=== PATIENT | female | born 1940 | race Caucasian/White ===

== ENCOUNTER 2018-08-12 16:41 | Observation (INO) ==
[2018-08-12 17:22] LABS: Basophils # (auto) 0.01 K/uL (0-0.2); Basophils % (auto) 0.1 %; Eosinophils # (auto) 0.14 K/uL (0-0.5); Eosinophils % (auto) 1.9 %; Hematocrit (blood only) 37.7 % (37-47); Hemoglobin 12.6 g/dL (12.0-16.0); Immature Granulocytes # (auto) 0.02 K/uL (0.00-0.02); Immature Granulocytes % (auto) 0.3 %; Lymphocytes # (auto) 1.74 K/uL (1.2-3.4); Lymphocytes % (auto) 23.5 %; Mean Corpuscular Hgb Conc 33.4 g/dL (32-36); Mean Corpuscular Volume 90.8 fL (80-100); Mean Platelet Volume 9.9 fL (7.4-10.4); Monocytes % (auto) 6.8 %; Neutrophils # (auto) 4.98 K/uL (1.4-6.5); Neutrophils % (auto) 67.4 %; Platelet Count 215 K/uL (130-400); RDW Coefficient of Variation 14.2 % (11.5-14.5); RDW Standard Deviation 46.8 fL (36.4-46.3); Red Blood Count 4.15 M/uL (4.2-5.4); White Blood Count 7.39 K/uL (4.8-10.8)
[2018-08-12 17:31] LABS: iSTAT Hemoglobin 12.6 g/dl (12.0-16.0); iSTAT Ionized Calcium 1.23 mmol/l (1.12-1.32)
[2018-08-12 17:38] LABS: Alanine Aminotransferase 24 U/L (12-78); Albumin Level 3.8 gm/dl (3.4-5.0); Aspartate Aminotransferase 24 U/L (15-37); BUN Creatinine Ratio 36.6 (10-20); Blood Urea Nitrogen 65 mg/dl (7-18); Calcium 9.2 mg/dl (8.5-10.1); Carbon Dioxide 23 mmol/L (21-32); Chloride 112 mmol/L (98-107); Creatinine Clr Calc Pharmacy 27.4 ml/min; Est GFR (African American) 31.6; Est GFR (Non-African American) 27.2; Glucose 149 mg/dl (70-99); Potassium 4.8 mmol/L (3.5-5.1); Sodium 143 mmol/L (136-145)
[2018-08-12] MEDS ORDERED: SODIUM CHLORIDE 0.9% 1000ML 500 ML IV ONE ×2 (17:38→18:36)
[2018-08-12 17:44] LABS: Alkaline Phosphatase 76 U/L (45-117); Bilirubin,Total 0.4 mg/dl (0.2-1); Creatine Kinase 192 U/L (26-192); Creatine Kinase MB 2.6 ng/ml (0.5-3.6); Globulin 3.9 gm/dl (2.5-4.0); Total Protein 7.7 gm/dl (6.4-8.2); Troponin I < 0.015 ng/ml (0-0.045)
[2018-08-12] MEDS ORDERED: OPTIRAY 320 125ml IV PRN (17:58)
--- NOTE | 2018-08-12 18:04 | CT Scan Report ---
CT ANGIOGRAM OF THE CHEST CLINICAL HISTORY: Atypical chest pain. Possible pulmonary embolism. COMPARISON STUDY: Noncontrast chest CT dated 05/03/2014 TECHNIQUE: Following the IV administration of 91 mL of Optiray-320, CT angiogram of the thorax was pe rformed from the thoracic inlet to the lung bases utilizing the pulmonary embolus protocol. Images ar e reviewed in the axial, sagittal, and coronal planes. IV contrast was administered without complicat ion. MIP imaging was performed. A dose lowering technique was utilized adhering to the principles of ALARA. CT DOSE: 555.41 mGy.cm FINDINGS: There is a partially calcified 9 mm right lobe thyroid nodule. No pathologically enlarged axillary mediastinal or hilar lymph nodes were visualized. There was no evidence of thoracic aortic dilatation. There were no pulmonary artery filling defects to indicate acute pulmonary embolism. No pleural effusions are visualized. There was no evidence of focal pulmonary consolidation. There is a stable 4 mm right lower lobe pulmo nary nodule. IMPRESSION: 1. No evidence of acute pulmonary embolism 2. No evidence of acute parenchymal consolidation 2. No evidence of pathologic adenopathy Electronically signed by: Ayan Iqbal M.D. 08/12/2018 6:03 PM
--- NOTE | 2018-08-12 18:58 | Ultrasound Report ---
US venous doppler LE LT CLINICAL HISTORY: 78 years-old Female presenting with Pt c/o Left leg pain, history of DVT. TECHNIQUE: Real-time grayscale and color and spectral Doppler ultrasound imaging of the veins of the left lower extremity was performed. Compression and augmentation were also utilized. COMPARISON: 05/01/2014. FINDINGS: LEFT: Common femoral vein: Patent. Greater saphenous vein (superficial): Patent. Deep femoral vein: Patent. Femoral vein: Patent. Popliteal vein: Patent. Calf veins: Patent. Previously noted thrombus in the posterior tibial and peroneal veins has resolved . Other: None. IMPRESSION: No evidence of deep venous thrombosis. Electronically signed by: Shantanu Navas M.D. 08/12/2018 6:56 PM
[2018-08-12] MEDS ORDERED: ACETAMINOPHEN 325 MG TAB PO PRN (22:40)
[2018-08-12] MEDS ORDERED: MAGNESIUM HYDROXIDE SUSP 30 ML UDC PO PRN (22:40)
[2018-08-12] MEDS ORDERED: NITROGLYCERIN SL 0.4 MG/TAB TAB SL PRN (22:40)
[2018-08-12] MEDS ORDERED: DEXTROSE 50% 50 ML SYRINGE IV PRN (22:40)
[2018-08-12] MEDS ORDERED: ONDANSETRON INJ 2 MG/ML 2 ML VIAL IV PRN (22:40)
[2018-08-12] MEDS ORDERED: ALUMINUM/MAGNESIUM SUSP 30 ML UDC PO PRN (22:40)
[2018-08-12] MEDS ORDERED: GLUCOSE 10 TABS/TUBE PO PRN (22:40)
[2018-08-12] MEDS ORDERED: GLUCOSE 40% GEL 15 GM TUBE PO PRN (22:40)
[2018-08-12] MEDS ORDERED: OXYBUTYNIN CHLORIDE XL 5 MG TABCR PO PRN (22:40)
[2018-08-12] MEDS ORDERED: ACETAMINOPHEN 1000 MG/100 ML IV IV PRN (22:40)
[2018-08-12] MEDS ORDERED: CARBOHYDRATES FOR HYPOGLYCEMIA PO PRN (22:40)
[2018-08-12] MEDS ORDERED: hydrOXYzine HCl 10 MG TAB PO PRN (22:40)
[2018-08-12] MEDS ORDERED: GLUCAGON FOR INJ 1 MG VIAL SQ PRN (22:40)
--- NOTE | 2018-08-12 23:48 | History & Physical Report ---
Date of Service August 12, 2018 Assessment & Plan (1) Chest pain: Chest pain / dyspnea on exertion- The patient will be admitted to telemetry for serial cardiac enzymes, serial EKG's, cardiac rhythm monitoring and a 2-D echocardiogram with Dopplers. The chest pain does not appear to be directly related to dyspnea on exertion, but appears to be more related to uncomfortable sensation she has associated with abdominal hernia. Multiple risk factors for heart disease including hyperlipidemia, diabetes mellitus, hypertension and obesity. She will need a stress test prior to discharge, if her work-up at baseline is normal. Present on Admission?: Yes (2) Dyspnea on exertion: As above. Present on Admission?: Yes (3) Pulmonary embolism: CTA chest was negative for PE Present on Admission?: Yes (4) Acute kidney injury (nontraumatic): Creatinine 1.77 upon admission, with range anywhere from 1.2-2.38. Hold lisinopril, furosemide and naproxen. We will hold off on any further IV fluids for now, she did receive a total of 1 L normal saline while in the ED. Repeat laboratories in a.m. Present on Admission?: Yes (5) Hypertension: As above. Present on Admission?: Yes (6) Hyperglycemia due to type 2 diabetes mellitus: Continue glimepiride 1 mg p.o. every morning. Check hemoglobin A1c. Placed on Accu-Cheks before meals and at bedtime with NovoLog coverage per scale. Present on Admission?: Yes (7) Depression: The patient did ask if her symptoms could be related to the recent of her son 5 months ago. I told her that issues with dyspnea on exertion were not likely related. We will continue her sertraline 25 mg p.o. every morning. It would likely be a benefit for her to be in counseling. Present on Admission?: Yes (8) GERD (gastroesophageal reflux disease): Continue ranitidine 150 mg p.o. every morning. Does not look to be related to her symptoms. Present on Admission?: Yes (9) Vitamin B12 deficiency: Continue supplement 1500 mcg p.o. every morning Present on Admission?: Yes (10) Hyperlipidemia LDL goal <70: Continue atorvastatin 20 mg p.o. every morning and Zetia 10 mg p.o. every morning. Check a fasting lipid panel Present on Admission?: Yes (11) Bladder spasms: Continue oxybutynin 50 mg p.o. daily as needed. Present on Admission?: Yes (12) Lower extremity edema: Lower extremity edema that she and her daughter reports as more pronounced by days and does improve by the morning. Holding furosemide for now due to acute kidney injury. Reassess in the morning. Present on Admission?: Yes History of Present Illness Chief Complaint: The patient presents to the emergency department with complaint of pain across her lower chest area and dyspnea on exertion. Primary Care Provider: AMBROCIO Fallon The patient is a 78-year-old female with a past medical history including hypertension,hyperlipidemia,venous insufficiency,diabetes mellitus who presents to the emergency department with complaint of pain across her lower chest and dyspnea on exertion walking even short distances, that relieves immediately with rest. The chest pain seems to occur independently of the dyspnea on exertion, and she relates it to a hernia. Her daughter does also report that the patient has had some increased lower extremity edema, and has been more fatigued. The patient asks if the of her son 5 months ago may be the cause of her symptoms, and she does become tearful when discussing his .. Allergies Allergy/AdvReac Type Severity Reaction Status Date / Time No Known Allergies Allergy Unknown Verified 08/12/18 17:55 Home Medications Home Medications Medication Instructions Recorded Confirmed Type ascorbic acid (vitamin C) [Vitamin 500 mg PO QAM 08/12/18 08/12/18 History C] aspirin [Aspir-81] 81 mg PO QAM 08/12/18 08/12/18 History atorvastatin 20 mg PO QAM 08/12/18 08/12/18 History cyanocobalamin (vitamin B-12) 1,500 mcg PO QAM 08/12/18 08/12/18 History [Vitamin B-12] ezetimibe [Zetia] 10 mg PO QAM 08/12/18 08/12/18 History furosemide [Lasix] 20 mg PO QAM 08/12/18 08/12/18 History glimepiride [Amaryl] 1 mg PO QAM 08/12/18 08/12/18 History hydroxyzine HCl 10 mg PO TID PRN 08/12/18 08/12/18 History lisinopril 40 mg PO QAM 08/12/18 08/12/18 History magnesium oxide 250 mg PO QAM 08/12/18 08/12/18 History metoprolol succinate [Toprol XL] 25 mg PO QAM 08/12/18 08/12/18 History multivitamin 1 tab PO QAM 08/12/18 08/12/18 History naproxen 500 mg PO BID PRN 08/12/18 08/12/18 History oxybutynin chloride 15 mg PO DAILY PRN 08/12/18 08/12/18 History ranitidine HCl [Zantac] 150 mg PO QAM 08/12/18 08/12/18 History sertraline 25 mg PO QAM 08/12/18 08/12/18 History Past Med/Surg History Medical History Hyperglycemia (Chronic) Pulmonary emboli (Chronic 05/01/14) Renal insufficiency (Chronic) Family History Other No significant family history Social History Preferred Language: Kiswahili Communication Ability: Effective Healthcare Recruiter Required: No Beliefs That Will Affect Care: None Current Living Situation: Family Other Information That Helps Us Care for You: No Feels Safe at Home: Yes Safety Concerns: Feels Safe At This Time Smoking Status: Never smoker Hx Alcohol Use: No Hx Substance Use: No Review of Systems Review of Systems: The patient denies palpitations, shortness of breath at rest, cough, sore throat, fevers, chills, sweats, nausea, vomiting, diarrhea , constipation, abdominal pain, pelvic pain, blood in urine or stool, dysuria, urinary frequency or urgency, lightheadedness, dizziness, headache, memory loss, loss of consciousness, rash, abnormal bruising or bleeding, imbalance, focal or generalized weakness, numbness or tingling in arms or legs, generalized arthralgias or myalgias, back or neck pain, or night sweats. The review of systems is otherwise negative other than for that already noted above, and at least 10 systems have been reviewed. Physical Exam Physical Exam: The patient is awake, alert and oriented 3, normocephalic and atraumatic, lying in bed and in no acute distress. HEENT--PERRL, EOMI, mucous membranes and oropharynx normal. Neck--supple. No JVD. No bruits. Thyroid normal, trachea midline, no adenopathy. Heart--normal S1 and S2. No murmurs, rubs or gallops. Lungs--clear bilaterally, no respiratory distress, no accessory muscle use. Abdomen--normal bowel sounds and soft. Nontender. Nondistended. Diastases recti. Obese Extremities--no cyanosis or clubbing. 1+ bilateral pretibial pitting edema. There are good distal pulses b/l. Dermatologic--normal skin turgor, normal color, no abnormal lymph nodes, no rash. Neurologic--cranial nerves II through XII grossly intact. Rheumatologic--normal range of motion. Psychiatric--normal affect. Depressed when talks about the recent of her son Results & Data Vital Signs (Past 12 Hours) Vital Signs Temp Pulse Pulse Resp BP BP Pulse Ox 08/12/18 22:30 97.9 F 74 18 161/77 H 96 08/12/18 22:25 71 18 148/88 H 97 08/12/18 21:00 78 18 157/54 H 97 08/12/18 19:20 64 16 120/60 97 08/12/18 18:39 78 19 142/67 H 95 08/12/18 17:06 96 08/12/18 16:44 97.7 F 99 H 20 161/90 H 98 Laboratory Results Laboratory Results WBC 7.39 K/uL (4.8-10.8) 08/12/18 17:04 RBC 4.15 M/uL (4.2-5.4) L 08/12/18 17:04 Hgb 12.6 g/dL (12.0-16.0) 08/12/18 17:04 POC Hgb 12.6 g/dl (12.0-16.0) 08/12/18 17:16 Hct 37.7 % (37-47) 08/12/18 17:04 POC Hct 37 % (37-47) 08/12/18 17:16 MCV 90.8 fL (80-100) 08/12/18 17:04 MCH 30.4 pg (25-34) 08/12/18 17:04 MCHC 33.4 g/dL (32-36) 08/12/18 17:04 RDW Std Deviation 46.8 fL (36.4-46.3) H 08/12/18 17:04 RDW Coeff of Heidi 14.2 % (11.5-14.5) 08/12/18 17:04 Plt Count 215 K/uL (130-400) 08/12/18 17:04 MPV 9.9 fL (7.4-10.4) 08/12/18 17:04 Immature Gran % (Auto) 0.3 % 08/12/18 17:04 Neut % (Auto) 67.4 % 08/12/18 17:04 Lymph % (Auto) 23.5 % 08/12/18 17:04 [place] % (Auto) 6.8 % 08/12/18 17:04 Eos % (Auto) 1.9 % 08/12/18 17:04 Baso % (Auto) 0.1 % 08/12/18 17:04 Immature Gran # (Auto) 0.02 K/uL (0.00-0.02) 08/12/18 17:04 Neut # (Auto) 4.98 K/uL (1.4-6.5) 08/12/18 17:04 Lymph # (Auto) 1.74 K/uL (1.2-3.4) 08/12/18 17:04 [place] # (Auto) 0.50 K/uL (0.11-0.59) 08/12/18 17:04 Eos # (Auto) 0.14 K/uL (0-0.5) 08/12/18 17:04 Baso # (Auto) 0.01 K/uL (0-0.2) 08/12/18 17:04 POC Sodium 145 mEq/L (135-144) H 08/12/18 17:16 Sodium 143 mmol/L (136-145) 08/12/18 17:04 POC Potassium 4.8 mEq/L (3.3-5.0) 08/12/18 17:16 Potassium 4.8 mmol/L (3.5-5.1) 08/12/18 17:04 POC Chloride 110 mEq/L (101-112) 08/12/18 17:16 Chloride 112 mmol/L (98-107) H 08/12/18 17:04 Carbon Dioxide 23 mmol/L (21-32) 08/12/18 17:04 POC Total CO2 22 mEq/l (24-31) L 08/12/18 17:16 Anion Gap 8.0 (3-11) 08/12/18 17:04 POC Anion Gap 19.0 mmol/L (16-25) 08/12/18 17:16 POC BUN 61 mg/dl (7-18) H 08/12/18 17:16 BUN 65 mg/dl (7-18) H 08/12/18 17:04 Creatinine 1.77 mg/dl (0.6-1.2) H 08/12/18 17:04 POC Creatinine 1.7 mg/dl (0.6-1.3) H 08/12/18 17:16 Est Cr Clr Drug Dosing 27.4 ml/min 08/12/18 17:04 Est GFR ( Amer) 31.6 08/12/18 17:04 Est GFR (Non-Af Amer) 27.2 08/12/18 17:04 BUN/Creatinine Ratio 36.6 (10-20) H 08/12/18 17:04 Glucose 149 mg/dl (70-99) H 08/12/18 17:04 POC Glucose (other) 155 mg/dl (70-99) H 08/12/18 17:16 Calcium 9.2 mg/dl (8.5-10.1) 08/12/18 17:04 POC Ioniz Calcium Moshe 1.23 mmol/l (1.12-1.32) 08/12/18 17:16 Total Bilirubin 0.4 mg/dl (0.2-1) 08/12/18 17:04 AST 24 U/L (15-37) 08/12/18 17:04 ALT 24 U/L (12-78) 08/12/18 17:04 Alkaline Phosphatase 76 U/L (45-117) 08/12/18 17:04 Total Creatine Kinase 192 U/L (26-192) 08/12/18 17:04 CK-MB (CK-2) 2.6 ng/ml (0.5-3.6) 08/12/18 17:04 CK/CKMB % Calc 1.4 (0-3.0) 08/12/18 17:04 Troponin I < 0.015 ng/ml (0-0.045) 08/12/18 22:49 NT-Pro-B Natriuret Pep 160 pg/ml (0-1800) 08/12/18 17:04 Total Protein 7.7 gm/dl (6.4-8.2) 08/12/18 17:04 Albumin 3.8 gm/dl (3.4-5.0) 08/12/18 17:04 Globulin 3.9 gm/dl (2.5-4.0) 08/12/18 17:04 Albumin/Globulin Ratio 1.0 (0.9-2) 08/12/18 17:04 Lipase 234 U/L (73-393) 08/12/18 17:04 Diagnostic Findings [facility], [place] [phone] Ultrasound Report Patient: SHAUNA VALDIVIA Date: 08/12/18 MR#: [id number]: [address] Acct ID:[id number]: Date: [address] Zip: [place] [address] Age: 78Location: ED Sex: F Room/Bed: Att Phy: Diagnosis: PCP SENT OVER, IMAGING NEEDS DONE, CHEST PAINS Korina Phy: Josephine Turner CRNPService Date: 08/12/18 Fam Phy: Josephine Turner CRNPInterpreting Phy: Shantanu Navas MD Admit Phy: Ordering Phy: Bob Richards MD cc: ~ US venous doppler LE CLINICAL HISTORY: 78 years-old Female presenting with Pt c/o Left leg pain, history of DVT. TECHNIQUE: Real-time grayscale and color and spectral Doppler ultrasound imaging of the veins of the left lower extremity was performed. Compression and augmentation were also utilized. COMPARISON: 05/01/2014. FINDINGS: LEFT: Common femoral vein: Patent. Greater saphenous vein (superficial): Patent. Deep femoral vein: Patent. Femoral vein: Patent. Popliteal vein: Patent. Calf veins: Patent. Previously noted thrombus in the posterior tibial and peroneal veins has resolved. Other: None. IMPRESSION: No evidence of deep venous thrombosis. Electronically signed by: Shantanu Navas M.D. 08/12/2018 6:56 PM Dictated: 08/12/181854 Transcribed: 08/12/181854 [facility], [place] [phone] CT Scan Report Patient: SHAUNA VALDIVIA Date: 08/12/18 MR#: [id number]: [address] Acct ID:[id number]: [facility] Zip: [place] [address] Age: 78Location: ED Sex: F Room/Bed: Att Phy: Diagnosis: PCP SENT OVER, IMAGING NEEDS DONE, CHEST PAINS Korina Phy: Josephine Turner CRNPService Date: 08/12/18 Fam Phy: Josephine Turner CRNPInterpreting Phy: Ayan Iqbal MD Admit Phy: Ordering Phy: Bob Richards MD cc: ~ CT ANGIOGRAM OF THE CHEST CLINICAL HISTORY: Atypical chest pain. Possible pulmonary embolism. COMPARISON STUDY: Noncontrast chest CT dated 05/03/2014 TECHNIQUE: Following the IV administration of 91 mL of Optiray-320, CT angiogram of the thorax was performed from the thoracic inlet to the lung bases utilizing the pulmonary embolus protocol. Images are reviewed in the axial, sagittal, and coronal planes. IV contrast was administered without complication. MIP imaging was performed. A dose lowering technique was utilized adhering to the principles of ALARA. CT DOSE: 555.41 mGy.cm FINDINGS: There is a partially calcified 9 mm right lobe thyroid nodule. No pathologically enlarged axillary mediastinal or hilar lymph nodes were visualized. There was no evidence of thoracic aortic dilatation. There were no pulmonary artery filling defects to indicate acute pulmonary embolism. No pleural effusions are visualized. There was no evidence of focal pulmonary consolidation. There is a stable 4 mm right lower lobe pulmonary nodule. IMPRESSION: 1. No evidence of acute pulmonary embolism 2. No evidence of acute parenchymal consolidation 2. No evidence of pathologic adenopathy Electronically signed by: Ayan Iqbal M.D. 08/12/2018 6:03 PM Dictated: 08/12/18 1758 Transcribed: 08/12/18 1802 Code Status & VTE Plan Code Status Full code VTE Prophylaxis Plan VTE Prophylaxis will be ordered: Yes (1) Chest pain Chest pain type: unspecified Qualified Code(s): R07.9 - Chest pain, unspecified
[2018-08-13 06:22] LABS: Basophils # (auto) 0.01 K/uL (0-0.2); Basophils % (auto) 0.1 %; Eosinophils # (auto) 0.15 K/uL (0-0.5); Eosinophils % (auto) 2.2 %; Hematocrit (blood only) 32.8 % (37-47); Hemoglobin 10.9 g/dL (12.0-16.0); Immature Granulocytes # (auto) 0.01 K/uL (0.00-0.02); Immature Granulocytes % (auto) 0.1 %; Lymphocytes # (auto) 2.09 K/uL (1.2-3.4); Lymphocytes % (auto) 30.8 %; Mean Corpuscular Hgb Conc 33.2 g/dL (32-36); Mean Corpuscular Volume 90.6 fL (80-100); Mean Platelet Volume 9.5 fL (7.4-10.4); Monocytes # (auto) 0.45 K/uL (0.11-0.59); Monocytes % (auto) 6.6 %; Neutrophils # (auto) 4.07 K/uL (1.4-6.5); Neutrophils % (auto) 60.2 %; Platelet Count 180 K/uL (130-400); RDW Standard Deviation 46.6 fL (36.4-46.3); Red Blood Count 3.62 M/uL (4.2-5.4); White Blood Count 6.78 K/uL (4.8-10.8)
[2018-08-13 06:31] LABS: Partial Thromboplastin Ratio 0.9; Partial Thromboplastin Time 23.4 Seconds (21.0-31.0); Prothrombin Time 10.4 Seconds (9.0-12.0)
[2018-08-13 07:03] LABS: BUN Creatinine Ratio 37.3 (10-20); Calcium 8.3 mg/dl (8.5-10.1); Creatinine Clr Calc Pharmacy 35.6 ml/min; Est GFR (African American) 43.8; Est GFR (Non-African American) 37.8; Potassium 4.2 mmol/L (3.5-5.1)
[2018-08-13 07:07] LABS: Albumin Globulin Ratio 0.9 (0.9-2); Bilirubin,Total 0.5 mg/dl (0.2-1); Globulin 3.4 gm/dl (2.5-4.0); Total Protein 6.4 gm/dl (6.4-8.2)
[2018-08-13 07:14] LABS: Estimated Average Glucose 126 mg/dl
[2018-08-13] MEDS: INSULIN ASPART 100 UNITS/ML 3 ML PEN SC SCH ×2 (08:00→12:15)
--- NOTE | 2018-08-13 08:35 | Hospitalist Progress Note ---
Date of Service August 13, 2018 Assessment & Plan (1) Chest pain: Chest pain / dyspnea on exertion- The patient will be admitted to telemetry for serial cardiac enzymes, serial EKG's, cardiac rhythm monitoring and a 2-D echocardiogram with Dopplers. The chest pain does not appear to be directly related to dyspnea on exertion, but appears to be more related to uncomfortable sensation she has associated with abdominal hernia. Multiple risk factors for heart disease including hyperlipidemia, diabetes mellitus, hypertension and obesity. She will need a stress test prior to discharge, if her work-up at baseline is normal. (2) Dyspnea on exertion: As above. (3) Pulmonary embolism: CTA chest was negative for PE (4) Acute kidney injury (nontraumatic): Creatinine 1.77 upon admission, with range anywhere from 1.2-2.38. Hold lisinopril, furosemide and naproxen. We will hold off on any further IV fluids for now, she did receive a total of 1 L normal saline while in the ED. Repeat laboratories in a.m. (5) Hypertension: As above. (6) Hyperglycemia due to type 2 diabetes mellitus: Continue glimepiride 1 mg p.o. every morning. Check hemoglobin A1c. Placed on Accu-Cheks before meals and at bedtime with NovoLog coverage per scale. (7) Depression: The patient did ask if her symptoms could be related to the recent of her son 5 months ago. I told her that issues with dyspnea on exertion were not likely related. We will continue her sertraline 25 mg p.o. every morning. It would likely be a benefit for her to be in counseling. (8) GERD (gastroesophageal reflux disease): Continue ranitidine 150 mg p.o. every morning. Does not look to be related to her symptoms. (9) Vitamin B12 deficiency: Continue supplement 1500 mcg p.o. every morning (10) Hyperlipidemia LDL goal <70: Continue atorvastatin 20 mg p.o. every morning and Zetia 10 mg p.o. every morning. Check a fasting lipid panel (11) Bladder spasms: Continue oxybutynin 50 mg p.o. daily as needed. (12) Lower extremity edema: Lower extremity edema that she and her daughter reports as more pronounced by days and does improve by the morning. Holding furosemide for now due to acute kidney injury. Reassess in the morning. Subjective patient without chest pain since admission does give a plausible story for CAD with exertional angina and dyspnea associated with some nausea, no diaphoresis has been occurring for two weeks, consistent with exertion reviewed labs, troponin negative, EKG with RBBB, RSR pattern discussed stress test, she feels she could not walk on treadmill due to knee pain will order dobutamine stress echo reviewed labs, troponin negative, Cr improved to 1.3 Review of Systems Review of Systems: All systems reviewed & are unremarkable except as noted in HPI & below Respiratory: no cough and no dyspnea Cardiovascular: no chest pain and no dyspnea Gastrointestinal: no abdominal pain, no nausea, no vomiting, no constipation and no diarrhea/loose stools Physical Exam Constitutional: WD/WN, vitals as above + obese Eyes: PERRL, conjunctivae normal, anicteric sclerae ENMT: external ear and nose normal, oropharynx normal Neck: trachea midline, no thyromegaly Respiratory: normal respiratory effort, lungs clear to auscultation Cardiovascular: RRR, no murmur, no edema Gastrointestinal (Abdomen): normal bowel sounds, soft, nontender, no hepa tosplenomegaly Musculoskeletal: no cyanosis or clubbing, extremities motor strength 5/5 Skin: no rashes, warm and dry Neurologic: patellar DTR's 2+ bilat, sensation intact and PERRL, EOMI, accommodation nl, no face palsy, no dysarthria Psychiatric: A+Ox3, euthymic affect Lymphatic: no cervical or axillary lymphadenopathy Results & Data Vital Signs (Past 12 Hours) Vital Signs Temp Pulse Pulse Resp BP BP BP 08/13/18 07:09 36.4 C L 71 18 109/69 08/13/18 03:29 36.7 C 68 16 96/58 L 08/12/18 22:37 81 08/12/18 22:30 36.6 C 74 18 161/77 H 08/12/18 22:25 71 18 148/88 H 08/12/18 21:00 78 18 157/54 H Pulse Ox 08/13/18 07:09 94 08/13/18 03:29 97 08/12/18 22:37 08/12/18 22:30 96 08/12/18 22:25 97 08/12/18 21:00 97 (1) Chest pain Chest pain type: unspecified Qualified Code(s): R07.9 - Chest pain, unspecified
[2018-08-13] MEDS ORDERED: DOBUTamine HCL 12.5 MG/ML 20 ML VIAL IV ONE (08:51)
[2018-08-13] MEDS ORDERED: METOPROLOL TARTRATE 1 MG/ML VIAL IV ONE (08:51)
[2018-08-13] MEDS ORDERED: ATROPINE SULFATE 0.1 MG/ML 10ML SYR IV ONE (08:51)
[2018-08-13] MEDS ORDERED: CYANOCOBALAMIN 500 MCG TABLET (VITAMIN B-12) PO SCH (09:00)
[2018-08-13] MEDS ORDERED: LISINOPRIL 40 MG TAB PO SCH (09:00)
[2018-08-13] MEDS ORDERED: SERTRALINE HCL 50 MG TABLET PO SCH (09:00)
[2018-08-13] MEDS ORDERED: ASCORBIC ACID 500 MG TAB PO SCH (09:00)
[2018-08-13] MEDS ORDERED: METOPROLOL SUCC 25MG EXT REL TAB PO SCH (09:00)
[2018-08-13] MEDS ORDERED: ASPIRIN 81 MG ECTAB PO SCH (09:00)
[2018-08-13] MEDS ORDERED: EZETIMIBE 10 MG TABLET PO SCH (09:00)
[2018-08-13] MEDS ORDERED: ATORVASTATIN 20 MG TAB PO SCH (09:00)
[2018-08-13] MEDS ORDERED: MAGNESIUM OXIDE 400 MG TAB PO SCH (09:00)
[2018-08-13] MEDS ORDERED: MULTIVITAMIN TAB PO SCH (09:00)
[2018-08-13] MEDS ORDERED: PERFLUTREN LIPID MICROSPHERE (DEFINITY) IV ONE (10:02)
--- NOTE | 2018-08-14 09:00 | Discharge Summary ---
Date of Service August 13, 2018 Admission HPI Per Admitting Provider The patient is a 78-year-old female with a past medical history including hypertension,hyperlipidemia,venous insufficiency,diabetes mellitus who presents to the emergency department with complaint of pain across her lower chest and dyspnea on exertion walking even short distances, that relieves immediately with rest. The chest pain seems to occur independently of the dyspnea on exertion, and she relates it to a hernia. Her daughter does also report that the patient has had some increased lower extremity edema, and has been more fatigued. The patient asks if the of her son 5 months ago may be the cause of her symptoms, and she does become tearful when discussing his .. Admission Exam Per Admitting Provider Physical Exam Physical Exam: The patient is awake, alert and oriented 3, normocephalic and atraumatic, lying in bed and in no acute distress. HEENT--PERRL, EOMI, mucous membranes and oropharynx normal. Neck--supple. No JVD. No bruits. Thyroid normal, trachea midline, no adenopathy. Heart--normal S1 and S2. No murmurs, rubs or gallops. Lungs--clear bilaterally, no respiratory distress, no accessory muscle use. Abdomen--normal bowel sounds and soft. Nontender. Nondistended. Diastases recti. Obese Extremities--no cyanosis or clubbing. 1+ bilateral pretibial pitting edema. There are good distal pulses b/l. Dermatologic--normal skin turgor, normal color, no abnormal lymph nodes, no rash. Neurologic--cranial nerves II through XII grossly intact. Rheumatologic--normal range of motion. Psychiatric--normal affect. Depressed when talks about the recent of her son Principal Diagnosis Chest pain Discharge Exam Constitutional WD/WN, vitals as above + obese Eyes PERRL, conjunctivae normal, anicteric sclerae ENMT external ear and nose normal, oropharynx normal Neck trachea midline, no thyromegaly Respiratory normal respiratory effort, lungs clear to auscultation Cardiovascular RRR, no murmur, no edema Gastrointestinal (Abdomen) normal bowel sounds, soft, nontender, no hepatosplenomegaly Musculoskeletal no cyanosis or clubbing, extremities motor strength 5/5 Skin no rashes, warm and dry Neurologic patellar DTR's 2+ bilat, sensation intact and PERRL, EOMI, accommodation nl, no face palsy, no dysarthria Psychiatric A+Ox3, euthymic affect Lymphatic no cervical or axillary lymphadenopathy Discharge Data Allergies Allergy/AdvReac Type Severity Reaction Status Date / Time No Known Allergies Allergy Unknown Verified 08/12/18 17:55 Consultations 08/12/18 21:23 ED Decision to Admit Stat 08/12/18 22:40 Consult Case Management - Discharge Planning Routine Ordered Studies 08/12/18 16:58 US venous doppler LE LT Stat 08/12/18 16:59 CT angio chest PE protocol Stat Hospital Course (1) Chest pain: Chest pain / dyspnea on exertion- troponin negative x 3 sets, no ischemic changes on two separate EKG CTA negative for PE or other pulmonary pathology dobutamine stress echo performed on 08/13/18 no evidence of ischemia at 97% of max HR patient had no chest pain during the test discussed that there was no evidence of cardiac etiology for pain follow up with PCP (2) Dyspnea on exertion: would consider getting PFT as outpatient no evidence of heart failure, no pneumonia, no PE on CTA chest (3) Acute kidney injury (nontraumatic): Creatinine 1.77 upon admission, with range anywhere from 1.2-2.38. Hold lisinopril, furosemide and naproxen. repeat Cr down to normal patient admits that she does not drink enough, mostly coffee in the morning, very little water (4) Hypertension: BP stable on discharge (5) Hyperglycemia due to type 2 diabetes mellitus: Continue glimepiride 1 mg p.o. every morning. (6) Depression: The patient did ask if her symptoms could be related to the recent of her son 5 months ago. I told her that issues with dyspnea on exertion were not likely related. We will continue her sertraline 25 mg p.o. every morning. It would likely be a benefit for her to be in counseling. (7) GERD (gastroesophageal reflux disease): Continue ranitidine 150 mg p.o. every morning. Does not look to be related to her symptoms. (8) Vitamin B12 deficiency: Continue supplement 1500 mcg p.o. every morning (9) Hyperlipidemia LDL goal <70: Continue atorvastatin 20 mg p.o. every morning and Zetia 10 mg p.o. every morning. Check a fasting lipid panel (10) Bladder spasms: Continue oxybutynin 50 mg p.o. daily as needed. (11) Lower extremity edema: Lower extremity edema that she and her daughter reports as more pronounced by days and does improve by the morning. no evidence of heart failure on echo Total Time Total Time Spent Total Time Spent (In Minutes): 31 minutes Total Time Includes: Examination of the Patient, Discharge Planning and Medicat ion Reconciliation Discharge Plan Discharge Items Patient Disposition: Home - Self-Care Reason For Visit: GANDHI Discharge Diagnosis: Chest pain, dyspnea on exertion Condition: Good Discharge Goals: Diagnostic testing and Improve function Activity: Resume your previous activity Non-emergency contact: Primary Care Provider Call non-emergency contact if: you have any medication questions, your symptoms worsen and your pain is not controlled Follow-up/Referrals: Josephine Turner CRNP [Primary Care Provider] - 08/16/18 11:10 am (Please, follow up with Josephine ALBRECHT on SundayAugust 16 at 11:10 am. *If you need to change this appointment, call the office at [phone].) Diet: Carb Consistent or DM2 Addtl Provider Instructions: Medications: no changes Chest pain, dyspnea on exertion, concerns for underlying coronary disease EKG was normal, no signs of ischemia troponin negative x 3 sets normal dobutamine stress echocardiogram, no evidence of ischemia at 97% max HR, sufficient test CTA chest was normal, no blood clots, no pneumonia or other changes recommend follow up with PCP, could consider pulmonary function testing as outpatient if continue to have shortness of breath Prescriptions: Continued multivitamin Tablet 1 tab PO QAM RF: 0 oxybutynin chloride 15 mg Tablet Extended Release 24hr 15 mg PO DAILY PRN (Reason: URINARY DISCOMFORT) RF: 0 atorvastatin 20 mg Tablet 20 mg PO QAM RF: 0 cyanocobalamin (vitamin B-12) [Vitamin B-12] 1,000 mcg Tablet 1,500 mcg PO QAM RF: 0 aspirin [Aspir-81] 81 mg Tablet,Delayed Release (Dr/Ec) 81 mg PO QAM RF: 0 glimepiride [Amaryl] 1 mg Tablet 1 mg PO QAM RF: 0 ascorbic acid (vitamin C) [Vitamin C] 500 mg Tablet 500 mg PO QAM RF: 0 ranitidine HCl [Zantac] 150 mg Tablet 150 mg PO QAM RF: 0 sertraline 25 mg Tablet 25 mg PO QAM RF: 0 furosemide [Lasix] 20 mg Tablet 20 mg PO QAM RF: 0 metoprolol succinate [Toprol XL] 25 mg Tablet Extended Release 24 Hr 25 mg PO QAM RF: 0 hydroxyzine HCl 10 mg Tablet 10 mg PO TID PRN (Reason: ANXIETY/INSOMNIA) RF: 0 lisinopril 40 mg Tablet 40 mg PO QAM RF: 0 naproxen 500 mg Tablet 500 mg PO BID PRN (Reason: ARTHRITIS PAIN) RF: 0 magnesium oxide 250 mg magnesium Tablet 250 mg PO QAM RF: 0 ezetimibe [Zetia] 10 mg Tablet 10 mg PO QAM RF: 0 Stand-Alone Forms: Call Back Authorization, [facility] Discharge Orders: Discharge Order (Routine); Ordered 08/13/18 Ordered By: Mir Ching Admission Data Admit Date/Time: 08/12/18 22:11 Attending Provider: Mir Ching Admit Provider: Jasper Du Primary Care Provider: Josephine Turner Other Providers: Jasper Du Service: Telemetry Other Interventions: Discharge Summary Assessment (RN) Last Done: 08/13/18 13:12 DC Date/Time DO NOT enter until pt leaves facility: 08/13/18 13:38
--- NOTE | 2018-08-14 19:25 | Emergency Department Note ---
Entered by Melissa Mistry acting as a scribe for Bob Richards MD History of Present Illness General Chief complaint: Chest Pain Stated complaint: PCP SENT OVER, IMAGING NEEDS DONE, CHEST PAINS Time Seen by Provider: 08/12/18 16:52 Source: patient History of Present Illness Onset (ago): hour(s) (prior to arrival) Location: chest Pain Consistency: + intermittent Maximum Pain Intensity: 5 Exacerbated By: + other (exertion) Associated symptoms: + shortness of breath and + other (left leg pain, back pain) The patient is a 78 year old F who presents to the Emergency Room with complaints of an intermittent chest pain that started prior to arrival. She notes that her chest pain is worsened with exertion. She notes that she is cu rrently on the medications Lisinopril and Coumadin. She states that she is also experiencing left leg pain, back pain, and shortness of breath. She adds that her left leg pain started when her son recently. Home Medications Home Medications Medication Instructions Recorded Confirmed Type ascorbic acid (vitamin C) [Vitamin 500 mg PO QAM 08/12/18 08/12/18 History C] aspirin [Aspir-81] 81 mg PO QAM 08/12/18 08/12/18 History atorvastatin 20 mg PO QAM 08/12/18 08/12/18 History cyanocobalamin (vitamin B-12) 1,500 mcg PO QAM 08/12/18 08/12/18 History [Vitamin B-12] ezetimibe [Zetia] 10 mg PO QAM 08/12/18 08/12/18 History furosemide [Lasix] 20 mg PO QAM 08/12/18 08/12/18 History glimepiride [Amaryl] 1 mg PO QAM 08/12/18 08/12/18 History hydroxyzine HCl 10 mg PO TID PRN 08/12/18 08/12/18 History lisinopril 40 mg PO QAM 08/12/18 08/12/18 History magnesium oxide 250 mg PO QAM 08/12/18 08/12/18 History metoprolol succinate [Toprol XL] 25 mg PO QAM 08/12/18 08/12/18 History multivitamin 1 tab PO QAM 08/12/18 08/12/18 History naproxen 500 mg PO BID PRN 08/12/18 08/12/18 History oxybutynin chloride 15 mg PO DAILY PRN 08/12/18 08/12/18 History ranitidine HCl [Zantac] 150 mg PO QAM 08/12/18 08/12/18 History sertraline 25 mg PO QAM 08/12/18 08/12/18 History Allergies Allergy/AdvReac Type Severity Reaction Status Date / Time No Known Allergies Allergy Unknown Verified 08/12/18 17:55 Past Med/Surg History Medical History Hyperglycemia (Chronic) Pulmonary emboli (Chronic 05/01/14) Renal insufficiency (Chronic) Family History Other No significant family history Social History Preferred Language: Azeri Communication Ability: Effective Marketing Program Coordinator Required: No Beliefs That Will Affect Care: None Current Living Situation: Family Other Information That Helps Us Care for You: No Feels Safe at Home: Yes Safety Concerns: Feels Safe At This Time Smoking Status: Never smoker Hx Alcohol Use: No Hx Substance Use: No Review of Systems See HPI for pertinent positives & negatives. and A total of 10 systems reviewed and were otherwise negative Physical Exam Vital Signs Vital Signs - 24 hr 08/12/18 16:44 08/12/18 17:06 08/12/18 18:39 Temperature 97.7 F Temperature Source Oral Sepsis Recent Fever Within 48 Hours No Sepsis New/Unexplained Change in Mental Status No Sepsis Action Taken by Nursing No Action Required Pulse Rate 99 H Pulse Rate [Apical] 78 Pulse Rhythm [Apical] Pulse Strength [Apical] Respiratory Rate 20 19 Respiratory Effort / Characteristics Spontaneous Respiratory Depth Normal Respiratory Pattern Blood Pressure 161/90 H Blood Pressure [Right Arm] 142/67 H Blood Pressure Mean 113 Blood Pressure Mean [Right Arm] 92 Blood Pressure Position Sitting Blood Pressure Position [Right Arm] Pulse Oximetry 98 96 95 Oxygen Delivery Method Room Air Room Air Room Air 08/12/18 19:20 Temperature Temperature Source Sepsis Recent Fever Within 48 Hours Sepsis New/Unexplained Change in Mental Status Sepsis Action Taken by Nursing Pulse Rate Pulse Rate [Apical] 64 Pulse Rhythm [Apical] Regular Pulse Strength [Apical] Normal Respiratory Rate 16 Respiratory Effort / Characteristics Non-Labored Respiratory Depth Normal Respiratory Pattern Regular Blood Pressure Blood Pressure [Right Arm] 120/60 Blood Pressure Mean Blood Pressure Mean [Right Arm] 80 Blood Pressure Position Blood Pressure Position [Right Arm] Lying Pulse Oximetry 97 Oxygen Delivery Method Room Air GENERAL: Awake, alert, well-appearing, in no acute distress HENT: Normocephalic, atraumatic. Oropharynx unremarkable. EYES: Normal conjunctiva. Sclera non-icteric. NECK: Supple. No nuchal rigidity. FROM. No JVD. RESPIRATORY: Clear to auscultation. CARDIAC: Regular rate, normal rhythm. Extremities warm and well perfused. Pulses equal. ABDOMEN: Soft, non-distended. No tenderness to palpation. No rebound or guarding. No masses. RECTAL: Deferred. MUSCULOSKELETAL: Chest examination reveals no tenderness. The back is symm etrical on inspection without obvious abnormality. There is no CVA tenderness to palpation. No joint edema. LOWER EXTREMITIES: Calves are equal size bilaterally and non-tender. No edema. No discoloration. NEURO: Normal sensorium. No sensory or motor deficits noted. SKIN: No rash or jaundice noted. Course 1652: The patient was evaluated in room B8. A complete history and physical exam was performed. 1753: I re-checked the patient. She states that she is doing well right now. 1937: I reviewed the patient's case with Dr. Jasper Du, [facility] Hospitalist. He will evaluate the patient for further management. Consultations Consultation #1: I reviewed the patient's case with Dr. Jasper Du [facility] Hospitalist. He will evaluate the patient for further management. Time: 19:38 Administered Medications Discontinued Medications Acetaminophen (Tylenol) 650 mg PO Q4H PRN PRN Reason: Pain or Fever Stop: 09/11/18 22:39 Last Admin: 08/13/18 08:12 Dose: 650 mg Documented by: [id number] Ascorbic Acid (Vitamin C) 500 mg PO [facility] Stop: 09/12/18 08:59 Last Admin: 08/13/18 08:02 Dose: 500 mg Documented by: [id number] Aspirin (Ecotrin Ectab) 81 mg PO [facility] Stop: 09/12/18 08:59 Last Admin: 08/13/18 08:02 Dose: 81 mg Documented by: [id number] Atorvastatin Calcium (Lipitor) 20 mg PO [facility] Stop: 09/12/18 08:59 Last Admin: 08/13/18 08:02 Dose: 20 mg Documented by: [id number] Atropine Sulfate (Atropine Sulfate) Confirm Administered Dose 2 mg IV .dBMEDx-MED [facility] Stop: 08/13/18 08:52 Last Admin: 08/13/18 09:59 Dose: Not Given Documented by: [id number] Cyanocobalamin (Vitamin B-12) 1,500 mcg PO QAM [facility] Stop: 09/12/18 08:59 Last Admin: 08/13/18 08:01 Dose: 1,500 mcg Documented by: [id number] Dobutamine HCl (Dobutrex) Confirm Administered Dose 250 mg IV .STK-MED ONE Stop: 08/13/18 08:52 Last Admin: 08/13/18 10:00 Dose: 1 dose Documented by: [id number] Ezetimibe (Zetia) 10 mg PO QAM [facility] Stop: 09/12/18 08:59 Last Admin: 08/13/18 08:02 Dose: 10 mg Documented by: [id number] Hydroxyzine HCl (Vistaril) 10 mg PO TID PRN PRN Reason: ANXIETY/INSOMNIA Stop: 09/11/18 22:39 Last Admin: 08/13/18 08:01 Dose: 10 mg Documented by: [id number] Sodium Chloride (Nss 1000ml) 500 mls @ 999 mls/hr IV .Q31M ONE Stop: 08/12/18 18:08 Last Infusion: 08/12/18 19:15 Dose: 0 mls/hr Documented by: [id number] Admin: 08/12/18 18:06 Dose: 999 mls/hr Documented by: [id number] Sodium Chloride (Nss 1000ml) 500 mls @ 999 mls/hr IV .Q31M ONE Stop: 08/12/18 19:06 Last Infusion: 08/12/18 20:19 Dose: 0 mls/hr Documented by: [id number] Admin: 08/12/18 19:19 Dose: 999 mls/hr Documented by: [id number] Insulin Aspart (Novolog Flexpen) 0 units SC ACHS [facility] Stop: 09/12/18 07:29 Last Admin: 08/13/18 12:15 Dose: 3 units Documented by: [id number] Cosigned by: [id number] Admin: 08/13/18 08:00 Dose: 3 units Documented by: [id number] Cosigned by: [id number] Ioversol (Optiray 320 125ml) 91 ml IV ONCE PRN PRN Reason: Interaction Checking Stop: 08/16/18 17:57 Last Admin: 08/12/18 17:58 Dose: 91 ml Documented by: [id number] Metoprolol Succinate (Toprol Xl) 25 mg PO [facility] Stop: 09/12/18 08:59 Last Admin: 08/13/18 08:01 Dose: 25 mg Documented by: [id number] Metoprolol Tartrate (Lopressor) Confirm Administered Dose 10 mg IV .STK-MED ONE Stop: 08/13/18 08:52 Last Admin: 08/13/18 10:01 Dose: 5 mg Documented by: [id number] Multivitamins (Multivitamin Tab) [facility] Stop: 09/12/18 08:59 Last Admin: 08/13/18 08:02 Dose: 1 tab Documented by: [id number] Perflutren Lipid Microsphere (Definity) 1.5 ml IV ONCE ONE Stop: 08/13/18 10:03 Last Admin: 08/13/18 10:03 Dose: 2 ml Documented by: [id number] Ranitidine HCl (Zantac) 150 mg PO [facility] Stop: 09/12/18 08:59 Last Admin: 08/13/18 08:02 Dose: 150 mg Documented by: [id number] Sertraline HCl (Zoloft) 25 mg PO [facility] Stop: 09/12/18 08:59 Last Admin: 08/13/18 08:02 Dose: 25 mg Documented by: [id number] Medical Decision Making Differential Diagnosis Differential diagnosis includes: cardiac ischemia, aortic dissection, pulmonary embolism, pneumonia, pneumothorax, musculoskeletal, infections, pericarditis, myocarditis, esophageal rupture, gastrointestinal, as well as others were entertained. Medical Records Attestation: I reviewed the patient's medical records. Home Medications Current Medication List: was personally reviewed by me Laboratory Data Attestation: I reviewed the patient's lab results. Result diagrams: 08/13/18 05:55 08/13/18 05:55 Lab Results 08/12/18 08/12/18 08/12/18 Range/Units 17:04 17:04 17:04 WBC 7.39 (4.8-10.8) K/uL RBC 4.15 L (4.2-5.4) M/uL Hgb 12.6 (12.0-16.0) g/dL POC Hgb (12.0-16.0) g/dl Hct 37.7 (37-47) % POC Hct (37-47) % MCV 90.8 (80-100) fL MCH 30.4 (25-34) pg MCHC 33.4 (32-36) g/dL RDW Std Deviation 46.8 H (36.4-46.3) fL RDW Coeff of Heidi 14.2 (11.5-14.5) % Plt Count 215 (130-400) K/uL MPV 9.9 (7.4-10.4) fL Immature Gran % (Auto) 0.3 % Neut % (Auto) 67.4 % Lymph % (Auto) 23.5 % Camas % (Auto) 6.8 % Eos % (Auto) 1.9 % Baso % (Auto) 0.1 % Immature Gran # (Auto) 0.02 (0.00-0.02) K/uL Neut # (Auto) 4.98 (1.4-6.5) K/uL Lymph # (Auto) 1.74 (1.2-3.4) K/uL Camas # (Auto) 0.50 (0.11-0.59) K/uL Eos # (Auto) 0.14 (0-0.5) K/uL Baso # (Auto) 0.01 (0-0.2) K/uL POC Sodium (135-144) mEq/L Sodium 143 (136-145) mmol/L POC Potassium (3.3-5.0) mEq/L Potassium 4.8 (3.5-5.1) mmol/L POC Chloride (101-112) mEq/L Chloride 112 H (98-107) mmol/L Carbon Dioxide 23 (21-32) mmol/L POC Total CO2 (24-31) mEq/l Anion Gap 8.0 (3-11) POC Anion Gap (16-25) mmol/L POC BUN (7-18) mg/dl BUN 65 H (7-18) mg/dl Creatinine 1.77 H (0.6-1.2) mg/dl POC Creatinine (0.6-1.3) mg/dl Est Cr Clr Drug Dosing 27.4 ml/min Est GFR ( Amer) 31.6 Est GFR (Non-Af Amer) 27.2 BUN/Creatinine Ratio 36.6 H (10-20) Glucose 149 H (70-99) mg/dl POC Glucose (other) (70-99) mg/dl Calcium 9.2 (8.5-10.1) mg/dl POC Ioniz Calcium Moshe (1.12-1.32) mmol/l Total Bilirubin 0.4 (0.2-1) mg/dl AST 24 (15-37) U/L ALT 24 (12-78) U/L Alkaline Phosphatase 76 (45-117) U/L Total Creatine Kinase 192 (26-192) U/L CK-MB (CK-2) 2.6 (0.5-3.6) ng/ml CK/CKMB % Calc 1.4 (0-3.0) Troponin I < 0.015 (0-0.045) ng/ml NT-Pro-B Natriuret Pep 160 (0-1800) pg/ml Total Protein 7.7 (6.4-8.2) gm/dl Albumin 3.8 (3.4-5.0) gm/dl Globulin 3.9 (2.5-4.0) gm/dl Albumin/Globulin Ratio 1.0 (0.9-2) Lipase 234 (73-393) U/L 08/12/18 Range/Units 17:16 WBC (4.8-10.8) K/uL RBC (4.2-5.4) M/uL Hgb (12.0-16.0) g/dL POC Hgb 12.6 (12.0-16.0) g/dl Hct (37-47) % POC Hct 37 (37-47) % MCV (80-100) fL MCH (25-34) pg MCHC (32-36) g/dL RDW Std Deviation (36.4-46.3) fL RDW Coeff of Heidi (11.5-14.5) % Plt Count (130-400) K/uL MPV (7.4-10.4) fL Immature Gran % (Auto) % Neut % (Auto) % Lymph % (Auto) % Cam[place] % (Auto) % Eos % (Auto) % Baso % (Auto) % Immature Gran # (Auto) (0.00-0.02) K/uL Neut # (Auto) (1.4-6.5) K/uL Lymph # (Auto) (1.2-3.4) K/uL Cam[place] # (Auto) (0.11-0.59) K/uL Eos # (Auto) (0-0.5) K/uL Baso # (Auto) (0-0.2) K/uL POC Sodium 145 H (135-144) mEq/L Sodium (136-145) mmol/L POC Potassium 4.8 (3.3-5.0) mEq/L Potassium (3.5-5.1) mmol/L POC Chloride 110 (101-112) mEq/L Chloride (98-107) mmol/L Carbon Dioxide (21-32) mmol/L POC Total CO2 22 L (24-31) mEq/l Anion Gap (3-11) POC Anion Gap 19.0 (16-25) mmol/L POC BUN 61 H (7-18) mg/dl BUN (7-18) mg/dl Creatinine (0.6-1.2) mg/dl POC Creatinine 1.7 H (0.6-1.3) mg/dl Est Cr Clr Drug Dosing ml/min Est GFR ( Amer) Est GFR (Non-Af Amer) BUN/Creatinine Ratio (10-20) Glucose (70-99) mg/dl POC Glucose (other) 155 H (70-99) mg/dl Calcium (8.5-10.1) mg/dl POC Ioniz Calcium Moshe 1.23 (1.12-1.32) mmol/l Total Bilirubin (0.2-1) mg/dl AST (15-37) U/L ALT (12-78) U/L Alkaline Phosphatase (45-117) U/L Total Creatine Kinase (26-192) U/L CK-MB (CK-2) (0.5-3.6) ng/ml CK/CKMB % Calc (0-3.0) Troponin I (0-0.045) ng/ml NT-Pro-B Natriuret Pep (0-1800) pg/ml Total Protein (6.4-8.2) gm/dl Albumin (3.4-5.0) gm/dl Globulin (2.5-4.0) gm/dl Albumin/Globulin Ratio (0.9-2) Lipase (73-393) U/L Imaging Data Radiologist's Impression: Radiology results as stated below per my review and the radiologist's interpretation: CT ANGIOGRAM OF THE CHEST CLINICAL HISTORY: Atypical chest pain. Possible pulmonary embolism. COMPARISON STUDY: Noncontrast chest CT dated 05/03/2014 TECHNIQUE: Following the IV administration of 91 mL of Optiray-320, CT angiogram of the thorax was performed from the thoracic inlet to the lung bases utilizing the pulmonary embolus protocol. Images are reviewed in the axial, sagittal, and coronal planes. IV contrast was administered without complication. MIP imaging was performed. A dose lowering technique was utilized adhering to the principles of ALARA. CT DOSE: 555.41 mGy.cm FINDINGS: There is a partially calcified 9 mm right lobe thyroid nodule. No pathologically enlarged axillary mediastinal or hilar lymph nodes were visualized. There was no evidence of thoracic aortic dilatation. There were no pulmonary artery filling defects to indicate acute pulmonary embolism. No pleural effusions are visualized. There was no evidence of focal pulmonary consolidation. There is a stable 4 mm right lower lobe pulmonary nodule. IMPRESSION: 1. No evidence of acute pulmonary embolism 2. No evidence of acute parenchymal consolidation 2. No evidence of pathologic adenopathy Electronically signed by: Ayan Iqbal M.D. 08/12/2018 6:03 PM US venous doppler LE LT CLINICAL HISTORY: 78 years-old Female presenting with Pt c/o Left leg pain, history of DVT. TECHNIQUE: Real-time grayscale and color and spectral Doppler ultrasound imaging of the veins of the left lower extremity was performed. Compression and augmentation were also utilized. COMPARISON: 05/01/2014. FINDINGS: LEFT: Common femoral vein: Patent. Greater saphenous vein (superficial): Patent. Deep femoral vein: Patent. Femoral vein: Patent. Popliteal vein: Patent. Calf veins: Patent. Previously noted thrombus in the posterior tibial and peroneal veins has resolved. Other: None. IMPRESSION: No evidence of deep venous thrombosis. Electronically signed by: Shantanu Navas M.D. 08/12/2018 6:56 PM ECG Data Attestation: I personally reviewed and interpreted this ECG as follows: Indication: chest pain Rate (beats per minute): 103 Rhythm: sinus tachycardia Findings: + RBBB; no ST depression and no ST elevation Comparison ECG Date: from (05/01/14) Change: no significant change Blood Pressure Blood Pressure Findings: Normal blood pressure Blood Pressure Disposition: did not require urgent referral MDM Narrative This is a 78-year-old female who presents emergency department complaining of chest pain. The patient was sent in by her primary care physician over concerns that the patient is having exertional chest pain. Serial EKGs as well as serial troponins were obtained here in the emergency department and the patient does not show any evidence of acute ischemia. I offered the patient to go home with close follow-up with her primary care physician however the patient would like to be admitted. For this reason I did discuss the case with the hospitalist rell israel who agreed to see the patient. Patient was in agreement with the treatment plan. Impression & Plan Chest pain Discharge Plan Visit Data *Final* Discharge Date/Time: 08/12/18 22:25 Chief Complaint: Chest Pain Stated Complaint: PCP SENT OVER, IMAGING NEEDS DONE, CHEST PAINS ED Provider: Bob Richards Discharge Problem: Chest pain Patient Disposition: Admitted As Inpatient Condition: Good Discharge Instructions Interventions: ED Discharge Assessment Last Done: 08/12/18 22:25 Discharge Problem: Chest pain Qualifiers: Chest pain type: unspecified Qualified Code(s): R07.9 - Chest pain, unspecified The scribe's documentation has been prepared under my direction and personally reviewed by me in its entirety. I confirm that the note above accurately reflects all work, treatment, procedures, and medical decision making performed by me.
== END 2018-08-13 13:38 | disposition home or self-care (01) ==
LOC: 2S 16:41 → ED 16:41 → SUATTDRO 22:11 → 2S 22:25

== ENCOUNTER 2018-11-12 18:29 | Inpatient (IN) ==
[2018-11-12] MEDS ORDERED: ALBUT/IPRATROP 3MG/0.5MG NEB 3 ML VIAL NEB STA ×2 (18:55→21:18)
--- NOTE | 2018-11-12 19:26 | XRay Report ---
SINGLE VIEW CHEST CLINICAL HISTORY: Generalized weakness. FINDINGS: An AP, portable, upright chest radiograph is compared to study dated 03/18/2018 and correla mike with chest CT dated 08/12/2018. The examination is degraded by portable technique and apical lordo tic positioning. The heart is top normal for projection. The mediastinal contour is within normal l imits. There are low lung volumes with bibasilar atelectasis. No airspace consolidation or large pleu ral effusion is identified. No pneumothorax is seen. The bony thorax is grossly intact. IMPRESSION: Low lung volumes with no active disease in the chest. Electronically signed by: Huey Fournier M.D. 11/12/2018 7:25 PM
[2018-11-12 19:28] LABS: Basophils # (auto) 0.02 K/uL (0-0.2); Basophils % (auto) 0.2 %; Eosinophils # (auto) 0.01 K/uL (0-0.5); Eosinophils % (auto) 0.1 %; Hematocrit (blood only) 32.3 % (37-47); Hemoglobin 11.1 g/dL (12.0-16.0); Immature Granulocytes # (auto) 0.02 K/uL (0.00-0.02); Immature Granulocytes % (auto) 0.2 %; Lymphocytes # (auto) 0.93 K/uL (1.2-3.4); Lymphocytes % (auto) 9.4 %; Mean Corpuscular Hgb Conc 34.4 g/dL (32-36); Mean Corpuscular Volume 86.6 fL (80-100); Mean Platelet Volume 9.4 fL (7.4-10.4); Monocytes # (auto) 1.31 K/uL (0.11-0.59); Monocytes % (auto) 13.2 %; Neutrophils # (auto) 7.64 K/uL (1.4-6.5); Neutrophils % (auto) 76.9 %; Platelet Count 228 K/uL (130-400); RDW Coefficient of Variation 13.1 % (11.5-14.5); Red Blood Count 3.73 M/uL (4.2-5.4); White Blood Count 9.93 K/uL (4.8-10.8)
[2018-11-12 19:50] LABS: Alanine Aminotransferase 24 U/L (12-78); Aspartate Aminotransferase 20 U/L (15-37); BUN Creatinine Ratio 15.6 (10-20); Blood Urea Nitrogen 22 mg/dl (7-18); Calcium 9.1 mg/dl (8.5-10.1); Carbon Dioxide 25 mmol/L (21-32); Chloride 108 mmol/L (98-107); Est GFR (African American) 41.2; Est GFR (Non-African American) 35.5; Glucose 88 mg/dl (70-99); Magnesium 1.6 mg/dl (1.8-2.4); Potassium 3.3 mmol/L (3.5-5.1); Sodium 142 mmol/L (136-145); Uric Acid 8.2 mg/dl (2.6-7.2)
[2018-11-12 20:00] LABS: Albumin Globulin Ratio 0.6 (0.9-2); Alkaline Phosphatase 66 U/L (45-117); Bilirubin,Total 0.5 mg/dl (0.2-1); Globulin 4.7 gm/dl (2.5-4.0); Total Protein 7.7 gm/dl (6.4-8.2)
--- NOTE | 2018-11-12 20:21 | Ultrasound Report ---
ULTRASOUND RIGHT LOWER EXTREMITY VENOUS CLINICAL HISTORY: Right foot swelling. COMPARISON STUDY: Bilateral lower extremity venous ultrasound dated 05/01/2014. TECHNIQUE: Real-time, grayscale, and color Doppler sonography of the deep veins of the right lower ex tremity was performed from the inguinal crease to the calf. Compression and augmentation were utilize d. FINDINGS: There is no sonographic evidence of deep venous thrombosis identified in the right lower ex tremity. The common femoral, superficial femoral, and popliteal veins are patent and normally serene sible. The greater saphenous vein and the profunda femoris vein at the junction with the common femor al vein are clear. The visualized calf veins are patent. IMPRESSION: There is no sonographic evidence of deep venous thrombosis identified in the right lower extremity. Electronically signed by: Huey Fournier M.D. 11/12/2018 8:19 PM
[2018-11-12] MEDS ORDERED: ASPIRIN CHEW 324 MG PO STA (21:18)
[2018-11-12] MEDS ORDERED: methylPREDNISolone 125 MG/2 ML VIAL IV STA (21:18)
[2018-11-12] MEDS ORDERED: MAGNESIUM OXIDE 400 MG TAB PO STA (21:31)
[2018-11-12] MEDS ORDERED: POTASSIUM CHLORIDE 20 MEQ TABCR PO STA (21:31)
--- NOTE | 2018-11-12 23:25 | History & Physical Report ---
Date of Service November 12, 2018 Assessment & Plan (1) Generalized weakness: 78-year-old female was admitted on 12 November 2018 for generalized weakness, fluid overload, and right ankle/foot swelling. Weakness, cough, BLE edema: Started with "cold symptoms" five days prior to admit. Subjective fevers. Mostly a lingering cough. Says bilateral lower extremity edema is also new. Denies known underlying cardiopulmonary disease. Denies present CP or SOB. Some concern for fluid overload. - Echocardiogram in July 2018 noted EF 60-65%, normal LV size and function, mild aortic stenosis with trace regurg. Was recommended to have PFTs around that time for dyspnea on exertion. - In ED, afebrile, borderline tachycardic, mildly hypertensive, with SpO2 in low 90s on room air. WBC 9. TSH normal. pCXR without acute findings. Blood cultures sent. EKG was NSR 86, right BBB, with T wave inversions inferior- laterally. - In ED, treated with DuoNeb's, aspirin, and Solu-Medrol. - Will give Lasix 40 mg IV x1. Order BNP, UA (to look for proteinuria), and troponin. 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 Echocardiogram in the morning. Duonebs q4h prn SOB. Right foot pain and swelling: Pain and swelling for five days prior to admit. History of left second toe similar swelling. Questionable formal diagnosis of gout. Has a couple of blisters on shins that do not appear infected. - In ED, no evidence of DVT in the right lower extremity. - Will check an ESR and CRP. X-ray of ankle to look for bony abnormalities. Local pain control with ice, diclofenac, and Tylenol as needed. Hypokalemia, hypomagnesemia: Admit K 3.3 and Mg 1.6. At home is on magnesium supplement daily. - In ED, treated with potassium and magnesium. - Will recheck in a.m. Elevated creatinine: Admit Cr 1.42, BUN 22. Recent comparisons between 1.3 and 1.7. May be multifactorial with decreased fluid intake recently as well as being on lisinopril and naproxen. - Hold meds temporarily as noted below. Avoided IVF given some level of fluid overload. Will recheck in a.m. Ongoing medical issues: - Hypertension, hyperlipidemia: Continue home aspirin, atorvastatin, Zetia, Lasix 20 mg daily, metoprolol. --- Held home lisinopril while evaluating elevated creatinine. - GERD: Continue home Zantac - Type 2 diabetes: HbA1c in July 2018 was 6.0. At home is on glimepiride. Placed on insulin sliding scale here. - Depression: Continue home sertraline. - History of DVT and PE: Reportedly many years ago with completed 6-month course of anticoagulation. - Overactive bladder: Continue home Ditropan. - Thyroid nodule: Seen on prior imaging in July. Admit TSH normal. - Question of history of gout: At home is on naproxen twice daily. Elevated uric acid level on admit is inconclusive. --- Will hold temporarily while evaluating elevated creatinine. - Anemia: Admit Hb 11.1, MCV 86. - Vitamin B12 deficiency: Continue home B12 supplementation. Code status: Full code. Diet: Heart healthy. DVT prophy: Heparin. PT/OT: Ordered. Disbo: Admit to [facility] [place] telemetry. (2) Cough: (3) Bilateral lower extremity edema: (4) Right foot pain: (5) Hypokalemia: (6) Hypomagnesemia: (7) Elevated serum creatinine: (8) Hypertension: (9) Hyperlipidemia: (10) GERD (gastroesophageal reflux disease): (11) Diabetes: (12) Depression: (13) History of DVT (deep vein thrombosis): (14) History of pulmonary embolus (PE): (15) Bladder spasms: (16) Thyroid nodule: (17) Anemia: (18) Vitamin B12 deficiency: History of Present Illness Primary Care Provider: AMBROCIO Fallon 78-year-old female is accompanied by her daughter. The patient herself is quite pleasant but does not necessarily volunteer any information on why she is here. She says she is primarily here because her son and family insisted that she get evaluated for multiple recent issues. Subjectively, we discussed the following: - Patient says that she has had a "cold" for the past 5 days (since Sunday, November 08). Describes subjective fever, positive sweats, mostly dry cough, right earache, and a mild generalized headache. She attributes this all to two of her grandchildren being sick recently. - When on exam it was noted she has bilateral lower extremity edema, she says this also developed about 5 days ago as well. She denies previous history of the same. Her daughter mentions that she has 2 blisters on her castillo. The left castillo blister appeared about 2 months ago and seems to have healed mostly. This is the first blister they have seen. The second blister on her right castillo that is currently present has been draining some clear fluid over the past week, is nontender, and does not really seem to bother her. - When on exam it was noted that she has a diffusely swollen right foot and ankle, she says this also developed in the past 5 days. She says she is never had swelling in these areas before but she has had swelling in her left second toe in the past. It is unclear if she is ever been formally diagnosed with gout. Regarding her foot and ankle, she says it is quite painful to bear any weight on it or to move it. She denies any trauma, falls, other joint pains, or known suspected source. Because of this difficulty with ambulation she has not had much to eat or drink over the past couple of days. - On review of her medical history, seems she is on track to be seen by nephrology for the first time in a couple of weeks. It is unclear exactly why. She also was previously evaluated by cardiology back in July for dyspnea on exertion. She denies any chest pains or dyspnea at present. She also notes that she has a history of a DVT and PE many years ago, completed a 6-month course of anticoagulation, and has not had any further known clots. - Past medical history includes hypertension, hyperlipidemia, GERD, type 2 diabetes, depression, DVT and PE, kidney stones, JUAN A, thyroid nodule, anemia, vitamin B12 deficiency, overactive bladder, breast cancer. - Past surgical history includes mastectomy, cholecystectomy. - Social history includes denying tobacco or alcohol use. Lives at home with her son. Allergies Allergy/AdvReac Type Severity Reaction Status Date / Time No Known Allergies Allergy Unknown Verified 11/12/18 19:49 Home Medications Home Medications Medication Instructions Recorded Confirmed Type ascorbic acid (vitamin C) [Vitamin 500 mg PO QAM 08/12/18 11/12/18 History C] aspirin [Aspir-81] 81 mg PO QAM 08/12/18 11/12/18 History atorvastatin 20 mg PO QAM 08/12/18 11/12/18 History cyanocobalamin (vitamin B-12) 1,500 mcg PO QAM 08/12/18 11/12/18 History [Vitamin B-12] ezetimibe [Zetia] 10 mg PO QAM 08/12/18 11/12/18 History furosemide [Lasix] 20 mg PO QAM 08/12/18 11/12/18 History glimepiride [Amaryl] 1 mg PO QAM 08/12/18 11/12/18 History hydroxyzine HCl 10 mg PO TID PRN 08/12/18 11/12/18 History lisinopril 40 mg PO QAM 08/12/18 11/12/18 History magnesium oxide 250 mg PO QAM 08/12/18 11/12/18 History metoprolol succinate [Toprol XL] 25 mg PO QAM 08/12/18 11/12/18 History multivitamin 1 tab PO QAM 08/12/18 11/12/18 History naproxen 500 mg PO BID PRN 08/12/18 11/12/18 History oxybutynin chloride 15 mg PO DAILY PRN 08/12/18 11/12/18 History ranitidine HCl [Zantac] 150 mg PO QAM 08/12/18 11/12/18 History sertraline 25 mg PO QAM 08/12/18 11/12/18 History acetaminophen [Tylenol Extra 1,000 mg PO TID PRN 11/12/18 11/12/18 History Strength] diclofenac sodium [Voltaren] 0 g TOPICAL UD PRN 11/12/18 11/12/18 History Past Med/Surg History Medical History Hyperglycemia (Chronic) Pulmonary emboli (Chronic 05/01/14) Renal insufficiency (Chronic) Family History Other No significant family history Social History Preferred Language: Norwegian Communication Ability: Effective [place] Alarm Installer Required: No Beliefs That Will Affect Care: None Current Living Situation: Family Current Living Situation Comment: lives with son cecil Other Information That Helps Us Care for You: No Feels Safe at Home: Yes Safety Concerns: Feels Safe At This Time Smoking Status: Never smoker Hx Alcohol Use: No Hx Substance Use: No Review of Systems Review of Systems: Constitutional: Positive subjective fevers and sweats. Denies focal weakness. Eyes: Denies any visual loss or diplopia ENT: Positive right earache. Denies any nose/throat pain or difficulty speaking or swallowing Respiratory: Positive dry cough. Denies dyspnea or hemoptysis. Cardiovascular: Positive bilateral lower extremity edema. Denies any chest pain. Gastrointestinal: Denies any abdominal pain, nausea/vomiting/diarrhea Musculoskeletal: Positive for right foot and ankle pain. Skin: Positive blistering to bilateral shins. Neuro: Positive mild headache. Denies acute focal weakness or numbness, or difficulties with speech or swallow. Physical Exam Physical Exam: GENERAL: Awake, alert, well-appearing, in no acute distress HENT: Normocephalic, atraumatic. Oropharynx unremarkable. EYES: Normal conjunctiva. Sclera non-icteric. NECK: Inspection normal. Supple and full ROM. No nuchal rigidity. CARDIAC: +S1S2 RRR, no murmurs. Bilateral lower extremity 2+ edema. RESPIRATORY: Diffuse rales throughout all lung garcia. Normal respiratory effort. Ongoing very congested but nonproductive cough. GI: +BS, soft, non-distended. No tenderness to palpation. No rebound or guarding. EXTREMITIES: The right foot and ankle are diffusely swollen, tender, and warm to touch. They do not appear overtly cellulitic. There is no obvious break in the skin in this area. There is near full range of motion but very slowly of the right toes and ankle. The right castillo has an approximately 2 cm blister with some crusting overlying it. There is no surrounding erythema, present drainage, or tenderness. The left castillo has an approximately 3 cm nearly completely healed skin lesion that appears like a previously broken blister. This area also has no surrounding erythema or tenderness. General bilateral leg strength is 5/5. Distal sensation intact. NEURO: No gross neuro deficits. Results & Data Vital Signs (Past 12 Hours) Vital Signs Temp Pulse Pulse Pulse Resp BP BP 11/12/18 22:51 91 H 22 151/78 H 11/12/18 21:32 93 H 18 11/12/18 21:19 89 20 151/93 H 11/12/18 20:23 87 92 H 22 124/66 11/12/18 19:14 90 18 11/12/18 19:13 11/12/18 19:11 87 22 110/87 11/12/18 18:35 37.5 C 102 H 20 141/67 H Pulse Ox 11/12/18 22:51 93 11/12/18 21:32 92 11/12/18 21:19 94 11/12/18 20:23 96 11/12/18 19:14 96 11/12/18 19:13 95 11/12/18 19:11 95 11/12/18 18:35 97 Laboratory Results 11/12/18 11/12/18 Range/Units 19:15 19:15 WBC 9.93 (4.8-10.8) K/uL RBC 3.73 L (4.2-5.4) M/uL Hgb 11.1 L (12.0-16.0) g/dL Hct 32.3 L (37-47) % MCV 86.6 (80-100) fL MCH 29.8 (25-34) pg MCHC 34.4 (32-36) g/dL RDW Std Deviation 42.0 (36.4-46.3) fL RDW Coeff of Heidi 13.1 (11.5-14.5) % Plt Count 228 (130-400) K/uL MPV 9.4 (7.4-10.4) fL Immature Gran % (Auto) 0.2 % Neut % (Auto) 76.9 % Lymph % (Auto) 9.4 % [place] % (Auto) 13.2 % Eos % (Auto) 0.1 % Baso % (Auto) 0.2 % Immature Gran # (Auto) 0.02 (0.00-0.02) K/uL Neut # (Auto) 7.64 H (1.4-6.5) K/uL Lymph # (Auto) 0.93 L (1.2-3.4) K/uL [place] # (Auto) 1.31 H (0.11-0.59) K/uL Eos # (Auto) 0.01 (0-0.5) K/uL Baso # (Auto) 0.02 (0-0.2) K/uL Sodium 142 (136-145) mmol/L Potassium 3.3 L (3.5-5.1) mmol/L Chloride 108 H (98-107) mmol/L Carbon Dioxide 25 (21-32) mmol/L Anion Gap 9.0 (3-11) BUN 22 H (7-18) mg/dl Creatinine 1.42 H (0.6-1.2) mg/dl Est Cr Clr Drug Dosing Not Reportable Est GFR ( Amer) 41.2 Est GFR (Non-Af Amer) 35.5 BUN/Creatinine Ratio 15.6 (10-20) Glucose 88 (70-99) mg/dl Uric Acid 8.2 H (2.6-7.2) mg/dl Calcium 9.1 (8.5-10.1) mg/dl Magnesium 1.6 L (1.8-2.4) mg/dl Total Bilirubin 0.5 (0.2-1) mg/dl AST 20 (15-37) U/L ALT 24 (12-78) U/L Alkaline Phosphatase 66 (45-117) U/L Total Protein 7.7 (6.4-8.2) gm/dl Albumin 3.0 L (3.4-5.0) gm/dl Globulin 4.7 H (2.5-4.0) gm/dl Albumin/Globulin Ratio 0.6 L (0.9-2) TSH 1.020 (0.300-4.500) uIu/ml Medications Administered Discontinued Medications Albuterol (Duoneb) 3 ml NEB NOW STA Stop: 11/12/18 18:56 Last Admin: 11/12/18 19:12 Dose: 3 ml Documented by: [id number] Albuterol (Duoneb) 3 ml NEB NOW STA Stop: 11/12/18 21:19 Last Admin: 11/12/18 21:31 Dose: 3 ml Documented by: [id number] Aspirin (Aspirin) 324 mg PO NOW STA Stop: 11/12/18 21:19 Last Admin: 11/12/18 21:24 Dose: 324 mg Documented by: [id number] Magnesium Oxide (Mag-Ox) 400 mg PO NOW STA Stop: 11/12/18 21:32 Last Admin: 11/12/18 21:39 Dose: 400 mg Documented by: [id number] Methylprednisolone (Solumedrol) 125 mg IV NOW STA Stop: 11/12/18 21:19 Last Admin: 11/12/18 21:24 Dose: 125 mg Documented by: [id number] Potassium Chloride (Klor-Con M20) 20 meq PO NOW STA Stop: 11/12/18 21:32 Last Admin: 11/12/18 21:39 Dose: 20 meq Documented by: [id number] Code Status & VTE Plan Code Status Full code VTE Prophylaxis Plan VTE Prophylaxis will be ordered: Yes Supervising Physician Co-Signing Physician Notes Patient seen and examined, chart reviewed, case discussed with Dr. Tierney and I agree with his assessment and plan as documented above. Briefly, patient is a 78yo C female with multiple medical problems to include HTN/HLP/DM/GERD presenting with cough/congestion, bilateral LE edema, left ankle pain. Also with complaint of subjective fevers/chills/diffuse weakness On exam she is afebrile, HD stable, 94% on RA, no evidence of respiratory distress Gen: nontoxic in appearance Skin: warmth and redness of left foot and ankle HEENT: NC/AT, PERRL, MMM, neck supple, no JVD appreciated Heart: +S1/S2, regular, no m/r/g Lungs: coarse breath sounds bilaterally with +rales Abd: +BS, soft, NT/ND Ext: 2+ pitting edema to knees, left ankle swelling, warmth and tenderness Labs and images reviewed. EKG with preexisting RBBB, now with TWI present in anterior leads, V1-V6. Patient had a cardiac stress test performed in July which was negative Assessment/Plan: 78yo C female with multiple medical problems presenting with cough/congestion and BL LE edema. Most concerning would be new onset CHF. Possibly with undiagnosed COPD as well. -Check echo, BNP -Lasix 40mg iV x 1 dose, monitor I/O, UOP and electroltyes -X-ray right foot -Pain control -Remainder of plan as above PG Care Time/CCT Total # of Minutes Spent Total Time Spent with Patient: Total time spent is greater than 50% in coordination of care (as documented) at patient's floor/unit and/or counseling patient: Resident Activity Tracking Resident Involvement: Resident Care Provided Care Provided: Adult Hospital Medicine (1) Anemia Anemia type: unspecified type Qualified Code(s): D64.9 - Anemia, unspecified
[2018-11-12] MEDS ORDERED: FUROSEMIDE 40 MG/4 ML VIAL IV ONE (23:33)
--- NOTE | 2018-11-12 23:51 | Emergency Department Note ---
Entered by Arthur Jay acting as a scribe for ED Provider Note CHIEF COMPLAINT: Swelling HISTORY OF PRESENT ILLNESS: The patient is a 78 year old female who presents to the Emergency Room with complaints of constant cold like symptoms that started about 5 days ago. The patient states that she has a headache and ear pain as well as a productive cough where she is producing phlegm. The patient notes she has been taking over the counter cold medication but her symptoms are not improving. She notes that two of her grandchildren have been sick recently. The patient reports that she also has had bilateral foot pain that is worse with putting weight on them and walking. Per the patient's daughter in law, she has not been eating or drinking much as of late because she is unable to walk to the bathroom. The patient notes that she also has noticed swelling in her bilateral lower extremities and jarod ecially in her right foot. Also on this right lower extremity is a sore on her calf that is similar to a sore she had on her left leg that took 2 months to heal. The patient states she has a history of PE and DVT but is not currently on any blood thinners. She also noted that she has not seen her PCP for her symptoms. Pt denies LOC, fevers, chills, diaphoresis, visual changes, neck pain, chest pain, breathing difficulties, nausea, vomiting, abdominal pain, back pain, melena, hematochezia, urinary symptoms, numbness, weakness, lymphadenopathy, or other complaints. REVIEW OF SYSTEMS: See HPI for pertinent positives and negatives. A total of ten systems were rev iewed and were otherwise negative. PMHx/PSHx: HLD, HTN, GERD, Type 2 DM, JUAN A, PE, Kidney stone, Depression SOCIAL HISTORY: Patient lives at home. PHYSICAL EXAM: GENERAL: Awake, alert, well-appearing, in no distress HENT: Normocephalic, atraumatic. Oropharynx unremarkable. EYES: Normal conjunctiva. Sclera non-icteric. NECK: Inspection normal. Non-tender. Supple. No nuchal rigidity. FROM. No masses. RESPIRATORY: Clear to auscultation. No wheezes. No rales. Normal respiratory effort. CARDIAC: Normal rate. Normal rhythm. No murmurs. No rubs. Extremities warm and well perfused. Pulses equal. No JVD. GI: Soft, non-distended. No tenderness to palpation. No rebound or guarding. No masses. RECTAL: Deferred. MUSCULOSKELETAL: Atraumatic. Chest examination reveals no tenderness. The back is symmetrical on inspection without obvious abnormality. There is no CVA tenderness to palpation. No joint edema. LOWER EXTREMITIES: 1+ bilateral edema, 2+ pedal edema on the right side with some erythema on the dorsal and lateral aspect. Moderate swelling and tenderness over the right lateral malleolus. No discoloration. NEURO: Normal sensorium. No sensory or motor deficits noted. SKIN: No rash or jaundice noted. EMERGENCY DEPARTMENT COURSE: 1851: Past medical records reviewed. The patient was evaluated in room A02, and a complete history and physical examination were performed. 2103: I reevaluated the patient and she is resting in bed. I updated her on results as well. We discussed the treatment plan and the patient fully understands and is agreeable with the plan. 2135: I spoke to Dr. Sánchez - [facility] Hospitalist about the patient's case. She will be accepting the patient for further evaluation. MEDICAL DECISION MAKING: A2 Nursing notes reviewed and agree them. Additional history obtained from the patient's daughter in-law. The patient's history was concerning for weakness and flulike symptoms. Differential diagnosis: Etiologies such as bronchitis, pneumonia, metabolic, infection, hypo/hyperglycemia, electrolyte abnormalities, cardiac sources, intracerebral event, toxicologic, neurologic, as well as others were entertained. Physical examination: As above. Patient was wheezing. She did have some swelling in the right ankle. ER treatment provided: IV Lock DuoNeb x2 IV Solu-Medrol Oral aspirin On reassessment the patient felt better. Oral magnesium Oral potassium Diagnostics interpretation by me: ECG: Inferolateral T wave inversions are new compared to prior. The labs revealed an unremarkable CBC and chemistry panel. The patient's uric acid value is elevated. She had subtle hypomagnesemia and hypokalemia. This was treated. The patient had wheezing and heavy cough. Imaging studies: Chest imaging was performed and was negative for acute disease. Ultrasound imaging of the right leg was negative for DVT. The patient has acute ECG changes. She has wheezing and a nonproductive cough. She appears to have a gout flare in the right ankle. There is no clear signs of cellulitis. Ultrasound imaging did not reveal any DVT. Consultation: A consultation was placed with the hospitalist. The case was discussed and diagnostics were reviewed. The patient was evaluated in the ER for further treatment. IMPRESSION: Generalized weakness Acute ECG changes Hypokalemia Hypomagnesemia Gout Anemia PLAN: Being evaluated by hospitalist The tereibe's documentation has been prepared under my direction and personally reviewed by me in its entirety. I confirm that the note above accurately reflects all work, treatment, procedures, and medical decision making performed by me. 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 Required: No Beliefs That Will Affect Care: None Current Living Situation: Family Feels Safe at Home: Yes Smoking Status: Never smoker Hx Alcohol Use: No Hx Substance Use: No Results & Data Vital Signs Vital Signs - 24 hr 11/12/18 18:35 11/12/18 19:11 11/12/18 19:13 Temperature 37.5 C Temperature Source Oral Sepsis Recent Fever Within 48 Hours No Sepsis New/Unexplained Change in Mental Status No Sepsis Action Taken by Nursing No Action Required Pulse Rate 102 H Pulse Rate [Bilateral Apical] 87 Pulse Rate [Right Finger] Pulse Rhythm Regular Pulse Strength Normal Respiratory Rate 20 22 Respiratory Effort / Characteristics Non-Labored Spontaneous Respiratory Depth Normal Respiratory Pattern Regular Blood Pressure 141/67 H Blood Pressure [Left Arm] 110/87 Blood Pressure Mean 91 Blood Pressure Mean [Left Arm] 94 Blood Pressure Position Sitting Pulse Oximetry 97 95 95 Oxygen Delivery Method Room Air Room Air Room Air 11/12/18 19:14 11/12/18 20:23 11/12/18 21:19 Temperature Temperature Source Sepsis Recent Fever Within 48 Hours Sepsis New/Unexplained Change in Mental Status Sepsis Action Taken by Nursing Pulse Rate Pulse Rate [Bilateral Apical] 87 89 Pulse Rate [Right Finger] 90 92 H Pulse Rhythm Pulse Strength Respiratory Rate 18 22 20 Respiratory Effort / Characteristics Non-Labored Spontaneous Respiratory Depth Respiratory Pattern Blood Pressure Blood Pressure [Left Arm] 124/66 151/93 H Blood Pressure Mean Blood Pressure Mean [Left Arm] 85 112 Blood Pressure Position Pulse Oximetry 96 96 94 Oxygen Delivery Method Room Air Room Air Room Air 11/12/18 21:32 11/12/18 22:51 11/12/18 23:35 Temperature Temperature Source Sepsis Recent Fever Within 48 Hours Sepsis New/Unexplained Change in Mental Status Sepsis Action Taken by Nursing Pulse Rate Pulse Rate [Bilateral Apical] 91 H 87 Pulse Rate [Right Finger] 93 H Pulse Rhythm Pulse Strength Respiratory Rate 18 22 22 Respiratory Effort / Characteristics Non-Labored Spontaneous Respiratory Depth Respiratory Pattern Blood Pressure Blood Pressure [Left Arm] 151/78 H 152/79 H Blood Pressure Mean Blood Pressure Mean [Left Arm] 102 103 Blood Pressure Position Pulse Oximetry 92 93 94 Oxygen Delivery Method Room Air Room Air Home Medications Current Medication List: was personally reviewed by me Laboratory Data Attestation: I reviewed the patient's lab results. Result diagrams: 11/12/18 19:15 11/12/18 19:15 Lab Results 11/12/18 11/12/18 Range/Units 19:15 19:15 WBC 9.93 (4.8-10.8) K/uL RBC 3.73 L (4.2-5.4) M/uL Hgb 11.1 L (12.0-16.0) g/dL Hct 32.3 L (37-47) % MCV 86.6 (80-100) fL MCH 29.8 (25-34) pg MCHC 34.4 (32-36) g/dL RDW Std Deviation 42.0 (36.4-46.3) fL RDW Coeff of Heidi 13.1 (11.5-14.5) % Plt Count 228 (130-400) K/uL MPV 9.4 (7.4-10.4) fL Immature Gran % (Auto) 0.2 % Neut % (Auto) 76.9 % Lymph % (Auto) 9.4 % [place] % (Auto) 13.2 % Eos % (Auto) 0.1 % Baso % (Auto) 0.2 % Immature Gran # (Auto) 0.02 (0.00-0.02) K/uL Neut # (Auto) 7.64 H (1.4-6.5) K/uL Lymph # (Auto) 0.93 L (1.2-3.4) K/uL [place] # (Auto) 1.31 H (0.11-0.59) K/uL Eos # (Auto) 0.01 (0-0.5) K/uL Baso # (Auto) 0.02 (0-0.2) K/uL Sodium 142 (136-145) mmol/L Potassium 3.3 L (3.5-5.1) mmol/L Chloride 108 H (98-107) mmol/L Carbon Dioxide 25 (21-32) mmol/L Anion Gap 9.0 (3-11) BUN 22 H (7-18) mg/dl Creatinine 1.42 H (0.6-1.2) mg/dl Est Cr Clr Drug Dosing Not Reportable Est GFR ( Amer) 41.2 Est GFR (Non-Af Amer) 35.5 BUN/Creatinine Ratio 15.6 (10-20) Glucose 88 (70-99) mg/dl Uric Acid 8.2 H (2.6-7.2) mg/dl Calcium 9.1 (8.5-10.1) mg/dl Magnesium 1.6 L (1.8-2.4) mg/dl Total Bilirubin 0.5 (0.2-1) mg/dl AST 20 (15-37) U/L ALT 24 (12-78) U/L Alkaline Phosphatase 66 (45-117) U/L Total Protein 7.7 (6.4-8.2) gm/dl Albumin 3.0 L (3.4-5.0) gm/dl Globulin 4.7 H (2.5-4.0) gm/dl Albumin/Globulin Ratio 0.6 L (0.9-2) TSH 1.020 (0.300-4.500) uIu/ml Administered Medications Discontinued Medications Albuterol (Duoneb) 3 ml NEB NOW STA Stop: 11/12/18 18:56 Last Admin: 11/12/18 19:12 Dose: 3 ml Documented by: [id number] Albuterol (Duoneb) 3 ml NEB NOW STA Stop: 11/12/18 21:19 Last Admin: 11/12/18 21:31 Dose: 3 ml Documented by: [id number] Aspirin (Aspirin) 324 mg PO NOW STA Stop: 11/12/18 21:19 Last Admin: 11/12/18 21:24 Dose: 324 mg Documented by: [id number] Magnesium Oxide (Mag-Ox) 400 mg PO NOW STA Stop: 11/12/18 21:32 Last Admin: 11/12/18 21:39 Dose: 400 mg Documented by: [id number] Methylprednisolone (Solumedrol) 125 mg IV NOW STA Stop: 11/12/18 21:19 Last Admin: 11/12/18 21:24 Dose: 125 mg Documented by: [id number] Potassium Chloride (Klor-Con M20) 20 meq PO NOW STA Stop: 11/12/18 21:32 Last Admin: 11/12/18 21:39 Dose: 20 meq Documented by: [id number] Imaging Data Radiologist's Impression: Radiology results as stated below per my review and the radiologist's interpretation: SINGLE VIEW CHEST CLINICAL HISTORY: Generalized weakness. FINDINGS: An AP, portable, upright chest radiograph is compared to study dated 03/18/2018 and correlated with chest CT dated 08/12/2018. The examination is degraded by portable technique and apical lordotic positioning. The heart is top normal for projection. The mediastinal contour is within normal limits. Th ere are low lung volumes with bibasilar atelectasis. No airspace consolidation or large pleural effusion is identified. No pneumothorax is seen. The bony thorax is grossly intact. IMPRESSION: Low lung volumes with no active disease in the chest. Electronically signed by: Huey Fournier M.D. 11/12/2018 7:25 PM ULTRASOUND RIGHT LOWER EXTREMITY VENOUS CLINICAL HISTORY: Right foot swelling. COMPARISON STUDY: Bilateral lower extremity venous ultrasound dated 05/01/2014. TECHNIQUE: Real-time, grayscale, and color Doppler sonography of the deep veins of the right lower extremity was performed from the inguinal crease to the calf. Compression and augmentation were utilized. FINDINGS: There is no sonographic evidence of deep venous thrombosis identified in the right lower extremity. The common femoral, superficial femoral, and popliteal veins are patent and normally compressible. The greater saphenous vein and the profunda femoris vein at the junction with the common femoral vein are clear. The visualized calf veins are patent. IMPRESSION: There is no sonographic evidence of deep venous thrombosis identified in the right lower extremity. Electronically signed by: Huey Fournier M.D. 11/12/2018 8:19 PM ECG Data Attestation: I personally reviewed and interpreted this ECG as follows: Indication: other (Lower extremity swelling) Rate (beats per minute): 86 Rhythm: normal sinus Findings: + other (LVH), + RBBB, + T-wave inversion (Anterolateral) and + left axis deviation Comparison ECG Date: from (August 13, 2018) Change: the following changes noted (T wave inversion is new) Blood Pressure Blood Pressure Findings: Normal blood pressure Discharge Plan Visit Data Chief Complaint: Swelling/Edema to Extremity Stated Complaint: B/L FOOT SWELLING, CAN'T WALK, DEHYDRATED ED Provider: Gonzalez Bender Discharge Problem: Generalized weakness, Acute electrocardiogram changes, Acute hypokalemia, Hypomagnesemia, Gout, Anemia Patient Disposition: Being Evaluated by Hospitalist Discharge Instructions Interventions: ED Discharge Assessment Last Done: 11/12/18 23:42 Forms Stand Alone Forms: [facility] [place] Prescriptions Prescriptions: No Action multivitamin Tablet 1 tab PO QAM RF: 0 oxybutynin chloride 15 mg Tablet Extended Release 24hr 15 mg PO DAILY PRN (Reason: URINARY DISCOMFORT) RF: 0 atorvastatin 20 mg Tablet 20 mg PO QAM RF: 0 cyanocobalamin (vitamin B-12) [Vitamin B-12] 1,000 mcg Tablet 1,500 mcg PO QAM RF: 0 aspirin [Aspir-81] 81 mg Tablet,Delayed Release (Dr/Ec) 81 mg PO QAM RF: 0 glimepiride [Amaryl] 1 mg Tablet 1 mg PO QAM RF: 0 ascorbic acid (vitamin C) [Vitamin C] 500 mg Tablet 500 mg PO QAM RF: 0 ranitidine HCl [Zantac] 150 mg Tablet 150 mg PO QAM RF: 0 sertraline 25 mg Tablet 25 mg PO QAM RF: 0 furosemide [Lasix] 20 mg Tablet 20 mg PO QAM RF: 0 metoprolol succinate [Toprol XL] 25 mg Tablet Extended Release 24 Hr 25 mg PO QAM RF: 0 hydroxyzine HCl 10 mg Tablet 10 mg PO TID PRN (Reason: ANXIETY/INSOMNIA) RF: 0 lisinopril 40 mg Tablet 40 mg PO QAM RF: 0 naproxen 500 mg Tablet 500 mg PO BID PRN (Reason: ARTHRITIS PAIN) RF: 0 magnesium oxide 250 mg magnesium Tablet 250 mg PO QAM RF: 0 ezetimibe [Zetia] 10 mg Tablet 10 mg PO QAM RF: 0 acetaminophen [Tylenol Extra Strength] 500 mg Tablet 1,000 mg PO TID PRN (Reason: Pain) RF: 0 diclofenac sodium [Voltaren] 1 % gel topical UD PRN (Reason: Pain) RF: 0 Referrals Referrals: Josephine Turner CRNP [Primary Care Provider] - Discharge Problem: Gout Qualifiers: Gout site: ankle Gout etiology: unspecified cause Chronicity: unspecified Laterality: right Qualified Code(s): M10.9 - Gout, unspecified Anemia Qualifiers: Anemia type: unspecified type Qualified Code(s): D64.9 - Anemia, unspecified The scribe's documentation has been prepared under my direction and personally r eviewed by me in its entirety. I confirm that the note above accurately reflects all work, treatment, procedures, and medical decision making performed by me.
[2018-11-13] MEDS ORDERED: CARBOHYDRATES FOR HYPOGLYCEMIA PO PRN (00:35)
[2018-11-13] MEDS ORDERED: FUROSEMIDE 40 MG/4 ML VIAL IV ONE (00:35)
[2018-11-13] MEDS ORDERED: GLUCOSE 40% GEL 15 GM TUBE PO PRN (00:35)
[2018-11-13] MEDS ORDERED: DICLOFENAC SOD 1% GEL 100 GM TUBE EXT PRN (00:35)
[2018-11-13] MEDS ORDERED: GLUCAGON FOR INJ 1 MG VIAL SQ PRN (00:35)
[2018-11-13] MEDS ORDERED: DEXTROSE 50% 50 ML SYRINGE IV PRN (00:35)
[2018-11-13] MEDS ORDERED: GLUCOSE 10 TABS/TUBE PO PRN (00:35)
[2018-11-13] MEDS ORDERED: ONDANSETRON INJ 2 MG/ML 2 ML VIAL IV PRN (00:35)
[2018-11-13] MEDS ORDERED: ALBUT/IPRATROP 3MG/0.5MG NEB 3 ML VIAL NEB PRN (00:35)
[2018-11-13] MEDS ORDERED: OXYBUTYNIN CHLORIDE XL 5 MG TABCR PO PRN (00:35)
[2018-11-13] MEDS ORDERED: ACETAMINOPHEN 500 MG TAB PO PRN (00:35)
[2018-11-13 01:02] LABS: NT Pro B Type Natriuretic Pept 479 pg/ml (0-1800); Troponin I < 0.015 ng/ml (0-0.045)
[2018-11-13] MEDS ORDERED: PNEUMOCOCCAL ADMINISTRATION CHARGE ONE (02:30)
[2018-11-13] MEDS ORDERED: PNEUMOCOCCAL POLYSACCHARIDES 25 MCG/0.5 ML VIAL/SYR IM ONE (02:30)
--- NOTE | 2018-11-13 07:16 | XRay Report ---
XR foot RT min 3V routine, XR ankle RT min 3V routine CLINICAL HISTORY: Right ankle and right foot pain/edema. COMPARISON STUDY: None. FINDINGS: Large plantar heel spur. Calcification within the plantar fascia. Soft tissue swelling with in the ankle as well as the dorsum of the foot. No acute fracture or dislocation. Moderate degenerati ve changes at the tarsometatarsal joint with associated subchondral cystic change and joint space ken rowing. Irregularity at the second metatarsal head may be due to an old injury. Small subchondral nathanael ency within the medial talar dome. This favors an osteochondral defect. IMPRESSION: 1. No fracture or dislocation within the right ankle or right foot. 2. Diffuse soft tissue swelling. 3. Moderate degenerative changes at the tarsometatarsal joint. 4. Small subchondral lucency within the medial talar dome. This favors an osteochondral defect. Electronically signed by: Manav Milan M.D. 11/13/2018 7:15 AM
[2018-11-13 07:49] LABS: INR 1.1 (0.9-1.1); Prothrombin Time 10.9 Seconds (9.0-12.0)
[2018-11-13 08:17] LABS: BUN Creatinine Ratio 22.9 (10-20); Calcium 9.5 mg/dl (8.5-10.1); Creatinine Clr Calc Pharmacy 34.4 ml/min; Est GFR (African American) 42.3; Est GFR (Non-African American) 36.5; Magnesium 1.8 mg/dl (1.8-2.4); Potassium 3.8 mmol/L (3.5-5.1)
[2018-11-13] MEDS: ASCORBIC ACID 500 MG TAB PO SCH (08:25)
[2018-11-13] MEDS: ASPIRIN 81 MG ECTAB PO SCH (08:25)
[2018-11-13] MEDS: METOPROLOL SUCC 25MG EXT REL TAB PO SCH (08:25)
[2018-11-13] MEDS: EZETIMIBE 10 MG TABLET PO SCH (08:25)
[2018-11-13] MEDS: FUROSEMIDE 20 MG TAB PO SCH (08:28)
[2018-11-13] MEDS: MAGNESIUM OXIDE 400 MG TAB PO SCH (08:28)
[2018-11-13] MEDS: CYANOCOBALAMIN 500 MCG TABLET (VITAMIN B-12) PO SCH (08:29)
[2018-11-13] MEDS: MULTIVITAMIN TAB PO SCH (08:29)
[2018-11-13] MEDS: INSULIN ASPART 100 UNITS/ML 3 ML PEN SC SCH ×4 (08:36→20:45)
[2018-11-13] MEDS: HEPARIN SOD 5,000 UNIT/0.5 ML VIAL SQ SCH ×2 (08:50→20:46)
[2018-11-13] MEDS: ATORVASTATIN 20 MG TAB PO SCH (08:50)
[2018-11-13] MEDS ORDERED: SERTRALINE HCL 50 MG TABLET PO SCH (09:00)
[2018-11-13] MEDS ORDERED: PERFLUTREN LIPID MICROSPHERE (DEFINITY) IV ONE (10:11)
[2018-11-13] MEDS ORDERED: INSULIN GLARGINE SOLOSTAR 100 UNITS/ML 3 ML PEN SC SCH (13:00)
[2018-11-13] MEDS: guaiFENesin 600 MG TABCR PO SCH ×2 (13:42→20:44)
[2018-11-13] MEDS: methylPREDNISolone 40 MG in SYRINGE 0 ML IV SCH (13:42)
[2018-11-13] MEDS: ALBUT/IPRATROP 3MG/0.5MG NEB 3 ML VIAL NEB SCH ×3 (13:56→19:48)
[2018-11-13] MEDS: ACETAMINOPHEN 325 MG TAB PO PRN ×2 (15:49→20:46)
--- NOTE | 2018-11-13 20:29 | Hospitalist Progress Note ---
Date of Service November 13, 2018 Assessment & Plan (1) Acute bronchitis: Had been sick with URI for 5+ days. Now with bronchial cough and extensive wheezing on exam. Likely viral in etiology. Cont steroids - plan solumedrol 40mg IV q12h. Defer on abx - no formal dx of COPD. Nebs q6h. Mucinex. Flutter valve and incentive spirometry. No complicating pneumonia on cxr. Present on Admission?: Yes (2) Acute gouty arthritis: right mid-foot, right ankle, left 2nd toe. IMPROVED w/ steroids. Steroids for bronchitis will suffice. Suspect CKD and concurrent illness were major instigators of gout flare. If another flare occurs in next 1-2 months consider allopurinol prophy. Present on Admission?: Yes (3) Depression: severe. increase zoloft to 100mg daily. desperately needs counseling - we discussed this thoroughly. (4) Hypertension: controlled cont home meds (5) 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: due to steroids. start lantus BID. adjust novolog correction and carb ratio. will likely require frequent adjustments. (6) Chronic kidney disease, stage 3a: CKD at baseline today. BMP am for stability. (7) History of pulmonary embolus (PE): noted no longer on systemic anticoagulation (8) DVT prophylaxis: heparin 5000 BID son updated at bedside home tomorrow? Subjective pt continues with cough but denies dyspnea or GANDHI. when she walked in hallway her breathing did not worsen. no h/o asthma or COPD but smoked heavily in their home for 50+ years. right ankle/foot pain and left 2nd toe pain ALL markedly improved today. she can weight-bear w/o difficulty. denies any recent consumption of shellfish, livers, beer, etc. since her son last year she has been severely depressed. her zoloft was increased to 75mg about 1 month ago. has been somewhat reclusive - not going out of the house much since depression worsened. has not pursued counseling. while talking about depression she started sobbing about her son - he from cancer. Review of Systems Constitutional: no fever and no chills Respiratory: + cough; no dyspnea, no dyspnea on exertion, no hemoptysis, no pain on inspiration and no sputum production Cardiovascular: no chest pain Gastrointestinal: no abdominal pain, no nausea and no vomiting Physical Exam Constitutional: + morbidly obese; no acute distress coughing ENMT: external ear and nose normal, oropharynx normal Respiratory: Auscultation: + diminished lung sounds (bases) and + wheezes (extensive b/l ) Cardiovascular: Rate/Rhythm: regular rate and regular rhythm Heart Sounds: normal S1 and normal S2; no murmur Vessels: posterior tibial pulses present and dorsalis pedis pulses present; no JVD Gastrointestinal (Abdomen): normal bowel sounds, soft, nontender, no hepatosplenomegaly Musculoskeletal: synovitis of mid-foot, right, and the ankle. mild tenderness to palpation of the right mid-foot region and ankle. mild swelling and warmth. left 2nd toe with synovitis and scant tenderness to palpation. Psychiatric: Orientation: alert and oriented x 3 Affect: + depressed affect and + tearful affect Results & Data Vital Signs (Past 12 Hours) Vital Signs Temp Pulse Pulse Resp BP Pulse Ox 11/13/18 19:50 36.8 C 73 23 122/75 95 11/13/18 17:17 100 H 11/13/18 15:24 92 H 18 92 11/13/18 15:06 36.2 C L 92 H 18 103/60 90 11/13/18 14:02 98 H 18 93 11/13/18 11:32 36.7 C 99 H 16 139/82 90 Laboratory Results Laboratory Results - last 24 hr 11/12/18 11/12/18 11/13/18 19:15 19:15 06:59 ESR > 90 H PT INR Sodium 142 Potassium 3.8 D Chloride 106 Carbon Dioxide 21 Anion Gap 15.0 H BUN 32 H Creatinine 1.39 H Est Cr Clr Drug Dosing 34.4 Est GFR ( Amer) 42.3 Est GFR (Non-Af Amer) 36.5 BUN/Creatinine Ratio 22.9 H Glucose 229 H POC Glucose Calcium 9.5 Magnesium 1.8 Troponin I < 0.015 C-Reactive Protein 29.50 H NT-Pro-B Natriuret Pep 479 11/13/18 11/13/18 11/13/18 06:59 07:34 11:39 ESR PT 10.9 INR 1.1 Sodium Potassium Chloride Carbon Dioxide Anion Gap BUN Creatinine Est Cr Clr Drug Dosing Est GFR ( Amer) Est GFR (Non-Af Amer) BUN/Creatinine Ratio Glucose POC Glucose 219 H 272 H Calcium Magnesium Troponin I C-Reactive Protein NT-Pro-B Natriuret Pep 11/13/18 11/13/18 16:30 20:21 ESR PT INR Sodium Potassium Chloride Carbon Dioxide Anion Gap BUN Creatinine Est Cr Clr Drug Dosing Est GFR ( Amer) Est GFR (Non-Af Amer) BUN/Creatinine Ratio Glucose POC Glucose 290 H 301 H* Calcium Magnesium Troponin I C-Reactive Protein NT-Pro-B Natriuret Pep PG Care Time/CCT Total # of Minutes Spent Total Time Spent with Patient: Total time spent is greater than 50% in coordination of care (as documented) at patient's floor/unit and/or counseling patient: (1) Acute bronchitis Bronchitis organism: other organism Qualified Code(s): J20.8 - Acute bronchitis due to other specified organisms (2) Depression Depression Type: major depressive disorder Major depression recurrence: single episode Active/Remission status: currently active Major depression episode severity: severe Psychotic features: without psychotic features Qualified Code(s): F32.2 - Major depressive disorder, single episode, severe without psychotic features (3) Hypertension Hypertension type: essential hypertension Qualified Code(s): I10 - Essential (primary) hypertension
[2018-11-13] MEDS: INSULIN GLARGINE SOLOSTAR 100 UNITS/ML 3 ML PEN SC SCH (21:02)
[2018-11-14] MEDS: methylPREDNISolone 40 MG in SYRINGE 0 ML IV SCH ×3 (01:48→23:30)
[2018-11-14] MEDS: ALBUT/IPRATROP 3MG/0.5MG NEB 3 ML VIAL NEB SCH ×4 (06:58→19:14)
[2018-11-14] MEDS: ATORVASTATIN 20 MG TAB PO SCH (08:03)
[2018-11-14] MEDS: CYANOCOBALAMIN 500 MCG TABLET (VITAMIN B-12) PO SCH (08:03)
[2018-11-14] MEDS: FUROSEMIDE 20 MG TAB PO SCH (08:04)
[2018-11-14] MEDS: MULTIVITAMIN TAB PO SCH (08:04)
[2018-11-14] MEDS: EZETIMIBE 10 MG TABLET PO SCH (08:04)
[2018-11-14] MEDS: ASPIRIN 81 MG ECTAB PO SCH (08:04)
[2018-11-14] MEDS: guaiFENesin 600 MG TABCR PO SCH ×2 (08:04→20:38)
[2018-11-14] MEDS: hydrOXYzine HCl 10 MG TAB PO PRN (08:05)
[2018-11-14] MEDS: HEPARIN SOD 5,000 UNIT/0.5 ML VIAL SQ SCH ×2 (08:05→20:38)
[2018-11-14] MEDS: MAGNESIUM OXIDE 400 MG TAB PO SCH (08:05)
[2018-11-14] MEDS: ASCORBIC ACID 500 MG TAB PO SCH (08:05)
[2018-11-14] MEDS: INSULIN ASPART 100 UNITS/ML 3 ML PEN SC SCH ×4 (08:09→20:37)
[2018-11-14] MEDS: INSULIN GLARGINE SOLOSTAR 100 UNITS/ML 3 ML PEN SC SCH ×2 (08:11→20:36)
[2018-11-14 08:22] LABS: BUN Creatinine Ratio 34.6 (10-20); Calcium 9.3 mg/dl (8.5-10.1); Est GFR (African American) 35.9; Potassium 3.7 mmol/L (3.5-5.1)
[2018-11-14] MEDS: METOPROLOL SUCC 25MG EXT REL TAB PO SCH (09:13)
[2018-11-14] MEDS: SERTRALINE HCL 100 MG TABLET PO SCH (09:14)
[2018-11-14] MEDS: ACETAMINOPHEN 325 MG TAB PO PRN (13:06)
--- NOTE | 2018-11-14 22:11 | Hospitalist Progress Note ---
Date of Service November 14, 2018 Assessment & Plan (1) Acute bronchitis: Ongoing but improving slowly. Would still continue with IV solumedrol - no wean today. Defer on abx - no formal dx of COPD. Nebs q6h. Mucinex. Flutter valve and incentive spirometry. No complicating pneumonia on cxr. Sputum was purulent today - still can get such with viral etiology - will send for bacterial culture. (2) Acute gouty arthritis: right mid-foot, right ankle, left 2nd toe. IMPROVED w/ steroids. Very nice decrease in inflammation again overnight. Steroids for bronchitis will suffice. Suspect CKD and concurrent illness were major instigators of gout flare. If another flare occurs in next 1-2 months consider allopurinol prophy. (3) Depression: severe. increased zoloft to 100mg daily. desperately needs counseling - we discussed this thoroughly again today. (4) Hypertension: controlled cont home meds (5) 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: due to steroids. adjust both lantus and novolog again today. (6) Chronic kidney disease, stage 3a: CKD at baseline once again today. BMP am for stability. (7) History of pulmonary embolus (PE): noted no longer on systemic anticoagulation (8) DVT prophylaxis: heparin 5000 BID daughter updated at bedside needs another day of IV steroids given severity of bronchitis change to admission status I certify that the inpatient services were ordered in accordance with Medicare regulations governing the order. This includes certification that hospital inpatient services are reasonable and necessary and in the case of services not specified as inpatient-only under 42 CFR 419.22(n), that they are appropriately provided as inpatient services in accordance to with the 2-midnight benchmark under 43 CFR 412.3(e) Subjective feet/toes/ankle improved minimal pain able to weight bear and ambulate still with cough/wheeze but no dyspnea Review of Systems Constitutional: no fever, no chills, no fatigue and no anorexia Respiratory: + chest congestion and + sputum production; no dyspnea and no dyspnea on exertion Cardiovascular: no chest pain Gastrointestinal: no abdominal pain, no nausea and no vomiting Physical Exam Constitutional: + morbidly obese; no acute distress ENMT: external ear and nose normal, oropharynx normal Respiratory: Auscultation: + diminished lung sounds (bases) and + wheezes (extensive b/l but improved from yesterday's exam) Cardiovascular: Rate/Rhythm: regular rate and regular rhythm Heart Sounds: normal S1 and normal S2; no murmur Vessels: posterior tibial pulses present and dorsalis pedis pulses present; no JVD Gastrointestinal (Abdomen): normal bowel sounds, soft, nontender, no hepatosplenomegaly Musculoskeletal: significant decrease in synovitis of right mid-foot and right ankle with no tenderness to palpation; left 2nd toe with less inflammation Psychiatric: Orientation: alert and oriented x 3 Affect: + depressed affect and + tearful affect Results & Data Vital Signs (Past 12 Hours) Vital Signs Temp Pulse Pulse Pulse Resp BP Pulse Ox 11/14/18 20:09 36.6 C 105 H 18 125/67 91 11/14/18 19:17 96 H 18 92 11/14/18 15:58 90 11/14/18 15:40 90 18 95 11/14/18 11:30 36.6 C 91 H 18 92 11/14/18 11:25 107 H 18 93 Laboratory Results Laboratory Results - last 24 hr 11/14/18 11/14/18 11/14/18 07:31 07:45 11:41 Sodium 141 Potassium 3.7 Chloride 107 Carbon Dioxide 21 Anion Gap 13.0 H BUN 55 H D Creatinine 1.59 H Est Cr Clr Drug Dosing 30.0 Est GFR ( Amer) 35.9 Est GFR (Non-Af Amer) 31.0 BUN/Creatinine Ratio 34.6 H Glucose 234 H POC Glucose 253 H 244 H Calcium 9.3 11/14/18 11/14/18 16:58 20:12 Sodium Potassium Chloride Carbon Dioxide Anion Gap BUN Creatinine Est Cr Clr Drug Dosing Est GFR ( Amer) Est GFR (Non-Af Amer) BUN/Creatinine Ratio Glucose POC Glucose 260 H 279 H Calcium PG Care Time/CCT Total # of Minutes Spent Total Time Spent with Patient: Total time spent is greater than 50% in coordination of care (as documented) at patient's floor/unit and/or counseling patient: (1) Depression Active/Remission status: currently active Depression Type: major depressive disorder Major depression episode severity: severe Major depression recurrence: single episode Psychotic features: without psychotic features Qualified Code(s): F32.2 - Major depressive disorder, single episode, severe without psychotic features (2) Acute bronchitis Bronchitis organism: other organism Qualified Code(s): J20.8 - Acute bronchitis due to other specified organisms (3) Hypertension Hypertension type: essential hypertension Qualified Code(s): I10 - Essential (primary) hypertension
[2018-11-15] MEDS: ALBUT/IPRATROP 3MG/0.5MG NEB 3 ML VIAL NEB SCH ×4 (06:53→19:09)
[2018-11-15 08:27] LABS: BUN Creatinine Ratio 41.8 (10-20); Calcium 9.3 mg/dl (8.5-10.1); Creatinine Clr Calc Pharmacy 32.6 ml/min; Est GFR (African American) 39.2; Est GFR (Non-African American) 33.8
[2018-11-15] MEDS: INSULIN ASPART 100 UNITS/ML 3 ML PEN SC SCH ×4 (08:58→20:30)
[2018-11-15] MEDS: INSULIN GLARGINE SOLOSTAR 100 UNITS/ML 3 ML PEN SC SCH ×2 (08:59→20:29)
[2018-11-15] MEDS: MULTIVITAMIN TAB PO SCH (09:00)
[2018-11-15] MEDS: guaiFENesin 600 MG TABCR PO SCH ×2 (09:00→20:28)
[2018-11-15] MEDS: ATORVASTATIN 20 MG TAB PO SCH (09:01)
[2018-11-15] MEDS: FUROSEMIDE 20 MG TAB PO SCH (09:01)
[2018-11-15] MEDS: CYANOCOBALAMIN 500 MCG TABLET (VITAMIN B-12) PO SCH (09:01)
[2018-11-15] MEDS: EZETIMIBE 10 MG TABLET PO SCH (09:01)
[2018-11-15] MEDS: SERTRALINE HCL 100 MG TABLET PO SCH (09:01)
[2018-11-15] MEDS: ASPIRIN 81 MG ECTAB PO SCH (09:02)
[2018-11-15] MEDS: HEPARIN SOD 5,000 UNIT/0.5 ML VIAL SQ SCH ×2 (09:02→20:30)
[2018-11-15] MEDS: MAGNESIUM OXIDE 400 MG TAB PO SCH (09:02)
[2018-11-15] MEDS: ASCORBIC ACID 500 MG TAB PO SCH (09:02)
[2018-11-15] MEDS: METOPROLOL SUCC 25MG EXT REL TAB PO SCH (09:20)
[2018-11-15 09:47] LABS: Estimated Average Glucose 148 mg/dl; Hemoglobin A1C 6.8 % (4.5-5.6)
[2018-11-15] MEDS: ACETAMINOPHEN 325 MG TAB PO PRN ×2 (10:27→20:28)
[2018-11-15] MEDS: methylPREDNISolone 40 MG in SYRINGE 0 ML IV SCH (12:40)
[2018-11-15] MEDS ORDERED: FUROSEMIDE 40 MG/4 ML VIAL IV STA (14:29)
--- NOTE | 2018-11-15 20:54 | Hospitalist Progress Note ---
Date of Service November 15, 2018 Assessment & Plan (1) Acute bronchitis: Slowly improving. Cont IV solumedrol - wean to 30mg IV q12h today. Hopefully can transition to PO prednisone tomorrow. Defer on abx - no formal dx of COPD. Nebs q6h. Mucinex. Flutter valve and incentive spirometry. Really encouraged her to perform these. She does not appear overtly volume overloaded but will give 1 additional dose of lasix today. No complicating pneumonia on cxr. Sputum culture negative to date. Thus, etiology likely viral. (2) Acute gouty arthritis: right mid-foot, right ankle, left 2nd toe. IMPROVED w/ steroids. Very nice decrease in inflammation again overnight. Steroids for bronchitis will suffice. Suspect CKD and concurrent illness were major instigators of gout flare. If another flare occurs in next 1-2 months consider allopurinol prophy. Recheck crp in am. (3) Depression: severe. increased zoloft to 100mg daily this admission. desperately needs counseling - we discussed this thoroughly multiple times during the admission. instigator of depression was the of her son sometime in 2018. (4) Hypertension: controlled cont home meds (5) 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: due to steroids. improved today. cont lantus/novolog. hopefully she will not need insulin at d/c. follow glucose levels. (6) Chronic kidney disease, stage 3a: Creatinine stable today. BMP in am. (7) History of pulmonary embolus (PE): noted no longer on systemic anticoagulation (8) Morbid obesity with BMI of 40.0-44.9, adult: BMI 40 (9) DVT prophylaxis: heparin 5000 BID son updated at bedside hopefully home on Sunday Subjective cough largely unchanged no dyspnea or GANDHI however still w/ wheeze above symptoms mildly improved nursing staff walked patient this am; o2 sats were 90% in room air during the walk right foot pain continue to improve edema of feet continue to improve tele stable overnight eating well no new complaints Review of Systems Constitutional: no fever and no chills Respiratory: + cough, + sputum production and + wheezing; no dyspnea, no dyspnea on exertion and no hemoptysis Cardiovascular: no chest pain Gastrointestinal: no abdominal pain, no bloating, no nausea and no vomiting Physical Exam Constitutional: + morbidly obese; no acute distress ENMT: external ear and nose normal, oropharynx normal Respiratory: no respiratory distress Auscultation: + diminished lung sounds (bases), + rhonchi and + wheezes (b/l -- again improved today); no crackles Cardiovascular: Rate/Rhythm: regular rate and regular rhythm Heart Sounds: normal S1 and normal S2; no murmur Vessels: posterior tibial pulses present and dorsalis pedis pulses present; no JVD Gastrointestinal (Abdomen): normal bowel sounds, soft, nontender, no hepatosplenomegaly Musculoskeletal: synovitis of right ankle and right mid-foot again improved; no tenderness to palpation. left 2nd toe w/ decreased synovitis. Psychiatric: Orientation: alert and oriented x 3 Affect: + blunted affect Results & Data Vital Signs (Past 12 Hours) Vital Signs Temp Pulse Pulse Pulse Resp BP Pulse Ox 11/15/18 19:09 80 18 91 11/15/18 18:44 36.7 C 88 20 108/66 93 11/15/18 16:00 95 H 11/15/18 15:39 58 L 16 92 11/15/18 15:28 36.8 C 88 20 119/74 92 11/15/18 14:07 98 11/15/18 12:26 36.8 C 92 H 20 150/89 H 93 11/15/18 11:28 58 L 16 93 Laboratory Results Laboratory Results - last 24 hr 11/15/18 11/15/18 11/15/18 07:37 07:41 07:41 Sodium 142 Potassium 4.0 Chloride 110 H Carbon Dioxide 23 Anion Gap 10.0 BUN 62 H Creatinine 1.48 H Est Cr Clr Drug Dosing 32.6 Est GFR ( Amer) 39.2 Est GFR (Non-Af Amer) 33.8 BUN/Creatinine Ratio 41.8 H Glucose 204 H POC Glucose 200 H Estimat Average Glucose 148 Hemoglobin A1c 6.8 H Calcium 9.3 11/15/18 11/15/18 11/15/18 11:43 16:35 20:08 Sodium Potassium Chloride Carbon Dioxide Anion Gap BUN Creatinine Est Cr Clr Drug Dosing Est GFR ( Amer) Est GFR (Non-Af Amer) BUN/Creatinine Ratio Glucose POC Glucose 194 H 135 H 139 H Estimat Average Glucose Hemoglobin A1c Calcium Diagnostic Findings sputum cx thus far negative PG Care Time/CCT Total # of Minutes Spent Total Time Spent with Patient: Total time spent is greater than 50% in coordination of care (as documented) at patient's floor/unit and/or counseling patient: (1) Depression Active/Remission status: currently active Depression Type: major depressive disorder Major depression episode severity: severe Major depression recurrence: single episode Psychotic features: without psychotic features Qualified Code(s): F32.2 - Major depressive disorder, single episode, severe without psychotic features (2) Acute bronchitis Bronchitis organism: other organism Qualified Code(s): J20.8 - Acute bronchitis due to other specified organisms (3) Hypertension Hypertension type: essential hypertension Qualified Code(s): I10 - Essential (primary) hypertension
[2018-11-15] MEDS: methylPREDNISolone 30 MG in SYRINGE 0 ML IV SCH (21:55)
[2018-11-16 06:00] LABS: Hematocrit (blood only) 33.9 % (37-47); Hemoglobin 11.4 g/dL (12.0-16.0); Mean Corpuscular Hgb Conc 33.6 g/dL (32-36); Mean Corpuscular Volume 87.6 fL (80-100); Mean Platelet Volume 9.5 fL (7.4-10.4); Platelet Count 334 K/uL (130-400); RDW Coefficient of Variation 13.2 % (11.5-14.5); RDW Standard Deviation 42.5 fL (36.4-46.3); Red Blood Count 3.87 M/uL (4.2-5.4)
[2018-11-16 06:32] LABS: BUN Creatinine Ratio 39.7 (10-20); Creatinine Clr Calc Pharmacy 28.5 ml/min; Est GFR (African American) 33.4; Est GFR (Non-African American) 28.8; Potassium 4.1 mmol/L (3.5-5.1)
[2018-11-16 06:35] LABS: C Reactive Protein 6.68 mg/dl (0-0.29)
[2018-11-16] MEDS: ALBUT/IPRATROP 3MG/0.5MG NEB 3 ML VIAL NEB SCH (07:16)
[2018-11-16] MEDS: CYANOCOBALAMIN 500 MCG TABLET (VITAMIN B-12) PO SCH (08:04)
[2018-11-16] MEDS: ATORVASTATIN 20 MG TAB PO SCH (08:04)
[2018-11-16] MEDS: MULTIVITAMIN TAB PO SCH (08:05)
[2018-11-16] MEDS: METOPROLOL SUCC 25MG EXT REL TAB PO SCH (08:05)
[2018-11-16] MEDS: EZETIMIBE 10 MG TABLET PO SCH (08:05)
[2018-11-16] MEDS: guaiFENesin 600 MG TABCR PO SCH (08:05)
[2018-11-16] MEDS: SERTRALINE HCL 100 MG TABLET PO SCH (08:05)
[2018-11-16] MEDS: FUROSEMIDE 20 MG TAB PO SCH (08:06)
[2018-11-16] MEDS: ASPIRIN 81 MG ECTAB PO SCH (08:07)
[2018-11-16] MEDS: ASCORBIC ACID 500 MG TAB PO SCH (08:07)
[2018-11-16] MEDS: MAGNESIUM OXIDE 400 MG TAB PO SCH (08:07)
[2018-11-16] MEDS: INSULIN GLARGINE SOLOSTAR 100 UNITS/ML 3 ML PEN SC SCH ×2 (08:08→20:42)
[2018-11-16] MEDS: HEPARIN SOD 5,000 UNIT/0.5 ML VIAL SQ SCH ×2 (08:10→20:42)
[2018-11-16] MEDS: INSULIN ASPART 100 UNITS/ML 3 ML PEN SC SCH ×4 (08:14→20:41)
[2018-11-16] MEDS: methylPREDNISolone 30 MG in SYRINGE 0 ML IV SCH ×2 (10:49→21:32)
[2018-11-16] MEDS: ACETAMINOPHEN 325 MG TAB PO PRN ×2 (10:51→21:40)
[2018-11-16] MEDS: BENZONATATE 100 MG CAPSULE PO SCH ×2 (12:59→20:41)
--- NOTE | 2018-11-16 13:37 | Hospitalist Progress Note ---
Date of Service November 16, 2018 Assessment & Plan (1) Acute bronchitis: Slowly improving. No complicating pneumonia on CXR. - Cont IV Solumedrol - Started Tessalon Perles and cough syrup today for continued coughing that she reports is minimally better today. - Flutter valve and incentive spirometry. - On 11/16, sputum cultured updated to show H. influenza with betalactamase. Still no vital sign changes or leukocytosis to indicate pneumonia. Will repeat CXR and get a procalcitonin. Still reluctant to start abx unless some other evidence of active infection vs. the culture just representing a colonization. (2) Acute gouty arthritis: Right mid-foot, right ankle, left 2nd toe. Likely due to CKD & illness. - IMPROVED w/ steroids. Very nice decrease in inflammation. - Steroids for bronchitis will suffice. - Uric acid on 11/12 was 8.2. Will need allopurinol if she has another flare in the next few months. (3) Depression: Severe. Instigator of depression was the of her son sometime in 2018 . - Increased zoloft to 100mg daily this admission. - Needs counseling - discussed this thoroughly multiple times during the admission. (4) Hypertension: BP acceptable while inpatient. - Cont home beta-del - Hold Lasix for 1 day due to increase in Cr (5) 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: A1c this admission was 6.8%. Now blood sugars higher due to steroids. - Cont lantus/novolog. - Hopefully she will not need insulin at d/c. (6) Chronic kidney disease, stage 3a: Baseline Cr is ~1.4 - 1.5. - Cr up to 1.7 on 11/15. Doesn't meet JUAN A criteria, but will need to watch closely. - Will give 500 cc bolus and hold Lasix for tomorrow. (7) History of pulmonary embolus (PE): No longer on systemic anticoagulation. - Monitor (8) Morbid obesity with BMI of 40.0-44.9, adult: BMI 40 (9) DVT prophylaxis: Heparin 5000 BID Subjective Still with a lot of coughing. No big change in her right leg pain. Review of Systems Review of Systems: All systems reviewed & are unremarkable except as noted in HPI & below Physical Exam Constitutional: WD/WN, vitals as above Eyes: EOM intact bilaterally; no conjunctival abnormality ENMT: external ear and nose normal, oropharynx normal Neck: trachea midline, no thyromegaly normal visual inspection Respiratory: normal respiratory effort, lungs clear to auscultation + cough; no respiratory distress Cardiovascular: RRR, no murmur, no edema Gastrointestinal (Abdomen): Inspection/Auscultation: abdomen normal to inspection; abdomen not distended Musculoskeletal: no cyanosis or clubbing, extremities motor strength 5/5 Skin: no rashes, warm and dry Neurologic: moves all extremities and awake Psychiatric: Orientation: alert, oriented to person and cooperative Results & Data Vital Signs (Past 12 Hours) Vital Signs Temp Pulse Pulse Pulse Resp BP Pulse Ox 11/16/18 11:37 36.6 C 83 20 153/81 H 93 11/16/18 07:38 36.3 C L 88 20 146/78 H 90 11/16/18 07:20 73 11/16/18 07:17 100 H 18 90 11/16/18 04:00 36.5 C 89 17 154/79 H 91 PG Care Time/CCT Total # of Minutes Spent Total Time Spent with Patient: Total time spent is greater than 50% in coordination of care (as documented) at patient's floor/unit and/or counseling patient: (1) Acute bronchitis Bronchitis organism: other organism Qualified Code(s): J20.8 - Acute bronchitis due to other specified organisms (2) Depression Depression Type: major depressive disorder Major depression recurrence: single episode Active/Remission status: currently active Major depression episode severity: severe Psychotic features: without psychotic features Qualified Code(s): F32.2 - Major depressive disorder, single episode, severe without psychotic features (3) Hypertension Hypertension type: essential hypertension Qualified Code(s): I10 - Essential (primary) hypertension
--- NOTE | 2018-11-16 14:18 | XRay Report ---
XR chest 2V routine CLINICAL HISTORY: Cough, sputum culture positive COMPARISON STUDY: 11/12/2018 FINDINGS: The heart is normal in size. There is stable mild elevation right hemidiaphragm. There is n o focal pulmonary consolidation. There are no pleural effusions. There is no failure.[ IMPRESSION: No active disease in the chest. Electronically signed by: Ayan Iqbal M.D. 11/16/2018 2:17 PM
[2018-11-16] MEDS: GUAIFENESIN/CODEINE 200MG/20MG 10ML UDC PO PRN ×2 (15:09→22:29)
[2018-11-16] MEDS ORDERED: Nursing to Pharmacy Communication ONE (17:17)
[2018-11-16] MEDS ORDERED: INSULIN ASPART 100 UNITS/ML 3 ML PEN SC ONE (17:30)
[2018-11-16] MEDS: hydrOXYzine HCl 10 MG TAB PO PRN (23:34)
[2018-11-17] MEDS: METOPROLOL SUCC 25MG EXT REL TAB PO SCH (08:40)
[2018-11-17] MEDS: CYANOCOBALAMIN 500 MCG TABLET (VITAMIN B-12) PO SCH (08:40)
[2018-11-17] MEDS: SERTRALINE HCL 100 MG TABLET PO SCH (08:40)
[2018-11-17] MEDS: ASPIRIN 81 MG ECTAB PO SCH (08:40)
[2018-11-17] MEDS: ASCORBIC ACID 500 MG TAB PO SCH (08:40)
[2018-11-17] MEDS: ATORVASTATIN 20 MG TAB PO SCH (08:40)
[2018-11-17] MEDS: BENZONATATE 100 MG CAPSULE PO SCH ×3 (08:40→20:43)
[2018-11-17] MEDS: FUROSEMIDE 20 MG TAB PO SCH (08:40)
[2018-11-17] MEDS: MULTIVITAMIN TAB PO SCH (08:40)
[2018-11-17] MEDS: MAGNESIUM OXIDE 400 MG TAB PO SCH (08:40)
[2018-11-17] MEDS: EZETIMIBE 10 MG TABLET PO SCH (08:40)
[2018-11-17] MEDS: HEPARIN SOD 5,000 UNIT/0.5 ML VIAL SQ SCH ×2 (08:41→20:42)
[2018-11-17] MEDS: INSULIN GLARGINE SOLOSTAR 100 UNITS/ML 3 ML PEN SC SCH ×2 (08:41→20:41)
[2018-11-17] MEDS: INSULIN ASPART 100 UNITS/ML 3 ML PEN SC SCH ×4 (08:43→20:42)
[2018-11-17] MEDS: GUAIFENESIN/CODEINE 200MG/20MG 10ML UDC PO PRN ×2 (08:47→23:40)
[2018-11-17] MEDS: methylPREDNISolone 30 MG in SYRINGE 0 ML IV SCH (10:05)
[2018-11-17] MEDS ORDERED: COLCHICINE 0.6 MG TAB PO ONE (10:09)
--- NOTE | 2018-11-17 10:19 | Hospitalist Progress Note ---
Date of Service November 17, 2018 Assessment & Plan (1) Acute bronchitis: very slow to improve despite a few days of Solu Medrol and nebulizers change to Prednisone 40mg daily today add Azithromycin 500mg daily x 5 days to treat H flu despite no infiltrate on CXR continue cough suppressants and flutter valve and nebulizers continue to ambulate, no oxygen requirements on exam lungs are very coarse bilaterally, too soon for discharge, patient agrees (2) Acute gouty arthritis: Right mid-foot, right ankle, left 2nd toe. Likely due to CKD & illness. - IMPROVED w/ steroids but now with more pain continue on Prednisone will give a single dose of Colchicine, cannot give BID due to renal function - Uric acid on 11/12 was 8.2. Will need allopurinol if she has another flare in the next few months. (3) Depression: Severe. Instigator of depression was the of her son sometime in 2018. - Increased zoloft to 100mg daily this admission. - Needs counseling - discussed this thoroughly multiple times during the admission. (4) Hypertension: BP acceptable while inpatient. - Cont home beta-del - resume Lasix tomorrow (5) 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: A1c this admission was 6.8%. Now blood sugars higher due to steroids. - Cont lantus/novolog. - may need Lantus while on Prednisone, will prepare patient for this (6) Chronic kidney disease, stage 3a: Baseline Cr is ~1.4 - 1.5. - Cr is 1.69 yesterday, repeat tomorrow, making adequate urine (7) History of pulmonary embolus (PE): No longer on systemic anticoagulation. - Monitor (8) Morbid obesity with BMI of 40.0-44.9, adult: BMI 40 (9) DVT prophylaxis: Heparin 5000 BID Subjective patient feels her breathing is a little better today, coughing a little less no sputum production, no fever or chills she was walking in the halls and breathing okay, minimal dyspnea on exertion right foot hurts more today compared to yesterday, left second toe hurts reviewed chart since admission, reviewed labs, sugars better Cr was 1.6 yesterday, clearance < 30 updated family at the bedside discussed that today is too soon for discharge, needs Prednisone Review of Systems Review of Systems: All systems reviewed & are unremarkable except as noted in HPI & below Constitutional: + fatigue and + weakness; no fever, no chills and no sweats Respiratory: + cough, + dyspnea, + dyspnea on exertion and + wheezing; no pain with cough and no sputum production Cardiovascular: no chest pain Gastrointestinal: no abdominal pain, no nausea, no vomiting, no constipation and no diarrhea/loose stools Musculoskeletal: + joint pain (right foot and ankle, left second toe) Physical Exam Constitutional: WD/WN, vitals as above + obese Eyes: PERRL, conjunctivae normal, anicteric sclerae ENMT: external ear and nose normal, oropharynx normal Neck: trachea midline, no thyromegaly Respiratory: normal respiratory effort; no respiratory distress Auscultation: + diminished lung sounds, + rhonchi (bilaterally) and + wheezes (bilaterally); no crackles and no rales Cardiovascular: RRR, no murmur, no edema Gastrointestinal (Abdomen): normal bowel sounds, soft, nontender, no hepatosplenomegaly Musculoskeletal: no cyanosis or clubbing, extremities motor strength 5/5 Ankle: + ankle abnormal to inspection (right ankle swollen, tender) Skin: no rashes, warm and dry Neurologic: patellar DTR's 2+ bilat, sensation intact and PERRL, EOMI, accommodation nl, no face palsy, no dysarthria Psychiatric: A+Ox3, euthymic affect Lymphatic: no cervical or axillary lymphadenopathy Results & Data Vital Signs (Past 12 Hours) Vital Signs Temp Pulse Pulse Resp BP Pulse Ox 11/17/18 07:24 71 11/17/18 07:01 36.6 C 78 20 126/68 97 11/17/18 03:00 36.6 C 71 18 119/71 90 11/17/18 00:00 81 11/16/18 23:00 37.1 C 82 20 144/73 H 91 Laboratory Results Laboratory Results - last 24 hr 11/16/18 11/16/18 11/16/18 11:44 13:50 16:35 POC Glucose 160 H 79 Procalcitonin 0.08 11/16/18 11/17/18 20:13 07:34 POC Glucose 122 H 133 H Procalcitonin Medications Administered Current Inpatient Medications Acetaminophen (Tylenol) 650 mg PO Q4H PRN PRN Reason: Pain or Fever Stop: 12/13/18 00:34 Last Admin: 11/16/18 21:40 Dose: 650 mg Documented by: Albuterol (Duoneb) 3 ml NEB Q4R PRN PRN Reason: Shortness Of Breath Or Wheezing Stop: 12/13/18 00:34 Ascorbic Acid (Vitamin C) [facility] Stop: 12/13/18 08:59 Last Admin: 11/17/18 08:40 Dose: 500 mg Documented by: Aspirin (Ecotrin Ectab) 81 mg PO [facility] Stop: 12/13/18 08:59 Last Admin: 11/17/18 08:40 Dose: 81 mg Documented by: Atorvastatin Calcium (Lipitor) 20 mg PO [facility] Stop: 12/13/18 08:59 Last Admin: 11/17/18 08:40 Dose: 20 mg Documented by: Azithromycin (Zithromax) 500 mg PO [facility] Stop: 11/24/18 10:14 Benzonatate (Tessalon Perle) 100 mg PO TID [facility] Stop: 12/16/18 13:59 Last Admin: 11/17/18 08:40 Dose: 100 mg Documented by: Colchicine (Colcrys) 0.6 mg PO NOW ONE Stop: 11/17/18 10:10 Cyanocobalamin (Vitamin B-12) 1,500 mcg PO [facility] Stop: 12/13/18 08:59 Last Admin: 11/17/18 08:40 Dose: 1,500 mcg Documented by: Dextrose (Dextrose 50%) 25 - 50 ml IV UD PRN; Protocol PRN Reason: Hypoglycemia Protocol Stop: 12/13/18 00:34 Diclofenac Sodium (Voltaren 1% Top) 1 appln EXT Q8H PRN PRN Reason: Pain Stop: 12/13/18 00:34 Ezetimibe (Zetia) 10 mg PO [facility] Stop: 12/13/18 08:59 Last Admin: 11/17/18 08:40 Dose: 10 mg Documented by: Furosemide (Lasix) 20 mg PO [facility] Stop: 12/13/18 08:59 Last Admin: 11/17/18 08:40 Dose: 20 mg Documented by: Glucagon (Glucagen) 1 mg SQ UD PRN; Protocol PRN Reason: Hypoglycemia Protocol Stop: 12/13/18 00:34 Glucose (Dex4 Glucose) 4 - 8 tabs PO UD PRN; Protocol PRN Reason: Hypoglycemia Protocol Stop: 12/13/18 00:34 Glucose (Glucose 40%) 15 - 30 gm PO UD PRN; Protocol PRN Reason: Hypoglycemia Protocol Stop: 12/13/18 00:34 Guaifenesin/Codeine Phosphate (Robitussin-Ac Sugar Free) 10 ml PO Q6H PRN PRN Reason: Cough Stop: 12/16/18 10:54 Last Admin: 11/17/18 08:47 Dose: 10 ml Documented by: Heparin Sodium (Porcine) (Heparin Sodium (Porcine)) 5,000 units SQ Q12 [facility] Stop: 12/13/18 08:59 Last Admin: 11/17/18 08:41 Dose: 5,000 units Documented by: Hydroxyzine HCl (Vistaril) 10 mg PO TID PRN PRN Reason: ANXIETY/INSOMNIA Stop: 12/13/18 00:34 Last Admin: 11/16/18 23:34 Dose: 10 mg Documented by: Insulin Aspart (Novolog Flexpen) 0 units SC ACHS [facility] Stop: 12/13/18 07:29 Last Admin: 11/17/18 08:43 Dose: 8 units Documented by: Insulin Glargine (Lantus Solostar Pen) 20 units SC BID [facility] Stop: 12/16/18 08:59 Last Admin: 11/17/18 08:41 Dose: 20 units Documented by: Magnesium Oxide (Mag-Ox) 400 mg [facility] Stop: 12/13/18 08:59 Last Admin: 11/17/18 08:40 Dose: 400 mg Documented by: Metoprolol Succinate (Toprol Xl) 25 mg PO [facility] [place] Stop: 12/13/18 08:59 Last Admin: 11/17/18 08:40 Dose: 25 mg Documented by: Miscellaneous (Carbohydrates For Hypoglycemia) 15 - 30 gm PO UD PRN PRN Reason: Hypoglycemia Treatment Stop: 12/13/18 00:34 Multivitamins (Multivitamin Tab) 1 tab PO [facility] Stop: 12/13/18 08:59 Last Admin: 11/17/18 08:40 Dose: 1 tab Documented by: Ondansetron HCl (Zofran) 4 mg IV Q6H PRN PRN Reason: Nausea Stop: 12/13/18 00:34 Oxybutynin Chloride (Ditropan Xl) 15 mg PO DAILY PRN PRN Reason: URINARY DISCOMFORT Stop: 12/13/18 00:34 Last Admin: 11/13/18 08:26 Dose: 15 mg Documented by: Prednisone (Prednisone) 40 mg PO DAILY [facility] Stop: 12/17/18 10:14 Ranitidine HCl (Zantac) 150 mg PO QAM [facility] Stop: 12/13/18 08:59 Last Admin: 11/17/18 08:40 Dose: 150 mg Documented by: Sertraline HCl (Zoloft) 100 [facility] Stop: 12/14/18 08:59 Last Admin: 11/17/18 08:40 Dose: 100 mg Documented by: PG Care Time/CCT Total # of Minutes Spent Total Time Spent with Patient: Total time spent is greater than 50% in coordination of care (as documented) at patient's floor/unit and/or counseling patient: (1) Acute bronchitis Bronchitis organism: other organism Qualified Code(s): J20.8 - Acute bronchitis due to other specified organisms (2) Depression Depression Type: major depressive disorder Major depression recurrence: single episode Active/Remission status: currently active Major depression episode severity: severe Psychotic features: without psychotic features Qualified Code(s): F32.2 - Major depressive disorder, single episode, severe wit hout psychotic features (3) Hypertension Hypertension type: essential hypertension Qualified Code(s): I10 - Essential (primary) hypertension
[2018-11-17] MEDS: predniSONE 20 MG TAB PO SCH (11:38)
[2018-11-17] MEDS: AZITHROMYCIN 250 MG TAB PO SCH (11:38)
[2018-11-17] MEDS: ACETAMINOPHEN 325 MG TAB PO PRN (15:41)
[2018-11-18] MEDS: CYANOCOBALAMIN 500 MCG TABLET (VITAMIN B-12) PO SCH (08:19)
[2018-11-18] MEDS: BENZONATATE 100 MG CAPSULE PO SCH ×2 (08:20→13:45)
[2018-11-18] MEDS: ASPIRIN 81 MG ECTAB PO SCH (08:20)
[2018-11-18] MEDS: AZITHROMYCIN 250 MG TAB PO SCH (08:21)
[2018-11-18] MEDS: predniSONE 20 MG TAB PO SCH (08:21)
[2018-11-18] MEDS: FUROSEMIDE 20 MG TAB PO SCH (08:21)
[2018-11-18] MEDS: MAGNESIUM OXIDE 400 MG TAB PO SCH (08:21)
[2018-11-18] MEDS: ASCORBIC ACID 500 MG TAB PO SCH (08:21)
[2018-11-18] MEDS: ATORVASTATIN 20 MG TAB PO SCH (08:22)
[2018-11-18] MEDS: METOPROLOL SUCC 25MG EXT REL TAB PO SCH (08:22)
[2018-11-18] MEDS: EZETIMIBE 10 MG TABLET PO SCH (08:22)
[2018-11-18] MEDS: SERTRALINE HCL 100 MG TABLET PO SCH (08:22)
[2018-11-18] MEDS: MULTIVITAMIN TAB PO SCH (08:22)
[2018-11-18] MEDS: INSULIN GLARGINE SOLOSTAR 100 UNITS/ML 3 ML PEN SC SCH (08:24)
[2018-11-18] MEDS: INSULIN ASPART 100 UNITS/ML 3 ML PEN SC SCH ×2 (08:25→12:48)
[2018-11-18] MEDS: ACETAMINOPHEN 325 MG TAB PO PRN (08:31)
[2018-11-18] MEDS: HEPARIN SOD 5,000 UNIT/0.5 ML VIAL SQ SCH (08:36)
[2018-11-18] MEDS ORDERED: TRAMADOL HCL 50 MG TABLET PO PRN (09:38)
[2018-11-18] MEDS ORDERED: predniSONE 20 MG TAB PO ONE (10:00)
[2018-11-18] MEDS ORDERED: COLCHICINE 0.6 MG TAB PO SCH (10:00)
--- NOTE | 2018-11-18 14:47 | Discharge Summary ---
Date of Service November 18, 2018 Admission HPI Per Admitting Provider 78-year-old female is accompanied by her daughter. The patient herself is quite pleasant but does not necessarily volunteer any information on why she is here. She says she is primarily here because her son and family insisted that she get evaluated for multiple recent issues. Subjectively, we discussed the following: - Patient says that she has had a "cold" for the past 5 days (since November 08). Describes subjective fever, positive sweats, mostly dry cough, right earache, and a mild generalized headache. She attributes this all to two of her grandchildren being sick recently. - When on exam it was noted she has bilateral lower extremity edema, she says this also developed about 5 days ago as well. She denies previous history of the same. Her daughter mentions that she has 2 blisters on her castillo. The left castillo blister appeared about 2 months ago and seems to have healed mostly. This is the first blister they have seen. The second blister on her right castillo that is currently present has been draining some clear fluid over the past week, is nontender, and does not really seem to bother her. - When on exam it was noted that she has a diffusely swollen right foot and ankle, she says this also developed in the past 5 days. She says she is never had swelling in these areas before but she has had swelling in her left second toe in the past. It is unclear if she is ever been formally diagnosed with gout. Regarding her foot and ankle, she says it is quite painful to bear any weight on it or to move it. She denies any trauma, falls, other joint pains, or known suspected source. Because of this difficulty with ambulation she has not had much to eat or drink over the past couple of days. - On review of her medical history, seems she is on track to be seen by nephrology for the first time in a couple of weeks. It is unclear exactly why. She also was previously evaluated by cardiology back in July for dyspnea on exertion. She denies any chest pains or dyspnea at present. She also notes that she has a history of a DVT and PE many years ago, completed a 6-month course of anticoagulation, and has not had any further known clots. - Past medical history includes hypertension, hyperlipidemia, GERD, type 2 diabetes, depression, DVT and PE, kidney stones, JUAN A, thyroid nodule, anemia, vitamin B12 deficiency, overactive bladder, breast cancer. - Past surgical history includes mastectomy, cholecystectomy. - Social history includes denying tobacco or alcohol use. Lives at home with her son. Principal Diagnosis Acute bronchitis Discharge Exam Constitutional WD/WN, vitals as above + obese Eyes PERRL, conjunctivae normal, anicteric sclerae ENMT external ear and nose normal, oropharynx normal Neck trachea midline, no thyromegaly Respiratory normal respiratory effort; no respiratory distress Auscultation: + diminished lung sounds, + rhonchi (bilaterally) and + wheezes (bilaterally); no crackles and no rales Cardiovascular RRR, no murmur, no edema Gastrointestinal (Abdomen) normal bowel sounds, soft, nontender, no hepatosplenomegaly Musculoskeletal no cyanosis or clubbing, extremities motor strength 5/5 Ankle: + ankle abnormal to inspection (right ankle swollen, tender) Skin no rashes, warm and dry Neurologic patellar DTR's 2+ bilat, sensation intact and PERRL, EOMI, accommodation nl, no face palsy, no dysarthria Psychiatric A+Ox3, euthymic affect Lymphatic no cervical or axillary lymphadenopathy Discharge Data Allergies Allergy/AdvReac Type Severity Reaction Status Date / Time No Known Allergies Allergy Unknown Verified 11/12/18 19:49 Consultations 11/12/18 21:19 ED Decision to Admit Stat Ordered Studies 11/12/18 18:55 US venous doppler LE RT Stat Hospital Course (1) Acute bronchitis: very slow to improve despite a few days of Solu Medrol and nebulizers change to Prednisone 40mg daily today add Azithromycin 500mg daily x 5 days to treat H flu despite no infiltrate on CXR continue cough suppressants and flutter valve and nebulizers continue to ambulate, no oxygen requirements on exam lungs are clearing up, some scattered rhonchi but no wheezing d/c home on Prednisone, complete the short course of Azithromycin, Albuterol PRN (2) Acute gouty arthritis: Right mid-foot, right ankle, left 2nd toe. Likely due to CKD & illness. - IMPROVED w/ steroids but now with more pain continue on Prednisone but at higher dose of 60mg daily slow taper use Colchicine daily (cannot use BID due to CKD) cannot use high dose NSAIDs due to CKD - Uric acid on 11/12 was 8.2. Will need allopurinol if she has another flare in the next few months. follow up with PCP in one week (3) Depression: Severe. Instigator of depression was the of her son sometime in 2018. - Increased zoloft to 100mg daily this admission. - Needs counseling - discussed this thoroughly multiple times during the admission. (4) Hypertension: BP acceptable while inpatient. - Cont home beta-del - resume Lasix tomorrow (5) 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: A1c this admission was 6.8%. Now blood sugars higher due to steroids. - treated with Lantus and Novolog while inpatient had some occasional low sugars in the morning do NOT recommend using Lantus on discharge due to some low sugars recommend increasing Amaryl to 2 tablets for the next 10 days while on high dose Prednisone follow low carb diet (6) Chronic kidney disease, stage 3a: Baseline Cr is ~1.4 - 1.5. - Cr has been stable (7) History of pulmonary embolus (PE): No longer on systemic anticoagulation. - Monitor (8) Morbid obesity with BMI of 40.0-44.9, adult: BMI 40 (9) DVT prophylaxis: Heparin 5000 BID Total Time Total Time Spent Total Time Spent (In Minutes): 35 minutes Total Time Includes: Examination of the Patient, Discharge Planning, Medication Reconciliation and Other (discussion with patient's family at the bedside) Discharge Plan Discharge Items Patient Disposition: Home - Home Health Services Reason For Visit: B/L FOOT SWELLING, CAN'T WALK, DEHYDRATED Discharge Diagnosis: Acute gouty arthritis Acute bronchitis Condition: Good Discharge Goals: Decrease discomfort and Improve disease control Activity: Resume your previous activity Non-emergency contact: Primary Care Provider Call non-emergency contact if: you have any medication questions, your symptoms worsen, your pain is not controlled and you have a fever Follow-up/Referrals: Josephine Turner CRNP [Primary Care Provider] - 11/22/18 3:50 pm (Please, follow up at [facility]BR[facility] Turner's office with her associate, Janay ALBRECHT, on SundayNovember 22 at 3:50 pm. *If you need to change this appointment, call the office at [phone].) Diet: Carb Consistent or DM2 and Heart Healthy Addtl Provider Instructions: Medications: please review list closely as there are some new medications and some that have been stopped, details below - AZITHROMYCIN: 500mg daily for 3 more days, the next dose is due tomorrow morning - PREDNISONE: will taper slowly over next three weeks for gout, see below, next dose is due tomorrow morning, 60mg - COLCHICINE: 0.6mg daily for 7 more days for gout - AMARYL: need to increase to 2mg daily for the next 10 days while on high dose Prednisone, see below - SERTRALINE: dose increased to 100mg while here, continue this dose - ULTRAM: use as needed for pain in ankle - CODEINE: use as needed for cough, especially at night - ALBUTEROL: use as needed for shortness of breath, cough, wheezing, can use every 6 hours - LISINOPRIL: this was stopped during admission, blood pressure has been stable off of it will continue to hold, recommend getting blood pressure check with PCP on 11/22 may need to resume this medication in the future Acute bronchitis: chest x-ray without any infiltrate, this was repeated twice, no evidence of pneumonia however, sputum culture grew out H flu will continue treatment with Prednisone taper, complete Azithromycin and use Albuterol as needed follow up with PCP on 11/22 Acute gouty arthritis x-ray of the foot and ankle show no evidence of fractures, on exam you are very tender and joint is swollen, very tender on palpation some improvement with Prednisone and Colchicine, uric acid level was elevated plan is to use high dose Prednisone (since you cannot use NSAIDs due to renal function) and Colchicine and Ultram for pain follow up with PCP on 11/22 DM type II while here we were using Lantus and Novolog, a long acting and short acting insulin sugars were low this morning despite the steroids would not recommend using insulin at home recommend that you continue Amaryl but increase to 2mg (2 tablets) for the next 10 days follow a low carbohydrate diet (avoid sweets, eat small portions of complex carbs like pasta, rice, breads) I provided a script for the increased dose of Amaryl Prescriptions: New sertraline 100 mg Tablet 100 mg PO QAM 30 Days Qty: 30 RF: 0 tramadol 50 mg Tablet 50 mg PO Q4H PRN (Reason: pain) 10 Days Qty: 40 RF: 0 codeine-guaifenesin 10-100 mg/5 mL liquid 5 ml PO Q6H PRN (Reason: cough) Qty: 120 RF: 0 prednisone 10 mg tablet 60 mg PO UD 19 Days Qty: 69 RF: 0 glimepiride [Amaryl] 1 mg Tablet 1 mg PO QAM 30 Days Qty: 30 RF: 0 albuterol sulfate 90 mcg/actuation HFA aerosol inhaler 2 puffs INH Q6H PRN (Reason: shortness of breath or wheezing) Qty: 18 RF: 0 Continued multivitamin Tablet 1 tab PO QAM RF: 0 oxybutynin chloride 15 mg Tablet Extended Release 24hr 15 mg PO DAILY PRN (Reason: URINARY DISCOMFORT) RF: 0 atorvastatin 20 mg Tablet 20 mg PO QAM RF: 0 cyanocobalamin (vitamin B-12) [Vitamin B-12] 1,000 mcg Tablet 1,500 mcg PO QAM RF: 0 aspirin [Aspir-81] 81 mg Tablet,Delayed Release (Dr/Ec) 81 mg PO QAM RF: 0 ascorbic acid (vitamin C) [Vitamin C] 500 mg Tablet 500 mg PO QAM RF: 0 ranitidine HCl [Zantac] 150 mg Tablet 150 mg PO QAM RF: 0 furosemide [Lasix] 20 mg Tablet 20 mg PO QAM RF: 0 metoprolol succinate [Toprol XL] 25 mg Tablet Extended Release 24 Hr 25 mg PO QAM RF: 0 hydroxyzine HCl 10 mg Tablet 10 mg PO TID PRN (Reason: ANXIETY/INSOMNIA) RF: 0 magnesium oxide 250 mg magnesium Tablet 250 mg PO QAM RF: 0 ezetimibe [Zetia] 10 mg Tablet 10 mg PO QAM RF: 0 acetaminophen [Tylenol Extra Strength] 500 mg Tablet 1,000 mg PO TID PRN (Reason: Pain) RF: 0 diclofenac sodium [Voltaren] 1 % gel topical UD PRN (Reason: Pain) RF: 0 Discontinued sertraline 25 mg Tablet 25 mg PO QAM RF: 0 lisinopril 40 mg Tablet 40 mg PO QAM RF: 0 naproxen 500 mg Tablet 500 mg PO BID PRN (Reason: ARTHRITIS PAIN) RF: 0 Stand-Alone Forms: [facility] Discharge Orders: Discharge Order (Routine); Ordered 11/18/18 Ordered By: Mir Ching Admission Data Admit Date/Time: 11/14/18 11:29 Attending Provider: Mir Ching Admit Provider: Jeremi Tierney Primary Care Provider: Josephine Turner Other Providers: Jacob Craig Service: Telemetry Medical Other Interventions: Discharge Summary Assessment (RN) Last Done: 11/18/18 14:48 DC Date/Time DO NOT enter until pt leaves facility: 11/18/18 15:17
[2018-11-19] MEDS ORDERED: predniSONE 20 MG TAB PO SCH (09:00)
== END 2018-11-18 15:17 | disposition home health service (06) | DRG 202 ==
LOC: ED 18:29 → 2N 18:29 → SUATTDRO 23:12 → 2N 23:54 → SUATTDRO 11-14 11:29
DX: N18.3 Chronic kidney disease, stage 3 (moderate); E83.42 Hypomagnesemia; Z86.711 Personal history of pulmonary embolism; E66.01 Morbid (severe) obesity due to excess calories; Z85.3 Personal history of malignant neoplasm of breast; E87.6 Hypokalemia; M1A.0710 Idiopathic chronic gout, right ankle and foot, without tophus (tophi); N32.81 Overactive bladder; F32.2 Major depressive disorder, single episode, severe without psychotic features; K21.9 Gastro-esophageal reflux disease without esophagitis; I12.9 Hypertensive chronic kidney disease with stage 1 through stage 4 chronic kidney disease, or unspecified chronic kidney disease; E53.8 Deficiency of other specified B group vitamins; J20.9 Acute bronchitis, unspecified; F32.9 Major depressive disorder, single episode, unspecified; E11.9 Type 2 diabetes mellitus without complications; E78.5 Hyperlipidemia, unspecified

== ENCOUNTER 2022-09-29 13:49 | Inpatient (IN) ==
[2022-09-29] MEDS ORDERED: SODIUM CHLORIDE 0.9% 1000ML 1,000 ML IV ONE ×3 (14:37→17:33)
[2022-09-29 14:44] LABS: Hematocrit (blood only) 32.1 % (37.0-47.0); Hemoglobin 10.8 g/dl (12.0-16.0); Mean Corpuscular Hemoglobin 30.9 pg (25.0-34.0); Mean Corpuscular Hgb Conc 33.6 g/dL (32.0-36.0); Mean Corpuscular Volume 91.7 fL (80.0-100.0); Mean Platelet Volume 10.8 fL (9.4-12.4); Platelet Count 138 K/uL (130-400); RDW Coefficient of Variation 14.4 % (11.5-14.5); RDW Standard Deviation 47.9 fL (36.4-46.3); White Blood Count 17.56 K/ul (4.8-10.8)
[2022-09-29 14:48] LABS: Albumin Globulin Ratio 1.2 (0.9-2); BUN Creatinine Ratio 17.5 (10-20); Bilirubin,Total 0.7 mg/dl (0.2-1.0); Calcium 7.9 mg/dl (8.6-10.3); Creatinine Clr Calc Pharmacy 11.7 ml/min; Est GFR (African American) 13.8 ml/min; Est GFR (Non-African American) 11.9 ml/min; Globulin 2.5 gm/dl (2.5-4.0); Magnesium 1.2 mg/dl (1.7-2.4); Potassium 4.1 mmol/L (3.5-5.1); Total Protein 5.5 gm/dl (6.0-8.3)
[2022-09-29] MEDS ORDERED: PIPERACILLIN/TAZOBACTAM 4.5 GM/120 ML BAG IV ONE (14:48)
--- NOTE | 2022-09-29 14:52 | Emergency Department Note ---
Impression & Plan Acute pyelonephritis, Sepsis, Acute hypotension, Non-ST elevation CO (NSTEMI), JUAN A (acute kidney injury) ED Provider Note NAME: SHAUNA VALDIVIA AGE: 82 SEX: F : 1940 ARRIVES VIA: Ambulance INFORMANT: Patient, EMS ED PROVIDER(S): River Bach DO CHIEF COMPLAINT: Generalized weakness HPI: The patient is an 82-year-old female who presented to the emergency department for an evaluation of generalized weakness. The patient was having weakness as well as confusion at home. She was noted to have hypoglycemia prior to arrival. She was given oral glucose with some improvement of her mental status. She has had dizziness upon standing. She also notices some cloudy urine. The patient denies having any vomiting. She does complain of some shortness of breath prior to coming to the hospital but at this time she states she has no shortness of breath or chest pain. She is noticed no black or tarry stools. She states her symptoms are moderate. There is no history of trauma and the patient denies having a headache. ROS: See above HPI for pertinent positives & negatives. A total of 10 systems reviewed and were otherwise negative. PAST MEDICAL HISTORY: See Below PAST SURGICAL HISTORY: See Below FAMILY HISTORY: See Below SOCIAL HISTORY: See Below HOME MEDICATIONS: See Below ALLERGIES: See Below VITALS: See Below PHYSICAL EXAMINATION: GENERAL: The patient is listless and slow to answer questions. She does follow commands normally. EYES: The conjunctivae are clear. The pupils are round and reactive. EARS, NOSE, MOUTH AND THROAT: The nose is without any evidence of any deformity. NECK: The neck is nontender and supple. RESPIRATORY: Normal respiratory effort is noted there is no evidence of wheezing rhonchi or rales CARDIOVASCULAR: Regular rate and rhythm noted there no murmurs rubs or gallops normal S1 normal S2. GASTROINTESTINAL: The abdomen was distended. There is right-sided tenderness to palpation but no guarding or rigidity. SKIN: Skin is warm and dry. Pedal edema is noted bilaterally. NEUROLOGIC: Patient is awake and oriented to person place and situation. Strength is symmetric but diminished. MEDICAL DECISION MAKING: The patient is a an 82-year-old female who presented to the emergency department for altered mental status. The patient was found to be hypoglycemic. She was treated for the hypoglycemia prior to arrival but also was found to be hypotensive. The patient was thought to be septic on arrival. She was treated with IV fluids and empiric antibiotics. I discussed the patient's laboratory and radiographic studies with her. She was reevaluated multiple times. The patient's blood pressure did slowly improve however she required IV pressures. She was felt to be in need of a central line. Initial attempts were made to place a central line in the right femoral vein but the vein appeared to be very deep and after multiple attempts it was placed in what I think is probably a peripheral branch of the femoral vein. There is no good blood return and I do not feel this would be adequate for the patient's needs. For this reason the line was removed by nursing. I then placed a central line in the left internal jugular. This went much better. There is good blood return. The patient tolerated procedure well. I [facility] the [facility] have agreed to evaluate the patient in the emergency department for further management and disposition. Triage Nursing notes reviewed. Prior medical records reviewed Vital Signs: reviewed and remarkable for tachycardia and hypotension. Differential diagnosis: Infection, dehydration, metabolic abnormality, hypo/hyperglycemia, electrolyte disturbance, anemia, hypoxia, cardiac sources, intracerebral event, toxicologic, neurologic, as well as other pathologies. ER treatment provided: See below Diagnostics interpreted by me: ECG: EKG was obtained in the emergency department. My interpretation is sinus tachycardia at 106 bpm. Right bundle-branch block pattern was noted. PACs were noted. This was compared to a tracing from June 29, 2022. No changes were noted Cardiac Monitoring: An order was placed for continuous cardiac monitoring. The monitor shows a rate of 119 bpm with sinus tachycardia. Laboratory studies: As stated above and show below. Imaging studies: See below. Radiographic imaging was reviewed by myself Consultation(s): I discussed this case with Dr. Hilario who is [facility] ED COURSE: Procedures: Femoral Central Venous Catheter Indication: Sepsis Catheter Type: Triple-lumen Location: Right femoral vein Verbal consent was obtained after the risks and benefits were explained, including but not limited to intra-abdominal injury, vessel injury, bleeding, scarring, infection, pain, and bone/joint/nerve damage. At this time, the risks of the procedure are less than the risks of NOT performing the procedure. A time out was taken and the correct patient and site identified. The patient was placed in the supine position and the skin was prepped in the standard fashion with chlorhexidine and full sterile drapes applied. The proper landmarks were identified with ultrasound, anesthetized with 1% lidocaine without epinephrine, and the needle was inserted through the skin in the standard fashion. The needle was carefully advanced into blood vessel lumen with ultrasound guidance. The guidewire was placed uneventfully. The vessel is dilated and the catheter was placed. It was sutured into position. The patient's body habitus was such that a branch vein was cannulated. After multiple attempts to try to cannulate the femoral vein. The femoral vein was very deep. The patient tolerated the procedure well. Appropriate blood return from any of the ports. This is not feel this central catheter would not be appropriate and it will be DC'd at this time and a different central line site will be sought. Central Venous Catheter Indication: Sepsis Catheter type: Triple-lumen Location: Left internal jugular Verbal consent was obtained after the risks and benefits were explained, including but not limited to pneumothorax, hemothorax, vessel injury, bleeding, scarring, infection, pain, and bone/joint/nerve damage. At this time, the risks of the procedure are less than the risks of NOT performing the procedure. A time out was taken and the correct patient and site identified. The patient was placed in the supine position and the skin was prepped in the standard fashion with chlorhexidine and full sterile drapes applied. The proper landmarks were identified with ultrasound, anesthetized with 1% lidocaine without epinephrine, and the needle was inserted through the skin in the standard fashion. The needle was carefully advanced into blood vessel lumen under ultrasound guidance. The guidewire was placed uneventfully. The vessel is dilated and the catheter was placed. It was sutured into position. There was good blood return from all ports. The patient tolerated the procedure well and there were no complications. Post procedure x-ray was normal. PDMP:reviewed and no issues Critical Care: I have personally spent greater than 65 minutes of critical care time in the direct management of this patient. This includes bedside care, interpretation of diagnostic studies, and testing, discussion with consultants, patient, and family members, and other required patient management activities. This 65 minutes is in excess of all separately billable procedures. Past Med/Surg History Medical History Chronic kidney disease, stage 3a Depression Diabetes mellitus type II, controlled Fatty liver GERD (gastroesophageal reflux disease) Gout History of DVT (deep vein thrombosis) 2014 unknown cause--per pt currently no blood thinners History of right breast cancer sx/radiation Hyperglycemia Hyperlipidemia Hypertension OAB (overactive bladder) Osteoarthritis Pulmonary emboli (05/01/14) had dvt in 2015 unknown cause--per pt no blood thinners currently Renal insufficiency Thyroid nodule Surgical History H/O total mastectomy of right breast History of appendectomy History of bilateral cataract extraction History of bilateral tubal ligation History of cholecystectomy History of colonoscopy History of dilatation and curettage History of lithotripsy using laser History of lumpectomy of right breast History of right breast biopsy malignant History of tooth extraction partial lower S/P IVC filter later removed 05/2014 S/P thyroid biopsy benign Family History Other No family history of adverse response to anesthesia No significant family history Social History Smoking Status: Never smoker Second Hand Exposure: No; Do You Dip or Chew Tobacco: No; Hx Alcohol Use: No Hx Substance Use: No Preferred Language: [place] Islander Communication Ability: Effective Neurocritical Care Physician Required: No Beliefs That Will Affect Care: None Current Living Situation: Family Current Living Situation Comment: lives with son cecil Feels Safe at Home: Yes Assistive Devices: Denture - Lower and Glasses Allergies Allergies Allergy/AdvReac Type Severity Reaction Status Date / Time No Known Allergies Allergy Unknown Verified 09/29/22 17:50 Home Meds Home Medications Medication Instructions Recorded Confirmed ascorbic acid (vitamin C) 500 mg 500 mg PO QAM 08/12/18 09/29/22 tablet (Vitamin C) atorvastatin 20 mg tablet 20 mg PO QAM 08/12/18 09/29/22 hydroxyzine HCl 10 mg tablet 10 mg PO TID PRN ANXIETY/INSOMNIA 08/12/18 09/29/22 metoprolol succinate 25 mg 25 mg PO QAM 08/12/18 09/29/22 tablet,extended release 24 hr (Toprol XL) multivitamin 1 tab PO QAM 08/12/18 09/29/22 oxybutynin chloride 15 mg 15 mg PO DAILY PRN URINARY 08/12/18 09/29/22 tablet,extended release 24 hr DISCOMFORT acetaminophen 500 mg tablet 1,000 mg PO TID PRN Pain 11/12/18 09/29/22 (Tylenol Extra Strength) colchicine 0.6 mg tablet 0.6 mg PO BID 11/15/20 09/29/22 cyanocobalamin (vitamin B-12) 1,000 mcg PO QAM 11/15/20 09/29/22 1,000 mcg tablet (Vitamin B-12) duloxetine 30 mg capsule,delayed 30 mg PO QAM 11/15/20 09/29/22 release (Cymbalta) duloxetine 60 mg capsule,delayed 60 mg PO QAM 11/15/20 09/29/22 release (Cymbalta) gabapentin 300 mg capsule 300 mg PO BID 11/15/20 09/29/22 glimepiride 1 mg tablet (Amaryl) 2 mg PO QAM 11/15/20 09/29/22 omeprazole 40 mg capsule,delayed 40 mg PO QAM 11/15/20 09/29/22 release sodium hyaluronate (viscosup) 10 20 mg intra-articular DIRECTED 11/15/20 09/29/22 mg/mL(mw 2.4-3.6 million)intra-articular syringe (Euflexxa) allopurinol 100 mg tablet 100 mg PO BID 05/06/21 09/29/22 trospium 60 mg capsule,extended 60 mg PO QAM 05/06/21 09/29/22 release 24 hr aspirin 81 mg tablet,delayed 81 mg PO QAM 06/29/22 09/29/22 release sacubitril 97 mg-valsartan 103 mg 1 tab PO BID 06/29/22 09/29/22 tablet (Entresto) Previous Rx's Medication Instructions Recorded albuterol sulfate 90 mcg/actuation 2 puffs inhalation Q6H PRN 11/18/18 aerosol inhaler shortness of breath or wheezing #18 grams furosemide 20 mg tablet (Lasix) 20 mg PO DAILY #14 tabs 06/29/22 magnesium oxide 400 mg PO BID #14 caps 06/29/22 Results & Data (ED) Vital Signs Vital Signs - 24 hr 09/29/22 14:07 09/29/22 14:14 09/29/22 14:44 Temperature 36.7 C Temperature Source Oral Pulse Rate 101 H 101 H 105 H Pulse Rate from SpO2 Sensor Pulse Rhythm Regular Respiratory Rate 20 20 Respiratory Effort / Characteristics Non-Labored Spontaneous Respiratory Depth Normal Respiratory Pattern Regular Blood Pressure Blood Pressure Mean Blood Pressure Position Sitting Pulse Oximetry 94 92 Oxygen Delivery Method Room Air Nasal Cannula Sepsis Recent Fever Within 48 Hours No Sepsis New/Unexplained Change in Mental Status No Sepsis Action Taken by Nursing No Action Required 09/29/22 14:13 09/29/22 14:32 09/29/22 14:34 Temperature Temperature Source Pulse Rate 103 H 103 H 103 H Pulse Rate from SpO2 Sensor 93 H 106 H 115 H Pulse Rhythm Respiratory Rate 29 H 26 H 15 Respiratory Effort / Characteristics Respiratory Depth Respiratory Pattern Blood Pressure 193/155 H 67/45 L 63/36 L Blood Pressure Mean 167 52 45 Blood Pressure Position Pulse Oximetry 90 95 92 Oxygen Delivery Method Sepsis Recent Fever Within 48 Hours Sepsis New/Unexplained Change in Mental Status Sepsis Action Taken by Nursing 09/29/22 14:39 09/29/22 14:40 09/29/22 14:50 Temperature Temperature Source Pulse Rate 112 H 115 H Pulse Rate from SpO2 Sensor 102 H 93 H Pulse Rhythm Respiratory Rate 25 H 23 Respiratory Effort / Characteristics Respiratory Depth Respiratory Pattern Blood Pressure 68/34 L 74/40 L 68/39 L Blood Pressure Mean 45 51 49 Blood Pressure Position Pulse Oximetry 91 93 Oxygen Delivery Method Sepsis Recent Fever Within 48 Hours Sepsis New/Unexplained Change in Mental Status Sepsis Action Taken by Nursing 09/29/22 14:50 09/29/22 15:00 09/29/22 15:00 Temperature Temperature Source Pulse Rate 99 H 104 H Pulse Rate from SpO2 Sensor 88 95 H Pulse Rhythm Respiratory Rate 28 H 25 H Respiratory Effort / Characteristics Respiratory Depth Respiratory Pattern Blood Pressure 74/37 L Blood Pressure Mean 54 Blood Pressure Position Pulse Oximetry 92 94 Oxygen Delivery Method Sepsis Recent Fever Within 48 Hours Sepsis New/Unexplained Change in Mental Status Sepsis Action Taken by Nursing 09/29/22 15:10 09/29/22 15:19 09/29/22 15:19 Temperature Temperature Source Pulse Rate 102 H 96 H Pulse Rate from SpO2 Sensor 93 H 97 H Pulse Rhythm Respiratory Rate 25 H 26 H Respiratory Effort / Characteristics Respiratory Depth Respiratory Pattern Blood Pressure 67/33 L Blood Pressure Mean 48 Blood Pressure Position Pulse Oximetry 93 96 Oxygen Delivery Method Sepsis Recent Fever Within 48 Hours Sepsis New/Unexplained Change in Mental Status Sepsis Action Taken by Nursing 09/29/22 15:20 09/29/22 15:24 09/29/22 15:24 Temperature Temperature Source Pulse Rate 94 H 103 H Pulse Rate from SpO2 Sensor 93 H 113 H Pulse Rhythm Respiratory Rate 22 20 Respiratory Effort / Characteristics Respiratory Depth Respiratory Pattern Blood Pressure 69/39 L Blood Pressure Mean 56 Blood Pressure Position Pulse Oximetry 97 99 Oxygen Delivery Method Sepsis Recent Fever Within 48 Hours Sepsis New/Unexplained Change in Mental Status Sepsis Action Taken by Nursing 09/29/22 15:30 09/29/22 15:31 09/29/22 15:31 Temperature Temperature Source Pulse Rate 103 H 95 H Pulse Rate from SpO2 Sensor 124 H Pulse Rhythm Respiratory Rate 25 H 24 Respiratory Effort / Characteristics Respiratory Depth Respiratory Pattern Blood Pressure 79/35 L Blood Pressure Mean 50 Blood Pressure Position Pulse Oximetry 96 Oxygen Delivery Method Sepsis Recent Fever Within 48 Hours Sepsis New/Unexplained Change in Mental Status Sepsis Action Taken by Nursing 09/29/22 15:51 09/29/22 15:53 09/29/22 15:53 Temperature Temperature Source Pulse Rate 98 H 99 H Pulse Rate from SpO2 Sensor 81 99 H Pulse Rhythm Respiratory Rate 25 H 29 H Respiratory Effort / Characteristics Respiratory Depth Respiratory Pattern Blood Pressure 65/34 L Blood Pressure Mean 49 Blood Pressure Position Pulse Oximetry 96 97 Oxygen Delivery Method Sepsis Recent Fever Within 48 Hours Sepsis New/Unexplained Change in Mental Status Sepsis Action Taken by Nursing 09/29/22 16:00 09/29/22 16:10 09/29/22 16:13 Temperature Temperature Source Pulse Rate 103 H 105 H Pulse Rate from SpO2 Sensor 99 H 97 H Pulse Rhythm Respiratory Rate 27 H 23 Respiratory Effort / Characteristics Respiratory Depth Respiratory Pattern Blood Pressure Blood Pressure Mean 21 Blood Pressure Position Pulse Oximetry 95 97 Oxygen Delivery Method Sepsis Recent Fever Within 48 Hours Sepsis New/Unexplained Change in Mental Status Sepsis Action Taken by Nursing 09/29/22 16:13 09/29/22 16:18 09/29/22 16:18 Temperature Temperature Source Pulse Rate 104 H 105 H Pulse Rate from SpO2 Sensor 118 H 101 H Pulse Rhythm Respiratory Rate 23 26 H Respiratory Effort / Characteristics Respiratory Depth Respiratory Pattern Blood Pressure 43/22 L Blood Pressure Mean 26 Blood Pressure Position Pulse Oximetry 94 97 Oxygen Delivery Method Sepsis Recent Fever Within 48 Hours Sepsis New/Unexplained Change in Mental Status Sepsis Action Taken by Nursing 09/29/22 16:20 09/29/22 16:26 09/29/22 16:26 Temperature Temperature Source Pulse Rate 105 H 106 H Pulse Rate from SpO2 Sensor 104 H 97 H Pulse Rhythm Respiratory Rate 23 23 Respiratory Effort / Characteristics Respiratory Depth Respiratory Pattern Blood Pressure 52/33 L Blood Pressure Mean 37 Blood Pressure Position Pulse Oximetry 96 95 Oxygen Delivery Method Sepsis Recent Fever Within 48 Hours Sepsis New/Unexplained Change in Mental Status Sepsis Action Taken by Nursing 09/29/22 16:30 09/29/22 16:31 09/29/22 16:31 Temperature Temperature Source Pulse Rate 108 H 108 H Pulse Rate from SpO2 Sensor 111 H 116 H Pulse Rhythm Respiratory Rate 27 H 24 Respiratory Effort / Characteristics Respiratory Depth Respiratory Pattern Blood Pressure 71/48 L Blood Pressure Mean 65 Blood Pressure Position Pulse Oximetry 95 94 Oxygen Delivery Method Sepsis Recent Fever Within 48 Hours Sepsis New/Unexplained Change in Mental Status Sepsis Action Taken by Nursing 09/29/22 16:25 09/29/22 16:37 09/29/22 16:37 Temperature Temperature Source Pulse Rate 106 H 110 H Pulse Rate from SpO2 Sensor 99 H 107 H Pulse Rhythm Respiratory Rate 26 H 27 H Respiratory Effort / Characteristics Respiratory Depth Respiratory Pattern Blood Pressure 59/25 L Blood Pressure Mean 33 Blood Pressure Position Pulse Oximetry 95 93 Oxygen Delivery Method Sepsis Recent Fever Within 48 Hours Sepsis New/Unexplained Change in Mental Status Sepsis Action Taken by Nursing 09/29/22 16:40 09/29/22 16:41 09/29/22 16:41 Temperature Temperature Source Pulse Rate 115 H 114 H Pulse Rate from SpO2 Sensor 94 H 105 H Pulse Rhythm Respiratory Rate 26 H 26 H Respiratory Effort / Characteristics Respiratory Depth Respiratory Pattern Blood Pressure 71/27 L Blood Pressure Mean 48 Blood Pressure Position Pulse Oximetry 94 95 Oxygen Delivery Method Sepsis Recent Fever Within 48 Hours Sepsis New/Unexplained Change in Mental Status Sepsis Action Taken by Nursing 09/29/22 16:45 09/29/22 16:45 Temperature Temperature Source Pulse Rate 119 H Pulse Rate from SpO2 Sensor 123 H Pulse Rhythm Respiratory Rate 26 H Respiratory Effort / Characteristics Respiratory Depth Respiratory Pattern Blood Pressure 89/54 L Blood Pressure Mean 63 Blood Pressure Position Pulse Oximetry 96 Oxygen Delivery Method Sepsis Recent Fever Within 48 Hours Sepsis New/Unexplained Change in Mental Status Sepsis Action Taken by [facility] Medications Current Medication List: was personally reviewed by me Laboratory Data Attestation: I reviewed the patient's lab results. 09/29/22 14:00 09/29/22 14:00 Lab Results 09/29/22 09/29/22 09/29/22 Range/Units 13:57 14:00 14:00 WBC 17.56 H (4.8-10.8) K/ul RBC 3.50 L (4.20-5.40) M/uL Hgb 10.8 L (12.0-16.0) g/dl Hct 32.1 L (37.0-47.0) % MCV 91.7 (80.0-100.0) fL MCH 30.9 (25.0-34.0) pg MCHC 33.6 (32.0-36.0) g/dL RDW Std Deviation 47.9 H (36.4-46.3) fL RDW Coeff of Heidi 14.4 (11.5-14.5) % Plt Count 138 (130-400) K/uL MPV 10.8 (9.4-12.4) fL Immature Gran % (Auto) 4.4 % Neut % (Auto) 81.3 % Lymph % (Auto) 6.5 % [place] % (Auto) 5.8 % Eos % (Auto) 1.7 % Baso % (Auto) 0.3 % Neut # (Auto) 14.28 H (1.40-6.50) K/uL Lymph # (Auto) 1.14 L (1.2-3.4) K/uL [place] # (Auto) 1.01 H (0.11-0.59) K/uL Eos # (Auto) 0.30 (0-0.50) K/uL Baso # (Auto) 0.06 (0-0.2) K/uL Immature Gran # (Auto) 0.77 H (0.01-0.20) K/uL Dohle Bodies 1+ PT (9.0-12.0) Seconds INR (0.9-1.1) APTT (21.0-31.0) Seconds PTT Ratio VBG pH (7.36-7.41) VBG pCO2 (38-50) mmHg VBG pO2 mmHg VBG HCO3 mmol/L VBG O2 Saturation % VBG Base Excess mEq/L Sodium (136-145) mmol/L Potassium (3.5-5.1) mmol/L Chloride (98-107) mmol/L Carbon Dioxide (21-32) mmol/L Anion Gap (3-11) BUN (6-23) mg/dl Creatinine (0.6-1.2) mg/dl Est Cr Clr Drug Dosing ml/min Est GFR ( Amer) ml/min Est GFR (Non-Af Amer) ml/min BUN/Creatinine Ratio (10-20) Glucose (70-99(Fasting)) mg/dl POC Glucose 442 H* 132 H (70-99) mg/dl Lactate (0.4-2.0) mmol/L Calcium (8.6-10.3) mg/dl Magnesium (1.7-2.4) mg/dl Total Bilirubin (0.2-1.0) mg/dl Direct Bilirubin (0-0.2) mg/dl AST (13-39) U/L ALT (7-52) U/L Alkaline Phosphatase (34-104) U/L Troponin I High Sens (0-14) pg/ml Total Protein (6.0-8.3) gm/dl Albumin (3.4-5.0) gm/dl Globulin (2.5-4.0) gm/dl Albumin/Globulin Ratio (0.9-2) Procalcitonin (0-0.5) ng/ml TSH (0.300-4.500) uIu/ml Urine Color Urine Appearance (Clear) Urine pH (4.5-7.5) Ur Specific [place] (1.000-1.030) Urine Protein (Negative) Urine Glucose (UA) (Negative) Urine Ketones (Negative) Urine Blood (Negative) Urine Nitrite (Negative) Urine Bilirubin (Negative) Urine Urobilinogen (Negative) Ur Leukocyte Esterase (Negative) Urine WBC (Auto) (0-5) /hpf Urine RBC (Auto) (0-4) /hpf U Hyaline Cast (Auto) (0-5) /lpf U Epithel Cells (Auto) (0-5) /lpf Urine Bacteria (Auto) (Negative) Urine Yeast SARS-CoV-2 (PCR) (Negative) Influenza Type A (PCR) (Neg) Influenza Type B (PCR) (Neg) RSV (RT-PCR) (Neg) 09/29/22 09/29/22 09/29/22 Range/Units 14:00 14:00 14:00 WBC (4.8-10.8) K/ul RBC (4.20-5.40) M/uL Hgb (12.0-16.0) g/dl Hct (37.0-47.0) % MCV (80.0-100.0) fL MCH (25.0-34.0) pg MCHC (32.0-36.0) g/dL RDW Std Deviation (36.4-46.3) fL RDW Coeff of Heidi (11.5-14.5) % Plt Count (130-400) K/uL MPV (9.4-12.4) fL Immature Gran % (Auto) % Neut % (Auto) % Lymph % (Auto) % [place] % (Auto) % Eos % (Auto) % Baso % (Auto) % Neut # (Auto) (1.40-6.50) K/uL Lymph # (Auto) (1.2-3.4) K/uL [place] # (Auto) (0.11-0.59) K/uL Eos # (Auto) (0-0.50) K/uL Baso # (Auto) (0-0.2) K/uL Immature Gran # (Auto) (0.01-0.20) K/uL Dohle Bodies PT 12.8 H (9.0-12.0) Seconds INR 1.2 H (0.9-1.1) APTT 29.6 (21.0-31.0) Seconds PTT Ratio 1.0 VBG pH (7.36-7.41) VBG pCO2 (38-50) mmHg VBG pO2 mmHg VBG HCO3 mmol/L VBG O2 Saturation % VBG Base Excess mEq/L Sodium 131 L (136-145) mmol/L Potassium 4.1 (3.5-5.1) mmol/L Chloride 97 L (98-107) mmol/L Carbon Dioxide 23 (21-32) mmol/L Anion Gap 11 (3-11) BUN 60 H (6-23) mg/dl Creatinine 3.43 H (0.6-1.2) mg/dl Est Cr Clr Drug Dosing 11.7 ml/min Est GFR ( Amer) 13.8 ml/min Est GFR (Non-Af Amer) 11.9 ml/min BUN/Creatinine Ratio 17.5 (10-20) Glucose 153 H (70-99(Fasting)) mg/dl POC Glucose (70-99) mg/dl Lactate (0.4-2.0) mmol/L Calcium 7.9 L (8.6-10.3) mg/dl Magnesium 1.2 L (1.7-2.4) mg/dl Total Bilirubin 0.7 (0.2-1.0) mg/dl Direct Bilirubin 0.2 (0-0.2) mg/dl AST 37 (13-39) U/L ALT 21 (7-52) U/L Alkaline Phosphatase 109 H (34-104) U/L Troponin I High Sens 453.3 H* (0-14) pg/ml Total Protein 5.5 L (6.0-8.3) gm/dl Albumin 3.0 L (3.4-5.0) gm/dl Globulin 2.5 (2.5-4.0) gm/dl Albumin/Globulin Ratio 1.2 (0.9-2) Procalcitonin (0-0.5) ng/ml TSH 2.503 (0.300-4.500) uIu/ml Urine Color Urine Appearance (Clear) Urine pH (4.5-7.5) Ur Specific [place] (1.000-1.030) Urine Protein (Negative) Urine Glucose (UA) (Negative) Urine Ketones (Negative) Urine Blood (Negative) Urine Nitrite (Negative) Urine Bilirubin (Negative) Urine Urobilinogen (Negative) Ur Leukocyte Esterase (Negative) Urine WBC (Auto) (0-5) /hpf Urine RBC (Auto) (0-4) /hpf U Hyaline Cast (Auto) (0-5) /lpf U Epithel Cells (Auto) (0-5) /lpf Urine Bacteria (Auto) (Negative) Urine Yeast SARS-CoV-2 (PCR) (Negative) Influenza Type A (PCR) (Neg) Influenza Type B (PCR) (Neg) RSV (RT-PCR) (Neg) 09/29/22 09/29/22 09/29/22 Range/Units 14:00 14:35 14:41 WBC (4.8-10.8) K/ul RBC (4.20-5.40) M/uL Hgb (12.0-16.0) g/dl Hct (37.0-47.0) % MCV (80.0-100.0) fL MCH (25.0-34.0) pg MCHC (32.0-36.0) g/dL RDW Std Deviation (36.4-46.3) fL RDW Coeff of Ehidi (11.5-14.5) % Plt Count (130-400) K/uL MPV (9.4-12.4) fL Immature Gran % (Auto) % Neut % (Auto) % Lymph % (Auto) % [place] % (Auto) % Eos % (Auto) % Baso % (Auto) % Neut # (Auto) (1.40-6.50) K/uL Lymph # (Auto) (1.2-3.4) K/uL [place] # (Auto) (0.11-0.59) K/uL Eos # (Auto) (0-0.50) K/uL Baso # (Auto) (0-0.2) K/uL Immature Gran # (Auto) (0.01-0.20) K/uL Dohle Bodies PT (9.0-12.0) Seconds INR (0.9-1.1) APTT (21.0-31.0) Seconds PTT Ratio VBG pH (7.36-7.41) VBG pCO2 (38-50) mmHg VBG pO2 mmHg VBG HCO3 mmol/L VBG O2 Saturation % VBG Base Excess mEq/L Sodium (136-145) mmol/L Potassium (3.5-5.1) mmol/L Chloride (98-107) mmol/L Carbon Dioxide (21-32) mmol/L Anion Gap (3-11) BUN (6-23) mg/dl Creatinine (0.6-1.2) mg/dl Est Cr Clr Drug Dosing ml/min Est GFR ( Amer) ml/min Est GFR (Non-Af Amer) ml/min BUN/Creatinine Ratio (10-20) Glucose (70-99(Fasting)) mg/dl POC Glucose (70-99) mg/dl Lactate (0.4-2.0) mmol/L Calcium (8.6-10.3) mg/dl Magnesium (1.7-2.4) mg/dl Total Bilirubin (0.2-1.0) mg/dl Direct Bilirubin (0-0.2) mg/dl AST (13-39) U/L ALT (7-52) U/L Alkaline Phosphatase (34-104) U/L Troponin I High Sens (0-14) pg/ml Total Protein (6.0-8.3) gm/dl Albumin (3.4-5.0) gm/dl Globulin (2.5-4.0) gm/dl Albumin/Globulin Ratio (0.9-2) Procalcitonin 119.37 H (0-0.5) ng/ml TSH (0.300-4.500) uIu/ml Urine Color Dark Yellow Urine Appearance Turbid A (Clear) Urine pH 5.0 (4.5-7.5) Ur Specific [place] 1.014 (1.000-1.030) Urine Protein 2+ H (Negative) Urine Glucose (UA) Negative (Negative) Urine Ketones Trace H (Negative) Urine Blood 2+ H (Negative) Urine Nitrite Negative (Negative) Urine Bilirubin Negative (Negative) Urine Urobilinogen Negative (Negative) Ur Leukocyte Esterase 3+ H (Negative) Urine WBC (Auto) >30 H (0-5) /hpf Urine RBC (Auto) 5-10 H (0-4) /hpf U Hyaline Cast (Auto) 1-5 (0-5) /lpf U Epithel Cells (Auto) 10-20 H (0-5) /lpf Urine Bacteria (Auto) 4+ H (Negative) Urine Yeast Not Reportable SARS-CoV-2 (PCR) NEGATIVE (Negative) Influenza Type A (PCR) Negative (Neg) Influenza Type B (PCR) Negative (Neg) RSV (RT-PCR) Negative (Neg) 09/29/22 09/29/22 Range/Units 14:51 14:51 WBC (4.8-10.8) K/ul RBC (4.20-5.40) M/uL Hgb (12.0-16.0) g/dl Hct (37.0-47.0) % MCV (80.0-100.0) fL MCH (25.0-34.0) pg MCHC (32.0-36.0) g/dL RDW Std Deviation (36.4-46.3) fL RDW Coeff of Heidi (11.5-14.5) % Plt Count (130-400) K/uL MPV (9.4-12.4) fL Immature Gran % (Auto) % Neut % (Auto) % Lymph % (Auto) % [place] % (Auto) % Eos % (Auto) % Baso % (Auto) % Neut # (Auto) (1.40-6.50) K/uL Lymph # (Auto) (1.2-3.4) K/uL [place] # (Auto) (0.11-0.59) K/uL Eos # (Auto) (0-0.50) K/uL Baso # (Auto) (0-0.2) K/uL Immature Gran # (Auto) (0.01-0.20) K/uL Dohle Bodies PT (9.0-12.0) Seconds INR (0.9-1.1) APTT (21.0-31.0) Seconds PTT Ratio VBG pH 7.39 (7.36-7.41) VBG pCO2 39 (38-50) mmHg VBG pO2 40 mmHg VBG HCO3 24 mmol/L VBG O2 Saturation 68.0 % VBG Base Excess -1.2 mEq/L Sodium (136-145) mmol/L Potassium (3.5-5.1) mmol/L Chloride (98-107) mmol/L Carbon Dioxide (21-32) mmol/L Anion Gap (3-11) BUN (6-23) mg/dl Creatinine (0.6-1.2) mg/dl Est Cr Clr Drug Dosing ml/min Est GFR ( Amer) ml/min Est GFR (Non-Af Amer) ml/min BUN/Creatinine Ratio (10-20) Glucose (70-99(Fasting)) mg/dl POC Glucose (70-99) mg/dl Lactate 3.2 H* (0.4-2.0) mmol/L Calcium (8.6-10.3) mg/dl Magnesium (1.7-2.4) mg/dl Total Bilirubin (0.2-1.0) mg/dl Direct Bilirubin (0-0.2) mg/dl AST (13-39) U/L ALT (7-52) U/L Alkaline Phosphatase (34-104) U/L Troponin I High Sens (0-14) pg/ml Total Protein (6.0-8.3) gm/dl Albumin (3.4-5.0) gm/dl Globulin (2.5-4.0) gm/dl Albumin/Globulin Ratio (0.9-2) Procalcitonin (0-0.5) ng/ml TSH (0.300-4.500) uIu/ml Urine Color Urine Appearance (Clear) Urine pH (4.5-7.5) Ur Specific [place] (1.000-1.030) Urine Protein (Negative) Urine Glucose (UA) (Negative) Urine Ketones (Negative) Urine Blood (Negative) Urine Nitrite (Negative) Urine Bilirubin (Negative) Urine Urobilinogen (Negative) Ur Leukocyte Esterase (Negative) Urine WBC (Auto) (0-5) /hpf Urine RBC (Auto) (0-4) /hpf U Hyaline Cast (Auto) (0-5) /lpf U Epithel Cells (Auto) (0-5) /lpf Urine Bacteria (Auto) (Negative) Urine Yeast SARS-CoV-2 (PCR) (Negative) Influenza Type A (PCR) (Neg) Influenza Type B (PCR) (Neg) RSV (RT-PCR) (Neg) Administered Medications Norepinephrine Bitartrate (Levophed/D5w) 4 mg in 250 mls @ 29.16 mls/hr IV .Q8H35M [facility]; Protocol Stop: 10/29/22 16:29 Last Titration: 09/29/22 16:51 Dose: 0.09 mcg/kg/min, 29.2 mls/hr Documented By: Titration: 09/29/22 16:35 Dose: 0.07 mcg/kg/min, 22.7 mls/hr Documented By: Admin: 09/29/22 16:25 Dose: 0.05 mcg/kg/min, 16.2 mls/hr Documented By: MARLY Co-signed By: JUAN CARLOS Sodium Chloride (Nss 1000ml) 1,000 mls @ 999 mls/hr IV .Q1H1M ONE Stop: 09/29/22 18:33 Last Admin: 09/29/22 17:53 Dose: 999 mls/hr Documented By: TOE PUNCHER Discontinued Medications Sodium Chloride (Nss 1000ml) 1,000 mls @ 999 mls/hr IV .Q1H1M ONE Stop: 09/29/22 15:37 Last Infusion: 09/29/22 15:10 Dose: 999 mls/hr Documented By: TOE PUNCHER Admin: 09/29/22 14:50 Dose: 999 mls/hr Documented By: RENEA Piperacillin Sod/Tazobactam Sod (Zosyn) 4.5 gm in 120 mls @ 240 mls/hr IV NOW ONE Stop: 09/29/22 15:17 Last Infusion: 09/29/22 16:18 Dose: 0 mls/hr Documented By: TOE PUNCHER Admin: 09/29/22 15:21 Dose: 240 mls/hr Documented By: TOE PUNCHER Sodium Chloride (Nss 1000ml) 1,000 mls @ 999 mls/hr IV .Q1H1M ONE Stop: 09/29/22 15:50 Last Infusion: 09/29/22 16:18 Dose: 0 mls/hr Documented By: TOE PUNCHER Admin: 09/29/22 15:11 Dose: 999 mls/hr Documented By: TOE PUNCHER Norepinephrine Bitartrate (Norepinephrine/D5w 4 Mg/250 Ml) Confirm Administered Dose 4 mg IV .STK-MED ONE Stop: 09/29/22 16:22 Last Admin: 09/29/22 16:25 Dose: 4 mg Documented By: TOE PUNCHER Imaging Data Attestation: I personally reviewed and interpreted this imaging study as follows: My Impression: 1 view chest x-ray was obtained in the emergency department. My interpretation is no free air or definite infiltrate, final report below. CT of the abdomen and pelvis was obtained. My interpretation is no free air or signs of bowel obstruction, final report below. A second 1 view chest x-ray was obtained after placement of central line. My interpretation is no pneumothorax, final report pending. Radiologist's Impression: Chest X-Ray 09/29/22 14:37 XR chest 1V portable CLINICAL HISTORY: Sepsis TECHNIQUE: Single frontal radiograph of the chest was obtained. Comparison: Comparison is made to chest radiograph 06/19/2022 FINDINGS: No lines and tubes are seen. Cardiomegaly is noted. Prominence and cephalization of the vasculature is seen. No evidence of pleural effusion or pneumothorax. IMPRESSION: Mild pulmonary edema. No evidence of pneumonia. ACT 112: Negative or not required by law. Electronically signed by: Mir Wyatt M.D. 09/29/2022 4:17 PM Abdomen/Pelvis CT 09/29/22 14:50 CT SCAN OF THE ABDOMEN AND PELVIS WITHOUT IV CONTRAST CLINICAL HISTORY: Right flank pain. COMPARISON STUDY: Abdominal CT dated 05/01/2014. TECHNIQUE: CT scan of the abdomen and pelvis is performed from the lung bases to the proximal femora. Images are reviewed in the axial, sagittal, and coronal planes. IV contrast was not administered for this examination. A dose lowering technique was utilized adhering to the principles of ALARA. CT DOSE: 1349.99 mGy.cm FINDINGS: Lung bases: The heart is normal in size noting a small pericardial effusion. There is diminished attenuation of the cardiac blood pool as compared to the myocardium suggesting anemia. There is calcification of the aortic valve leaflets. There is bibasilar scarring/atelectasis. A fat-containing Bo[place] hernia is seen on the right. No airspace consolidation or pleural effusion is identified. Mild bronchiectasis is noted at the lung bases. A small hiatal hernia is noted. There is evidence of previous right mastectomy. Liver: The unenhanced liver is normal in size, contour, and attenuation. There is no intrahepatic biliary ductal dilatation. Gallbladder: Surgically absent noting clips in the gallbladder fossa. Spleen: Normal in size and attenuation. Pancreas: Unremarkable. Adrenal glands: Unremarkable. Kidneys: The unenhanced kidneys are normal in size and without hydronephrosis. There are renovascular calcifications. No renal calculi are clearly identified. There is no evidence of contour deforming renal mass lesion. There is mild bilateral perinephric and periureteric infiltration. Abdominal vasculature: The abdominal aorta is normal in course and caliber noting advanced atherosclerotic calcification. Bowel: There is mild to moderate colonic fecal retention. No bowel obstruction is seen. The appendix is not identified and reported surgically absent. Peritoneum: There is no intraperitoneal free air or abdominal ascites. There is a small fat-containing umbilical hernia. Lymphadenopathy: None. Pelvic viscera: The bladder is decompressed and appears thick-walled with surrounding inflammation. The uterus and adnexa are normal as visualized. Skeletal structures: The skeletal structures are osteopenic. There is moderate to advanced lumbosacral spondylosis and mild scoliosis. Degenerative change is seen in the sacroiliac joints. No lytic or blastic lesions are seen. IMPRESSION: 1. Findings suggest cystitis. Correlate with clinical findings and urinalysis. 2. There is mild bilateral perinephric and periureteric stranding. Ascending urinary tract infection is not excluded, and clinical/laboratory correlation will be required. 3. Additional findings as above. ACT 112: Negative or not required by law. Electronically signed by: Huey Fournier M.D. 09/29/2022 4:01 PM Discharge Plan Visit Data Chief Complaint: Illness ED Provider: River Bach Discharge Problem: Acute pyelonephritis, Sepsis, Acute hypotension, Non-ST elevation CO (NSTEMI), JUAN A (acute kidney injury) Patient Disposition: Being Evaluated by Hospitalist Forms Stand Alone Forms: [facility] Prescriptions Prescriptions: No Action omeprazole 40 mg capsule,delayed release(DR/EC) 40 mg PO QAM gabapentin 300 mg capsule 300 mg PO BID Euflexxa 10 mg/mL(mw 2.4 -3.6 million) syringe 20 mg intra-articular DIRECTED Rx Instructions: EVERY 3 MONTHS INJECTED INTO KNEE duloxetine [Cymbalta] 60 mg capsule,delayed release(DR/EC) 60 mg PO QAM Rx Instructions: TOTAL DOSE 90 MG--TAKES WITH 30 MG CAP. duloxetine [Cymbalta] 30 mg capsule,delayed release(DR/EC) 30 mg PO QAM Rx Instructions: TOTAL DOSE 90 MG--TAKES WITH 60 MG CAP. glimepiride [Amaryl] 1 mg tablet 2 mg PO QAM colchicine 0.6 mg tablet 0.6 mg PO BID multivitamin Tablet 1 tab PO QAM oxybutynin chloride 15 mg Tablet Extended Release 24hr 15 mg PO DAILY PRN (Reason: URINARY DISCOMFORT) Rx Instructions: MED NOT LISTED ON EXT MED HX. NOT SURE STILL TAKING. atorvastatin 20 mg Tablet 20 mg PO QAM ascorbic acid (vitamin C) [Vitamin C] 500 mg Tablet 500 mg PO QAM metoprolol succinate [Toprol XL] 25 mg Tablet Extended Release 24 Hr 25 mg PO QAM hydroxyzine HCl 10 mg Tablet 10 mg PO TID PRN (Reason: ANXIETY/INSOMNIA) cyanocobalamin (vitamin B-12) [Vitamin B-12] 1,000 mcg tablet 1,000 mcg PO QAM acetaminophen [Tylenol Extra Strength] 500 mg Tablet 1,000 mg PO TID PRN (Reason: Pain) albuterol sulfate 90 mcg/actuation HFA aerosol inhaler 2 puffs INH Q6H PRN (Reason: shortness of breath or wheezing) Qty: 18 0RF aspirin 81 mg Tablet,Delayed Release (Dr/Ec) 81 mg PO QAM Entresto 97-103 mg tablet 1 tab PO BID magnesium oxide 400 mg magnesium capsule 400 mg PO BID Qty: 14 0RF furosemide [Lasix] 20 mg tablet 20 mg PO DAILY Qty: 14 0RF allopurinol 100 mg Tablet 100 mg PO BID trospium 60 mg Capsule,Extended Release 24hr 60 mg PO QAM Referrals Referrals: Josephine Turner CRNP [Primary Care Provider] - Sepsis Qualifiers: Sepsis type: sepsis due to unspecified organism Sepsis acute organ dysfunction status: unspecified Qualified Code(s): A41.9 - Sepsis, unspecified organism
[2022-09-29 14:54] LABS: Bilirubin Direct 0.2 mg/dl (0-0.2)
[2022-09-29 14:59] LABS: Troponin I High Sensitivity 453.3 pg/ml (0-14)
[2022-09-29 15:06] LABS: Base Excess VBG -1.2 mEq/L; HCO3 VBG 24 mmol/L; PCO2 VBG 39 mmHg (38-50); PO2 VBG 40 mmHg; pH VBG 7.39 (7.36-7.41)
[2022-09-29 15:06] LABS: Basophils # (auto) 0.06 K/uL (0-0.2); Basophils % (auto) 0.3 %; Dohle Bodies 1+; Eosinophils % (auto) 1.7 %; Immature Granulocytes # (auto) 0.77 K/uL (0.01-0.20); Immature Granulocytes % (auto) 4.4 %; Lymphocytes # (auto) 1.14 K/uL (1.2-3.4); Lymphocytes % (auto) 6.5 %; Monocytes # (auto) 1.01 K/uL (0.11-0.59); Monocytes % (auto) 5.8 %; Neutrophils # (auto) 14.28 K/uL (1.40-6.50); Neutrophils % (auto) 81.3 %
[2022-09-29 15:10] LABS: INR 1.2 (0.9-1.1); Partial Thromboplastin Time 29.6 Seconds (21.0-31.0); Prothrombin Time 12.8 Seconds (9.0-12.0)
[2022-09-29 15:35] LABS: Appearance Urine Turbid (Clear); Bacteria Urine Automated 4+ (Negative); Bilirubin Urine Negative (Negative); Blood Urine 2+ (Negative); Color Urine Dark Yellow; Glucose Urine UA Negative (Negative); Ketones Urine Trace (Negative); Leukocyte Esterase Urine 3+ (Negative); Nitrite Urine Negative (Negative); Protein Urine 2+ (Negative); Specific Gravity Urine 1.014 (1.000-1.030); Urobilinogen Urine Negative (Negative); WBC Urine Automated >30 /hpf (0-5)
[2022-09-29 15:43] LABS: Influenza A virus by PCR Negative (Neg); Influenza B virus by PCR Negative (Neg); RSV by PCR Negative (Neg); SARS CoV2 RNA(COVID-19) Ceph NEGATIVE (Negative)
--- NOTE | 2022-09-29 16:04 | CT Scan Report ---
CT SCAN OF THE ABDOMEN AND PELVIS WITHOUT IV CONTRAST CLINICAL HISTORY: Right flank pain. COMPARISON STUDY: Abdominal CT dated 05/01/2014. TECHNIQUE: CT scan of the abdomen and pelvis is performed from the lung bases to the proximal femora. Images are reviewed in the axial, sagittal, and coronal planes. IV contrast was not administered for this examination. A dose lowering technique was utilized adhering to the principles of ALARA. CT DOSE: 1349.99 mGy.cm FINDINGS: Lung bases: The heart is normal in size noting a small pericardial effusion. There is diminished atte nuation of the cardiac blood pool as compared to the myocardium suggesting anemia. There is calcifica tion of the aortic valve leaflets. There is bibasilar scarring/atelectasis. A fat-containing [place] hernia is seen on the right. No airspace consolidation or pleural effusion is identified. Mild bron chiectasis is noted at the lung bases. A small hiatal hernia is noted. There is evidence of previous right mastectomy. Liver: The unenhanced liver is normal in size, contour, and attenuation. There is no intrahepatic jordan iary ductal dilatation. Gallbladder: Surgically absent noting clips in the gallbladder fossa. Spleen: Normal in size and attenuation. Pancreas: Unremarkable. Adrenal glands: Unremarkable. Kidneys: The unenhanced kidneys are normal in size and without hydronephrosis. There are renovascular calcifications. No renal calculi are clearly identified. There is no evidence of contour deforming r enal mass lesion. There is mild bilateral perinephric and periureteric infiltration. Abdominal vasculature: The abdominal aorta is normal in course and caliber noting advanced atheroscle rotic calcification. Bowel: There is mild to moderate colonic fecal retention. No bowel obstruction is seen. The appendix is not identified and reported surgically absent. Peritoneum: There is no intraperitoneal free air or abdominal ascites. There is a small fat-containin g umbilical hernia. Lymphadenopathy: None. Pelvic viscera: The bladder is decompressed and appears thick-walled with surrounding inflammation. T he uterus and adnexa are normal as visualized. Skeletal structures: The skeletal structures are osteopenic. There is moderate to advanced lumbosacra l spondylosis and mild scoliosis. Degenerative change is seen in the sacroiliac joints. No lytic or b lastic lesions are seen. IMPRESSION: 1. Findings suggest cystitis. Correlate with clinical findings and urinalysis. 2. There is mild bilateral perinephric and periureteric stranding. Ascending urinary tract infection is not excluded, and clinical/laboratory correlation will be required. 3. Additional findings as above. ACT 112: Negative or not required by law. Electronically signed by: Huey Fournier M.D. 09/29/2022 4:01 PM
--- NOTE | 2022-09-29 16:18 | XRay Report ---
XR chest 1V portable CLINICAL HISTORY: Sepsis TECHNIQUE: Single frontal radiograph of the chest was obtained. Comparison: Comparison is made to chest radiograph 06/19/2022 FINDINGS: No lines and tubes are seen. Cardiomegaly is noted. Prominence and cephalization of the vasculature i s seen. No evidence of pleural effusion or pneumothorax. IMPRESSION: Mild pulmonary edema. No evidence of pneumonia. ACT 112: Negative or not required by law. Electronically signed by: Mir Wyatt M.D. 09/29/2022 4:17 PM
[2022-09-29] MEDS ORDERED: NOREPINEPHRINE/D5W 4 MG/250 ML IV ONE (16:21)
[2022-09-29] MEDS: NOREPINEPHRINE/D5W 4 MG/250 ML PLCT IV SCH (16:25)
[2022-09-29] MEDS ORDERED: STAT IV Infusion **Titration per Protocol STA (16:29)
--- NOTE | 2022-09-29 17:48 | History & Physical Report ---
Date of Service September 29, 2022 Assessment & Plan (1) Septic shock: Plan: -Admit to the ICU -Currently stable on Norepi started in the ED -Was significantly hypotensive on arrival, still hypotensive after 2L bolus in the ED, norepi was started -Third liter of NSS is currently running, will start Normosol maintenance fluids when complete -Source appears to be Urosepsis as her urine appears significantly infected with procal of 119, no other source of infection noted on exam -hypotension likely exacerbated with poor oral intake and continue use of Entresto, lasix, and metoprolol -S/P a dose of zosyn in the ED, will continue with Zosyn and Dapto for now to avoid further renal damage -Will continue Norepi drip for now, can wean as able in the ICU -Keller cath to be placed by ED nurses shortly, monitor urine output closely moving forward -Will defer chemical DVT PPX to the ICU staff -NPO for now until she is in the ICU -AM CBC, CMP, Mag, PT/INR (2) UTI (urinary tract infection): Plan: -UA appears grossly infected with symptoms suggestive of acute UTI -Continue broad abx coverage for now with Zosyn and Dapto -Follow blood and urine cultures (3) Elevated troponin: Plan: -Initial high sen trop elevated at 453 -Patient is asymptomatic, no significant ST segment or T-wave changes on ECG -Likely due to demand from acute illness and significant hypotension + acute renal failure -Will repeat a 2 hour high sen trop STAT, continue to monitor on tele -q6h high sen trop ordered with next draw at midnight, continue to trend for now -TTE ordered for tomorrow (4) JUAN A (acute kidney injury): Plan: -Cr at 3.43, baseline appears near 1.1 -Likely due to septic shock and possible intrinsic etiology with current UTI, no signs of obstruction on CT of the abd/pelvis -Avoid nephrotoxic agents -Placing keller cath, monitor urine output q1h for now (5) Lactate blood increase: Plan: -Initial lactate elevated at 3.2 -monitor repeat lactate after fluid resuscitation and now on pressors (6) Hypomagnesemia: Plan: -intial mag at 1.2 -likely due to poor oral intake and continued lasix use -2 bags of IV mag ordered on admission -Continue to monitor daily mag level -Monitor on tele (7) Hyponatremia: Plan: -Initial sodium of 131 -Likely multifactorial including dehydration, JUAN A, and continued lasix use -Monitor am sodium with fluid resuscitation on admission (8) 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 Hilario at the time of the admission History of Present Illness Chief Complaint: Generalized weakness, cloudy urine, headache, blurred vision Primary Care Provider: AMBROCIO Fallon Mikaela is an 82 year old female with a PMH significant for DMII, stage 3 CKD, HTN, Gout, previous pulmonary emboli, GERD, and anxiety who presented to the [facility] ED on 09/29 via ALS for generalized weakness, cloudy urine, headache, and blurry vision. In the ED the patient was found to be hypotensive at 43/22, tachycardic with HR in the low 100's, tachypneic at 26, and afebrile. Labs were significant for a leukocytosis of 17 with left shift of 15, INR of 1.2, Cr of 3.43 (baseline appears near 1.1), BUN of 60, lactate of 3.2, mag of 1.2, procal of 119, initial high sen trop of 119, UA suggestive of acute UTI, and covid 19/RSV/Influenza negative. Chest xray was read as "Mild pulmonary edema. No evidence of pneumonia.". CT of the abd/pelvis wo con was read as "1. Findings suggest cystitis. Correlate with clinical findings and urinalysis. 2. There is mild bilateral perinephric and periureteric stranding. Ascending urinary tract infection is not excluded, and clinical/laboratory correlation will be required. 3. Additional findings as above". Prior to admission the patient was given 2L NSS, a dose of Zosyn, and was started on a Norepinephrine drip for ongoing hypotension. At the time of the exam the patient was lying in bed in no acute distress, currently mentating well. She states that she started to develop suprapubic pain, dysuria, increased urinary frequency, decreased appetite, and generalized weakness on Sunday. Her symptoms continued to progress over the past week, she was still taking all of her normal medications. She states that she woke this am with a headache and blurry vision. She did note multiple episodes of fever and chills but never took her actual temperature. She states that she is currently feeling improved compared to arrival. She denies current headache, blurry vision, chest pain, SOB, cough, abd pain, nausea, vomiting, diarrhea, LE swelling and recent trauma. She wishes to be pa full code and for her son and daughter in law to make medical decisions for her if she cannot make them herself. Please refer to Dr. Hilario's attestation for any changes to the treatment plan Allergies Allergy/AdvReac Type Severity Reaction Status Date / Time No Known Allergies Allergy Unknown Verified 09/29/22 17:50 Home Medications Medication Instructions Recorded Confirmed Type ascorbic acid (vitamin C) 500 mg 500 mg PO QAM 08/12/18 09/29/22 History tablet (Vitamin C) atorvastatin 20 mg tablet 20 mg PO QAM 08/12/18 09/29/22 History hydroxyzine HCl 10 mg tablet 10 mg PO TID PRN ANXIETY/INSOMNIA 08/12/18 09/29/22 History metoprolol succinate 25 mg 25 mg PO QAM 08/12/18 09/29/22 History tablet,extended release 24 hr (Toprol XL) multivitamin 1 tab PO QAM 08/12/18 09/29/22 History oxybutynin chloride 15 mg 15 mg PO DAILY PRN URINARY 08/12/18 09/29/22 History tablet,extended release 24 hr DISCOMFORT acetaminophen 500 mg tablet 1,000 mg PO TID PRN Pain 11/12/18 09/29/22 History (Tylenol Extra Strength) albuterol sulfate 90 mcg/actuation 2 puffs inhalation Q6H PRN 11/18/18 09/29/22 Rx aerosol inhaler shortness of breath or wheezing #18 grams colchicine 0.6 mg tablet 0.6 mg PO BID 11/15/20 09/29/22 History cyanocobalamin (vitamin B-12) 1,000 mcg PO QAM 11/15/20 09/29/22 History 1,000 mcg tablet (Vitamin B-12) duloxetine 30 mg capsule,delayed 30 mg PO QAM 11/15/20 09/29/22 History release (Cymbalta) duloxetine 60 mg capsule,delayed 60 mg PO QAM 11/15/20 09/29/22 History release (Cymbalta) gabapentin 300 mg capsule 300 mg PO BID 11/15/20 09/29/22 History glimepiride 1 mg tablet (Amaryl) 2 mg PO QAM 11/15/20 09/29/22 History omeprazole 40 mg capsule,delayed 40 mg PO QAM 11/15/20 09/29/22 History release sodium hyaluronate (viscosup) 10 20 mg intra-articular DIRECTED 11/15/20 09/29/22 History mg/mL(mw 2.4-3.6 million)intra-articular syringe (Euflexxa) allopurinol 100 mg tablet 100 mg PO BID 05/06/21 09/29/22 History trospium 60 mg capsule,extended 60 mg PO QAM 05/06/21 09/29/22 History release 24 hr aspirin 81 mg tablet,delayed 81 mg PO QAM 06/29/22 09/29/22 History release furosemide 20 mg tablet (Lasix) 20 mg PO DAILY #14 tabs 06/29/22 09/29/22 Rx magnesium oxide 400 mg PO BID #14 caps 06/29/22 09/29/22 Rx sacubitril 97 mg-valsartan 103 mg 1 tab PO BID 06/29/22 09/29/22 History tablet (Entresto) Past Med/Surg History Medical History Chronic kidney disease, stage 3a Depression Diabetes mellitus type II, controlled Fatty liver GERD (gastroesophageal reflux disease) Gout History of DVT (deep vein thrombosis) 2014 unknown cause--per pt currently no blood thinners History of right breast cancer sx/radiation Hyperglycemia Hyperlipidemia Hypertension OAB (overactive bladder) Osteoarthritis Pulmonary emboli (05/01/14) had dvt in 2014 unknown cause--per pt no blood thinners currently Renal insufficiency Thyroid nodule Surgical History H/O total mastectomy of right breast History of appendectomy History of bilateral cataract extraction History of bilateral tubal ligation History of cholecystectomy History of colonoscopy History of dilatation and curettage History of lithotripsy using laser History of lumpectomy of right breast History of right breast biopsy malignant History of tooth extraction partial lower S/P IVC filter later removed 05/2014 S/P thyroid biopsy benign Family History Other No family history of adverse response to anesthesia No significant family history Social History Smoking Status: Never smoker Second Hand Exposure: No; Do You Dip or Chew Tobacco: No; Hx Alcohol Use: No Hx Substance Use: No Preferred Language: Portuguese Communication Ability: Effective Lifestyle Director Required: No Beliefs That Will Affect Care: None Current Living Situation: Family Current Living Situation Comment: Patient lives with son and daughter in law. Other Information That Helps Us Care for You: No Feels Safe at Home: Yes Safety Concerns: Feels Safe At This Time Assistive Devices: Contacts and Glasses Assistive Devices Comment: Patient stated that she uses her cane when she goes to the grocery store Physical Exam Physical Exam: Physical Exam: General: In no acute distress, stated age, ill appearing but non-toxic HEENT: Normocephalic, atraumatic, no scleral icterus, pupils around round, symmetrical, and reactive to light, Dry mucus membranes, trachea midline, no thyromegaly, left IJ central line is in place and without signs of bleeding or drainage Chest/Pulm: No respiratory distress, symmetrical chest expansion, clear breath sounds throughout Cardiac: tachycardic rate, regular rhythm, 4/6 systolic murmur noted Abdomen: Negative for ascites and bruising, normoactive bowel sounds, soft, non-tender to palpation throughout : Tenderness to palpation over the suprapubic region Musculoskeletal: Symmetrical and without signs of acute trauma, upper and lower extremities with full ROM, no atrophy, spasticity, or flaccidity Extremities: Radial, dorsalis pedis, and posterior tibial pulses are intact and symmetrical, no edema noted in the BL LE's Skin: Warm, dry, no rashes , lesions, or scars noted Neuro: Alert and oriented to person, place, month, year, and president, no focal defects, CN II-XII tested and intact, no tremors noted Psych: No acute distress, calm and cooperative during the exam Results & Data Results & Data Vital Signs (Past 12 Hours) Vital Signs Temp Pulse Resp BP Pulse Ox O2 Del Method 09/29/22 16:45 119 H 26 H 96 09/29/22 16:45 89/54 L 09/29/22 16:41 71/27 L 09/29/22 16:41 114 H 26 H 95 09/29/22 16:40 115 H 26 H 94 09/29/22 16:37 59/25 L 09/29/22 16:37 110 H 27 H 93 09/29/22 16:25 106 H 26 H 95 09/29/22 16:31 71/48 L 09/29/22 16:31 108 H 24 94 09/29/22 16:30 108 H 27 H 95 09/29/22 16:26 52/33 L 09/29/22 16:26 106 H 23 95 09/29/22 16:20 105 H 23 96 09/29/22 16:18 105 H 26 H 97 09/29/22 16:18 43/22 L 09/29/22 16:13 104 H 23 94 09/29/22 16:10 105 H 23 97 09/29/22 16:00 103 H 27 H 95 09/29/22 15:53 99 H 29 H 97 09/29/22 15:53 65/34 L 09/29/22 15:51 98 H 25 H 96 09/29/22 15:31 95 H 24 09/29/22 15:31 79/35 L 09/29/22 15:30 103 H 25 H 96 09/29/22 15:24 69/39 L 09/29/22 15:24 103 H 20 99 09/29/22 15:20 94 H 22 97 09/29/22 15:19 96 H 26 H 96 09/29/22 15:19 67/33 L 09/29/22 15:10 102 H 25 H 93 09/29/22 15:00 104 H 25 H 94 09/29/22 15:00 74/37 L 09/29/22 14:50 99 H 28 H 92 09/29/22 14:50 68/39 L 09/29/22 14:40 115 H 23 74/40 L 93 09/29/22 14:39 112 H 25 H 68/34 L 91 09/29/22 14:34 103 H 15 63/36 L 92 09/29/22 14:32 103 H 26 H 67/45 L 95 09/29/22 14:13 103 H 29 H 193/155 H 90 09/29/22 14:44 105 H 20 92 Nasal Cannula 09/29/22 14:14 101 H 09/29/22 14:07 36.7 C 101 H 20 94 Room Air Laboratory Results Abnormal lab results 09/29/22 09/29/22 09/29/22 Range/Units 13:57 14:00 14:00 WBC 17.56 H (4.8-10.8) K/ul RBC 3.50 L (4.20-5.40) M/uL Hgb 10.8 L (12.0-16.0) g/dl Hct 32.1 L (37.0-47.0) % RDW Std Deviation 47.9 H (36.4-46.3) fL Neut # (Auto) 14.28 H (1.40-6.50) K/uL Lymph # (Auto) 1.14 L (1.2-3.4) K/uL [place] # (Auto) 1.01 H (0.11-0.59) K/uL Immature Gran # (Auto) 0.77 H (0.01-0.20) K/uL PT (9.0-12.0) Seconds INR (0.9-1.1) Sodium (136-145) mmol/L Chloride (98-107) mmol/L BUN (6-23) mg/dl Creatinine (0.6-1.2) mg/dl Glucose (70-99(Fasting)) mg/dl POC Glucose 442 H* 132 H (70-99) mg/dl Lactate (0.4-2.0) mmol/L Calcium (8.6-10.3) mg/dl Magnesium (1.7-2.4) mg/dl Alkaline Phosphatase (34-104) U/L Troponin I High Sens (0-14) pg/ml Total Protein (6.0-8.3) gm/dl Albumin (3.4-5.0) gm/dl Procalcitonin (0-0.5) ng/ml Urine Appearance (Clear) Urine Protein (Negative) Urine Ketones (Negative) Urine Blood (Negative) Ur Leukocyte Esterase (Negative) Urine WBC (Auto) (0-5) /hpf Urine RBC (Auto) (0-4) /hpf U Epithel Cells (Auto) (0-5) /lpf Urine Bacteria (Auto) (Negative) 09/29/22 09/29/22 09/29/22 Range/Units 14:00 14:00 14:00 WBC (4.8-10.8) K/ul RBC (4.20-5.40) M/uL Hgb (12.0-16.0) g/dl Hct (37.0-47.0) % RDW Std Deviation (36.4-46.3) fL Neut # (Auto) (1.40-6.50) K/uL Lymph # (Auto) (1.2-3.4) K/uL [place] # (Auto) (0.11-0.59) K/uL Immature Gran # (Auto) (0.01-0.20) K/uL PT 12.8 H (9.0-12.0) Seconds INR 1.2 H (0.9-1.1) Sodium 131 L (136-145) mmol/L Chloride 97 L (98-107) mmol/L BUN 60 H (6-23) mg/dl Creatinine 3.43 H (0.6-1.2) mg/dl Glucose 153 H (70-99(Fasting)) mg/dl POC Glucose (70-99) mg/dl Lactate (0.4-2.0) mmol/L Calcium 7.9 L (8.6-10.3) mg/dl Magnesium 1.2 L (1.7-2.4) mg/dl Alkaline Phosphatase 109 H (34-104) U/L Troponin I High Sens 453.3 H* (0-14) pg/ml Total Protein 5.5 L (6.0-8.3) gm/dl Albumin 3.0 L (3.4-5.0) gm/dl Procalcitonin 119.37 H (0-0.5) ng/ml Urine Appearance (Clear) Urine Protein (Negative) Urine Ketones (Negative) Urine Blood (Negative) Ur Leukocyte Esterase (Negative) Urine WBC (Auto) (0-5) /hpf Urine RBC (Auto) (0-4) /hpf U Epithel Cells (Auto) (0-5) /lpf Urine Bacteria (Auto) (Negative) 09/29/22 09/29/22 Range/Units 14:35 14:51 WBC (4.8-10.8) K/ul RBC (4.20-5.40) M/uL Hgb (12.0-16.0) g/dl Hct (37.0-47.0) % RDW Std Deviation (36.4-46.3) fL Neut # (Auto) (1.40-6.50) K/uL Lymph # (Auto) (1.2-3.4) K/uL [place] # (Auto) (0.11-0.59) K/uL Immature Gran # (Auto) (0.01-0.20) K/uL PT (9.0-12.0) Seconds INR (0.9-1.1) Sodium (136-145) mmol/L Chloride (98-107) mmol/L BUN (6-23) mg/dl Creatinine (0.6-1.2) mg/dl Glucose (70-99(Fasting)) mg/dl POC Glucose (70-99) mg/dl Lactate 3.2 H* (0.4-2.0) mmol/L Calcium (8.6-10.3) mg/dl Magnesium (1.7-2.4) mg/dl Alkaline Phosphatase (34-104) U/L Troponin I High Sens (0-14) pg/ml Total Protein (6.0-8.3) gm/dl Albumin (3.4-5.0) gm/dl Procalcitonin (0-0.5) ng/ml Urine Appearance Turbid A (Clear) Urine Protein 2+ H (Negative) Urine Ketones Trace H (Negative) Urine Blood 2+ H (Negative) Ur Leukocyte Esterase 3+ H (Negative) Urine WBC (Auto) >30 H (0-5) /hpf Urine RBC (Auto) 5-10 H (0-4) /hpf U Epithel Cells (Auto) 10-20 H (0-5) /lpf Urine Bacteria (Auto) 4+ H (Negative) Diagnostic Findings Chest X-Ray 09/29/22 14:37 XR chest 1V portable CLINICAL HISTORY: Sepsis TECHNIQUE: Single frontal radiograph of the chest was obtained. Comparison: Comparison is made to chest radiograph 06/19/2022 FINDINGS: No lines and tubes are seen. Cardiomegaly is noted. Prominence and cephalization of the vasculature is seen. No evidence of pleural effusion or pneumothorax. IMPRESSION: Mild pulmonary edema. No evidence of pneumonia. ACT 112: Negative or not required by law. Electronically signed by: Mir Wyatt M.D. 09/29/2022 4:17 PM Abdomen/Pelvis CT 09/29/22 14:50 CT SCAN OF THE ABDOMEN AND PELVIS WITHOUT IV CONTRAST CLINICAL HISTORY: Right flank pain. COMPARISON STUDY: Abdominal CT dated 05/01/2014. TECHNIQUE: CT scan of the abdomen and pelvis is performed from the lung bases to the proximal femora. Images are reviewed in the axial, sagittal, and coronal planes. IV contrast was not administered for this examination. A dose lowering technique was utilized adhering to the principles of ALARA. CT DOSE: 1349.99 mGy.cm FINDINGS: Lung bases: The heart is normal in size noting a small pericardial effusion. There is diminished attenuation of the cardiac blood pool as compared to the myocardium suggesting anemia. There is calcification of the aortic valve leaflets. There is bibasilar scarring/atelectasis. A fat-containing Bochdalek hernia is seen on the right. No airspace consolidation or pleural effusion is identified. Mild bronchiectasis is noted at the lung bases. A small hiatal hernia is noted. There is evidence of previous right mastectomy. Liver: The unenhanced liver is normal in size, contour, and attenuation. There is no intrahepatic biliary ductal dilatation. Gallbladder: Surgically absent noting clips in the gallbladder fossa. Spleen: Normal in size and attenuation. Pancreas: Unremarkable. Adrenal glands: Unremarkable. Kidneys: The unenhanced kidneys are normal in size and without hydronephrosis. There are renovascular calcifications. No renal calculi are clearly identified. There is no evidence of contour deforming renal mass lesion. There is mild bilateral perinephric and periureteric infiltration. Abdominal vasculature: The abdominal aorta is normal in course and caliber noting advanced atherosclerotic calcification. Bowel: There is mild to moderate colonic fecal retention. No bowel obstruction is seen. The appendix is not identified and reported surgically absent. Peritoneum: There is no intraperitoneal free air or abdominal ascites. There is a small fat-containing umbilical hernia. Lymphadenopathy: None. Pelvic viscera: The bladder is decompressed and appears thick-walled with surrounding inflammation. The uterus and adnexa are normal as visualized. Skeletal structures: The skeletal structures are osteopenic. There is moderate to advanced lumbosacral spondylosis and mild scoliosis. Degenerative change is seen in the sacroiliac joints. No lytic or blastic lesions are seen. IMPRESSION: 1. Findings suggest cystitis. Correlate with clinical findings and urinalysis. 2. There is mild bilateral perinephric and periureteric stranding. Ascending urinary tract infection is not excluded, and clinical/laboratory correlation will be required. 3. Additional findings as above. ACT 112: Negative or not required by law. Electronically signed by: Huey Fournier M.D. 09/29/2022 4:01 PM Chest X-Ray 09/29/22 17:20 SINGLE VIEW CHEST CLINICAL HISTORY: Central venous catheter placement. FINDINGS: An AP, portable, upright semierect radiograph is compared to study dated 09/29/2022. Correlation is made with chest CT dated 06/29/2022. The examination is degraded by portable technique and apical lordotic positioning. A left internal jugular central venous catheter has been placed. The tip of the catheter projects over the SVC. The heart is enlarged. The pulmonary vasculature is noncongested. There are low lung volumes with elevation of the right hemidiaphragm and bibasilar atelectasis. Chronic interstitial thickening is similar to previous. No airspace consolidation or pleural effusion is identified. No pneumothorax is seen. The skeletal structures are osteopenic. The bony thorax is grossly intact. Cholecystectomy clips are seen in the right upper quadrant. IMPRESSION: 1. A left internal jugular central venous catheter has been placed as above. No pneumothorax is seen post procedure. 2. Low lung volumes with no acute cardiopulmonary abnormality identified. ACT 112: Negative or not required by law. Electronically signed by: Huey Fournier M.D. 09/29/2022 6:24 PM ECG Additional Comments: Sinus tachycardia with Premature atrial complexes Left axis deviation Left ventricular hypertrophy with QRS widening ( R in aVL , Steve product ) Nonspecific T wave abnormality Abnormal ECG When compared with ECG of 29-JUN-2022 10:26, Nonspecific T wave abnormality has replaced inverted T waves in Anterior leads Nonspecific T wave abnormality now evident in Lateral leads Code Status & VTE Plan Code Status Full code Critical Care Time Critical Care Time: Yes Total Critical Care Time: 35 Supervising Physician Co-Signing Physician Notes I personally saw and examined the patient. I verified all keys points and agree with Bob Martinez PA-C with the following exceptions and/or additions: 82 year old female present to the ER with suprapubic pain, dysuria, urinary frequency, cloudy urine, decreased appetite, fever, chills, confusion and generalized weakness. She took her Entresto this morning. O/E A&Ox3, dry mucus membranes, HS tachycardic, regular rhythm, no murmurs, Chest CTAB, Abdo suprapubic pain, soft, BS normal, no CVA tenderness A/P Septic shock - source suspect urine, requiring Levophed to maintain MAP > 65, admit to ICU (handed over to Marcelo ALBRECHT). Hopefully BP will improve as Entresto is metabolized and excreted. Lactate 3.2 -> 1.4. UTI sepsis - broad spectrum antibiotics with daptomycin and cefepime given septic shock. Follow up urine and blood cultures. PG Care Time/CCT Total # of Minutes Spent Total Time Spent with Patient: Total time spent is greater than 50% in coordination of care (as documented) at patient's floor/unit and/or counseling patient: Critical Care Time: Yes Total Critical Care Time: 35 C[place] [address] INT INP/OBS CARE 3/75MIN Patient Type Established Medical Decision Making High Complexity Diagnoses Septic shock A41.9; R65.21 UTI (urinary tract infection) N39.0 Elevated troponin R77.8 JUAN A (acute kidney injury) N17.9 Lactate blood increase R79.89 Hypomagnesemia E83.42 Hyponatremia E87.1 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 E11.29; E11.65 Hypertension I10 Hypertension type: essential hypertension GERD (gastroesophageal reflux disease) K21.9 Hyperlipidemia E78.5 Additional Codes Critical Care Time - Critical Care Time: Yes ([id number]) (9) Hypertension Hypertension type: essential hypertension Qualified Code(s): I10 - Essential (primary) hypertension
[2022-09-29] MEDS ORDERED: DAPTOmycin 500 MG in SYRINGE 0 ML IV SCH (18:00)
[2022-09-29] MEDS ORDERED: ACETAMINOPHEN 1,000 MG/100 ML VIAL IV PRN (18:14)
[2022-09-29] MEDS ORDERED: CARBOHYDRATES FOR HYPOGLYCEMIA PO PRN ×2 (18:15→21:18)
[2022-09-29] MEDS ORDERED: DEXTROSE 50% 50 ML SYRINGE IV PRN (18:15)
[2022-09-29] MEDS ORDERED: GLUCAGON FOR INJ 1 MG VIAL SQ PRN (18:15)
[2022-09-29] MEDS ORDERED: GLUCOSE 10 TAB/TUBE PO PRN (18:15)
[2022-09-29] MEDS ORDERED: GLUCOSE 40% GEL 15 GM TUBE PO PRN (18:15)
[2022-09-29] MEDS ORDERED: PHARMACY GLYCEMIC MGMT CONSULT PRN (18:22)
--- NOTE | 2022-09-29 18:26 | XRay Report ---
SINGLE VIEW CHEST CLINICAL HISTORY: Central venous catheter placement. FINDINGS: An AP, portable, upright semierect radiograph is compared to study dated 09/29/2022. Correla tion is made with chest CT dated 06/29/2022. The examination is degraded by portable technique and api nasim lordotic positioning. A left internal jugular central venous catheter has been placed. The tip of the catheter projects over the SVC. The heart is enlarged. The pulmonary vasculature is noncongested . There are low lung volumes with elevation of the right hemidiaphragm and bibasilar atelectasis. Chr onic interstitial thickening is similar to previous. No airspace consolidation or pleural effusion is identified. No pneumothorax is seen. The skeletal structures are osteopenic. The bony thorax is marissa sly intact. Cholecystectomy clips are seen in the right upper quadrant. IMPRESSION: 1. A left internal jugular central venous catheter has been placed as above. No pneumothorax is seen post procedure. 2. Low lung volumes with no acute cardiopulmonary abnormality identified. ACT 112: Negative or not required by law. Electronically signed by: Huey Fournier M.D. 09/29/2022 6:24 PM
[2022-09-29] MEDS: MAGNESIUM SULFATE / D5W 1 GM/100 ML BAG IV SCH ×2 (18:37→21:26)
[2022-09-29] MEDS ORDERED: ALBUTEROL HFA 8 GM INHALER INH PRN (20:05)
[2022-09-29] MEDS ORDERED: ICU Protocol for HYPERglycemia SCH (21:00)
--- NOTE | 2022-09-29 21:16 | Critical Care Consultation ---
Date of Consultation September 29, 2022 Assessment & Plan (1) Septic shock: Reason Critically Ill: 82-year-old female presents to the ICU with septic shock secondary to complicated UTI and CT evidence of pyelonephritis, now requiring vasopressor support with Levophed drip. Neuro - [facility] ICU: Negative Depressioncontinue Cymbalta Cardiac - Shocklikely septic, as patient presents with complicated urinary tract infection -History of diastolic heart failure. We will repeat TTE -Elevated troponin of 458, now downtrending. No ST elevation on EKG. Likely demand ischemia in the setting of shock. Monitor -Random cortisol pending -See ID treatment for sepsis below -Titrate Levophed drip to maintain MAP greater than 65. Wean as tolerated -Admitted to ICU Diastolic heart failureappears euglycemic on exam. Hold Lasix in the setting of hypotension HLDcontinue statin HTNhold antihypertensives in the setting of hypotension/shock Respiratory - No history of pulmonary disease. Currently maintaining oxygen saturations on 2 L nasal cannula. We will wean oxygen as tolerated. Continuous monitoring on pulse ox GI - N.p.o. for now GERDPPI RENAL/LYTES - JUAN A on CKDcreatinine 3.43 on arrival to the ED with previous baseline 1.15. Likely ATN in the setting of hypotension -Continue with IV fluid resuscitation. Maintain maps greater than 65 -Avoid nephrotoxins and renally adjust medication -No severe electrolyte abnormalities or significant acidosis -Monitor routine BMPs Hypomagnesemiamagnesium 1.2 in ED. Repeat and monitor with routine BMP. Restarting mag oxide twice daily Gouthold allopurinol for now - Foleystrict I's and O's ENDO - DM type IIcurrently euglycemic. Hold glimepiride in favor of sliding scale. ICU hyperglycemic protocol HEME - H&H stable, monitor routine CBC ID - Sepsiselevated WBC, Pro-Jsesee, and lactate. Likely urinary source considering urinalysis was +[address] evidence of a sending cystitis -Urine culture and blood cultures pending -Continue with daptomycin, Zosyn LINES/IV ACCESS - Left IJ CVC DVT PROPHYLAXIS - SCDs, subcu heparin I have personally spent 50 minutes of critical care time in the direct management of this patient. This is a life/limb threatening event. This includes time spent evaluating patient, direct bedside care, chart review, placing orders, interpretation of diagnostic studies, discussion with consultants, patient, and family members, as well as other required patient management activities. This time is exclusive of all separately billable procedures, and teaching time and separate from and in addition to any other critical care service time. Thank you for allowing us to participate in the care of this patient. Please refer to my attending physician's documentation for any further recommendations. (2) Acute pyelonephritis: (3) Elevated troponin: (4) JUAN A (acute kidney injury): (5) Hypomagnesemia: (6) Diabetes: (7) Hyperlipidemia: (8) Gout: (9) Hypertension: (10) GERD (gastroesophageal reflux disease): (11) Depression: History of Present Illness Attending Physician: Maged Hilario MD History of Present Illness Patient is a 82-year-old female the past medical history of DM type II, CKD stage III, HTN, history of PE, anxiety disorder GERD, gout who presented to the emergency department earlier today with complaints of weakness, dizziness, and burning and cloudy urine. On arrival to the emergency department the patient was found to be hypotensive. Urinalysis was concerning for UTI, elevated Pro- Jessee of 119, and lactic acid elevated at 3.2. She underwent CT abdomen and pelvis which revealed cystitis with possible a sending urinary tract infection with mild bilateral perinephric and periureteral stranding. Patient's blood pre ssure initially improved with fluid resuscitation but she again became hypotensive and central line was inserted in the ED, and she was started on Levophed drip. Patient is now being transferred to ICU for further management at this time. On arrival to the ICU the patient is alert and oriented without acute distress. She reports some mild lower quadrant abdominal pain, dizziness at home for the past 2 days, burning with urination and cloudy urine for 2 days as well, and generalized weakness. She denies headache, changes in vision, fevers, syncopal episodes or loss of consciousness, falls, congestion or sore throat, cough, shortness of breath, chest pain or palpitations, nausea vomiting or diarrhea, swelling in hands or feet, changes in gait. Allergies Allergy/AdvReac Type Severity Reaction Status Date / Time No Known Allergies Allergy Unknown Verified 09/29/22 17:50 Home Medications Medication Instructions Recorded Confirmed Type ascorbic acid (vitamin C) 500 mg 500 mg PO QAM 08/12/18 09/29/22 History tablet (Vitamin C) atorvastatin 20 mg tablet 20 mg PO QAM 08/12/18 09/29/22 History hydroxyzine HCl 10 mg tablet 10 mg PO TID PRN ANXIETY/INSOMNIA 08/12/18 09/29/22 History metoprolol succinate 25 mg 25 mg PO QAM 08/12/18 09/29/22 History tablet,extended release 24 hr (Toprol XL) multivitamin 1 tab PO QAM 08/12/18 09/29/22 History oxybutynin chloride 15 mg 15 mg PO DAILY PRN URINARY 08/12/18 09/29/22 History tablet,extended release 24 hr DISCOMFORT acetaminophen 500 mg tablet 1,000 mg PO TID PRN Pain 11/12/18 09/29/22 History (Tylenol Extra Strength) albuterol sulfate 90 mcg/actuation 2 puffs inhalation Q6H PRN 11/18/18 09/29/22 Rx aerosol inhaler shortness of breath or wheezing #18 grams colchicine 0.6 mg tablet 0.6 mg PO BID 11/15/20 09/29/22 History cyanocobalamin (vitamin B-12) 1,000 mcg PO QAM 11/15/20 09/29/22 History 1,000 mcg tablet (Vitamin B-12) duloxetine 30 mg capsule,delayed 30 mg PO QAM 11/15/20 09/29/22 History release (Cymbalta) duloxetine 60 mg capsule,delayed 60 mg PO QAM 11/15/20 09/29/22 History release (Cymbalta) gabapentin 300 mg capsule 300 mg PO BID 11/15/20 09/29/22 History glimepiride 1 mg tablet (Amaryl) 2 mg PO QAM 11/15/20 09/29/22 History omeprazole 40 mg capsule,delayed 40 mg PO QAM 11/15/20 09/29/22 History release sodium hyaluronate (viscosup) 10 20 mg intra-articular DIRECTED 11/15/20 09/29/22 History mg/mL(mw 2.4-3.6 million)intra-articular syringe (Euflexxa) allopurinol 100 mg tablet 100 mg PO BID 05/06/21 09/29/22 History trospium 60 mg capsule,extended 60 mg PO QAM 05/06/21 09/29/22 History release 24 hr aspirin 81 mg tablet,delayed 81 mg PO QAM 06/29/22 09/29/22 History release furosemide 20 mg tablet (Lasix) 20 mg PO DAILY #14 tabs 06/29/22 09/29/22 Rx magnesium oxide 400 mg PO BID #14 caps 06/29/22 09/29/22 Rx sacubitril 97 mg-valsartan 103 mg 1 tab PO BID 06/29/22 09/29/22 History tablet (Entresto) Patient History Medical History Chronic kidney disease, stage 3a Depression Diabetes mellitus type II, controlled Fatty liver GERD (gastroesophageal reflux disease) Gout History of DVT (deep vein thrombosis) 2014 unknown cause--per pt currently no blood thinners History of right breast cancer sx/radiation Hyperglycemia Hyperlipidemia Hypertension OAB (overactive bladder) Osteoarthritis Pulmonary emboli (05/01/14) had dvt in 2014 unknown cause--per pt no blood thinners currently Renal insufficiency Thyroid nodule Surgical History H/O total mastectomy of right breast History of appendectomy History of bilateral cataract extraction History of bilateral tubal ligation History of cholecystectomy History of colonoscopy History of dilatation and curettage History of lithotripsy using laser History of lumpectomy of right breast History of right breast biopsy malignant History of tooth extraction partial lower S/P IVC filter later removed 05/2014 S/P thyroid biopsy benign Family History Other No family history of adverse response to anesthesia No significant family history Social History Smoking Status: Never smoker Second Hand Exposure: No; Do You Dip or Chew Tobacco: No; Hx Alcohol Use: No Hx Substance Use: No Preferred Language: Kyrgyz Communication Ability: Effective Sole Skiver Required: No Beliefs That Will Affect Care: None Current Living Situation: Family Current Living Situation Comment: Patient lives with son and daughter in law. Other Information That Helps Us Care for You: No Feels Safe at Home: Yes Safety Concerns: Feels Safe At This Time Assistive Devices: Contacts and Glasses Assistive Devices Comment: Patient stated that she uses her cane when she goes to the grocery store Review of Systems Review of Systems: All systems reviewed & are unremarkable except as noted in HPI & below Physical Exam Constitutional: cooperative and comfortable Eyes: PERRL, conjunctivae normal, anicteric sclerae ENMT: external ear and nose normal, oropharynx normal Neck: trachea midline, no thyromegaly Respiratory: normal respiratory effort, lungs clear to auscultation Cardiovascular: RRR, no murmur, no edema Rate/Rhythm: + tachycardic Heart Sounds: normal S1 and normal S2; no murmur Vessels: no JVD Gastrointestinal (Abdomen): normal bowel sounds, soft, nontender, no hepatosplenomegaly Musculoskeletal: no cyanosis or clubbing, extremities motor strength 5/5 Skin: no rashes, warm and dry Neurologic: PERRL, EOMI, accommodation nl, no face palsy, no dysarthria Psychiatric: A+Ox3, euthymic affect Genitourinary: Indwelling Chou catheter present. Urine yellow, concentrated and cloudy Results & Data Results & Data Vital Signs (Past 12 Hours) Vital Signs Temp Pulse Pulse Resp BP BP Pulse Ox 09/29/22 20:06 37.4 C 117 H 20 90/57 L 99 09/29/22 19:13 37.0 C 115 H 27 H 100/57 L 96 09/29/22 19:11 100/57 L 09/29/22 19:11 116 H 31 H 96 09/29/22 19:10 116 H 29 H 99 09/29/22 19:07 117 H 26 H 100 09/29/22 19:07 93/72 L 09/29/22 19:00 116 H 28 H 97 09/29/22 19:00 100/62 09/29/22 18:57 111 H 29 H 85 L 09/29/22 18:57 81/51 L 09/29/22 18:51 117 H 29 H 95 09/29/22 18:51 122/87 09/29/22 18:50 120 H 24 94 09/29/22 18:45 118 H 30 H 97 09/29/22 18:45 116/94 09/29/22 18:40 118 H 24 95 09/29/22 18:40 114/50 L 09/29/22 18:35 119 H 26 H 95 09/29/22 18:35 96/41 L 09/29/22 18:31 101/60 09/29/22 18:31 120 H 23 100 09/29/22 18:30 120 H 17 97 09/29/22 18:30 69/53 L 09/29/22 18:26 107/33 L 09/29/22 18:26 120 H 25 H 95 09/29/22 18:20 120 H 32 H 95 09/29/22 18:20 86/64 L 09/29/22 18:15 121 H 30 H 97 09/29/22 18:15 111/69 09/29/22 18:10 124 H 31 H 96 09/29/22 18:10 103/53 L 09/29/22 18:05 124 H 20 95 09/29/22 18:05 107/62 09/29/22 18:05 107/62 09/29/22 18:00 127 H 22 96 09/29/22 18:00 94/58 L 09/29/22 18:00 94/58 L 09/29/22 17:57 101/63 09/29/22 17:57 127 H 24 83 L 09/29/22 17:51 125 H 24 93 09/29/22 17:51 105/83 09/29/22 17:50 123 H 33 H 93 09/29/22 17:46 102/49 L 09/29/22 17:46 122 H 27 H 98 09/29/22 17:41 89/58 L 09/29/22 17:41 121 H 21 93 09/29/22 17:40 124 H 29 H 93 09/29/22 17:35 123 H 25 H 95 09/29/22 17:35 116/78 09/29/22 17:30 125 H 29 H 99 09/29/22 17:30 96/77 L 09/29/22 17:26 124 H 30 H 98 09/29/22 17:26 102/53 L 09/29/22 17:21 118 H 28 H 98 09/29/22 17:21 79/34 L 09/29/22 17:20 121 H 25 H 98 09/29/22 17:15 121 H 30 H 98 09/29/22 17:15 95/68 L 09/29/22 17:10 123 H 31 H 98 09/29/22 17:10 97/64 L 09/29/22 17:05 104/63 09/29/22 17:05 120 H 31 H 97 09/29/22 17:00 119 H 28 H 97 09/29/22 17:00 104/73 09/29/22 16:55 120 H 30 H 97 09/29/22 16:55 103/63 09/29/22 16:51 74/52 L 09/29/22 16:51 119 H 28 H 95 09/29/22 16:50 120 H 22 96 09/29/22 16:45 119 H 26 H 96 09/29/22 16:45 89/54 L 09/29/22 16:41 71/27 L 09/29/22 16:41 114 H 26 H 95 09/29/22 16:40 115 H 26 H 94 09/29/22 16:37 59/25 L 09/29/22 16:37 110 H 27 H 93 09/29/22 16:25 106 H 26 H 95 09/29/22 16:31 71/48 L 09/29/22 16:31 108 H 24 94 09/29/22 16:30 108 H 27 H 95 09/29/22 16:26 52/33 L 09/29/22 16:26 106 H 23 95 09/29/22 16:20 105 H 23 96 09/29/22 16:18 105 H 26 H 97 09/29/22 16:18 43/22 L 09/29/22 16:13 104 H 23 94 09/29/22 16:10 105 H 23 97 09/29/22 16:00 103 H 27 H 95 09/29/22 15:53 99 H 29 H 97 09/29/22 15:53 65/34 L 09/29/22 15:51 98 H 25 H 96 09/29/22 15:31 95 H 24 09/29/22 15:31 79/35 L 09/29/22 15:30 103 H 25 H 96 09/29/22 15:24 69/39 L 09/29/22 15:24 103 H 20 99 09/29/22 15:20 94 H 22 97 09/29/22 15:19 96 H 26 H 96 09/29/22 15:19 67/33 L 09/29/22 15:10 102 H 25 H 93 09/29/22 15:00 104 H 25 H 94 09/29/22 15:00 74/37 L 09/29/22 14:50 99 H 28 H 92 09/29/22 14:50 68/39 L 09/29/22 14:40 115 H 23 74/40 L 93 09/29/22 14:39 112 H 25 H 68/34 L 91 09/29/22 14:34 103 H 15 63/36 L 92 09/29/22 14:32 103 H 26 H 67/45 L 95 09/29/22 14:13 103 H 29 H 193/155 H 90 09/29/22 14:44 105 H 20 92 09/29/22 14:14 101 H 09/29/22 14:07 36.7 C 101 H 20 94 O2 Del Method O2 Flow Rate 09/29/22 20:06 Nasal Cannula 2 09/29/22 19:13 Nasal Cannula 2 09/29/22 19:11 09/29/22 19:11 09/29/22 19:10 09/29/22 19:07 09/29/22 19:07 09/29/22 19:00 09/29/22 19:00 09/29/22 18:57 09/29/22 18:57 09/29/22 18:51 09/29/22 18:51 09/29/22 18:50 09/29/22 18:45 09/29/22 18:45 09/29/22 18:40 09/29/22 18:40 09/29/22 18:35 09/29/22 18:35 09/29/22 18:31 09/29/22 18:31 09/29/22 18:30 09/29/22 18:30 09/29/22 18:26 09/29/22 18:26 09/29/22 18:20 09/29/22 18:20 09/29/22 18:15 09/29/22 18:15 09/29/22 18:10 09/29/22 18:10 09/29/22 18:05 09/29/22 18:05 09/29/22 18:05 09/29/22 18:00 09/29/22 18:00 09/29/22 18:00 09/29/22 17:57 09/29/22 17:57 09/29/22 17:51 09/29/22 17:51 09/29/22 17:50 09/29/22 17:46 09/29/22 17:46 09/29/22 17:41 09/29/22 17:41 09/29/22 17:40 09/29/22 17:35 09/29/22 17:35 09/29/22 17:30 09/29/22 17:30 09/29/22 17:26 09/29/22 17:26 09/29/22 17:21 09/29/22 17:21 09/29/22 17:20 09/29/22 17:15 09/29/22 17:15 09/29/22 17:10 09/29/22 17:10 09/29/22 17:05 09/29/22 17:05 09/29/22 17:00 09/29/22 17:00 09/29/22 16:55 09/29/22 16:55 09/29/22 16:51 09/29/22 16:51 09/29/22 16:50 09/29/22 16:45 09/29/22 16:45 09/29/22 16:41 09/29/22 16:41 09/29/22 16:40 09/29/22 16:37 09/29/22 16:37 09/29/22 16:25 09/29/22 16:31 09/29/22 16:31 09/29/22 16:30 09/29/22 16:26 09/29/22 16:26 09/29/22 16:20 09/29/22 16:18 09/29/22 16:18 09/29/22 16:13 09/29/22 16:10 09/29/22 16:00 09/29/22 15:53 09/29/22 15:53 09/29/22 15:51 09/29/22 15:31 09/29/22 15:31 09/29/22 15:30 09/29/22 15:24 09/29/22 15:24 09/29/22 15:20 09/29/22 15:19 09/29/22 15:19 09/29/22 15:10 09/29/22 15:00 09/29/22 15:00 09/29/22 14:50 09/29/22 14:50 09/29/22 14:40 09/29/22 14:39 09/29/22 14:34 09/29/22 14:32 09/29/22 14:13 09/29/22 14:44 Nasal Cannula 09/29/22 14:14 09/29/22 14:07 Room Air Diagnostic Findings CT SCAN OF THE ABDOMEN AND PELVIS WITHOUT IV CONTRAST CLINICAL HISTORY: Right flank pain. COMPARISON STUDY: Abdominal CT dated 05/01/2014. TECHNIQUE: CT scan of the abdomen and pelvis is performed from the lung bases to the proximal femora. Images are reviewed in the axial, sagittal, and coronal planes. IV contrast was not administered for this examination. A dose lowering technique was utilized adhering to the principles of ALARA. CT DOSE: 1349.99 mGy.cm FINDINGS: Lung bases: The heart is normal in size noting a small pericardial effusion. There is diminished attenuation of the cardiac blood pool as compared to the myocardium suggesting anemia. There is calcification of the aortic valve leaflets. There is bibasilar scarring/atelectasis. A fat-containing Bochdalek hernia is seen on the right. No airspace consolidation or pleural effusion is id entified. Mild bronchiectasis is noted at the lung bases. A small hiatal hernia is noted. There is evidence of previous right mastectomy. Liver: The unenhanced liver is normal in size, contour, and attenuation. There is no intrahepatic biliary ductal dilatation. Gallbladder: Surgically absent noting clips in the gallbladder fossa. Spleen: Normal in size and attenuation. Pancreas: Unremarkable. Adrenal glands: Unremarkable. Kidneys: The unenhanced kidneys are normal in size and without hydronephrosis. There are renovascular calcifications. No renal calculi are clearly identified. There is no evidence of contour deforming renal mass lesion. There is mild bilateral perinephric and periureteric infiltration. Abdominal vasculature: The abdominal aorta is normal in course and caliber noti ng advanced atherosclerotic calcification. Bowel: There is mild to moderate colonic fecal retention. No bowel obstruction is seen. The appendix is not identified and reported surgically absent. Peritoneum: There is no intraperitoneal free air or abdominal ascites. There is a small fat-containing umbilical hernia. Lymphadenopathy: None. Pelvic viscera: The bladder is decompressed and appears thick-walled with surrounding inflammation. The uterus and adnexa are normal as visualized. Skeletal structures: The skeletal structures are osteopenic. There is moderate to advanced lumbosacral spondylosis and mild scoliosis. Degenerative change is seen in the sacroiliac joints. No lytic or blastic lesions are seen. IMPRESSION: 1. Findings suggest cystitis. Correlate with clinical findings and urinalysis. 2. There is mild bilateral perinephric and periureteric stranding. Ascending urinary tract infection is not excluded, and clinical/laboratory correlation will be required. 3. Additional findings as above. ACT 112: Negative or not required by law. Electronically signed by: Huey Fournier M.D. 09/29/2022 4:01 PM Coding Level of Care Code 29750 CRITICAL CARE 1ST 30-74M Diagnoses Septic shock A41.9; R65.21 Acute pyelonephritis N10 Elevated troponin R77.8 JUAN A (acute kidney injury) N17.9 Hypomagnesemia E83.42 Diabetes E11.9 Hyperlipidemia E78.5 Gout M10.9 Chronicity: unspecified Gout etiology: unspecified cause Gout site: ankle Laterality: right Hypertension I10 Hypertension type: essential hypertension GERD (gastroesophageal reflux disease) K21.9 Depression F32.2 Active/Remission status: currently active Depression Type: major depressive disorder Major depression episode severity: severe Major depression recurrence: single episode Psychotic features: without psychotic features (8) Gout Chronicity: unspecified Gout etiology: unspecified cause Gout site: ankle Laterality: right Qualified Code(s): M10.9 - Gout, unspecified (9) Hypertension Hypertension type: essential hypertension Qualified Code(s): I10 - Essential (primary) hypertension (11) Depression Active/Remission status: currently active Depression Type: major depressive disorder Major depression episode severity: severe Major depression recurrence: single episode Psychotic features: without psychotic features Qualified Code(s): F32.2 - Major depressive disorder, single episode, severe without psychotic features
[2022-09-29] MEDS: PLASMA-LYTE A 1,000 ML IV SCH (21:26)
[2022-09-29 22:07] LABS: BUN Creatinine Ratio 20.1 (10-20); Calcium 7.9 mg/dl (8.6-10.3); Creatinine Clr Calc Pharmacy 14.2 ml/min; Est GFR (Non-African American) 14.6 ml/min; Magnesium 1.5 mg/dl (1.7-2.4); Phosphorus 2.3 mg/dl (2.5-4.9); Potassium 3.8 mmol/L (3.5-5.1)
[2022-09-29] MEDS: INSULIN ASPART PER UNIT CHARGE SC SCH (22:28)
[2022-09-30] MEDS ORDERED: PIPERACILLIN/TAZOBACTAM 4.5 GM in DEXTROSE 5% 100 ML IV SCH
[2022-09-30] MEDS ORDERED: POTASSIUM CHLORIDE / WTR 20 MEQ/100 ML PLCT IV ONE (01:50)
[2022-09-30] MEDS: MAGNESIUM SULFATE / D5W 1 GM/100 ML BAG IV SCH ×3 (02:01→06:05)
[2022-09-30] MEDS: NOREPINEPHRINE/D5W 4 MG/250 ML PLCT IV SCH ×2 (03:00→20:37)
[2022-09-30 03:56] LABS: A calco-baum cmplx NotReported Not Detected (NotDetected); Bact fragilis Not Reported Not Detected (NotDetected); C auris Not Reported Not Detected (NotDetected); CTX-M Resistant Gene Not Detected (NotDetected); Calbicans Not Reported Not Detected (NotDetected); Candida glabrata Not Reported Not Detected (NotDetected); Candida krusei Not Reported Not Detected (NotDetected); Cneoformans/gatti Not Reported Not Detected (NotDetected); Cparapsilosis Not Reported Not Detected (NotDetected); Ctropicalis Not Reported Not Detected (NotDetected); E cloacae compx Not Reported Not Detected (NotDetected); Efaecalis Not Reported Not Detected (NotDetected); Efaecium Not Reported Not Detected (NotDetected); Enterobacterales Not Reported DETECTED (NotDetected); Escherichia coli Not Reported DETECTED (NotDetected); H influenzae Not Reported Not Detected (NotDetected); IMP Resistant Gene Not Detected (NotDetected); K aerogenes Not Reported Not Detected (NotDetected); KPC Resistant Gene Not Detected (NotDetected); Koxytoca Not Reported Not Detected (NotDetected); Kpneumoniae grp Not Reported Not Detected (NotDetected); Lmonocyt Not Reported Not Detected (NotDetected); N meningitidis Not Reported Not Detected (NotDetected); NDM Resistant Gene Not Detected (NotDetected); OXA 48 Like Resistant Gene Not Detected (NotDetected); P aeruginosa Not Reported Not Detected (NotDetected); Proteus spp Not Reported Not Detected (NotDetected); Salmonella spp Not Reported Not Detected (NotDetected); Smarcescens Not Reported Not Detected (NotDetected); Staph lugdunensis Not Reported Not Detected (NotDetected); Staph spp. Not Reported Not Detected (NotDetected); Staphaureus Not Reported Not Detected (NotDetected); Staphepi Not Reported Not Detected (NotDetected); Stenmaltophilia Not Reported Not Detected (NotDetected); Strep agal(GrpB) Not Reported Not Detected (NotDetected); Strep pneum Not Reported Not Detected (NotDetected); Strep pyog (GrpA) Not Reported Not Detected (NotDetected); Strep spp Not Reported Not Detected (NotDetected); VIM Resistant Gene Not Detected (NotDetected); mcr-1 Colistin Resistant Gene Not Detected (NotDetected)
[2022-09-30 04:19] LABS: Enterobacterales DETECTED (NotDetected)
[2022-09-30 05:59] LABS: Hematocrit (blood only) 34.3 % (37.0-47.0); Hemoglobin 11.9 g/dl (12.0-16.0); Mean Corpuscular Hemoglobin 31.2 pg (25.0-34.0); Mean Corpuscular Hgb Conc 34.7 g/dL (32.0-36.0); Mean Corpuscular Volume 89.8 fL (80.0-100.0); Mean Platelet Volume 10.9 fL (9.4-12.4); Platelet Count 134 K/uL (130-400); RDW Coefficient of Variation 14.1 % (11.5-14.5); Red Blood Count 3.82 M/uL (4.20-5.40); White Blood Count 16.17 K/ul (4.8-10.8)
[2022-09-30 06:22] LABS: Albumin Level 2.8 gm/dl (3.4-5.0); BUN Creatinine Ratio 19.3 (10-20); Bilirubin,Total 1.1 mg/dl (0.2-1.0); Calcium 7.9 mg/dl (8.6-10.3); Creatinine Clr Calc Pharmacy 16.2 ml/min; Est GFR (African American) 19.8 ml/min; Est GFR (Non-African American) 17.1 ml/min; Globulin 2.8 gm/dl (2.5-4.0); Magnesium 2.3 mg/dl (1.7-2.4); Phosphorus 3.4 mg/dl (2.5-4.9); Potassium 4.5 mmol/L (3.5-5.1); Total Protein 5.6 gm/dl (6.0-8.3)
[2022-09-30 06:23] LABS: INR 1.1 (0.9-1.1); Prothrombin Time 12.4 Seconds (9.0-12.0)
[2022-09-30 06:35] LABS: ALC (manual) 0.49 K/uL (1.2-3.4); ANC (manual) 14.88 K/uL (1.4-6.5); Echinocytes 1+; Lymphocytes # (manual) 0.49 K/uL (1.2-3.4); Lymphocytes % (manual) 3 %; Metamyelocytes # (manual) 0.32 K/uL (0-0); Metamyelocytes % (manual) 2 %; Monocytes # (manual) 0.65 K/uL (0.11-0.59); Monocytes % (manual) 4 %; Neutrophils # (manual) 14.88 K/uL (1.40-6.50); Neutrophils % (manual) 92 %; Polychromasia 1+
[2022-09-30] MEDS: INSULIN ASPART PER UNIT CHARGE SC SCH ×4 (06:47→20:39)
[2022-09-30] MEDS: PLASMA-LYTE A 1,000 ML IV SCH (07:31)
[2022-09-30] MEDS: ASPIRIN 81 MG ECTAB PO SCH (07:42)
[2022-09-30] MEDS: DULoxetine HCL 60 MG CAP PO SCH (07:43)
[2022-09-30] MEDS: HEPARIN SOD 5,000 UNIT/0.5 ML VIAL SQ SCH ×2 (07:43→20:39)
[2022-09-30] MEDS: DULoxetine HCL 30 MG CAP PO SCH (07:43)
[2022-09-30] MEDS: MAGNESIUM OXIDE 400 MG TAB PO SCH ×2 (07:44→20:40)
--- NOTE | 2022-09-30 07:46 | Critical Care Progress Note ---
Date of Service September 30, 2022 Assessment & Plan (1) Septic shock: Plan: Reason Critically Ill: 82-year-old female presents to the ICU with septic shock secondary to complicated UTI and CT evidence of pyelonephritis, now requiring vasopressor support with Levophed drip. 24-hour events: Patient presented to the emergency room. Central line was attempted in the groin and eventually successfully placed in the IJ position. Vasopressors were initiated. She has received antibiotics. She is feeling better this morning. Her pressors are being weaned. Recommendations Neuro -no current issues. Continue outpatient medication Cardiac -septic shock due to pyelonephritis and gram-negative bacteremia. Random cortisol acceptable. She received about 4 L of crystalloid in the emergency room and with her initial resuscitation. She remains tachycardic with an elevated troponin which I suspect is supply/demand mismatch. Troponin is peaked and is downtrending. No indication for additional enzymes. Echocardiogram is pending. If wall motion abnormalities are identified, cardiac consultation will be obtained. Continue to wean Levophed as tolerated. Holding all other antihypertensives. Continue her lipid-lowering agent. Initial lactate was elevated but now down to 1.4. She is on a low-dose of beta-del as an outpatient and her tachycardia may be benefited by addition of beta- del once her hemodynamics have improved. Respiratory -no current issues. Incentive spirometry. Lung volumes were quite low and the patient would benefit from being upright in bed or up to a chair if possible. GI -initiate diet and advance as tolerated. Continue her outpatient PPI RENAL/LYTES -acute kidney injury. Likely ATN due to hypoperfusion and septic shock. Improving this morning. Continue to follow urine output closely. Mild hyponatremia will continue to be trended as well. Acid-base status is acceptable. We will replace calcium. - Foleystrict I's and O's. Given the frequency of UTIs, outpatient urology evaluation may be appropriate ENDO - DM type IIcurrently euglycemic. Hold glimepiride in favor of sliding scale. ICU hyperglycemic protocol HEME -mild anemia. No indication for transfusion currently. No sign of bleeding. Continue to follow clinically. ID -gram-negative bacteremia with severe sepsis and septic shock. E. coli identified from blood cultures. No resistance genes identified. We will de- escalate antibiotics to Rocephin. Recheck blood cultures in a.m. LINES/IV ACCESS - Left IJ CVC DVT PROPHYLAXIS - SCDs, subcu heparin Patient is critically ill with acute renal failure and severe sepsis with septic shock. She has possibility of clinical deterioration and . She was discussed on multidisciplinary rounds and with the bedside critical care nurse. A total of 42 minutes in critical care time was spent in evaluation management and stabilization of this patient. (2) Acute pyelonephritis: (3) Elevated troponin: (4) JUAN A (acute kidney injury): (5) Hypomagnesemia: (6) Diabetes: (7) Hyperlipidemia: (8) Gout: (9) Hypertension: (10) GERD (gastroesophageal reflux disease): (11) Depression: Admission and Anticipated Discharge Date Admission Date: September 29, 2022 Subjective Patient seen and examined. EMR reviewed. Discussed with patient at bedside and on multidisciplinary rounds. Patient states she is feeling better this morning. She denies any chest pain palpitations or shortness of breath. No nausea or vomiting. No abdominal pain. Patient does relate that she gets frequent urinary tract infections. She states she gets 1 about every 3 to 4 months. She is never seen a urologist in the past. Review of Systems Review of Systems: All systems reviewed & are unremarkable except as noted in Subjective Physical Exam Constitutional: WD/WN, vitals as above Neck: trachea midline, no thyromegaly Respiratory: normal respiratory effort, lungs clear to auscultation Cardiovascular: RRR, no murmur, no edema Gastrointestinal (Abdomen): normal bowel sounds, soft, nontender, no hepatosplenomegaly Musculoskeletal: Extremities: extremities normal to inspection Skin: no rashes, warm and dry Neurologic: Nonfocal exam Lymphatic: no cervical lymphadenopathy Results & Data Results & Data Vital Signs (Past 12 Hours) Vital Signs Temp Pulse Pulse Resp BP BP Pulse Ox 09/30/22 07:18 121 H 09/30/22 06:45 97/50 L 09/30/22 06:45 120 H 21 96 09/30/22 06:40 122 H 19 97 09/30/22 06:30 122 H 29 H 96 09/30/22 06:30 107/83 09/30/22 06:20 121 H 28 H 95 09/30/22 06:15 108/54 L 09/30/22 06:15 122 H 23 96 09/30/22 06:10 122 H 27 H 95 09/30/22 06:01 109/54 L 09/30/22 06:01 90 19 89 L 09/30/22 06:00 90 24 79 L 09/30/22 05:50 73 28 H 94 09/30/22 05:45 119 H 29 H 97 09/30/22 05:45 89/65 L 09/30/22 05:40 121 H 20 96 09/30/22 05:30 121 H 31 H 99 09/30/22 05:30 115/56 L 09/30/22 05:20 121 H 23 97 09/30/22 05:15 95/77 L 09/30/22 05:15 121 H 37 H 93 09/30/22 05:10 122 H 20 95 09/30/22 00:00 122 H 09/30/22 05:00 122 H 27 H 97 09/30/22 05:00 116/72 09/30/22 04:50 124 H 30 H 96 09/30/22 04:45 108/61 09/30/22 04:45 123 H 25 H 99 09/30/22 04:40 123 H 30 H 95 09/30/22 04:30 123 H 30 H 97 09/30/22 04:20 123 H 23 97 09/30/22 04:15 123 H 17 98 09/30/22 04:15 101/67 09/30/22 04:10 123 H 28 H 96 09/30/22 04:00 124 H 33 H 96 09/30/22 04:00 37.2 C 100/54 L 09/30/22 03:50 124 H 27 H 96 09/30/22 03:45 116/51 L 09/30/22 03:45 124 H 21 98 09/30/22 03:40 125 H 27 H 96 09/30/22 03:30 125 H 30 H 94 09/30/22 03:30 121/52 L 09/30/22 03:20 124 H 30 H 95 09/30/22 03:10 125 H 27 H 95 09/30/22 03:00 126 H 28 H 96 09/30/22 03:00 105/53 L 09/30/22 02:50 130 H 33 H 97 09/30/22 02:45 117/50 L 09/30/22 02:45 128 H 29 H 93 09/30/22 02:40 127 H 28 H 95 09/30/22 02:30 126 H 29 H 94 09/30/22 02:30 119/49 L 09/30/22 02:20 126 H 23 95 09/30/22 02:15 127 H 34 H 93 09/30/22 02:15 124/60 09/30/22 02:10 126 H 25 H 96 09/30/22 02:00 126 H 26 H 94 09/30/22 02:00 123/51 L 09/30/22 01:50 127 H 24 94 09/30/22 01:45 126 H 23 95 09/30/22 01:45 113/46 L 09/30/22 01:40 127 H 30 H 93 09/30/22 01:30 127 H 18 95 09/30/22 01:30 84/51 L 09/30/22 01:20 126 H 29 H 94 09/30/22 01:10 127 H 24 94 09/30/22 01:00 127 H 32 H 94 09/30/22 01:00 109/55 L 09/30/22 00:50 125 H 32 H 95 09/30/22 00:45 105/51 L 09/30/22 00:45 125 H 31 H 95 09/30/22 00:40 125 H 31 H 95 09/30/22 00:30 125 H 29 H 95 09/30/22 00:00 37.9 C H 123 H 28 H 94 09/30/22 00:00 92/66 L 09/29/22 23:45 122 H 14 95 09/29/22 23:45 86/54 L 09/29/22 23:30 126 H 30 H 93 09/29/22 23:30 112/84 09/29/22 23:16 102/70 09/29/22 23:16 124 H 35 H 95 09/29/22 23:15 124 H 38 H 95 09/29/22 23:04 100/57 L 09/29/22 23:04 119 H 33 H 96 09/29/22 23:01 116 H 33 H 96 09/29/22 23:01 79/38 L 09/29/22 23:00 115 H 35 H 96 09/29/22 23:00 89/33 L 09/29/22 22:45 117 H 34 H 97 09/29/22 22:30 115 H 33 H 100 09/29/22 22:15 118 H 27 H 97 09/29/22 22:01 117 H 30 H 99 09/29/22 22:01 83/68 L 09/29/22 22:00 125 H 32 H 96 09/29/22 21:45 122 H 22 88 L 09/29/22 21:30 120 H 27 H 88 L 09/29/22 21:15 117 H 17 84 L 09/29/22 21:01 139/61 09/29/22 21:01 117 H 26 H 98 09/29/22 21:00 119 H 19 95 09/29/22 22:24 09/29/22 20:06 37.4 C 117 H 20 90/57 L 99 O2 Del Method O2 Flow Rate 09/30/22 07:18 09/30/22 06:45 09/30/22 06:45 09/30/22 06:40 09/30/22 06:30 09/30/22 06:30 09/30/22 06:20 09/30/22 06:15 09/30/22 06:15 09/30/22 06:10 09/30/22 06:01 09/30/22 06:01 09/30/22 06:00 09/30/22 05:50 09/30/22 05:45 09/30/22 05:45 09/30/22 05:40 09/30/22 05:30 09/30/22 05:30 09/30/22 05:20 09/30/22 05:15 09/30/22 05:09/30/22 05:10 09/30/22 00:00 09/30/22 05:00 09/30/22 05:00 09/30/22 04:50 09/30/22 04:45 09/30/22 04:45 09/30/22 04:40 09/30/22 04:30 09/30/22 04:20 09/30/22 04:15 09/30/22 04:15 09/30/22 04:10 09/30/22 04:00 09/30/22 04:00 09/30/22 03:50 09/30/22 03:45 09/30/22 03:45 09/30/22 03:40 09/30/22 03:30 09/30/22 03:30 09/30/22 03:20 09/30/22 03:10 09/30/22 03:00 09/30/22 03:00 09/30/22 02:50 09/30/22 02:45 09/30/22 02:45 09/30/22 02:40 09/30/22 02:30 09/30/22 02:30 09/30/22 02:20 09/30/22 02:15 09/30/22 02:15 09/30/22 02:10 09/30/22 02:00 09/30/22 02:00 09/30/22 01:50 09/30/22 01:45 09/30/22 01:45 09/30/22 01:40 09/30/22 01:30 09/30/22 01:30 09/30/22 01:20 09/30/22 01:10 09/30/22 01:00 09/30/22 01:00 09/30/22 00:50 09/30/22 00:45 09/30/22 00:45 09/30/22 00:40 09/30/22 00:30 09/30/22 00:00 09/30/22 00:00 09/29/22 23:45 09/29/22 23:45 09/29/22 23:30 09/29/22 23:30 09/29/22 23:16 09/29/22 23:16 09/29/22 23:15 09/29/22 23:04 09/29/22 23:04 09/29/22 23:01 09/29/22 23:01 09/29/22 23:00 09/29/22 23:00 09/29/22 22:45 09/29/22 22:30 09/29/22 22:15 09/29/22 22:01 09/29/22 22:01 09/29/22 22:00 09/29/22 21:45 09/29/22 21:30 09/29/22 21:15 09/29/22 21:01 09/29/22 21:01 09/29/22 21:00 09/29/22 22:24 Nasal Cannula 2 09/29/22 20:06 Nasal Cannula 2 Critical Care Results & Data Vital Signs (Past 12 Hours) Vital Signs Temp Pulse Pulse Resp BP BP Pulse Ox 09/30/22 07:18 121 H 09/30/22 06:45 97/50 L 09/30/22 06:45 120 H 21 96 09/30/22 06:40 122 H 19 97 09/30/22 06:30 122 H 29 H 96 09/30/22 06:30 107/83 09/30/22 06:20 121 H 28 H 95 09/30/22 06:15 108/54 L 09/30/22 06:15 122 H 23 96 09/30/22 06:10 122 H 27 H 95 09/30/22 06:01 109/54 L 09/30/22 06:01 90 19 89 L 09/30/22 06:00 90 24 79 L 09/30/22 05:50 73 28 H 94 09/30/22 05:45 119 H 29 H 97 09/30/22 05:45 89/65 L 09/30/22 05:40 121 H 20 96 09/30/22 05:30 121 H 31 H 99 09/30/22 05:30 115/56 L 09/30/22 05:20 121 H 23 97 09/30/22 05:15 95/77 L 09/30/22 05:15 121 H 37 H 93 09/30/22 05:10 122 H 20 95 09/30/22 00:00 122 H 09/30/22 05:00 122 H 27 H 97 09/30/22 05:00 116/72 09/30/22 04:50 124 H 30 H 96 09/30/22 04:45 108/61 09/30/22 04:45 123 H 25 H 99 09/30/22 04:40 123 H 30 H 95 09/30/22 04:30 123 H 30 H 97 09/30/22 04:20 123 H 23 97 09/30/22 04:15 123 H 17 98 09/30/22 04:15 101/67 09/30/22 04:10 123 H 28 H 96 09/30/22 04:00 124 H 33 H 96 09/30/22 04:00 37.2 C 100/54 L 09/30/22 03:50 124 H 27 H 96 09/30/22 03:45 116/51 L 09/30/22 03:45 124 H 21 98 09/30/22 03:40 125 H 27 H 96 09/30/22 03:30 125 H 30 H 94 09/30/22 03:30 121/52 L 09/30/22 03:20 124 H 30 H 95 09/30/22 03:10 125 H 27 H 95 09/30/22 03:00 126 H 28 H 96 09/30/22 03:00 105/53 L 09/30/22 02:50 130 H 33 H 97 09/30/22 02:45 117/50 L 09/30/22 02:45 128 H 29 H 93 09/30/22 02:40 127 H 28 H 95 09/30/22 02:30 126 H 29 H 94 09/30/22 02:30 119/49 L 09/30/22 02:20 126 H 23 95 09/30/22 02:15 127 H 34 H 93 09/30/22 02:15 124/60 09/30/22 02:10 126 H 25 H 96 09/30/22 02:00 126 H 26 H 94 09/30/22 02:00 123/51 L 09/30/22 01:50 127 H 24 94 09/30/22 01:45 126 H 23 95 09/30/22 01:45 113/46 L 09/30/22 01:40 127 H 30 H 93 09/30/22 01:30 127 H 18 95 09/30/22 01:30 84/51 L 09/30/22 01:20 126 H 29 H 94 09/30/22 01:10 127 H 24 94 09/30/22 01:00 127 H 32 H 94 09/30/22 01:00 109/55 L 09/30/22 00:50 125 H 32 H 95 09/30/22 00:45 105/51 L 09/30/22 00:45 125 H 31 H 95 09/30/22 00:40 125 H 31 H 95 09/30/22 00:30 125 H 29 H 95 09/30/22 00:00 37.9 C H 123 H 28 H 94 09/30/22 00:00 92/66 L 09/29/22 23:45 122 H 14 95 09/29/22 23:45 86/54 L 09/29/22 23:30 126 H 30 H 93 09/29/22 23:30 112/84 09/29/22 23:16 102/70 09/29/22 23:16 124 H 35 H 95 09/29/22 23:15 124 H 38 H 95 09/29/22 23:04 100/57 L 09/29/22 23:04 119 H 33 H 96 09/29/22 23:01 116 H 33 H 96 09/29/22 23:01 79/38 L 09/29/22 23:00 115 H 35 H 96 09/29/22 23:00 89/33 L 09/29/22 22:45 117 H 34 H 97 09/29/22 22:30 115 H 33 H 100 09/29/22 22:15 118 H 27 H 97 09/29/22 22:01 117 H 30 H 99 09/29/22 22:01 83/68 L 09/29/22 22:00 125 H 32 H 96 09/29/22 21:45 122 H 22 88 L 09/29/22 21:30 120 H 27 H 88 L 09/29/22 21:15 117 H 17 84 L 09/29/22 21:01 139/61 09/29/22 21:01 117 H 26 H 98 09/29/22 21:00 119 H 19 95 09/29/22 22:24 09/29/22 20:06 37.4 C 117 H 20 90/57 L 99 O2 Del Method O2 Flow Rate 09/30/22 07:18 09/30/22 06:45 09/30/22 06:45 09/30/22 06:40 09/30/22 06:30 09/30/22 06:30 09/30/22 06:20 09/30/22 06:15 09/30/22 06:15 09/30/22 06:10 09/30/22 06:01 09/30/22 06:01 09/30/22 06:00 09/30/22 05:50 09/30/22 05:45 09/30/22 05:45 09/30/22 05:40 09/30/22 05:30 09/30/22 05:30 09/30/22 05:20 09/30/22 05:15 09/30/22 05:15 09/30/22 05:10 09/30/22 00:00 09/30/22 05:00 09/30/22 05:00 09/30/22 04:50 09/30/22 04:09/30/22 04:09/30/22 04:40 09/30/22 04:30 09/30/22 04:20 09/30/22 04:15 09/30/22 04:15 09/30/22 04:10 09/30/22 04:00 09/30/22 04:00 09/30/22 03:50 09/30/22 03:45 09/30/22 03:45 09/30/22 03:40 09/30/22 03:30 09/30/22 03:30 09/30/22 03:20 09/30/22 03:10 09/30/22 03:00 09/30/22 03:00 09/30/22 02:50 09/30/22 02:45 09/30/22 02:45 09/30/22 02:40 09/30/22 02:30 09/30/22 02:30 09/30/22 02:20 09/30/22 02:15 09/30/22 02:15 09/30/22 02:10 09/30/22 02:00 09/30/22 02:00 09/30/22 01:50 09/30/22 01:09/30/22 01:45 09/30/22 01:40 09/30/22 01:30 09/30/22 01:30 09/30/22 01:20 09/30/22 01:09/30/22 01:00 09/30/22 01:00 09/30/22 00:50 09/30/22 00:45 09/30/22 00:45 09/30/22 00:40 09/30/22 00:30 09/30/22 00:00 09/30/22 00:00 09/29/22 23:45 09/29/22 23:45 09/29/22 23:30 09/29/22 23:30 09/29/22 23:16 09/29/22 23:16 09/29/22 23:15 09/29/22 23:04 09/29/22 23:04 09/29/22 23:01 09/29/22 23:01 09/29/22 23:00 09/29/22 23:00 09/29/22 22:45 09/29/22 22:30 09/29/22 22:15 09/29/22 22:01 09/29/22 22:01 09/29/22 22:00 09/29/22 21:45 09/29/22 21:30 09/29/22 21:15 09/29/22 21:01 09/29/22 21:01 09/29/22 21:00 09/29/22 22:24 Nasal Cannula 2 09/29/22 20:06 Nasal Cannula 2 Lab & Micro Results (Past 24 Hours) RBC 3.82 M/uL (4.20-5.40) L 09/30/22 WBC 16.17 K/ul (4.8-10.8) H 09/30/22 Hgb 11.9 g/dl (12.0-16.0) L 09/30/22 Hct 34.3 % (37.0-47.0) L 09/30/22 MCV 89.8 fL (80.0-100.0) 09/30/22 MCH 31.2 pg (25.0-34.0) 09/30/22 MCHC 34.7 g/dL (32.0-36.0) 09/30/22 RDW Standard Deviation 46.0 fL (36.4-46.3) 09/30/22 RDW Coefficient of Variation 14.1 % (11.5-14.5) 09/30/22 Plt Count 134 K/uL (130-400) 09/30/22 MPV 10.9 fL (9.4-12.4) 09/30/22 Neutrophils (%) (Auto) 81.3 % 09/29/22 Lymphocytes (%) (Auto) 6.5 % 09/29/22 Monocytes # (Auto) 1.01 K/uL (0.11-0.59) H 09/29/22 Eosinophils # (Auto) 0.30 K/uL (0-0.50) 09/29/22 Immature Granulocyte % (Auto) 4.4 % 09/29/22 Neutrophils # (Auto) 14.28 K/uL (1.40-6.50) H 09/29/22 Lymphocytes # (Auto) 1.14 K/uL (1.2-3.4) L 09/29/22 Monocytes # (Auto) 1.01 K/uL (0.11-0.59) H 09/29/22 Eosinophils # (Auto) 0.30 K/uL (0-0.50) 09/29/22 Basophils # (Auto) 0.06 K/uL (0-0.2) 09/29/22 Immature Granulocyte # (Auto) 0.77 K/uL (0.01-0.20) H 09/29 ANC 14.88 K/uL (1.4-6.5) H 09/30/22 ALC 0.49 K/uL (1.2-3.4) L 09/30/22 Neutrophils % (Manual) 92 % 09/30/22 Lymphocytes % (Manual) 3 % 09/30/22 Monocytes % (Manual) 4 % 09/30/22 Metamyelocytes % (manual) 2 % 09/30/22 Neutrophils # (Manual) 14.88 K/uL (1.40-6.50) H 09/30/22 Lymphocytes # (Manual) 0.49 K/uL (1.2-3.4) L 09/30/22 Monocytes # (Manual) 0.65 K/uL (0.11-0.59) H 09/30/22 Metamyelocytes # (Manual) 0.32 K/uL (0-0) H 09/30/22 Polychromasia 1+ 09/30/22 Echinocytes 1+ 09/30/22 Dohle Bodies 1+ 09/29/22 Na 133 mmol/L (136-145) L 09/30/22 K 4.5 mmol/L (3.5-5.1) 09/30/22 Cl 101 mmol/L (98-107) 09/30/22 CO2 22 mmol/L (21-32) 09/30/22 Anion Gap 10 (3-11) 09/30/22 BUN 49 mg/dl (6-23) H 09/30/22 Creatinine 2.54 mg/dl (0.6-1.2) H 09/30/22 Estimated GFR ( Amer) 19.8 ml/min 09/30/22 Estimated GFR (Non-Af Amer) 17.1 ml/min 09/30/22 BUN/Creatinine Ratio 19.3 (10-20) 09/30/22 Glu 184 mg/dl (70-99(Fasting)) H 09/30/22 Ca 7.9 mg/dl (8.6-10.3) L 09/30/22 Phosphorus Level 3.4 mg/dl (2.5-4.9) 09/30/22 Total Bilirubin 1.1 mg/dl (0.2-1.0) H 09/30/22 Direct Bilirubin 0.2 mg/dl (0-0.2) 09/29/22 AST 38 U/L (13-39) 09/30/22 ALT 22 U/L (7-52) 09/30/22 Alkaline Phosphatase 130 U/L (34-104) H 09/30/22 TP 5.6 gm/dl (6.0-8.3) L 09/30/22 Albumin 2.8 gm/dl (3.4-5.0) L 09/30/22 Globulin 2.8 gm/dl (2.5-4.0) 09/30/22 Albumin/Globulin Ratio 1.0 (0.9-2) 09/30/22 Mg 2.3 mg/dl (1.7-2.4) 09/30/22 05:36 Calcium Level 7.9 mg/dl (8.6-10.3) L 09/30/22 05:36 Prothromb Time International Ratio 1.1 (0.9-1.1) 09/30/22 05:3 6 Venous Blood pH 7.39 (7.36-7.41) 09/29/22 14:51 Venous Blood Partial Pressure CO2 39 mmHg (38-50) 09/29/22 14:5 1 Venous Blood Partial Pressure O2 40 mmHg 09/29/22 14:51 Venous Blood HCO3 24 mmol/L 09/29/22 14:51 Venous Blood Base Excess -1.2 mEq/L 09/29/22 14:51 Venous Blood Oxygen Saturation 68.0 % 09/29/22 14:51 Microbiology 09/29/22 14:51 Aerobic Blood Culture - Preliminary Blood Gram negative bacilli Anaerobic Blood Culture - Preliminary Gram negative bacilli 09/29/22 15:18 Aerobic Blood Culture - Preliminary Blood Gram negative bacilli Anaerobic Blood Culture - Preliminary Gram negative bacilli Diagnostic Findings (Past 24 Hours) Chest X-Ray 09/29/22 14:37 XR chest 1V portable CLINICAL HISTORY: Sepsis TECHNIQUE: Single frontal radiograph of the chest was obtained. Comparison: Comparison is made to chest radiograph 06/19/2022 FINDINGS: No lines and tubes are seen. Cardiomegaly is noted. Prominence and cephalization of the vasculature is seen. No evidence of pleural effusion or pneumothorax. IMPRESSION: Mild pulmonary edema. No evidence of pneumonia. ACT 112: Negative or not required by law. Electronically signed by: Mir Wyatt M.D. 09/29/2022 4:17 PM Abdomen/Pelvis CT 09/29/22 14:50 CT SCAN OF THE ABDOMEN AND PELVIS WITHOUT IV CONTRAST CLINICAL HISTORY: Right flank pain. COMPARISON STUDY: Abdominal CT dated 05/01/2014. TECHNIQUE: CT scan of the abdomen and pelvis is performed from the lung bases to the proximal femora. Images are reviewed in the axial, sagittal, and coronal planes. IV contrast was not administered for this examination. A dose lowering technique was utilized adhering to the principles of ALARA. CT DOSE: 1349.99 mGy.cm FINDINGS: Lung bases: The heart is normal in size noting a small pericardial effusion. There is diminished attenuation of the cardiac blood pool as compared to the myocardium suggesting anemia. There is calcification of the aortic valve leaflets. There is bibasilar scarring/atelectasis. A fat-containing Bochdalek hernia is seen on the right. No airspace consolidation or pleural effusion is identified. Mild bronchiectasis is noted at the lung bases. A small hiatal hernia is noted. There is evidence of previous right mastectomy. Liver: The unenhanced liver is normal in size, contour, and attenuation. There is no intrahepatic biliary ductal dilatation. Gallbladder: Surgically absent noting clips in the gallbladder fossa. Spleen: Normal in size and attenuation. Pancreas: Unremarkable. Adrenal glands: Unremarkable. Kidneys: The unenhanced kidneys are normal in size and without hydronephrosis. There are renovascular calcifications. No renal calculi are clearly identified. There is no evidence of contour deforming renal mass lesion. There is mild bilateral perinephric and periureteric infiltration. Abdominal vasculature: The abdominal aorta is normal in course and caliber noting advanced atherosclerotic calcification. Bowel: There is mild to moderate colonic fecal retention. No bowel obstruction is seen. The appendix is not identified and reported surgically absent. Peritoneum: There is no intraperitoneal free air or abdominal ascites. There is a small fat-containing umbilical hernia. Lymphadenopathy: None. Pelvic viscera: The bladder is decompressed and appears thick-walled with surrounding inflammation. The uterus and adnexa are normal as visualized. Skeletal structures: The skeletal structures are osteopenic. There is moderate to advanced lumbosacral spondylosis and mild scoliosis. Degenerative change is seen in the sacroiliac joints. No lytic or blastic lesions are seen. IMPRESSION: 1. Findings suggest cystitis. Correlate with clinical findings and urinalysis. 2. There is mild bilateral perinephric and periureteric stranding. Ascending urinary tract infection is not excluded, and clinical/laboratory correlation will be required. 3. Additional findings as above. ACT 112: Negative or not required by law. Electronically signed by: Huey Fournier M.D. 09/29/2022 4:01 PM Chest X-Ray 09/29/22 17:20 SINGLE VIEW CHEST CLINICAL HISTORY: Central venous catheter placement. FINDINGS: An AP, portable, upright semierect radiograph is compared to study dated 09/29/2022. Correlation is made with chest CT dated 06/29/2022. The examination is degraded by portable technique and apical lordotic positioning. A left internal jugular central venous catheter has been placed. The tip of the catheter projects over the SVC. The heart is enlarged. The pulmonary vasculature is noncongested. There are low lung volumes with elevation of the right hemidiaphragm and bibasilar atelectasis. Chronic interstitial thickening is similar to previous. No airspace consolidation or pleural effusion is identified. No pneumothorax is seen. The skeletal structures are osteopenic. The bony thorax is grossly intact. Cholecystectomy clips are seen in the right upper quadrant. IMPRESSION: 1. A left internal jugular central venous catheter has been placed as above. No pneumothorax is seen post procedure. 2. Low lung volumes with no acute cardiopulmonary abnormality identified. ACT 112: Negative or not required by law. Electronically signed by: Huey Fournier M.D. 09/29/2022 6:24 PM I & O Totals 24 Hours 09/29/22 09/30/22 10/01/22 06:59 06:59 06:59 Intake Total 3371.567 / 3371.567 806.667 / 806.667 Output Total 2395 / 2395 Balance 976.567 / 976.567 806.667 / 806.667 Cumulative 09/29/22 13:37 thru 09/30/22 07:31 Intake Total 4178.234 Output Total 2395 Balance 1783.234 RT Ventilator Mngmt (Last Documented) Ventilator Ordered Settings Respiratory Rate 21 09/30/22 06:45 Ventilator - PT Measurements Respiratory Rate 21 Coding Level of Care Code 31303 CRITICAL CARE 1ST 30-74M Diagnoses Septic shock A41.9; R65.21 Acute pyelonephritis N10 Elevated troponin R77.8 JUAN A (acute kidney injury) N17.9 Hypomagnesemia E83.42 Diabetes E11.9 Hyperlipidemia E78.5 Gout M10.9 Chronicity: unspecified Gout etiology: unspecified cause Gout site: ankle Laterality: right Hypertension I10 Hypertension type: essential hypertension GERD (gastroesophageal reflux disease) K21.9 Depression F32.2 Depression Type: major depressive disorder Major depression recurrence: single episode Active/Remission status: currently active Major depression episode severity: severe Psychotic features: without psychotic features (8) Gout Chronicity: unspecified Gout etiology: unspecified cause Gout site: ankle Laterality: right Qualified Code(s): M10.9 - Gout, unspecified (9) Hypertension Hypertension type: essential hypertension Qualified Code(s): I10 - Essential (primary) hypertension (11) Depression Depression Type: major depressive disorder Major depression recurrence: single episode Active/Remission status: currently active Major depression episode severity: severe Psychotic features: without psychotic features Qualified Code(s): F32.2 - Major depressive disorder, single episode, severe without psychotic features
[2022-09-30] MEDS: PANTOprazole 40 MG TAB PO SCH (09:59)
[2022-09-30] MEDS: cefTRIAXone SODIUM 2,000 MG in DEXTROSE 5% 50 ML IV SCH (09:59)
--- NOTE | 2022-09-30 10:56 | Hospitalist Progress Note ---
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 (2) UTI (urinary tract infection): Plan: Urine cultures growing gram negative baccili, full characterization pending Continue IV Ceftriaxone (3) Elevated troponin: Plan: -Initial high sen trop elevated at 453, secondary to sepsis -Patient is asymptomatic, no significant ST segment or T-wave changes on ECG -Trend trops (4) JUAN A (acute kidney injury): Plan: -JUAN A on CKD 3 -Secondary to septic shock -Avoid nephrotoxic agents -Placing keller cath, monitor urine output q1h for now -Monitor BMP (5) Lactate blood increase: Plan: -Initial lactate elevated at 3.2, improving followin fluids -monitor repeat lactate (6) Hypomagnesemia: Plan: Replace (7) Hyponatremia: Plan: -Initial sodium of 131, some improvement to 133 -Likely multifactorial including dehydration, JUAN A, and continued lasix use -Monitor am sodium with fluid resuscitation on admission (8) 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: Plan: -Hold glimepiride -ICU hypoglycemia protocol -Pharmacy glycemic consult placed (9) Hypertension: Plan: -Hold antihypertensives for now with septic shock (10) GERD (gastroesophageal reflux disease): Plan: -Daily IV pantoprazole ordered to being tomorrow for stress ulcer ppx (11) Hyperlipidemia: Plan: -Hold statin while acutely ill Plan continue hospitalization Admission and Anticipated Discharge Date Admission Date: September 29, 2022 Subjective patient seen and examined, says she feels overall better Review of Systems Review of Systems: All systems reviewed are negative, apart from the ones contained in the history. Physical Exam Physical Exam: The patient is awake, alert and oriented 3, well developed and well nourished, normocephalic and atraumatic, lying in bed and in no acute distress. HEENT--PERRL, EOMI, mucous membranes and oropharynx mildly dry Neck--supple. No JVD. No bruits. Thyroid normal, trachea midline, no adenopathy. Heart--normal S1 and S2. No murmurs, rubs or gallops. Lungs--clear bilaterally, no respiratory distress, no accessory muscle use. Abdomen--normal bowel sounds and soft. Mild epigastric and left sided abdominal pain Extremities--no cyanosis or clubbing. No edema. Dermatologic--normal skin turgor, normal color, no abnormal lymph nodes, no rash. Neurologic--cranial nerves II through XII grossly intact. Rheumatologic--normal range of motion. Psychiatric--normal affect. Results & Data Results & Data Vital Signs (Past 12 Hours) Vital Signs Temp Pulse Resp BP Pulse Ox 09/30/22 07:18 121 H 09/30/22 06:45 97/50 L 09/30/22 06:45 120 H 21 96 09/30/22 06:40 122 H 19 97 09/30/22 06:30 122 H 29 H 96 09/30/22 06:30 107/83 09/30/22 06:20 121 H 28 H 95 09/30/22 06:15 108/54 L 09/30/22 06:15 122 H 23 96 09/30/22 06:10 122 H 27 H 95 09/30/22 06:01 109/54 L 09/30/22 06:01 90 19 89 L 09/30/22 06:00 90 24 79 L 09/30/22 05:50 73 28 H 94 09/30/22 05:45 119 H 29 H 97 09/30/22 05:45 89/65 L 09/30/22 05:40 121 H 20 96 09/30/22 05:30 121 H 31 H 99 09/30/22 05:30 115/56 L 09/30/22 05:20 121 H 23 97 09/30/22 05:15 95/77 L 09/30/22 05:15 121 H 37 H 93 09/30/22 05:10 122 H 20 95 09/30/22 00:00 122 H 09/30/22 05:00 122 H 27 H 97 09/30/22 05:00 116/72 09/30/22 04:50 124 H 30 H 96 09/30/22 04:45 108/61 09/30/22 04:45 123 H 25 H 99 09/30/22 04:40 123 H 30 H 95 09/30/22 04:30 123 H 30 H 97 09/30/22 04:20 123 H 23 97 09/30/22 04:15 123 H 17 98 09/30/22 04:15 101/67 07/01/23 04:10 123 H 28 H 96 09/30/22 04:00 124 H 33 H 96 09/30/22 04:00 99.0 F 100/54 L 09/30/22 03:50 124 H 27 H 96 09/30/22 03:45 116/51 L 09/30/22 03:45 124 H 21 98 09/30/22 03:40 125 H 27 H 96 09/30/22 03:30 125 H 30 H 94 09/30/22 03:30 121/52 L 09/30/22 03:20 124 H 30 H 95 09/30/22 03:10 125 H 27 H 95 09/30/22 03:00 126 H 28 H 96 09/30/22 03:00 105/53 L 09/30/22 02:50 130 H 33 H 97 09/30/22 02:45 117/50 L 09/30/22 02:45 128 H 29 H 93 09/30/22 02:40 127 H 28 H 95 09/30/22 02:30 126 H 29 H 94 09/30/22 02:30 119/49 L 09/30/22 02:20 126 H 23 95 09/30/22 02:15 127 H 34 H 93 09/30/22 02:15 124/60 09/30/22 02:10 126 H 25 H 96 09/30/22 02:00 126 H 26 H 94 09/30/22 02:00 123/51 L 09/30/22 01:50 127 H 24 94 09/30/22 01:45 126 H 23 95 09/30/22 01:45 113/46 L 09/30/22 01:40 127 H 30 H 93 09/30/22 01:30 127 H 18 95 09/30/22 01:30 84/51 L 09/30/22 01:20 126 H 29 H 94 09/30/22 01:10 127 H 24 94 09/30/22 01:00 127 H 32 H 94 09/30/22 01:00 109/55 L 09/30/22 00:50 125 H 32 H 95 09/30/22 00:45 105/51 L 09/30/22 00:45 125 H 31 H 95 09/30/22 00:40 125 H 31 H 95 09/30/22 00:30 125 H 29 H 95 09/30/22 00:00 100.2 F H 123 H 28 H 94 09/30/22 00:00 92/66 L 09/29/22 23:45 122 H 14 95 09/29/22 23:45 86/54 L 09/29/22 23:30 126 H 30 H 93 09/29/22 23:30 112/84 09/29/22 23:16 102/70 09/29/22 23:16 124 H 35 H 95 09/29/22 23:15 124 H 38 H 95 09/29/22 23:04 100/57 L 09/29/22 23:04 119 H 33 H 96 09/29/22 23:01 116 H 33 H 96 09/29/22 23:01 79/38 L 09/29/22 23:00 115 H 35 H 96 09/29/22 23:00 89/33 L PG Care Time/CCT Total # of Minutes Spent Total Time Spent with Patient: Total time spent is greater than 50% in coordination of care (as documented) at patient's floor/unit and/or counseling patient: Coding Level of Care Code 39879 SUB INP/OBS CARE 2/35MIN Diagnoses Septic shock A41.9; R65.21 UTI (urinary tract infection) N39.0 Elevated troponin R77.8 JUAN A (acute kidney injury) N17.9 Lactate blood increase R79.89 Hypomagnesemia E83.42 Hyponatremia E87.1 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 E11.29; E11.65 Hypertension I10 Hypertension type: essential hypertension GERD (gastroesophageal reflux disease) K21.9 Hyperlipidemia E78.5 Time Spent (min) 35 (9) Hypertension Hypertension type: essential hypertension Qualified Code(s): I10 - Essential (primary) hypertension
[2022-09-30] MEDS ORDERED: PANTOprazole 40 MG in SYRINGE 0 ML IV SCH (11:00)
--- NOTE | 2022-09-30 13:24 | Pharmacy Report ---
Pharmacy Glycemic Short Note 2 - Date of Service September 30, 2022 - Glycemic Short BSG Results (Last 24 hours): 09/29/22 09/29/22 09/29/22 13:57 14:00 14:00 Glucose 153 H POC Glucose 442 H* 132 H 09/29/22 09/29/22 09/30/22 21:36 21:36 05:36 Glucose 73 184 H POC Glucose 74 09/30/22 09/30/22 09/30/22 06:41 12:33 12:34 Glucose POC Glucose 155 H 307 H* 310 H* OUTPATIENT ANTIDIABETIC REGIMEN: * Amaryl 2 mg PO daily * HbA1C ordered ASSESSMENT: * Ms Campuzano is an 82 y/o F with a PMH of T2DM on one oral medication who presents with E coli bacteremia, currently on Rocephin. * In the emergency room, the patient's blood sugar was extremely elevated at 442 but this decreased to 74 mg/dL by HS without insulin. Patient received several liters of fluid. * Fasting this AM was 155 mg/dL. Patient initially NPO but given diet later in the morning. Lunch BSG was 307/310 which was most likely due to uncovered breakfast. * Will give Lantus 15 units with lunch ([id number] stress of 2). Continue Novolog weight-based stress of 2 for now. PLAN FOR INPATIENT GLYCEMIC CONTROL: * Hold outpatient oral diabetes medications * Basal insulin * Lantus 15 units SQ x 1 then re-evaluate 10/01/22 * Bolus insulin * NovoLog per scale ACHS or Q6hrs while NPO * Goal Range: Low 110 mg/dL - High 140 mg/dL * Correction Factor: 25 mg/dL/unit * Nutritional / Prandial insulin per carb ratio of 1 unit per 9 grams CHO consumed
[2022-09-30] MEDS ORDERED: LANTUS PER UNIT CHARGE SC ONE (13:30)
--- NOTE | 2022-09-30 21:12 | Electrocardiogram Report ---
Test Reason : Blood Pressure : / mmHG Vent. Rate : 106 BPM Atrial Rate : 107 BPM P-R Int : 160 ms QRS Dur : 126 ms QT Int : 388 ms P-R-T Axes : 030 -48 -36 degrees QTc Int : 515 ms Sinus tachycardia with Premature atrial complexes Left axis deviation Left ventricular hypertrophy Nonspecific T wave abnormality Right bundle branch block Abnormal ECG When compared with ECG of 29-JUN-2022 10:26, Nonspecific T wave abnormality has replaced inverted T waves in Anterior leads Nonspecific T wave abnormality now evident in Lateral leads Confirmed by Chris Ennis ([id number]) on 09/30/2022 9:12:21 PM Referred By: Confirmed By:Chris Ennis
--- NOTE | 2022-09-30 23:12 | XCELERA ---
[id number] [id number]
[2022-10-01 05:11] LABS: Hematocrit (blood only) 31.1 % (37.0-47.0); Hemoglobin 10.8 g/dl (12.0-16.0); Mean Corpuscular Hemoglobin 30.9 pg (25.0-34.0); Mean Corpuscular Hgb Conc 34.7 g/dL (32.0-36.0); Mean Corpuscular Volume 88.9 fL (80.0-100.0); Mean Platelet Volume 10.4 fL (9.4-12.4); Platelet Count 114 K/uL (130-400); RDW Coefficient of Variation 13.9 % (11.5-14.5); RDW Standard Deviation 45.1 fL (36.4-46.3)
[2022-10-01 05:27] LABS: Basophils # (auto) 0.09 K/uL (0-0.2); Dohle Bodies 1+; Echinocytes 1+; Eosinophils # (auto) 0.03 K/uL (0-0.50); Eosinophils % (auto) 0.3 %; Immature Granulocytes # (auto) 0.13 K/uL (0.01-0.20); Immature Granulocytes % (auto) 1.5 %; Lymphocytes # (auto) 0.57 K/uL (1.2-3.4); Lymphocytes % (auto) 6.4 %; Monocytes # (auto) 0.82 K/uL (0.11-0.59); Monocytes % (auto) 9.2 %; Neutrophils # (auto) 7.26 K/uL (1.40-6.50); Neutrophils % (auto) 81.6 %
[2022-10-01 05:37] LABS: Prothrombin Time 11.4 Seconds (9.0-12.0)
[2022-10-01 05:40] LABS: Albumin Level 2.6 gm/dl (3.4-5.0); BUN Creatinine Ratio 22.4 (10-20); Bilirubin,Total 0.5 mg/dl (0.2-1.0); Calcium 8.1 mg/dl (8.6-10.3); Creatinine Clr Calc Pharmacy 19.9 ml/min; Est GFR (Non-African American) 21.5 ml/min; Globulin 2.6 gm/dl (2.5-4.0); Magnesium 2.2 mg/dl (1.7-2.4); Phosphorus 2.7 mg/dl (2.5-4.9); Potassium 3.7 mmol/L (3.5-5.1); Total Protein 5.2 gm/dl (6.0-8.3)
[2022-10-01] MEDS ORDERED: POTASSIUM CHLORIDE / WTR 20 MEQ/100 ML PLCT IV ONE (05:44)
[2022-10-01 07:16] LABS: Estimated Average Glucose 157 mg/dl; Hemoglobin A1C 7.1 % (4.5-5.6)
--- NOTE | 2022-10-01 07:31 | Critical Care Progress Note ---
Date of Service October 01, 2022 Assessment & Plan (1) Septic shock: Plan: Reason Critically Ill: 82-year-old female presents to the ICU with septic shock secondary to complicated UTI and CT evidence of pyelonephritis, now requiring vasopressor support with Levophed drip. 24-hour events: Patient dorian dependent on norepinephrine. He is being weaned down. She has been persistently tachycardic. EKG yesterday showed sinus with PAC. Recommendations Neuro -no current issues. Continue outpatient medication. Will likely need PT OT evaluations once hemodynamically stable enough to get out of bed Cardiac -septic shock due to pyelonephritis and gram-negative bacteremia. Random cortisol acceptable. She received about 4 L of crystalloid in the emergency room and with her initial resuscitation. Lactate is cleared. Echocardiogram showed no regional wall motion abnormalities and I suspect her troponin elevation was supply/demand mismatch. She remains chest pain-free. We will recheck EKG this morning and administer albumin to see if we can get her off pressors. Unclear if beta-del withdrawal may be contributing. If tachycardia remains problematic, could consider transition to Burton-Synephrine to maintain blood pressure Respiratory -no current issues. Incentive spirometry. Lung volumes were quite low and the patient would benefit from being upright in bed or up to a chair if possible. GI -initiate diet and advance as tolerated. Continue her outpatient PPI RENAL/LYTES -acute kidney injury. Likely ATN due to hypoperfusion and septic shock. Continues to show improvement. Continue to follow urine output closely. Mild hyponatremia will continue to be trended as well. Acid-base status is acceptable. We will replace calcium. - Foleystrict I's and O's. Given the frequency of UTIs, outpatient urology evaluation may be appropriate ENDO - DM type IIcurrently euglycemic. Hold glimepiride in favor of sliding scale. ICU hyperglycemic protocol HEME -mild anemia. No indication for transfusion currently. No sign of bleeding. Continue to follow clinically. ID -gram-negative bacteremia with severe sepsis and septic shock. E. coli identified from blood cultures. No resistance genes identified. Day #2 Rocephin. Recheck blood cultures. LINES/IV ACCESS - Left IJ CVC DVT PROPHYLAXIS - Subcutaneous heparin Patient was discussed on multidisciplinary rounds and with bedside critical care nurse. Total of 50 minutes was spent in evaluation management coordination of care of this patient (2) Acute pyelonephritis: (3) Elevated troponin: (4) JUAN A (acute kidney injury): (5) Hypomagnesemia: (6) Diabetes: (7) Hyperlipidemia: (8) Gout: (9) Hypertension: (10) GERD (gastroesophageal reflux disease): (11) Depression: Admission and Anticipated Discharge Date Admission Date: September 29, 2022 Subjective Patient seen and examined. EMR reviewed. The patient states she is feeling better. She is been tachycardic overnight however she denies chest pain or palpitations. No shortness of breath. She denies nausea or vomiting is tolerating a regular diet. Her norepinephrine has been weaned to but at this point time we have been unable to get it off. Her urine output is improving. Review of Systems Review of Systems: All systems reviewed & are unremarkable except as noted in Subjective Physical Exam Constitutional: WD/WN, vitals as above Neck: trachea midline, no thyromegaly Respiratory: normal respiratory effort, lungs clear to auscultation Cardiovascular: RRR, no murmur, no edema Gastrointestinal (Abdomen): normal bowel sounds, soft, nontender, no hepatosplenomegaly Musculoskeletal: Extremities: extremities normal to inspection Skin: no rashes, warm and dry Lymphatic: no cervical lymphadenopathy Results & Data Results & Data Vital Signs (Past 12 Hours) Vital Signs Pulse Resp BP Pulse Ox O2 Del Method O2 Flow Rate 10/01/22 07:00 118 H 28 H 98 10/01/22 07:00 102/51 L 10/01/22 06:45 116 H 29 H 98 10/01/22 06:45 107/58 L 10/01/22 06:30 115 H 33 H 97 10/01/22 06:30 117/53 L 10/01/22 06:15 116 H 23 96 10/01/22 06:15 104/53 L 10/01/22 06:00 115 H 26 H 96 10/01/22 06:00 114/58 L 10/01/22 05:45 114 H 20 94 10/01/22 05:45 103/60 10/01/22 05:30 114 H 24 95 10/01/22 05:30 112/51 L 10/01/22 05:16 114 H 17 96 10/01/22 05:16 100/66 10/01/22 05:03 82/42 L 10/01/22 05:03 113 H 27 H 98 10/01/22 05:00 104 H 22 87 L 10/01/22 05:00 79/41 L 10/01/22 04:45 114 H 20 96 10/01/22 04:45 103/46 L 10/01/22 04:32 113 H 31 H 96 10/01/22 04:32 109/49 L 10/01/22 04:30 114 H 24 96 10/01/22 04:30 54/44 L 10/01/22 04:15 105/66 10/01/22 04:15 114 H 32 H 97 10/01/22 04:00 114 H 28 H 97 10/01/22 04:00 111/51 L 10/01/22 03:45 114 H 28 H 96 10/01/22 03:45 97/72 L 10/01/22 03:30 114 H 25 H 96 10/01/22 03:30 101/60 10/01/22 03:15 113 H 29 H 96 10/01/22 03:15 106/47 L 10/01/22 03:00 108 H 28 H 96 10/01/22 03:00 105/51 L 10/01/22 02:45 114 H 30 H 96 10/01/22 02:45 95/48 L 10/01/22 02:30 113 H 32 H 97 10/01/22 02:30 96/54 L 10/01/22 02:15 106 H 22 97 10/01/22 02:15 106/58 L 10/01/22 02:00 107 H 26 H 96 10/01/22 02:00 103/61 10/01/22 01:45 106 H 23 92 10/01/22 01:45 110/52 L 10/01/22 01:30 101 H 30 H 95 10/01/22 01:30 101/53 L 10/01/22 01:15 100 H 30 H 94 10/01/22 01:15 110/71 10/01/22 01:00 101 H 16 95 10/01/22 01:00 121/49 L 10/01/22 00:45 100 H 29 H 93 10/01/22 00:30 100 H 30 H 95 10/01/22 00:30 107/57 L 10/01/22 00:17 104 H 16 96 10/01/22 00:17 99/52 L 10/01/22 00:16 96 H 19 91 10/01/22 00:16 70/50 L 10/01/22 00:00 91 H 28 H 97 09/30/22 23:45 92 H 30 H 96 09/30/22 23:45 108/60 09/30/22 23:31 114/60 09/30/22 23:31 93 H 27 H 96 09/30/22 23:30 93 H 30 H 96 09/30/22 23:26 120/56 L 09/30/22 23:26 99 H 23 97 09/30/22 23:21 174/89 H 09/30/22 23:21 120 H 29 H 97 09/30/22 23:16 83 26 H 95 09/30/22 23:16 78/44 L 09/30/22 23:00 93 H 33 H 98 09/30/22 23:00 115/66 09/30/22 22:46 93 H 33 H 99 09/30/22 22:46 102/54 L 09/30/22 22:30 86 31 H 99 09/30/22 22:30 110/44 L 09/30/22 22:00 85 33 H 99 09/30/22 21:46 91 H 35 H 82 L 09/30/22 21:46 117/49 L 09/30/22 21:30 87 35 H 94 09/30/22 21:30 114/50 L 09/30/22 21:16 87 24 96 09/30/22 21:16 115/62 09/30/22 21:15 88 22 96 09/30/22 21:01 117/53 L 09/30/22 21:01 92 H 31 H 81 L 09/30/22 21:00 87 20 94 09/30/22 20:46 86 24 95 09/30/22 20:46 109/42 L 09/30/22 20:45 94 H 22 95 09/30/22 20:30 86 25 H 96 09/30/22 20:15 86 33 H 95 09/30/22 20:15 118/45 L 09/30/22 20:02 85 28 H 96 09/30/22 20:02 111/58 L 09/30/22 20:00 87 26 H 94 09/30/22 19:45 86 26 H 96 09/30/22 19:30 86 29 H 93 09/30/22 20:00 Nasal Cannula 2 Diagnostic Findings Echocardiogram performed 09/30/2022 showed an ejection fraction of 60 to 65% without regional wall motion abnormalities. Moderate concentric LVH. Mild . Normal right ventricular systolic pressure estimated Critical Care Results & Data Vital Signs (Past 12 Hours) Vital Signs Pulse Resp BP Pulse Ox O2 Del Method O2 Flow Rate 10/01/22 07:00 118 H 28 H 98 10/01/22 07:00 102/51 L 10/01/22 06:45 116 H 29 H 98 10/01/22 06:45 107/58 L 10/01/22 06:30 115 H 33 H 97 10/01/22 06:30 117/53 L 10/01/22 06:15 116 H 23 96 10/01/22 06:15 104/53 L 10/01/22 06:00 115 H 26 H 96 10/01/22 06:00 114/58 L 10/01/22 05:45 114 H 20 94 10/01/22 05:45 103/60 10/01/22 05:30 114 H 24 95 10/01/22 05:30 112/51 L 10/01/22 05:16 114 H 17 96 10/01/22 05:16 100/66 10/01/22 05:03 82/42 L 10/01/22 05:03 113 H 27 H 98 10/01/22 05:00 104 H 22 87 L 10/01/22 05:00 79/41 L 10/01/22 04:45 114 H 20 96 10/01/22 04:45 103/46 L 10/01/22 04:32 113 H 31 H 96 10/01/22 04:32 109/49 L 10/01/22 04:30 114 H 24 96 10/01/22 04:30 54/44 L 10/01/22 04:15 105/66 10/01/22 04:15 114 H 32 H 97 10/01/22 04:00 114 H 28 H 97 10/01/22 04:00 111/51 L 10/01/22 03:45 114 H 28 H 96 10/01/22 03:45 97/72 L 10/01/22 03:30 114 H 25 H 96 10/01/22 03:30 101/60 10/01/22 03:15 113 H 29 H 96 10/01/22 03:15 106/47 L 10/01/22 03:00 108 H 28 H 96 10/01/22 03:00 105/51 L 10/01/22 02:45 114 H 30 H 96 10/01/22 02:45 95/48 L 10/01/22 02:30 113 H 32 H 97 10/01/22 02:30 96/54 L 10/01/22 02:15 106 H 22 97 10/01/22 02:15 106/58 L 10/01/22 02:00 107 H 26 H 96 10/01/22 02:00 103/61 10/01/22 01:45 106 H 23 92 10/01/22 01:45 110/52 L 10/01/22 01:30 101 H 30 H 95 10/01/22 01:30 101/53 L 10/01/22 01:15 100 H 30 H 94 10/01/22 01:15 110/71 10/01/22 01:00 101 H 16 95 10/01/22 01:00 121/49 L 10/01/22 00:45 100 H 29 H 93 10/01/22 00:30 100 H 30 H 95 10/01/22 00:30 107/57 L 10/01/22 00:17 104 H 16 96 10/01/22 00:17 99/52 L 10/01/22 00:16 96 H 19 91 10/01/22 00:16 70/50 L 10/01/22 00:00 91 H 28 H 97 09/30/22 23:45 92 H 30 H 96 09/30/22 23:45 108/60 09/30/22 23:31 114/60 09/30/22 23:31 93 H 27 H 96 09/30/22 23:30 93 H 30 H 96 09/30/22 23:26 120/56 L 09/30/22 23:26 99 H 23 97 09/30/22 23:21 174/89 H 09/30/22 23:21 120 H 29 H 97 09/30/22 23:16 83 26 H 95 09/30/22 23:16 78/44 L 09/30/22 23:00 93 H 33 H 98 09/30/22 23:00 115/66 09/30/22 22:46 93 H 33 H 99 09/30/22 22:46 102/54 L 09/30/22 22:30 86 31 H 99 09/30/22 22:30 110/44 L 09/30/22 22:00 85 33 H 99 09/30/22 21:46 91 H 35 H 82 L 09/30/22 21:46 117/49 L 09/30/22 21:30 87 35 H 94 09/30/22 21:30 114/50 L 09/30/22 21:16 87 24 96 09/30/22 21:16 115/62 09/30/22 21:15 88 22 96 09/30/22 21:01 117/53 L 09/30/22 21:01 92 H 31 H 81 L 09/30/22 21:00 87 20 94 09/30/22 20:46 86 24 95 09/30/22 20:46 109/42 L 09/30/22 20:45 94 H 22 95 09/30/22 20:30 86 25 H 96 09/30/22 20:15 86 33 H 95 09/30/22 20:15 118/45 L 09/30/22 20:02 85 28 H 96 09/30/22 20:02 111/58 L 09/30/22 20:00 87 26 H 94 09/30/22 19:45 86 26 H 96 09/30/22 19:30 86 29 H 93 09/30/22 20:00 Nasal Cannula 2 Lab & Micro Results (Past 24 Hours) RBC 3.50 M/uL (4.20-5.40) L 10/01/22 WBC 8.90 K/ul (4.8-10.8) 10/01/22 Hgb 10.8 g/dl (12.0-16.0) L 10/01/22 Hct 31.1 % (37.0-47.0) L 10/01/22 MCV 88.9 fL (80.0-100.0) 10/01/22 MCH 30.9 pg (25.0-34.0) 10/01/22 MCHC 34.7 g/dL (32.0-36.0) 10/01/22 RDW Standard Deviation 45.1 fL (36.4-46.3) 10/01/22 RDW Coefficient of Variation 13.9 % (11.5-14.5) 10/01/22 Plt Count 114 K/uL (130-400) L 10/01/22 MPV 10.4 fL (9.4-12.4) 10/01/22 Neutrophils (%) (Auto) 81.6 % 10/01/22 Lymphocytes (%) (Auto) 6.4 % 10/01/22 Monocytes # (Auto) 0.82 K/uL (0.11-0.59) H 10/01/22 Eosinophils # (Auto) 0.03 K/uL (0-0.50) 10/01/22 Immature Granulocyte % (Auto) 1.5 % 10/01/22 Neutrophils # (Auto) 7.26 K/uL (1.40-6.50) H 10/01/22 Lymphocytes # (Auto) 0.57 K/uL (1.2-3.4) L 10/01/22 Monocytes # (Auto) 0.82 K/uL (0.11-0.59) H 10/01/22 Eosinophils # (Auto) 0.03 K/uL (0-0.50) 10/01/22 Basophils # (Auto) 0.09 K/uL (0-0.2) 10/01/22 Immature Granulocyte # (Auto) 0.13 K/uL (0.01-0.20) 3 Echinocytes 1+ 10/01/22 Dohle Bodies 1+ 10/01/22 Na 133 mmol/L (136-145) L 10/01/22 K 3.7 mmol/L (3.5-5.1) 10/01/22 Cl 102 mmol/L (98-107) 10/01/22 CO2 24 mmol/L (21-32) 10/01/22 Anion Gap 7 (3-11) 10/01/22 BUN 47 mg/dl (6-23) H 10/01/22 Creatinine 2.10 mg/dl (0.6-1.2) H 10/01/22 Estimated GFR ( Amer) 25.0 ml/min 10/01/22 Estimated GFR (Non-Af Amer) 21.5 ml/min 10/01/22 BUN/Creatinine Ratio 22.4 (10-20) H 10/01/22 Glu 169 mg/dl (70-99(Fasting)) H 10/01/22 Ca 8.1 mg/dl (8.6-10.3) L 10/01/22 Phosphorus Level 2.7 mg/dl (2.5-4.9) 10/01/22 Total Bilirubin 0.5 mg/dl (0.2-1.0) 10/01/22 AST 23 U/L (13-39) 10/01/22 ALT 19 U/L (7-52) 10/01/22 Alkaline Phosphatase 124 U/L (34-104) H 10/01/22 TP 5.2 gm/dl (6.0-8.3) L 10/01/22 Albumin 2.6 gm/dl (3.4-5.0) L 10/01/22 Globulin 2.6 gm/dl (2.5-4.0) 10/01/22 Albumin/Globulin Ratio 1.0 (0.9-2) 10/01/22 Mg 2.2 mg/dl (1.7-2.4) 10/01/22 04:58 Calcium Level 8.1 mg/dl (8.6-10.3) L 10/01/22 04:58 Prothromb Time International Ratio 1.0 (0.9-1.1) 10/01/22 04:5 8 Microbiology 09/29/22 14:35 Urine Culture - Preliminary Urine,Clean Catch Escherichia coli 09/29/22 15:18 Aerobic Blood Culture - Preliminary Blood Gram negative bacilli Anaerobic Blood Culture - Preliminary Gram negative bacilli 09/29/22 14:51 Aerobic Blood Culture - Preliminary Blood Gram negative bacilli Anaerobic Blood Culture - Preliminary Gram negative bacilli I & O Totals 24 Hours 09/30/22 10/01/22 10/02/22 06:59 06:59 06:59 Intake Total 3371.567 / 3371.567 3521.980 / 3521.980 90.533 / 90.533 Output Total 2395 / 2395 2275 / 2275 Balance 976.567 / 668.653 4807.980 / 1246.980 90.533 / 90.533 Cumulative 09/29/22 13:37 thru 10/01/22 07:08 Intake Total 6984.080 Output Total 4670 Balance 2314.080 RT Ventilator Mngmt (Last Documented) Ventilator Ordered Settings Respiratory Rate 28 10/01/22 07:00 Ventilator - PT Measurements Respiratory Rate 28 Coding Level of Care Code 47952 SUB INP/OBS CARE 3/50MIN Diagnoses Septic shock A41.9; R65.21 Acute pyelonephritis N10 Elevated troponin R77.8 JUAN A (acute kidney injury) N17.9 Hypomagnesemia E83.42 Diabetes E11.9 Hyperlipidemia E78.5 Gout M10.9 Chronicity: unspecified Gout etiology: unspecified cause Gout site: ankle Laterality: right Hypertension I10 Hypertension type: essential hypertension GERD (gastroesophageal reflux disease) K21.9 Depression F32.2 Depression Type: major depressive disorder Major depression recurrence: single episode Active/Remission status: currently active Major depression episode severity: severe Psychotic features: without psychotic features (8) Gout Chronicity: unspecified Gout etiology: unspecified cause Gout site: ankle Laterality: right Qualified Code(s): M10.9 - Gout, unspecified (9) Hypertension Hypertension type: essential hypertension Qualified Code(s): I10 - Essential (primary) hypertension (11) Depression Depression Type: major depressive disorder Major depression recurrence: single episode Active/Remission status: currently active Major depression episode severity: severe Psychotic features: without psychotic features Qualified Code(s): F32.2 - Major depressive disorder, single episode, severe without psychotic features
[2022-10-01] MEDS ORDERED: STAT IV STA (07:38)
[2022-10-01] MEDS ORDERED: ALBUMIN 25% 25 GM/100 ML VIAL IV ONE (07:45)
[2022-10-01] MEDS ORDERED: CALCIUM GLUCONATE 10% 2,000 MG in DEXTROSE 5% 50 ML IV ONE (07:45)
[2022-10-01] MEDS: cefTRIAXone SODIUM 2,000 MG in DEXTROSE 5% 50 ML IV SCH (07:49)
[2022-10-01] MEDS: MAGNESIUM OXIDE 400 MG TAB PO SCH ×2 (07:59→21:49)
[2022-10-01] MEDS: ASPIRIN 81 MG ECTAB PO SCH (07:59)
[2022-10-01] MEDS: DULoxetine HCL 30 MG CAP PO SCH (07:59)
[2022-10-01] MEDS: PANTOprazole 40 MG TAB PO SCH (07:59)
[2022-10-01] MEDS: DULoxetine HCL 60 MG CAP PO SCH (07:59)
[2022-10-01] MEDS: HEPARIN SOD 5,000 UNIT/0.5 ML VIAL SQ SCH ×2 (07:59→21:49)
[2022-10-01] MEDS: INSULIN ASPART PER UNIT CHARGE SC SCH ×4 (08:23→20:02)
[2022-10-01] MEDS ORDERED: LANTUS PER UNIT CHARGE SC ONE (09:00)
[2022-10-01] MEDS ORDERED: ONDANSETRON 4 MG OD TAB PO PRN (09:07)
--- NOTE | 2022-10-01 14:11 | Hospitalist Progress Note ---
Date of Service October 01, 2022 Assessment & Plan (1) Septic shock: Plan: -sepsis secondary to E coli pyelonephritis -Currently still on pressors, being weaned down by surgeon partner -Antibiotics have been narrowed down to IV ceftriaxone -Appreciate surgeon partner (2) UTI (urinary tract infection): Plan: Urine cultures growing E coli Continue IV Ceftriaxone (3) Elevated troponin: Plan: -Initial high sen trop elevated at 453, secondary to sepsis -Patient is asymptomatic, no significant ST segment or T-wave changes on ECG -Trend trops (4) JUAN A (acute kidney injury): Plan: -JUAN A on CKD 3 -Secondary to septic shock -Avoid nephrotoxic agents -Placing keller cath, monitor urine output q1h for now -Monitor BMP (5) Lactate blood increase: Plan: -secondary to sepsis now resolved (6) Hypomagnesemia: Plan: Replace (7) Hyponatremia: Plan: -Initial sodium of 131, some improvement to 133 -Likely multifactorial including dehydration, JUAN A, and continued lasix use -Monitor am sodium with fluid resuscitation on admission (8) 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: Plan: -Hold glimepiride -ICU hypoglycemia protocol -Pharmacy glycemic consult placed (9) Hypertension: Plan: -Hold antihypertensives for now with septic shock (10) GERD (gastroesophageal reflux disease): Plan: -Daily IV pantoprazole ordered to being tomorrow for stress ulcer ppx (11) Hyperlipidemia: Plan: -Hold statin while acutely ill (12) Hypoxia: Plan: Wean oxygen as tolerated Plan continue hospitalization Admission and Anticipated Discharge Date Admission Date: September 29, 2022 Subjective patient seen and examined, says she feels overa all better Review of Systems Review of Systems: All systems reviewed are negative, apart from the ones contained in the history. Physical Exam Physical Exam: The patient is awake, alert and oriented 3, well developed and well nourished, normocephalic and atraumatic, lying in bed and in no acute distress. HEENT--PERRL, EOMI, mucous membranes and oropharynx mildly dry Neck--supple. No JVD. No bruits. Thyroid normal, trachea midline, no adenopathy. Heart--normal S1 and S2. No murmurs, rubs or gallops. Lungs--clear bilaterally, no respiratory distress, no accessory muscle use. Abdomen--normal bowel sounds and soft. Mild epigastric and left sided abdominal pain Extremities--no cyanosis or clubbing. No edema. Dermatologic--normal skin turgor, normal color, no abnormal lymph nodes, no rash. Neurologic--cranial nerves II through XII grossly intact. Rheumatologic--normal range of motion. Psychiatric--normal affect. Results & Data Results & Data Vital Signs (Past 12 Hours) Vital Signs Pulse Resp BP Pulse Ox O2 Del Method O2 Flow Rate 10/01/22 09:00 117 H 18 96 Nasal Cannula 2 10/01/22 09:00 96/79 L 10/01/22 08:56 109 H 98 Nasal Cannula 2 10/01/22 08:56 106/53 L 10/01/22 08:46 112 H 26 H 97 10/01/22 08:46 103/51 L 10/01/22 08:45 124 H 15 97 10/01/22 08:30 115 H 24 95 10/01/22 08:30 118/57 L 10/01/22 08:28 109/54 L 10/01/22 08:28 115 H 18 96 10/01/22 08:15 115 H 29 H 93 10/01/22 08:11 91/45 L 10/01/22 08:11 116 H 25 H 91 10/01/22 08:00 107 H 20 93 10/01/22 08:00 85/49 L 10/01/22 07:46 118 H 23 95 10/01/22 07:46 114/56 L 10/01/22 07:45 123 H 18 98 10/01/22 07:31 119 H 25 H 99 10/01/22 07:31 112/56 L 10/01/22 07:30 120 H 19 98 10/01/22 07:15 116 H 23 100 10/01/22 07:15 91/76 L 10/01/22 07:00 116 H 10/01/22 07:00 118 H 28 H 98 10/01/22 07:00 102/51 L 10/01/22 06:45 116 H 29 H 98 10/01/22 06:45 107/58 L 10/01/22 06:30 115 H 33 H 97 10/01/22 06:30 117/53 L 10/01/22 06:15 116 H 23 96 10/01/22 06:15 104/53 L 10/01/22 06:00 115 H 26 H 96 10/01/22 06:00 114/58 L 10/01/22 05:45 114 H 20 94 10/01/22 05:45 103/60 10/01/22 05:30 114 H 24 95 10/01/22 05:30 112/51 L 10/01/22 05:16 114 H 17 96 10/01/22 05:16 100/66 10/01/22 05:03 82/42 L 10/01/22 05:03 113 H 27 H 98 10/01/22 05:00 104 H 22 87 L 10/01/22 05:00 79/41 L 10/01/22 04:45 114 H 20 96 10/01/22 04:45 103/46 L 10/01/22 04:32 113 H 31 H 96 10/01/22 04:32 109/49 L 10/01/22 04:30 114 H 24 96 10/01/22 04:30 54/44 L 10/01/22 04:15 105/66 10/01/22 04:15 114 H 32 H 97 10/01/22 04:00 114 H 28 H 97 10/01/22 04:00 111/51 L 10/01/22 03:45 114 H 28 H 96 10/01/22 03:45 97/72 L 10/01/22 03:30 114 H 25 H 96 10/01/22 03:30 101/60 10/01/22 03:15 113 H 29 H 96 10/01/22 03:15 106/47 L 10/01/22 03:00 108 H 28 H 96 10/01/22 03:00 105/51 L 10/01/22 02:45 114 H 30 H 96 10/01/22 02:45 95/48 L 10/01/22 02:30 113 H 32 H 97 10/01/22 02:30 96/54 L 10/01/22 02:15 106 H 22 97 10/01/22 02:15 106/58 L PG Care Time/CCT Total # of Minutes Spent Total Time Spent with Patient: Total time spent is greater than 50% in coordination of care (as documented) at patient's floor/unit and/or counseling patient: Coding Level of Care Code 93668 SUB INP/OBS CARE 2/35MIN Diagnoses Septic shock A41.9; R65.21 UTI (urinary tract infection) N39.0 Elevated troponin R77.8 JUAN A (acute kidney injury) N17.9 Lactate blood increase R79.89 Hypomagnesemia E83.42 Hyponatremia E87.1 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 E11.29; E11.65 Hypertension I10 Hypertension type: essential hypertension GERD (gastroesophageal reflux disease) K21.9 Hyperlipidemia E78.5 Hypoxia R09.02 Time Spent (min) 35 (9) Hypertension Hypertension type: essential hypertension Qualified Code(s): I10 - Essential (primary) hypertension
[2022-10-01] MEDS: NOREPINEPHRINE/D5W 4 MG/250 ML PLCT IV SCH (20:01)
[2022-10-02 05:14] LABS: Albumin Level 2.6 gm/dl (3.4-5.0); Bilirubin,Total 0.5 mg/dl (0.2-1.0); Calcium 8.5 mg/dl (8.6-10.3); Creatinine Clr Calc Pharmacy 21.4 ml/min; Est GFR (African American) 27.3 ml/min; Est GFR (Non-African American) 23.5 ml/min; Globulin 2.6 gm/dl (2.5-4.0); Magnesium 1.9 mg/dl (1.7-2.4); Phosphorus 2.5 mg/dl (2.5-4.9); Potassium 3.7 mmol/L (3.5-5.1); Total Protein 5.2 gm/dl (6.0-8.3)
[2022-10-02 05:19] LABS: Basophils # (auto) 0.14 K/uL (0-0.2); Basophils % (auto) 2.2 %; Eosinophils # (auto) 0.16 K/uL (0-0.50); Eosinophils % (auto) 2.6 %; Hematocrit (blood only) 28.8 % (37.0-47.0); Hemoglobin 9.9 g/dl (12.0-16.0); Immature Granulocytes # (auto) 0.27 K/uL (0.01-0.20); Immature Granulocytes % (auto) 4.3 %; Lymphocytes # (auto) 0.51 K/uL (1.2-3.4); Lymphocytes % (auto) 8.2 %; Mean Corpuscular Hemoglobin 30.9 pg (25.0-34.0); Mean Corpuscular Hgb Conc 34.4 g/dL (32.0-36.0); Mean Platelet Volume 10.7 fL (9.4-12.4); Monocytes # (auto) 0.78 K/uL (0.11-0.59); Monocytes % (auto) 12.5 %; Neutrophils # (auto) 4.38 K/uL (1.40-6.50); Neutrophils % (auto) 70.2 %; Platelet Count 100 K/uL (130-400); RDW Coefficient of Variation 14.2 % (11.5-14.5); RDW Standard Deviation 47.6 fL (36.4-46.3); White Blood Count 6.24 K/ul (4.8-10.8)
[2022-10-02] MEDS ORDERED: MAGNESIUM SULFATE / D5W 1 GM/100 ML BAG IV ONE (05:36)
[2022-10-02] MEDS: POTASSIUM CHLORIDE / WTR 10 MEQ/100 ML PLCT IV SCH ×2 (05:53→08:10)
--- NOTE | 2022-10-02 07:38 | Critical Care Progress Note ---
Date of Service October 02, 2022 Assessment & Plan (1) Septic shock: (2) Acute pyelonephritis: (3) Elevated troponin: (4) JUAN A (acute kidney injury): (5) Hypomagnesemia: (6) Diabetes: (7) Hyperlipidemia: (8) Gout: (9) Hypertension: (10) GERD (gastroesophageal reflux disease): (11) Depression: Plan Reason Critically Ill: 82-year-old female presents to the ICU with septic shock secondary to complicated UTI and CT evidence of pyelonephritis, now requiring vasopressor support with Levophed drip. Recommendations Neuro -no current issues. Continue outpatient medication Cardiac - -- S/p septic shock Secondary to pyelonephritis and gram-negative bacteremia. Random cortisol acceptable. off of vasopressors since 10/01/2022 4 PM -- Elevated troponin Likely secondary to type II AZ S/p 4 L of crystalloid in the emergency room and with her initial resuscitation. Echocardiogram showed no regional wall motion abnormalities Respiratory - --No acute issues --Morbid obesity with probable SAMEERA Outpatient polysomnography, nightly BiPAP/CPAP Incentive spirometry GI - -- Gastritis with GERD Continue with pantoprazole RENAL/LYTES - -- Acute kidney injury Likely ATN due to hypoperfusion and septic shock. Monitor BUNs/creatinine Avoid nephrotoxic medication - Chou Strict in and out ENDO - DM type II Hold glimepiride while in the hospital Continue with ICU hypoglycemia protocol HEME - -- Thrombocytopenia Likely secondary to sepsis Continue to monitor -- Normocytic anemia Monitor H&H ID - --E. coli bacteremia Pansensitive Repeat blood cultures 10-01-22 negative to date Continue with Rocephin for total of 7 days since negative culture --Prophylaxis VTE: Heparin GI: Pantoprazole Lines: Left IJ Diet: Cardiac, diabetic Plan: In/out: -941, urine output 2251, +1.3 L since coming to the hospital Hypokalemia and hypomagnesemia being replaced Continue with Chou Thrombocytopenia is most likely from sepsis, continue to trend. Give antibiotics for total of 10-14 days since negative blood culture Patient hemodynamically stable to be downgrade to medical floor Please note the above document was generated using voice recognition software. It may contain grammatical, syntax or spelling errors.Any formal questions or concerns about the content, text or information contained within the body of this dictation should be directly addressed to the provider for clarification. Admission and Anticipated Discharge Date Admission Date: September 29, 2022 Subjective Patient seen and examined at bedside. No acute distress, no adverse events overnight. Denies any headache, no nausea, no vomiting Positive bowel movements, no abdominal pain No headache Has been afebrile. No dizziness Review of Systems Review of Systems: All systems reviewed & are unremarkable except as noted in Subjective Physical Exam Physical Exam: Constitutional: No acute distress HEENT: EOMI, PERRLA Respiratory system: Decreased air entry bilaterally, no wheeze, no rhonchi, positive crackles bilateral lower lobes more on the right side CVS: S1-S2 positive, no murmurs or gallops Abdomen: Soft, nontender, nondistended, positive bowel sounds x4 Extremities: +2 pulses bilaterally radialis/ dorsalis pedis, no cyanosis, +1 edema bilateral lower extremity Neuro: Awake alert oriented x3 Psych: Normal mood and affect G/U: Positive Chou Musculoskeletal: Right-sided mastectomy Skin: no rashes, warm and dry Lymphatic: no cervical or axillary lymphadenopathy Results & Data Results & Data Vital Signs (Past 12 Hours) Vital Signs Pulse Resp BP Pulse Ox O2 Del Method O2 Flow Rate 10/02/22 05:00 100 H 13 97 10/02/22 05:00 98/49 L 10/02/22 04:30 100 H 25 H 98 10/02/22 04:00 118 H 25 H 98 10/02/22 04:00 89/66 L 10/02/22 03:30 122 H 24 98 10/02/22 03:00 115 H 28 H 99 10/02/22 03:00 98/56 L 10/02/22 02:00 114 H 37 H 99 10/02/22 02:00 102/54 L 10/02/22 01:00 108 H 24 97 10/02/22 01:00 105/52 L 10/02/22 00:00 111 H 24 98 10/02/22 00:00 103/52 L 10/01/22 23:00 111 H 24 88 L 10/01/22 23:00 89/53 L 10/01/22 22:00 114 H 31 H 100 10/01/22 22:00 101/54 L 10/01/22 21:00 93 H 26 H 97 10/01/22 21:00 81/53 L 10/01/22 20:00 95 H 27 H 99 10/01/22 20:00 112/70 10/01/22 20:00 Nasal Cannula 2 Laboratory Results 10/02/22 04:38 10/02/22 04:38 Coding Level of Care Code 15370 SUB INP/OBS CARE 3/50MIN Diagnoses Septic shock A41.9; R65.21 Acute pyelonephritis N10 Elevated troponin R77.8 JUAN A (acute kidney injury) N17.9 Hypomagnesemia E83.42 Diabetes E11.9 Hyperlipidemia E78.5 Gout M10.9 Chronicity: unspecified Gout etiology: unspecified cause Gout site: ankle Laterality: right Hypertension I10 Hypertension type: essential hypertension GERD (gastroesophageal reflux disease) K21.9 Depression F32.2 Active/Remission status: currently active Depression Type: major depressive disorder Major depression episode severity: severe Major depression recurrence: single episode Psychotic features: without psychotic features (8) Gout Chronicity: unspecified Gout etiology: unspecified cause Gout site: ankle Laterality: right Qualified Code(s): M10.9 - Gout, unspecified (9) Hypertension Hypertension type: essential hypertension Qualified Code(s): I10 - Essential (primary) hypertension (11) Depression Active/Remission status: currently active Depression Type: major depressive disorder Major depression episode severity: severe Major depression recurrence: single episode Psychotic features: without psychotic features Qualified Code(s): F32.2 - Major depressive disorder, single episode, severe without psychotic features
[2022-10-02] MEDS: ASPIRIN 81 MG ECTAB PO SCH (08:11)
[2022-10-02] MEDS: PANTOprazole 40 MG TAB PO SCH (08:11)
[2022-10-02] MEDS: DULoxetine HCL 60 MG CAP PO SCH (08:11)
[2022-10-02] MEDS: HEPARIN SOD 5,000 UNIT/0.5 ML VIAL SQ SCH ×2 (08:12→20:52)
[2022-10-02] MEDS: cefTRIAXone SODIUM 2,000 MG in DEXTROSE 5% 50 ML IV SCH (08:15)
[2022-10-02] MEDS: MAGNESIUM OXIDE 400 MG TAB PO SCH ×2 (08:15→20:52)
[2022-10-02] MEDS: INSULIN ASPART PER UNIT CHARGE SC SCH ×5 (08:20→20:53)
[2022-10-02] MEDS ORDERED: LANTUS PER UNIT CHARGE SC SCH ×2 (09:00→21:00)
--- NOTE | 2022-10-02 11:06 | Pharmacy Report ---
Pharmacy Glycemic Short Note 2 - Date of Service October 02, 2022 - Glycemic Short BSG Results (Last 24 hours): 10/01/22 10/01/22 10/01/22 11:53 16:13 19:35 Glucose POC Glucose 171 H 113 H 75 10/02/22 10/02/22 04:38 07:27 Glucose 70 POC Glucose 88 OUTPATIENT ANTIDIABETIC REGIMEN: * Amaryl 2 mg PO daily * HbA1C ordered ASSESSMENT: 10/02 * Stressors: norepinephrine now off. Downgrading from ICU status today per ICU rounds discussion. * BSG's with notable trend down and near hypoglycemia this AM. Etiology likely 2nd Lantus, although dose was not aggressively increased yesterday. * Will hold Lantus today until BSG's back in goal range, then will reduce dose as compared to prior * Will loosen Novolog very significantly at breakfast, but OK to slightly tighten at lunch (to a parameter still significantly looser than yesterday and is a weight-based moderate stress estimate) 09/30 * Ms Campuzano is an 82 y/o F with a PMH of T2DM on one oral medication who presents with E coli bacteremia, currently on Rocephin. * In the emergency room, the patient's blood sugar was extremely elevated at 442 but this decreased to 74 mg/dL by HS without insulin. Patient received several liters of fluid. * Fasting this AM was 155 mg/dL. Patient initially NPO but given diet later in the morning. Lunch BSG was 307/310 which was most likely due to uncovered breakfast. * Will give Lantus 15 units with lunch ([id number]-[id number] stress of 2). Continue Novolog weight-based stress of 2 for now. PLAN FOR INPATIENT GLYCEMIC CONTROL: * Hold outpatient oral diabetes medications * Basal insulin * Hold Lantus for now. Anticipate no more than 10 units to be administered at some point later today, after BSG back in goal range. * Bolus insulin * NovoLog per scale ACHS or Q6hrs while NPO * Goal Range: Low 110 mg/dL - High 140 mg/dL * Correction Factor: 25 mg/dL/unit * Nutritional / Prandial insulin per carb ratio of 1 unit per 9 grams CHO consumed
--- NOTE | 2022-10-02 11:57 | Hospitalist Progress Note ---
Date of Service October 02, 2022 Assessment & Plan (1) Septic shock: Plan: -sepsis secondary to E coli pyelonephritis -Resolving -No longer on pressors, BP is holding up -Antibiotics have been narrowed down to IV ceftriaxone -Ok for downgrade (2) UTI (urinary tract infection): Plan: Urine cultures growing E coli pansensitive Continue IV Ceftriaxone (3) Elevated troponin: Plan: -Initial high sen trop elevated at 453, secondary to sepsis -Patient is asymptomatic, no significant ST segment or T-wave changes on ECG -Trend trops (4) JUAN A (acute kidney injury): Plan: -JUAN A on CKD 3 -Secondary to septic shock -Avoid nephrotoxic agents -Monitor urine output -Monitor BMP (5) Lactate blood increase: Plan: -secondary to sepsis now resolved (6) Hypomagnesemia: Plan: Replace (7) Hyponatremia: Plan: Now resolved (8) 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: Plan: -Blood glucose under better control -Continue insulin sliding scale -Hold glimepiride -Pharmacy glycemic consult placed (9) Hypertension: Plan: -Hold antihypertensives for now with septic shock (10) GERD (gastroesophageal reflux disease): Plan: -Daily IV pantoprazole ordered to being tomorrow for stress ulcer ppx (11) Hyperlipidemia: Plan: -resume statin (12) Hypoxia: Plan: Wean oxygen as tolerated Plan continue hospitalization, await evaluation by PT Admission and Anticipated Discharge Date Admission Date: September 29, 2022 Subjective patient seen and examined, continues to improve Review of Systems Review of Systems: All systems reviewed are negative, apart from the ones contained in the history. Physical Exam Physical Exam: The patient is awake, alert and oriented 3, well developed and well nourished, normocephalic and atraumatic, lying in bed and in no acute distress. HEENT--PERRL, EOMI, mucous membranes and oropharynx mildly dry Neck--supple. No JVD. No bruits. Thyroid normal, trachea midline, no adenopathy. Heart--normal S1 and S2. No murmurs, rubs or gallops. Lungs--clear bilaterally, no respiratory distress, no accessory muscle use. Abdomen--normal bowel sounds and soft. Mild epigastric and left sided abdominal pain Extremities--no cyanosis or clubbing. No edema. Dermatologic--normal skin turgor, normal color, no abnormal lymph nodes, no rash. Neurologic--cranial nerves II through XII grossly intact. Rheumatologic--normal range of motion. Psychiatric--normal affect. Results & Data Results & Data Vital Signs (Past 12 Hours) Vital Signs Pulse Resp BP Pulse Ox O2 Del Method 10/02/22 08:00 Room Air 10/02/22 05:00 100 H 13 97 10/02/22 05:00 98/49 L 10/02/22 04:30 100 H 25 H 98 10/02/22 04:00 118 H 25 H 98 10/02/22 04:00 89/66 L 10/02/22 03:30 122 H 24 98 10/02/22 03:00 115 H 28 H 99 10/02/22 03:00 98/56 L 10/02/22 02:00 114 H 37 H 99 10/02/22 02:00 102/54 L 10/02/22 01:00 108 H 24 97 10/02/22 01:00 105/52 L 10/02/22 00:00 111 H 24 98 10/02/22 00:00 103/52 L PG Care Time/CCT Total # of Minutes Spent Total Time Spent with Patient: Total time spent is greater than 50% in coordination of care (as documented) at patient's floor/unit and/or counseling patient: Coding Level of Care Code 00540 SUB INP/OBS CARE 2/35MIN Diagnoses Septic shock A41.9; R65.21 UTI (urinary tract infection) N39.0 Elevated troponin R77.8 JUAN A (acute kidney injury) N17.9 Lactate blood increase R79.89 Hypomagnesemia E83.42 Hyponatremia E87.1 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 E11.29; E11.65 Hypertension I10 Hypertension type: essential hypertension GERD (gastroesophageal reflux disease) K21.9 Hyperlipidemia E78.5 Hypoxia R09.02 Time Spent (min) 35 (9) Hypertension Hypertension type: essential hypertension Qualified Code(s): I10 - Essential (primary) hypertension
[2022-10-02] MEDS: METOPROLOL SUCC 25MG EXT REL TAB PO SCH (13:01)
[2022-10-02] MEDS ORDERED: ACETAMINOPHEN 325 MG TAB PO PRN (14:30)
[2022-10-02] MEDS ORDERED: ACETAMINOPHEN 325 MG TAB ONE (14:32)
[2022-10-03 05:58] LABS: Albumin Level 2.6 gm/dl (3.4-5.0); BUN Creatinine Ratio 25.8 (10-20); Bilirubin,Total 0.4 mg/dl (0.2-1.0); Calcium 8.3 mg/dl (8.6-10.3); Creatinine Clr Calc Pharmacy 25.6 ml/min; Est GFR (African American) 33.9 ml/min; Est GFR (Non-African American) 29.2 ml/min; Globulin 2.5 gm/dl (2.5-4.0); Magnesium 1.9 mg/dl (1.7-2.4); Total Protein 5.1 gm/dl (6.0-8.3)
[2022-10-03 06:22] LABS: Basophils # (auto) 0.01 K/uL (0-0.2); Basophils % (auto) 0.1 %; Eosinophils # (auto) 0.19 K/uL (0-0.50); Eosinophils % (auto) 2.7 %; Hematocrit (blood only) 29.2 % (37.0-47.0); Immature Granulocytes # (auto) 0.42 K/uL (0.01-0.20); Lymphocytes # (auto) 0.77 K/uL (1.2-3.4); Mean Corpuscular Hemoglobin 30.9 pg (25.0-34.0); Mean Corpuscular Hgb Conc 34.2 g/dL (32.0-36.0); Mean Corpuscular Volume 90.1 fL (80.0-100.0); Mean Platelet Volume 11.3 fL (9.4-12.4); Monocytes # (auto) 1.28 K/uL (0.11-0.59); Monocytes % (auto) 18.3 %; Neutrophils # (auto) 4.31 K/uL (1.40-6.50); Neutrophils % (auto) 61.9 %; Platelet Count 101 K/uL (130-400); RDW Coefficient of Variation 14.4 % (11.5-14.5); RDW Standard Deviation 47.5 fL (36.4-46.3); Red Blood Count 3.24 M/uL (4.20-5.40); White Blood Count 6.98 K/ul (4.8-10.8)
--- NOTE | 2022-10-03 06:55 | Electrocardiogram Report ---
Test Reason : Blood Pressure : / mmHG Vent. Rate : 086 BPM Atrial Rate : 086 BPM P-R Int : 128 ms QRS Dur : 122 ms QT Int : 460 ms P-R-T Axes : 055 -44 018 degrees QTc Int : 550 ms Poor data quality, interpretation may be adversely affected Sinus rhythm with frequent Premature atrial complexes in a pattern of bigeminy Premature ventricular complexes Left axis deviation Right bundle branch block Abnormal ECG When compared with ECG of 29-SEP-2022 13:56, Premature ventricular complexes are now Present Confirmed by Chris Ennis ([id number]) on 10/03/2022 6:54:39 AM Referred By: REFERRED SELF Confirmed By:Chris Ennis
[2022-10-03] MEDS: ATORVASTATIN 20 MG TAB PO SCH (07:39)
[2022-10-03] MEDS: MAGNESIUM OXIDE 400 MG TAB PO SCH ×2 (07:39→20:38)
[2022-10-03] MEDS: ASPIRIN 81 MG ECTAB PO SCH (07:39)
[2022-10-03] MEDS: DULoxetine HCL 60 MG CAP PO SCH (07:39)
[2022-10-03] MEDS: METOPROLOL SUCC 25MG EXT REL TAB PO SCH (07:39)
[2022-10-03] MEDS: PANTOprazole 40 MG TAB PO SCH (07:39)
[2022-10-03] MEDS: HEPARIN SOD 5,000 UNIT/0.5 ML VIAL SQ SCH ×2 (07:40→20:37)
[2022-10-03] MEDS: cefTRIAXone SODIUM 2,000 MG in DEXTROSE 5% 50 ML IV SCH (07:41)
[2022-10-03] MEDS: INSULIN ASPART PER UNIT CHARGE SC SCH ×4 (07:58→20:35)
--- NOTE | 2022-10-03 11:24 | Hospitalist Progress Note ---
Date of Service October 03, 2022 Assessment & Plan (1) Septic shock: Plan: -sepsis secondary to E coli pyelonephritis pansensistive -Resolving -No longer on pressors, BP is holding up -Antibiotics have been narrowed down to IV ceftriaxone -Ok for downgrade -Will discharge her on PO antibiotics (2) UTI (urinary tract infection): Plan: Urine cultures growing E coli pansensitive Continue IV Ceftriaxone -Discharge her on PO antibiotics (3) Elevated troponin: Plan: -Initial high sen trop elevated at 453, secondary to sepsis -Patient is asymptomatic, no significant ST segment or T-wave changes on ECG -No chest pain, (4) JUAN A (acute kidney injury): Plan: -JUAN A on CKD 3 -Secondary to septic shock -Avoid nephrotoxic agents -Monitor urine output -Monitor BMP (5) Lactate blood increase: Plan: -secondary to sepsis now resolved (6) Hypomagnesemia: Plan: Replace (7) Hyponatremia: Plan: Now resolved (8) 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: Plan: -Blood glucose under better control -Continue insulin sliding scale -Hold glimepiride -Pharmacy glycemic consult placed (9) Hypertension: Plan: -Hold antihypertensives for now with septic shock (10) GERD (gastroesophageal reflux disease): Plan: -Daily IV pantoprazole ordered to being tomorrow for stress ulcer ppx (11) Hyperlipidemia: Plan: -resume statin (12) Hypoxia: Plan: Wean oxygen as tolerated Plan continue hospitalization, await evaluation by PT, patient a bit deconditioned. Hopefully d/c in the next 24 hrs after PT eval Admission and Anticipated Discharge Date Admission Date: September 29, 2022 Subjective patient seen and examined, continues to improve, ambulating well, but deconditioned Review of Systems Review of Systems: All systems reviewed are negative, apart from the ones contained in the history. Physical Exam Physical Exam: The patient is awake, alert and oriented 3, well developed and well nourished, normocephalic and atraumatic, lying in bed and in no acute distress. HEENT--PERRL, EOMI, mucous membranes and oropharynx mildly dry Neck--supple. No JVD. No bruits. Thyroid normal, trachea midline, no adenopathy. Heart--normal S1 and S2. No murmurs, rubs or gallops. Lungs--clear bilaterally, no respiratory distress, no accessory muscle use. Abdomen--normal bowel sounds and soft. Mild epigastric and left sided abdominal pain Extremities--no cyanosis or clubbing. No edema. Dermatologic--normal skin turgor, normal color, no abnormal lymph nodes, no rash. Neurologic--cranial nerves II through XII grossly intact. Rheumatologic--normal range of motion. Psychiatric--normal affect. Results & Data Results & Data Vital Signs (Past 12 Hours) Vital Signs Temp Pulse Pulse Resp BP Pulse Ox Pulse Ox 10/03/22 08:00 100 H 21 10/03/22 07:31 122/71 91 10/03/22 07:31 102 H 29 H 10/03/22 07:30 99 H 29 H 10/03/22 07:00 100 H 32 H 10/03/22 08:05 98.2 F 10/03/22 05:55 90 93 10/03/22 03:13 90 93 10/03/22 01:38 88 92 10/03/22 00:12 98.4 F 96 H 22 98/53 L 91 O2 Del Method O2 Del Method 10/03/22 08:00 10/03/22 07:31 Room Air 10/03/22 07:31 10/03/22 07:30 10/03/22 07:00 10/03/22 08:05 10/03/22 05:55 Room Air 10/03/22 03:13 Room Air 10/03/22 01:38 Room Air 10/03/22 00:12 Room Air PG Care Time/CCT Total # of Minutes Spent Total Time Spent with Patient: Total time spent is greater than 50% in coordination of care (as documented) at patient's floor/unit and/or counseling patient: Coding Level of Care Code 53103 SUB INP/OBS CARE 2/35MIN Diagnoses Septic shock A41.9; R65.21 UTI (urinary tract infection) N39.0 Elevated troponin R77.8 JUAN A (acute kidney injury) N17.9 Lactate blood increase R79.89 Hypomagnesemia E83.42 Hyponatremia E87.1 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 E11.29; E11.65 Hypertension I10 Hypertension type: essential hypertension GERD (gastroesophageal reflux disease) K21.9 Hyperlipidemia E78.5 Hypoxia R09.02 Time Spent (min) 35 (9) Hypertension Hypertension type: essential hypertension Qualified Code(s): I10 - Essential (primary) hypertension
[2022-10-03] MEDS: POLYETHYLENE (MIRALAX) 17 GM PACK PO SCH (12:36)
--- NOTE | 2022-10-03 13:44 | Pharmacy Report ---
Pharmacy Glycemic Short Note 2 - Date of Service October 03, 2022 - Glycemic Short BSG Results (Last 24 hours): 10/02/22 10/02/22 10/03/22 16:15 20:43 05:19 Glucose 107 H POC Glucose 122 H 124 H 10/03/22 10/03/22 07:33 11:30 Glucose POC Glucose 113 H 162 H OUTPATIENT ANTIDIABETIC REGIMEN: * Amaryl 2 mg PO daily * HbA1c: 7.1% (10/01/22) ASSESSMENT: 10/03: * Received 21 units of insulin yesterday, 10 basal + 11 bolus. BSGs ranging 88 - 124 mg/dL yesterday. * Basal dose was cut in half yesterday. Fasting BSG is 113 mg/dL this AM which is in goal range. Will slightly increase basal this evening to prevent fasting hyperglycemia in the future. 10/02: * Stressors: norepinephrine now off. Downgrading from ICU status today per ICU rounds discussion. * BSG's with notable trend down and near hypoglycemia this AM. Etiology likely 2nd Lantus, although dose was not aggressively increased yesterday. * Will hold Lantus today until BSG's back in goal range, then will reduce dose as compared to prior * Will loosen Novolog very significantly at breakfast, but OK to slightly tighten at lunch (to a parameter still significantly looser than yesterday and is a weight-based moderate stress estimate) 09/30: * Ms Campuzano is an 82 y/o F with a PMH of T2DM on one oral medication who presents with E coli bacteremia, currently on Rocephin. * In the emergency room, the patient's blood sugar was extremely elevated at 442 but this decreased to 74 mg/dL by HS without insulin. Patient received several liters of fluid. * Fasting this AM was 155 mg/dL. Patient initially NPO but given diet later in the morning. Lunch BSG was 307/310 which was most likely due to uncovered breakfast. * Will give Lantus 15 units with lunch ([id number] stress of 2). Continue Novolog weight-based stress of 2 for now. PLAN FOR INPATIENT GLYCEMIC CONTROL: * Hold outpatient oral diabetes medications * Basal insulin * Lantus 12 units SC HS * Bolus insulin * NovoLog per scale ACHS or Q6hrs while NPO * Goal Range: Low 110 mg/dL - High 140 mg/dL * Correction Factor: 25 mg/dL/unit * Nutritional / Prandial insulin per carb ratio of 1 unit per 9 grams CHO consumed
[2022-10-03] MEDS ORDERED: LANTUS PER UNIT CHARGE SC SCH (21:00)
[2022-10-04 05:02] LABS: Hematocrit (blood only) 31.7 % (37.0-47.0); Hemoglobin 10.9 g/dl (12.0-16.0); Mean Corpuscular Hemoglobin 31.1 pg (25.0-34.0); Mean Corpuscular Hgb Conc 34.4 g/dL (32.0-36.0); Mean Corpuscular Volume 90.3 fL (80.0-100.0); Mean Platelet Volume 10.9 fL (9.4-12.4); Platelet Count 131 K/uL (130-400); RDW Coefficient of Variation 14.5 % (11.5-14.5); RDW Standard Deviation 47.8 fL (36.4-46.3); Red Blood Count 3.51 M/uL (4.20-5.40)
[2022-10-04 05:17] LABS: Albumin Globulin Ratio 1.1 (0.9-2); Albumin Level 2.9 gm/dl (3.4-5.0); BUN Creatinine Ratio 33.3 (10-20); Bilirubin,Total 0.4 mg/dl (0.2-1.0); Calcium 8.7 mg/dl (8.6-10.3); Creatinine Clr Calc Pharmacy 31.6 ml/min; Est GFR (African American) 43.7 ml/min; Est GFR (Non-African American) 37.7 ml/min; Globulin 2.6 gm/dl (2.5-4.0); Magnesium 1.7 mg/dl (1.7-2.4); Potassium 4.1 mmol/L (3.5-5.1); Total Protein 5.5 gm/dl (6.0-8.3)
[2022-10-04 05:25] LABS: Basophils # (auto) 0.08 K/uL (0-0.2); Basophils % (auto) 0.8 %; Dohle Bodies 1+; Eosinophils # (auto) 0.16 K/uL (0-0.50); Eosinophils % (auto) 1.7 %; Immature Granulocytes # (auto) 0.72 K/uL (0.01-0.20); Immature Granulocytes % (auto) 7.5 %; Lymphocytes # (auto) 1.41 K/uL (1.2-3.4); Lymphocytes % (auto) 14.7 %; Monocytes # (auto) 1.55 K/uL (0.11-0.59); Monocytes % (auto) 16.1 %; Neutrophils # (auto) 5.68 K/uL (1.40-6.50); Neutrophils % (auto) 59.2 %
[2022-10-04] MEDS: INSULIN ASPART PER UNIT CHARGE SC SCH ×2 (09:46→11:23)
[2022-10-04] MEDS: cefTRIAXone SODIUM 2,000 MG in DEXTROSE 5% 50 ML IV SCH (09:49)
[2022-10-04] MEDS: ASPIRIN 81 MG ECTAB PO SCH (09:50)
[2022-10-04] MEDS: PANTOprazole 40 MG TAB PO SCH (09:50)
[2022-10-04] MEDS: POLYETHYLENE (MIRALAX) 17 GM PACK PO SCH (09:50)
[2022-10-04] MEDS: ATORVASTATIN 20 MG TAB PO SCH (09:50)
[2022-10-04] MEDS: MAGNESIUM OXIDE 400 MG TAB PO SCH (09:50)
[2022-10-04] MEDS: HEPARIN SOD 5,000 UNIT/0.5 ML VIAL SQ SCH (09:50)
[2022-10-04] MEDS: METOPROLOL SUCC 25MG EXT REL TAB PO SCH (09:50)
[2022-10-04] MEDS: DULoxetine HCL 60 MG CAP PO SCH (09:50)
--- NOTE | 2022-10-04 12:38 | Discharge Summary ---
Discharge Summary Date of Service October 04, 2022 Notes For Next Care Provider Gaurang on hold for previous hypotension and JUAN A--> f/u with Cardiology within 2 weeks to be arranged to see about when ok to restart if necessary at all. Medication Changes From Visit Augmentin 875mg po bid x 10 more days Admission HPI Per Admitting Provider Mikaela is an 82 year old female with a PMH significant for DMII, stage 3 CKD, HTN, Gout, previous pulmonary emboli, GERD, and anxiety who presented to the [facility] [place] ED on 09/29 via ALS for generalized weakness, cloudy urine, headache, and blurry vision. In the ED the patient was found to be hypotensive at 43/22, tachycardic with HR in the low 100's, tachypneic at 26, and afebrile. Labs were significant for a leukocytosis of 17 with left shift of 15, INR of 1.2, Cr of 3.43 (baseline appears near 1.1), BUN of 60, lactate of 3.2, mag of 1.2, procal of 119, initial high sen trop of 119, UA suggestive of acute UTI, and covid 19/RSV/Influenza negative. Chest xray was read as "Mild pulmonary edema. No evidence of pneumonia.". CT of the abd/pelvis wo con was read as "1. Findings suggest cystitis. Correlate with clinical findings and urinalysis. 2. There is mild bilateral perinephric and periureteric stranding. Ascending urinary tract infection is not excluded, and clinical/laboratory correlation will be required. 3. Additional findings as above". Prior to admission the patient was given 2L NSS, a dose of Zosyn, and was started on a Norepinephrine drip for ongoing hypotension. At the time of the exam the patient was lying in bed in no acute distress, currently mentating well. She states that she started to develop suprapubic pain, dysuria, increased urinary frequency, decreased appetite, and generalized weakness on Sunday. Her symptoms continued to progress over the past week, she was still taking all of her normal medications. She states that she woke this am with a headache and blurry vision. She did note multiple episodes of fever and chills but never took her actual temperature. She states that she is currently feeling improved compared to arrival. She denies current headache, blurry vision, chest pain, SOB, cough, abd pain, nausea, vomiting, diarrhea, LE swelling and recent trauma. She wishes to be pa full code and for her son and daughter in law to make medical decisions for her if she cannot make them herself. Please refer to Dr. Hilario's attestation for any changes to the treatment plan Principal Dx & Hospital Course #1 = Principal Diagnosis (1) Septic shock: -sepsis secondary to E coli pyelonephritis and bacteremia pansensitive -Resolved -No longer on pressors, BP normalized -Antibiotics used were IV ceftriaxone and then dc to home on po Augmentin x 10 more days for a total of 14 days -BCxs repeat from 10/01 TD -held Entresto, metoprolol on admission, have restarted metoprolol (2) UTI (urinary tract infection): Urine cultures growing E coli pansensitive as above, treated with abx -consider dc of trospium, oxybutynin as these can contribute to UTIs (3) Elevated troponin: -Initial high sen trop elevated at 453, secondary to sepsis, then trended downward -Patient is asymptomatic, no significant ST segment or T-wave changes on ECG -No chest pain, CHO with preserved EF, no WMAs (4) JUAN A (acute kidney injury): -JUAN A on CKD 3 -Secondary to septic shock -Avoid nephrotoxic agents -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 -continue to hold Entresto on discharge until seen in f/u with Cardiology (5) Lactate blood increase: -secondary to sepsis now resolved (6) Hypomagnesemia: Replace (7) Hyponatremia: Now resolved (8) 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: restart home po meds on discharge (9) Hypertension: -held meds for septic shock, then restarted home metoprolol continue to hold ENtresto as above (10) GERD (gastroesophageal reflux disease): -continue PPI (11) Hyperlipidemia: -resume statin (12) Hypoxia: now resolved, related to sepsis overnight POx test done and negative, no nocturnal O2 needed Neuropathy -continue home gabapentin, Cymbalta History of cardiomyopathy-now resolved continue Toprol, hold Entreto, f/u Cardiology as outpt Plan Dispo-much improved, stable for dc to home with home health Discharge Exam Constitutional WD/WN, vitals as above Respiratory normal respiratory effort, lungs clear to auscultation Cardiovascular RRR, no murmur, no edema Gastrointestinal (Abdomen) normal bowel sounds, soft, nontender, no hepatosplenomegaly Updated Medication List Medication Instructions Recorded Confirmed Type ascorbic acid (vitamin C) 500 mg 500 mg PO QAM 08/12/18 09/29/22 History tablet (Vitamin C) atorvastatin 20 mg tablet 20 mg PO QAM 08/12/18 09/29/22 History hydroxyzine HCl 10 mg tablet 10 mg PO TID PRN ANXIETY/INSOMNIA 08/12/18 09/29/22 History metoprolol succinate 25 mg 25 mg PO QAM 08/12/18 09/29/22 History tablet,extended release 24 hr (Toprol XL) multivitamin 1 tab PO QAM 08/12/18 09/29/22 History oxybutynin chloride 15 mg 15 mg PO DAILY PRN URINARY 08/12/18 09/29/22 History tablet,extended release 24 hr DISCOMFORT acetaminophen 500 mg tablet 1,000 mg PO TID PRN Pain 11/12/18 09/29/22 History (Tylenol Extra Strength) albuterol sulfate 90 mcg/actuation 2 puffs inhalation Q6H PRN 11/18/18 09/29/22 Rx aerosol inhaler shortness of breath or wheezing #18 grams colchicine 0.6 mg tablet 0.6 mg PO BID 11/15/20 09/29/22 History cyanocobalamin (vitamin B-12) 1,000 mcg PO QAM 11/15/20 09/29/22 History 1,000 mcg tablet (Vitamin B-12) duloxetine 30 mg capsule,delayed 30 mg PO QAM 11/15/20 09/29/22 History release (Cymbalta) duloxetine 60 mg capsule,delayed 60 mg PO QAM 11/15/20 09/29/22 History release (Cymbalta) gabapentin 300 mg capsule 300 mg PO BID 11/15/20 09/29/22 History glimepiride 1 mg tablet (Amaryl) 2 mg PO QAM 11/15/20 09/29/22 History omeprazole 40 mg capsule,delayed 40 mg PO QAM 11/15/20 09/29/22 History release sodium hyaluronate (viscosup) 10 20 mg intra-articular DIRECTED 11/15/20 09/29/22 History mg/mL(mw 2.4-3.6 million)intra-articular syringe (Euflexxa) allopurinol 100 mg tablet 100 mg PO BID 05/06/21 09/29/22 History trospium 60 mg capsule,extended 60 mg PO QAM 05/06/21 09/29/22 History release 24 hr aspirin 81 mg tablet,delayed 81 mg PO QAM 06/29/22 09/29/22 History release furosemide 20 mg tablet (Lasix) 20 mg PO DAILY #14 tabs 06/29/22 09/29/22 Rx magnesium oxide 400 mg PO BID #14 caps 06/29/22 09/29/22 Rx sacubitril 97 mg-valsartan 103 mg 1 tab PO BID 06/29/22 09/29/22 History tablet (Entresto) amoxicillin 875 mg-potassium 1 tab PO BID #20 tabs 10/04/22 Rx clavulanate 125 mg tablet Hospital Stay Data Consultations 09/29/22 17:47 ED Decision to Admit Stat Diagnostic Imagining Performed 09/29/22 14:50 CT abd pelvis wo con Stat Pending Results Patient Have Any Pending Studies at Discharge: No Discharge Instructions Given to Patient (Per Discharging Provider) Please finish out 10 more days of the antibiotics for your kidney and blood stream infection. You should remain OFF your Entresto until you see your Jet Man to see if it's ok to go back on it. Total Time Total Time Spent Total Time Spent (In Minutes): 35 min Coding Level of Care Code 52429 INP/OBS DISCH >30 MIN Diagnoses Septic shock A41.9; R65.21 UTI (urinary tract infection) N39.0 Elevated troponin R77.8 JUAN A (acute kidney injury) N17.9 Lactate blood increase R79.89 Hypomagnesemia E83.42 Hyponatremia E87.1 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 E11.29; E11.65 Hypertension I10 Hypertension type: essential hypertension GERD (gastroesophageal reflux disease) K21.9 Hyperlipidemia E78.5 Hypoxia R09.02
--- NOTE | 2022-10-04 15:13 | Pharmacy Report ---
Pharmacy Glycemic Short Note 2 - Date of Service October 04, 2022 - Glycemic Short BSG Results (Last 24 hours): 10/03/22 10/03/22 10/04/22 16:07 20:23 04:30 Glucose 82 POC Glucose 136 H 176 H 10/04/22 10/04/22 07:12 11:06 Glucose POC Glucose 92 156 H OUTPATIENT ANTIDIABETIC REGIMEN: * Amaryl 2 mg PO daily * HbA1c: 7.1% (10/01/22) ASSESSMENT: 10/04: * Stressors stable * AM fasting BSG well below goal this AM. Etiology likely 2nd HS dose of Lantus the past two evenings. * Will hold Lantus for today and resume tomorrow AM with lower dose, only to be administered if BSG >140 mg/dL * Will loosen Novolog for the day today only while Lantus admin last night still on board. Will tighten back to previous tomorrow AM 10/03: * Received 21 units of insulin yesterday, 10 basal + 11 bolus. BSGs ranging 88 - 124 mg/dL yesterday. * Basal dose was cut in half yesterday. Fasting BSG is 113 mg/dL this AM which is in goal range. Will slightly increase basal this evening to prevent fasting hyperglycemia in the future. 10/02: * Stressors: norepinephrine now off. Downgrading from ICU status today per ICU rounds discussion. * BSG's with notable trend down and near hypoglycemia this AM. Etiology likely 2nd Lantus, although dose was not aggressively increased yesterday. * Will hold Lantus today until BSG's back in goal range, then will reduce dose as compared to prior * Will loosen Novolog very significantly at breakfast, but OK to slightly tighten at lunch (to a parameter still significantly looser than yesterday and is a weight-based moderate stress estimate) 09/30: * Ms Campuzano is an 82 y/o F with a PMH of T2DM on one oral medication who presents with E coli bacteremia, currently on Rocephin. * In the emergency room, the patient's blood sugar was extremely elevated at 442 but this decreased to 74 mg/dL by HS without insulin. Patient received several liters of fluid. * Fasting this AM was 155 mg/dL. Patient initially NPO but given diet later in the morning. Lunch BSG was 307/310 which was most likely due to uncovered breakfast. * Will give Lantus 15 units with lunch (luci-[id number] stress of 2). Continue Novolog weight-based stress of 2 for now. PLAN FOR INPATIENT GLYCEMIC CONTROL: * Hold outpatient oral diabetes medications * Basal insulin * Starting tomorrow AM, Lantus 5 units SC BID (hold for BSG less than 140 mg/dL) * Bolus insulin * NovoLog per scale ACHS or Q6hrs while NPO * Goal Range: Low 110 mg/dL - High 140 mg/dL * Correction Factor: 30 mg/dL/unit today then 25 mg/dL/unit tomorrow * Carb ratio: 11 g CHO/unit today then 9 g CHO/unit tomorrow
[2022-10-05] MEDS ORDERED: INSULIN ASPART PER UNIT CHARGE SC SCH (07:30)
[2022-10-05] MEDS ORDERED: LANTUS PER UNIT CHARGE SC SCH (09:00)
== END 2022-10-04 15:37 | disposition home health service (06) | DRG 871 ==
LOC: ED 13:49 → SUATTDRO 18:00 → 1E 18:00

== ENCOUNTER 2023-07-10 09:49 | Inpatient (IN) ==
[2023-07-10 10:28] LABS: Basophils # (auto) 0.03 K/uL (0.00-0.20); Basophils % (auto) 0.3 %; Eosinophils # (auto) 0.17 K/uL (0.00-0.50); Eosinophils % (auto) 1.5 %; Hematocrit (blood only) 37.8 % (37.0-47.0); Hemoglobin 12.2 g/dl (12.0-16.0); Immature Granulocytes # (auto) 0.04 K/uL (0.01-0.20); Immature Granulocytes % (auto) 0.4 %; Lymphocytes # (auto) 1.44 K/uL (1.20-3.40); Lymphocytes % (auto) 13.1 %; Mean Corpuscular Hemoglobin 30.7 pg (25.0-34.0); Mean Corpuscular Hgb Conc 32.3 g/dL (32.0-36.0); Mean Corpuscular Volume 95.2 fL (80.0-100.0); Mean Platelet Volume 10.1 fL (9.4-12.4); Monocytes # (auto) 0.53 K/uL (0.11-0.59); Monocytes % (auto) 4.8 %; Neutrophils # (auto) 8.82 K/uL (1.40-6.50); Neutrophils % (auto) 79.9 %; Platelet Count 172 K/uL (130-400); RDW Coefficient of Variation 13.4 % (11.5-14.5); RDW Standard Deviation 46.7 fL (36.4-46.3); Red Blood Count 3.97 M/uL (4.20-5.40); White Blood Count 11.03 K/ul (4.8-10.8)
--- NOTE | 2023-07-10 10:33 | Emergency Department Note ---
Impression & Plan Chest pain, Pneumonia, Abdominal pain, Hypoxia ED Provider Note NAME: SHAUNA VALDIVIA AGE: 83 SEX: F : 1940 ARRIVES VIA: Ambulance INFORMANT: Patient ED PROVIDER(S): Brody Cevallos DO CHIEF COMPLAINT: Chest pain and abdominal pain HPI: Patient is an 83-year-old female who presents to the ER with a past medical history of diabetes, anemia, PE, hypertension for pain that goes from the back of her throat down to her upper stomach. She notes this has been going on for the past several weeks. It is constant but it is worse when she lays flat. Improves when she sits up and moves around. It is also worse with eating. She describes it as a burning pain. Patient also notes that she has been short of breath for the same time. She admits to a cough and congestion. No fevers.. No arm pain but does come back up into the throat and the jaw. No dysuria, urgency, or frequency. No other exacerbating or remitting factors. ADDITIONAL HISTORY OBTAINED: Per HPI Chronic Medical/Social Conditions Affecting Care: Per HPI PAST MEDICAL HISTORY:See Below PAST SURGICAL HISTORY:See Below FAMILY HISTORY:See Below SOCIAL HISTORY:See Below HOME MEDICATIONS:See Below ALLERGIES:See Below VITALS:See Below PHYSICAL EXAMINATION: GENERAL: Sitting up in bed, alert, well appearing, well nourished, no distress, non-toxic EYE EXAM: normal conjunctiva. OROPHARYNX: no exudate, no erythema, lips, buccal mucosa, and tongue normal and mucous membranes are moist NECK: supple, no nuchal rigidity, no adenopathy, non-tender LUNGS: Clear to auscultation. Normal chest wall mechanics HEART: no murmurs, S1 normal and S2 normal ABDOMEN: abdomen soft, non-tender, normo-active bowel sounds, no masses, no rebound or guarding. UPPER EXTREMITIES: upper extremities are grossly normal. LOWER EXTREMITIES: No pitting edema. NEURO EXAM: Normal sensorium, cranial nerves II-XII grossly intact, normal speech, no gross weakness of arms, no gross weakness of legs. MEDICAL DECISION MAKING: Patient is an 83-year-old female who presents ER for above-stated complaint. IV was established blood work was obtained. Labs show mild leukocytosis of 11,000. No significant anemia. BMP with a creatinine of 1.3. LFTs bilirubin was unremarkable. Troponin was negative. Lipase unremarkable. Chest x-ray. Unremarkable. CT abdomen pelvis showed a pneumonia. Patient was given IV Rocephin and azithromycin. She was borderline hypotensive with systolics in the 90s. She was given IV fluids as well. With her age and risk factors as well as curb 66 she was a moderate to high risk and discussed with the hospitalist Dr. Maged Hilario for further evaluation management treatment. Consults/Care Managements Discussions: Per MDM Triage Nursing notes reviewed. Limited review of prior medical records performed Vital Signs: reviewed and remarkable for no significant abnormalities Differential diagnosis: Differential diagnoses includes but is not limited to gastritis, peptic ulcer disease, GERD, gallbladder disease, pancreatitis, small bowel obstruction, appendicitis, diverticulitis, hernia, urinary tract infection, torsion, perforation, trauma, infectious. ER treatment provided: See below Diagnostics interpreted by me include EKG and cardiac monitoring as listed below: -Cardiac Monitoring: An order was placed for continuous cardiac monitoring. The monitor shows a rate of 90 with sinus rhythm. -ECG: Sinus rhythm rate 93 Left axis No PVCs Right bundle branch block QTc 566 -Laboratory studies:Interpreted by me as stated above in MDM and shown below. Imaging studies: Xrays: As interpreted by me: Portable AP upright 1 view of the chest shows no focal infiltrate CTs show: CT abdomen pelvis as described above Procedures:none Critical Care: None Past Med/Surg History Medical History Chronic kidney disease, stage 3a Depression Diabetes mellitus type II, controlled Fatty liver GERD (gastroesophageal reflux disease) Gout History of DVT (deep vein thrombosis) 2014 unknown cause--per pt currently no blood thinners History of right breast cancer sx/radiation Hyperglycemia Hyperlipidemia Hypertension OAB (overactive bladder) Osteoarthritis Pulmonary emboli (05/01/14) had dvt in 2015 unknown cause--per pt no blood thinners currently Renal insufficiency Thyroid nodule Surgical History H/O total mastectomy of right breast History of appendectomy History of bilateral cataract extraction History of bilateral tubal ligation History of cholecystectomy History of colonoscopy History of dilatation and curettage History of lithotripsy using laser History of lumpectomy of right breast History of right breast biopsy malignant History of tooth extraction partial lower S/P IVC filter later removed 05/2014 S/P thyroid biopsy benign Family History Other No family history of adverse response to anesthesia No significant family history Social History Smoking Status: Never smoker Second Hand Exposure: No; Do You Dip or Chew Tobacco: No; Hx Alcohol Use: No Hx Substance Use: No Preferred Language: [place] Communication Ability: Effective [employer] Operator Helper Required: No Beliefs That Will Affect Care: None Current Living Situation: Family Current Living Situation Comment: Patient lives with son and daughter in law. Feels Safe at Home: Yes Assistive Devices: None Allergies Allergies Allergy/AdvReac Type Severity Reaction Status Date / Time No Known Allergies Allergy Unknown Verified 09/29/22 17:50 Home Meds Home Medications Medication Instructions Recorded Confirmed ascorbic acid (vitamin C) 500 mg 500 mg PO QAM 08/12/18 07/10/23 tablet (Vitamin C) atorvastatin 20 mg tablet 20 mg PO QAM 08/12/18 07/10/23 hydroxyzine HCl 10 mg tablet 10 mg PO TID PRN ANXIETY/INSOMNIA 08/12/18 07/10/23 metoprolol succinate 25 mg 25 mg PO QPM 08/12/18 07/10/23 tablet,extended release 24 hr (Toprol XL) multivitamin 1 tab PO QAM 08/12/18 07/10/23 oxybutynin chloride 15 mg 15 mg PO DAILY PRN URINARY 08/12/18 07/10/23 tablet,extended release 24 hr DISCOMFORT acetaminophen 500 mg tablet 1,000 mg PO TID PRN Pain 11/12/18 07/10/23 (Tylenol Extra Strength) cyanocobalamin (vitamin B-12) 1,000 mcg PO QAM 11/15/20 07/10/23 1,000 mcg tablet (Vitamin B-12) duloxetine 30 mg capsule,delayed 30 mg PO QAM 11/15/20 07/10/23 release (Cymbalta) duloxetine 60 mg capsule,delayed 60 mg PO QAM 11/15/20 07/10/23 release (Cymbalta) gabapentin 300 mg capsule 300 mg PO BID 11/15/20 07/10/23 glimepiride 1 mg tablet (Amaryl) 2 mg PO QAM 11/15/20 07/10/23 omeprazole 40 mg capsule,delayed 40 mg PO QAM 11/15/20 07/10/23 release sodium hyaluronate (viscosup) 10 20 mg intra-articular DIRECTED 11/15/20 07/10/23 mg/mL(mw 2.4-3.6 million)intra-articular syringe (Euflexxa) allopurinol 100 mg tablet 100 mg PO BID 05/06/21 07/10/23 trospium 60 mg capsule,extended 60 mg PO QAM 05/06/21 07/10/23 release 24 hr aspirin 81 mg tablet,delayed 81 mg PO QAM 06/29/22 07/10/23 release sacubitril 97 mg-valsartan 103 mg 1 tab PO BID 06/29/22 07/10/23 tablet (Entresto) semaglutide 0.25 mg or 0.5 mg (2 0.25 mg subcut WK 07/10/23 07/10/23 mg/3 mL) subcutaneous pen injector (Wallerius) Previous Rx's Medication Instructions Recorded albuterol sulfate 90 mcg/actuation 2 puffs inhalation Q6H PRN 11/18/18 aerosol inhaler shortness of breath or wheezing #18 grams magnesium oxide 400 mg PO BID #14 caps 06/29/22 colchicine 0.6 mg tablet 0.6 mg PO BID PRN gout attack #30 10/04/22 tabs furosemide 20 mg tablet (Lasix) 20 mg PO DAILY PRN leg swelling or 10/04/22 weight gain>2 lbs/24 hrs #14 tabs bacitracin 500 unit/gram eye 1 applic ophthalmic (eye) Q12H 04/23/23 ointment #3.5 grams Results & Data (ED) Vital Signs Vital Signs - 24 hr 07/10/23 09:57 07/10/23 09:57 07/10/23 09:57 Temperature 36.2 C L Temperature Source Oral Pulse Rate 93 H Pulse Rate [Apical] Pulse Rate from SpO2 Sensor Pulse Rhythm [Apical] Pulse Strength [Apical] Respiratory Rate 14 Respiratory Effort / Characteristics Respiratory Depth Respiratory Pattern Blood Pressure 129/65 Blood Pressure [Left Arm] Blood Pressure Mean 86 Blood Pressure Mean [Left Arm] Blood Pressure Position [Left Arm] Pulse Oximetry 95 Oxygen Delivery Method Room Air Room Air Room Air Sepsis New/Unexplained Change in Mental Status No Sepsis Action Taken by Nursing No Action Required 07/10/23 09:58 07/10/23 10:00 07/10/23 10:01 Temperature Temperature Source Pulse Rate 94 H 94 H 93 H Pulse Rate [Apical] Pulse Rate from SpO2 Sensor 94 H Pulse Rhythm [Apical] Pulse Strength [Apical] Respiratory Rate 20 20 Respiratory Effort / Characteristics Respiratory Depth Respiratory Pattern Blood Pressure Blood Pressure [Left Arm] Blood Pressure Mean Blood Pressure Mean [Left Arm] Blood Pressure Position [Left Arm] Pulse Oximetry 95 Oxygen Delivery Method Sepsis New/Unexplained Change in Mental Status Sepsis Action Taken by Nursing 07/10/23 10:01 07/10/23 10:01 07/10/23 10:10 Temperature Temperature Source Pulse Rate 91 H 90 Pulse Rate [Apical] Pulse Rate from SpO2 Sensor 90 Pulse Rhythm [Apical] Pulse Strength [Apical] Respiratory Rate 27 H 26 H Respiratory Effort / Characteristics Respiratory Depth Respiratory Pattern Blood Pressure 110/76 Blood Pressure [Left Arm] Blood Pressure Mean 92 Blood Pressure Mean [Left Arm] Blood Pressure Position [Left Arm] Pulse Oximetry 96 Oxygen Delivery Method Sepsis New/Unexplained Change in Mental Status Sepsis Action Taken by Nursing 07/10/23 10:20 07/10/23 10:30 07/10/23 10:30 Temperature Temperature Source Pulse Rate 90 87 Pulse Rate [Apical] Pulse Rate from SpO2 Sensor 90 87 Pulse Rhythm [Apical] Pulse Strength [Apical] Respiratory Rate 20 23 Respiratory Effort / Characteristics Respiratory Depth Respiratory Pattern Blood Pressure 131/66 Blood Pressure [Left Arm] Blood Pressure Mean 77 Blood Pressure Mean [Left Arm] Blood Pressure Position [Left Arm] Pulse Oximetry 96 95 Oxygen Delivery Method Sepsis New/Unexplained Change in Mental Status Sepsis Action Taken by Nursing 07/10/23 10:34 07/10/23 10:34 07/10/23 10:40 Temperature Temperature Source Pulse Rate 89 Pulse Rate [Apical] 89 Pulse Rate from SpO2 Sensor 89 Pulse Rhythm [Apical] Pulse Strength [Apical] Respiratory Rate 18 14 Respiratory Effort / Characteristics Non-Labored Spontaneous Respiratory Depth Normal Respiratory Pattern Regular Blood Pressure Blood Pressure [Left Arm] 131/66 Blood Pressure Mean Blood Pressure Mean [Left Arm] 87 Blood Pressure Position [Left Arm] Lying Pulse Oximetry 93 93 93 Oxygen Delivery Method Room Air Room Air Sepsis New/Unexplained Change in Mental Status Sepsis Action Taken by Nursing 07/10/23 10:50 07/10/23 11:00 07/10/23 11:00 Temperature Temperature Source Pulse Rate 88 91 H Pulse Rate [Apical] Pulse Rate from SpO2 Sensor 88 85 Pulse Rhythm [Apical] Pulse Strength [Apical] Respiratory Rate 25 H 23 Respiratory Effort / Characteristics Respiratory Depth Respiratory Pattern Blood Pressure 137/71 Blood Pressure [Left Arm] Blood Pressure Mean 104 Blood Pressure Mean [Left Arm] Blood Pressure Position [Left Arm] Pulse Oximetry 93 92 Oxygen Delivery Method Sepsis New/Unexplained Change in Mental Status Sepsis Action Taken by Nursing 07/10/23 11:10 07/10/23 11:20 07/10/23 11:30 Temperature Temperature Source Pulse Rate 90 95 H Pulse Rate [Apical] Pulse Rate from SpO2 Sensor 84 87 Pulse Rhythm [Apical] Pulse Strength [Apical] Respiratory Rate 26 H 26 H Respiratory Effort / Characteristics Respiratory Depth Respiratory Pattern Blood Pressure 153/86 H Blood Pressure [Left Arm] Blood Pressure Mean 121 Blood Pressure Mean [Left Arm] Blood Pressure Position [Left Arm] Pulse Oximetry 95 93 Oxygen Delivery Method Sepsis New/Unexplained Change in Mental Status Sepsis Action Taken by Nursing 07/10/23 11:30 07/10/23 11:40 07/10/23 12:00 Temperature Temperature Source Pulse Rate 90 93 H Pulse Rate [Apical] 95 H Pulse Rate from SpO2 Sensor 82 86 Pulse Rhythm [Apical] Regular Pulse Strength [Apical] Normal Respiratory Rate 25 H 26 H 20 Respiratory Effort / Characteristics Non-Labored Spontaneous Respiratory Depth Normal Respiratory Pattern Regular Blood Pressure Blood Pressure [Left Arm] 99/73 L Blood Pressure Mean Blood Pressure Mean [Left Arm] 81 Blood Pressure Position [Left Arm] Pulse Oximetry 93 93 98 Oxygen Delivery Method Room Air Sepsis New/Unexplained Change in Mental Status Sepsis Action Taken by Nursing 07/10/23 12:01 07/10/23 12:05 07/10/23 12:05 Temperature Temperature Source Pulse Rate 99 H 97 H Pulse Rate [Apical] Pulse Rate from SpO2 Sensor 99 H 97 H Pulse Rhythm [Apical] Pulse Strength [Apical] Respiratory Rate 20 17 Respiratory Effort / Characteristics Respiratory Depth Respiratory Pattern Blood Pressure 99/73 L Blood Pressure [Left Arm] Blood Pressure Mean 77 Blood Pressure Mean [Left Arm] Blood Pressure Position [Left Arm] Pulse Oximetry 94 94 Oxygen Delivery Method Sepsis New/Unexplained Change in Mental Status Sepsis Action Taken by Nursing 07/10/23 12:10 07/10/23 12:20 07/10/23 12:30 Temperature Temperature Source Pulse Rate 95 H 93 H 94 H Pulse Rate [Apical] Pulse Rate from SpO2 Sensor 95 H 94 H 96 H Pulse Rhythm [Apical] Pulse Strength [Apical] Respiratory Rate 27 H 32 H 21 Respiratory Effort / Characteristics Respiratory Depth Respiratory Pattern Blood Pressure Blood Pressure [Left Arm] Blood Pressure Mean Blood Pressure Mean [Left Arm] Blood Pressure Position [Left Arm] Pulse Oximetry 96 93 91 Oxygen Delivery Method Sepsis New/Unexplained Change in Mental Status Sepsis Action Taken by Nursing 07/10/23 12:31 07/10/23 12:31 07/10/23 12:31 Temperature Temperature Source Pulse Rate 94 H Pulse Rate [Apical] Pulse Rate from SpO2 Sensor 98 H Pulse Rhythm [Apical] Pulse Strength [Apical] Respiratory Rate 22 Respiratory Effort / Characteristics Respiratory Depth Respiratory Pattern Blood Pressure 103/49 L 103/49 L Blood Pressure [Left Arm] Blood Pressure Mean 67 67 Blood Pressure Mean [Left Arm] Blood Pressure Position [Left Arm] Pulse Oximetry 90 Oxygen Delivery Method Sepsis New/Unexplained Change in Mental Status Sepsis Action Taken by Nursing 07/10/23 12:40 07/10/23 12:50 07/10/23 13:00 Temperature Temperature Source Pulse Rate 93 H 92 H 93 H Pulse Rate [Apical] Pulse Rate from SpO2 Sensor 93 H 91 H 93 H Pulse Rhythm [Apical] Pulse Strength [Apical] Respiratory Rate 22 25 H 19 Respiratory Effort / Characteristics Respiratory Depth Respiratory Pattern Blood Pressure Blood Pressure [Left Arm] Blood Pressure Mean Blood Pressure Mean [Left Arm] Blood Pressure Position [Left Arm] Pulse Oximetry 97 95 96 Oxygen Delivery Method Sepsis New/Unexplained Change in Mental Status Sepsis Action Taken by Nursing 07/10/23 13:01 07/10/23 13:01 07/10/23 13:10 Temperature Temperature Source Pulse Rate 92 H 91 H Pulse Rate [Apical] Pulse Rate from SpO2 Sensor 89 91 H Pulse Rhythm [Apical] Pulse Strength [Apical] Respiratory Rate 24 20 Respiratory Effort / Characteristics Respiratory Depth Respiratory Pattern Blood Pressure 80/49 L Blood Pressure [Left Arm] Blood Pressure Mean 60 Blood Pressure Mean [Left Arm] Blood Pressure Position [Left Arm] Pulse Oximetry 97 97 Oxygen Delivery Method Sepsis New/Unexplained Change in Mental Status Sepsis Action Taken by Nursing 07/10/23 13:20 07/10/23 13:20 07/10/23 13:30 Temperature Temperature Source Pulse Rate 90 Pulse Rate [Apical] Pulse Rate from SpO2 Sensor 90 Pulse Rhythm [Apical] Pulse Strength [Apical] Respiratory Rate 21 Respiratory Effort / Characteristics Respiratory Depth Respiratory Pattern Blood Pressure 93/64 L 88/55 L Blood Pressure [Left Arm] Blood Pressure Mean 73 59 Blood Pressure Mean [Left Arm] Blood Pressure Position [Left Arm] Pulse Oximetry 95 Oxygen Delivery Method Sepsis New/Unexplained Change in Mental Status Sepsis Action Taken by Nursing 07/10/23 13:30 07/10/23 13:40 07/10/23 13:46 Temperature Temperature Source Pulse Rate 91 H 88 90 Pulse Rate [Apical] Pulse Rate from SpO2 Sensor 93 H 88 90 Pulse Rhythm [Apical] Pulse Strength [Apical] Respiratory Rate 22 32 H 21 Respiratory Effort / Characteristics Respiratory Depth Respiratory Pattern Blood Pressure Blood Pressure [Left Arm] Blood Pressure Mean Blood Pressure Mean [Left Arm] Blood Pressure Position [Left Arm] Pulse Oximetry 96 95 95 Oxygen Delivery Method Sepsis New/Unexplained Change in Mental Status Sepsis Action Taken by Nursing 07/10/23 13:46 Temperature Temperature Source Pulse Rate Pulse Rate [Apical] Pulse Rate from SpO2 Sensor Pulse Rhythm [Apical] Pulse Strength [Apical] Respiratory Rate Respiratory Effort / Characteristics Respiratory Depth Respiratory Pattern Blood Pressure 124/60 Blood Pressure [Left Arm] Blood Pressure Mean 84 Blood Pressure Mean [Left Arm] Blood Pressure Position [Left Arm] Pulse Oximetry Oxygen Delivery Method Sepsis New/Unexplained Change in Mental Status Sepsis Action Taken by Nursing Laboratory Data 07/10/23 10:06 07/10/23 10:06 Lab Results 07/10/23 Range/Units 10:06 WBC 11.03 H (4.8-10.8) K/ul RBC 3.97 L (4.20-5.40) M/uL Hgb 12.2 (12.0-16.0) g/dl Hct 37.8 (37.0-47.0) % MCV 95.2 (80.0-100.0) fL MCH 30.7 (25.0-34.0) pg MCHC 32.3 (32.0-36.0) g/dL RDW Std Deviation 46.7 H (36.4-46.3) fL RDW Coeff of Heidi 13.4 (11.5-14.5) % Plt Count 172 (130-400) K/uL MPV 10.1 (9.4-12.4) fL Immature Gran % (Auto) 0.4 % Neut % (Auto) 79.9 % Lymph % (Auto) 13.1 % Barnes % (Auto) 4.8 % Eos % (Auto) 1.5 % Baso % (Auto) 0.3 % Neut # (Auto) 8.82 H (1.40-6.50) K/uL Lymph # (Auto) 1.44 (1.20-3.40) K/uL Barnes # (Auto) 0.53 (0.11-0.59) K/uL Eos # (Auto) 0.17 (0.00-0.50) K/uL Baso # (Auto) 0.03 (0.00-0.20) K/uL Immature Gran # (Auto) 0.04 (0.01-0.20) K/uL Sodium 143 (136-145) mmol/L Potassium 4.3 (3.5-5.1) mmol/L Chloride 111 H (98-107) mmol/L Carbon Dioxide 23 (21-32) mmol/L Anion Gap 9 (3-11) BUN 30 H (6-23) mg/dl Creatinine 1.30 H (0.6-1.2) mg/dl Est Cr Clr Drug Dosing 35.3 ml/min Est GFR ( Amer) 44.2 ml/min Est GFR (Non-Af Amer) 38.2 ml/min BUN/Creatinine Ratio 23.1 H (10-20) Glucose 139 H (70-99(Fasting)) mg/dl Calcium 9.4 (8.6-10.3) mg/dl Total Bilirubin 0.4 (0.2-1.0) mg/dl AST 16 (13-39) U/L ALT 13 (7-52) U/L Alkaline Phosphatase 69 (34-104) U/L Troponin I High Sens 6.1 (0-14) pg/ml Total Protein 6.3 (6.0-8.3) gm/dl Albumin 3.6 (3.4-5.0) gm/dl Globulin 2.7 (2.5-4.0) gm/dl Albumin/Globulin Ratio 1.3 (0.9-2) Lipase 26 (11-82) U/L Administered Medications Azithromycin 500 mg/ Dextrose 255 mls @ 127.5 mls/hr IV NOW STA Stop: 07/10/23 14:51 Last Admin: 04/09/24 13:40 Dose: 127.5 mls/hr Documented By: LISSETTE Parenteral Electrolytes (Plasma-Lyte A Ph 7.4) 500 mls @ 999 mls/hr IV .Q31M ONE Stop: 07/10/23 14:08 Last Admin: 07/10/23 13:46 Dose: 999 mls/hr Documented By: LISSETTE Discontinued Medications Al Hydrox/Mg Hydrox/Simethicone (Aluminum/Magnesium Susp 30 Ml Udc) 30 ml PO NOW STA Stop: 07/10/23 10:30 Last Admin: 07/10/23 10:35 Dose: 30 ml Documented By: CASIMIRO Famotidine (Pepcid 20mg Iv Push) 20 mg in 5 mls @ 2.5 mls/min IV NOW STA Stop: 07/10/23 11:33 Last Admin: 07/10/23 12:05 Dose: 2.5 mls/min Documented By: LISSETTE Ceftriaxone Sodium (Rocephin) 2,000 mg in 50 mls @ 100 mls/hr IV NOW STA Stop: 07/10/23 13:21 Last Admin: 07/10/23 13:21 Dose: 100 mls/hr Documented By: LISSETTE Ioversol (Optiray 320 100ml) 92 ml IV ONCE ONE Stop: 07/10/23 11:57 Last Admin: 07/10/23 11:57 Dose: 92 ml Documented By: ALLISON Imaging Data Radiologist's Impression: Chest X-Ray 07/10/23 09:58 XR chest 1V portable HISTORY: Chest pain, nonspecific COMPARISON: Chest 09/29/2022. FINDINGS: There are low lung volumes. No pneumothorax. No pleural effusions. The cardiac silhouette remains mildly enlarged. This may be accentuated by the low lung volumes. No focal lung consolidations to suggest a pneumonia. No evidence for pulmonary edema. Prior cholecystectomy. No acute fractures. Degenerative changes again noted within the shoulders. IMPRESSION: No significant change compared to the prior study. No acute process. ACT 112: Negative or not required by law. Electronically signed by: Manav Milan M.D. 07/10/2023 10:48 AM Abdomen/Pelvis CT 07/10/23 11:[address] WITH IV CONTRAST CT DOSE: 1371.48 mGy.cm HISTORY: Generalized abdominal pain TECHNIQUE: Multiaxial CT images of the abdomen and pelvis were performed following the use of intravenous contrast. A dose lowering technique was utilized adhering to the principles of ALARA. COMPARISON STUDY: Abdomen and pelvis CT 09/29/2022. FINDINGS: Small patchy airspace opacity within the left lower lobe consistent with a pneumonia. Scarlike densities within the right middle lobe. No pneumoperitoneum. No pneumatosis. S-shaped scoliosis of the thoracolumbar spine. No suspicious lytic or blastic osseous lesions. Partially visualized right mastectomy changes again noted. Focal subcutaneous edema within the left lateral abdominal wall, unchanged. Prior cholecystectomy. The liver, pancreas, spleen, adrenal glands unremarkable. The main portal vein is patent. Moderate calcified plaque within the normal caliber abdominal aorta. No retroperitoneal lymphadenopathy. Moderate bilateral cortical renal scarring/atrophy. A few punctate calcifications within the renal sinuses appear to be vascular. There are few subcentimeter bilateral renal hypodense lesions which are technically too small to characterize but statistically represent cysts. No ureteral stones. No hydronephrosis. No pelvic lymphadenopathy or pelvic free fluid. The bladder, uterus, bilateral adnexa are unremarkable. No bowel wall thickening or obstruction. The appendix is surgically absent. IMPRESSION: 1. No bowel wall thickening or obstruction. 2. Small patchy airspace opacity within the left lower lobe consistent with a pneumonia. 3. Additional findings as described above. ACT 112: Negative or not required by law. Electronically signed by: Manav Milan M.D. 07/10/2023 12:47 PM Discharge Plan Visit Data Chief Complaint: Shortness of Breath/Dyspnea ED Provider: Brody Cevallos Discharge Problem: Chest pain, Pneumonia, Abdominal pain, Hypoxia Forms Stand Alone Forms: [facility] Prescriptions Prescriptions: No Action omeprazole 40 mg capsule,delayed release(DR/EC) 40 mg PO QAM gabapentin 300 mg capsule 300 mg PO BID Euflexxa 10 mg/mL(mw 2.4 -3.6 million) syringe 20 mg intra-articular DIRECTED Rx Instructions: EVERY 3 MONTHS INJECTED INTO KNEE duloxetine [Cymbalta] 60 mg capsule,delayed release(DR/EC) 60 mg PO QAM Rx Instructions: TOTAL DOSE 90 MG--TAKES WITH 30 MG CAP. duloxetine [Cymbalta] 30 mg capsule,delayed release(DR/EC) 30 mg PO QAM Rx Instructions: TOTAL DOSE 90 MG--TAKES WITH 60 MG CAP. glimepiride [Amaryl] 1 mg tablet 2 mg PO QAM bacitracin 500 unit/gram ointment 1 applic ophthalmic (eye) Q12H Qty: 3.5 0RF Rx Instructions: apply to right upper eyelid multivitamin Tablet 1 tab PO QAM oxybutynin chloride 15 mg Tablet Extended Release 24hr 15 mg PO DAILY PRN (Reason: URINARY DISCOMFORT) Rx Instructions: MED NOT LISTED ON EXT MED HX. NOT SURE STILL TAKING. atorvastatin 20 mg Tablet 20 mg PO QAM ascorbic acid (vitamin C) [Vitamin C] 500 mg Tablet 500 mg PO QAM metoprolol succinate [Toprol XL] 25 mg Tablet Extended Release 24 Hr 25 mg PO QPM hydroxyzine HCl 10 mg Tablet 10 mg PO TID PRN (Reason: ANXIETY/INSOMNIA) cyanocobalamin (vitamin B-12) [Vitamin B-12] 1,000 mcg tablet 1,000 mcg PO QAM acetaminophen [Tylenol Extra Strength] 500 mg Tablet 1,000 mg PO TID PRN (Reason: Pain) albuterol sulfate 90 mcg/actuation HFA aerosol inhaler 2 puffs INH Q6H PRN (Reason: shortness of breath or wheezing) Qty: 18 0RF aspirin 81 mg Tablet,Delayed Release (Dr/Ec) 81 mg PO QAM Entresto 97-103 mg tablet 1 tab PO BID Hold Instructions: Resume on 10/18/22. Please discuss with your Health Plan Advisor about when to restart your Entresto. magnesium oxide 400 mg magnesium capsule 400 mg PO BID Qty: 14 0RF allopurinol 100 mg Tablet 100 mg PO BID trospium 60 mg Capsule,Extended Release 24hr 60 mg PO QAM furosemide [Lasix] 20 mg tablet 20 mg PO DAILY PRN (Reason: leg swelling or weight gain>2 lbs/24 hrs) Qty: 14 0RF colchicine 0.6 mg tablet 0.6 mg PO BID PRN (Reason: gout attack) Qty: 30 0RF Ozempic 0.25 mg or 0.5 mg (2 mg/3 mL) pen injector 0.25 mg SUBCUT WK Referrals Referrals: Josephine Turner CRNP [Primary Care Provider] - Discharge Problem: Chest pain Qualifiers: Chest pain type: unspecified Qualified Code(s): R07.9 - Chest pain, unspecified Pneumonia Qualifiers: Pneumonia type: due to unspecified organism Laterality: unspecified laterality Lung location: unspecified part of lung Qualified Code(s): J18.9 - Pneumonia, unspecified organism Abdominal pain Qualifiers: Abdominal location: unspecified location Qualified Code(s): R10.9 - Unspecified abdominal pain
[2023-07-10] MEDS: ALUMINUM/MAGNESIUM SUSP 30 ML UDC PO STA (10:35)
[2023-07-10 10:43] LABS: Albumin Globulin Ratio 1.3 (0.9-2); Albumin Level 3.6 gm/dl (3.4-5.0); BUN Creatinine Ratio 23.1 (10-20); Bilirubin,Total 0.4 mg/dl (0.2-1.0); Calcium 9.4 mg/dl (8.6-10.3); Creatinine Clr Calc Pharmacy 35.3 ml/min; Est GFR (African American) 44.2 ml/min; Est GFR (Non-African American) 38.2 ml/min; Globulin 2.7 gm/dl (2.5-4.0); Potassium 4.3 mmol/L (3.5-5.1); Total Protein 6.3 gm/dl (6.0-8.3)
[2023-07-10 10:48] LABS: Troponin I High Sensitivity 6.1 pg/ml (0-14)
--- NOTE | 2023-07-10 10:49 | XRay Report ---
XR chest 1V portable HISTORY: Chest pain, nonspecific COMPARISON: Chest 09/29/2022. FINDINGS: There are low lung volumes. No pneumothorax. No pleural effusions. The cardiac silhouette r emains mildly enlarged. This may be accentuated by the low lung volumes. No focal lung consolidations to suggest a pneumonia. No evidence for pulmonary edema. Prior cholecystectomy. No acute fractures. Degenerative changes again noted within the shoulders. IMPRESSION: No significant change compared to the prior study. No acute process. ACT 112: Negative or not required by law. Electronically signed by: Manav Milan M.D. 07/10/2023 10:48 AM
[2023-07-10] MEDS: OPTIRAY 320 100ml IV ONE (11:57)
[2023-07-10] MEDS: FAMOTIDINE 20MG IV PUSH 20 MG/5 ML SYR IV STA (12:05)
--- NOTE | 2023-07-10 12:48 | CT Scan Report ---
ABDOMEN AND PELVIS CT WITH IV CONTRAST CT DOSE: 1371.48 mGy.cm HISTORY: Generalized abdominal pain TECHNIQUE: Multiaxial CT images of the abdomen and pelvis were performed following the use of intrave nous contrast. A dose lowering technique was utilized adhering to the principles of ALARA. COMPARISON STUDY: Abdomen and pelvis CT 09/29/2022. FINDINGS: Small patchy airspace opacity within the left lower lobe consistent with a pneumonia. Scarl haseeb densities within the right middle lobe. No pneumoperitoneum. No pneumatosis. S-shaped scoliosis o f the thoracolumbar spine. No suspicious lytic or blastic osseous lesions. Partially visualized right mastectomy changes again noted. Focal subcutaneous edema within the left lateral abdominal wall, unc hanged. Prior cholecystectomy. The liver, pancreas, spleen, adrenal glands unremarkable. The main por librado vein is patent. Moderate calcified plaque within the normal caliber abdominal aorta. No retroperi toneal lymphadenopathy. Moderate bilateral cortical renal scarring/atrophy. A few punctate calcificat ions within the renal sinuses appear to be vascular. There are few subcentimeter bilateral renal hypo dense lesions which are technically too small to characterize but statistically represent cysts. No u reteral stones. No hydronephrosis. No pelvic lymphadenopathy or pelvic free fluid. The bladder, uteru s, bilateral adnexa are unremarkable. No bowel wall thickening or obstruction. The appendix is surgic ally absent. IMPRESSION: 1. No bowel wall thickening or obstruction. 2. Small patchy airspace opacity within the left lower lobe consistent with a pneumonia. 3. Additional findings as described above. ACT 112: Negative or not required by law. Electronically signed by: Manav Milan M.D. 07/10/2023 12:47 PM
--- NOTE | 2023-07-10 12:57 | History & Physical Report ---
Date of Service July 10, 2023 Assessment & Plan (1) Pneumonia: Plan: Worsening SOB x 1 week Leukocytosis at 11.03 with neutrophil predominance; afebrile; nonhypoxic A/P CT revealed airspace opacities consistent with LLL pneumonia Rocephin and azithromycin started in the ED CURB-65 Score: 4 points (High risk) Azithromycin --> doxycycline 100 mg IV BID given prolonged QTc Given potential aspiration pneumonia, will d/c Rocephin and cover with Unasyn 3 g IV q6h, SLT consult Supplemental oxygen as needed Continuous pulse oximetry A.m. CBC, BMP (2) Hypotension: Plan: Patient became hypotensive at 80/49 in the ED Hold Entresto, metoprolol, hydroxyzine, Lasix for now Plasma-Lyte 100mL/hr x 1 overnight (3) Sepsis: Plan: Tachycardia/tachypnea with a pulmonary source; hypotensive Blood cultures ordered, pending Lactate WNL PCT WNL Plasma-Lyte 500 mL IV bolus x 1 and will reassess (caution with IVF resuscitation in the setting of PE r/o) (4) GERD (gastroesophageal reflux disease): Plan: Worsening heartburn x 2 weeks Protonix 40 mg IV QAM Maalox 15 mL p.o. q4h PRN Acetaminophen as needed for throat pain (5) Dysphagia: Plan: Aspiration precautions Consult gastroenterology - ?need for EGD (6) Constipation: Plan: Patient reports that her last bowel movement was 2 weeks ago RUQ abdominal pain and distention on physical exam MiraLAX QAM Senna HS (7) History of pulmonary embolus (PE): Plan: Several years ago; patient is unsure if this was provoked or unprovoked Not currently on blood thinners; discontinued after 6 months Chest CTA revealed no evidence of pulmonary embolism, but reconfirmed potential PNA or aspiration (8) Diabetes mellitus type II, controlled: Plan: Last A1c at 7.1% on 10/01/2022 Glucose 139 on admission Hold Ozempic, glimepiride Lantus 5 u BID while inpatient SSI; with target BSG range 110-140mg/dL, CF 40, carb ratio 14 Advance to T2DM diet BSG q6h while NPO, then ACHS Adjust regimen as needed AM A1c (9) Chronic kidney disease, stage 3b: Plan: BUN 30, creatinine 1.30 (around baseline), EGFR 38.2 on arrival Avoid nephrotoxic agents when possible (10) Nausea: Plan: Avoid Zofran given prolonged QT; QTc 566, and prolonged on prior EKGs (11) Hypomagnesemia: Plan: Mild; hypomagnesemia at 1.6 Magnesium sulfate 1 g x 2 Recheck a.m. mag (12) Prolonged QT interval: Plan Disposition: Admit to PCU telemetry Full code Keep n.p.o. for now advance to T2DM, AHA diet as tolerated (small bite-size); aspiration precautions VTE PPx: Heparin 7500u SQ q12h History of Present Illness Chief Complaint: SOB/dyspnea Primary Care Provider: AMBROCIO Fallon Mikaela is an 83-year-old female with PMH of T2DM, DVT, PE, GERD, HTN, HLD, depression, septic shock, and gouty arthritis. She presented for worsening heartburn/reflux x 2 weeks, as well as SOB both at rest and with exertion over the last week. Patient describes her heartburn as constant, burning pain from her throat to stomach. She has been having difficulty with swallowing, and reports that she ate a banana last night, and it felt like it was lodged in her throat. She rates the throat pain 10/10 at its worst. 5/10 at present; substernal. No radiation down the left arm, or into the left shoulder or jaw. She also endorses SOB both at rest and with exertion, which is new. Not worse when she is lying flat on her back. Denies pleuritic CP, hemoptysis, or chest pain rating to the back. She has not been around anybody sick recently. She does not use supplemental oxygen at home. No recent changes in diet; she has not normally eat salty foods. She denies any recent falls, injuries, or trauma to the chest wall, head, or neck. Patient did not take her regular morning medications today. The only recent change in medication was that she was placed on Ozempic 1 month ago; she is unsure if there have been any side effects such as increased heartburn. She reports that she has been taking her medications as prescribed. She has been taking Tums for her heartburn (at around 6 tablets daily), which seems to help. She has a cane and walker at home, but does not use them for ambulation. Patient lives with her son. She denies smoking, tobacco use, and alcohol use. Patient has a known history of DVT/PE around 3 years ago; she is unsure if this was provoked or unprovoked; she is not currently on blood thinners, she was taken off of these for 6 months after the event. Patient also denies constipation; she reports that her last BM was around 2 weeks ago, and that she been having significant distention in her stomach. Requesting a prescription for was given for bowel prep. Patient is hypotensive at 89/40 at time of admission; SpO2 95% on RA. ED course: Rocephin 2000 mg IV Azithromycin 500 mg IV Pepcid 20 mg IV Maalox 30 mL p.o. ROS: Patient endorses intermittent fevers (not taking temp at home), chills, nightsweats, body aches, heart burn, difficulty swallowing, dizziness with walking (like room is spinning), DAVE, dry cough, constipation, abdominal pain, an d some leg swelling. Patient denies left shoulder/jaw pain, pleuritic CP, hemoptysis, vomiting, diarrhea, changes in bowel/urinary habits, or numbness/tingling/pain in legs. Allergies Allergy/AdvReac Type Severity Reaction Status Date / Time No Known Allergies Allergy Unknown Verified 09/29/22 17:50 Home Medications Medication Instructions Recorded Confirmed Type ascorbic acid (vitamin C) 500 mg 500 mg PO QAM 08/12/18 07/10/23 History tablet (Vitamin C) atorvastatin 20 mg tablet 20 mg PO QAM 08/12/18 07/10/23 History hydroxyzine HCl 10 mg tablet 10 mg PO TID PRN ANXIETY/INSOMNIA 08/12/18 07/10/23 History metoprolol succinate 25 mg 25 mg PO QPM 08/12/18 07/10/23 History tablet,extended release 24 hr (Toprol XL) multivitamin 1 tab PO QAM 08/12/18 07/10/23 History oxybutynin chloride 15 mg 15 mg PO DAILY PRN URINARY 08/12/18 07/10/23 History tablet,extended release 24 hr DISCOMFORT acetaminophen 500 mg tablet 1,000 mg PO TID PRN Pain 11/12/18 07/10/23 History (Tylenol Extra Strength) albuterol sulfate 90 mcg/actuation 2 puffs inhalation Q6H PRN 11/18/18 07/10/23 Rx aerosol inhaler shortness of breath or wheezing #18 grams cyanocobalamin (vitamin B-12) 1,000 mcg PO QAM 11/15/20 07/10/23 History 1,000 mcg tablet (Vitamin B-12) duloxetine 30 mg capsule,delayed 30 mg PO QAM 11/15/20 07/10/23 History release (Cymbalta) duloxetine 60 mg capsule,delayed 60 mg PO QAM 11/15/20 07/10/23 History release (Cymbalta) gabapentin 300 mg capsule 300 mg PO BID 11/15/20 07/10/23 History glimepiride 1 mg tablet (Amaryl) 2 mg PO QAM 11/15/20 07/10/23 History omeprazole 40 mg capsule,delayed 40 mg PO QAM 11/15/20 07/10/23 History release sodium hyaluronate (viscosup) 10 20 mg intra-articular DIRECTED 11/15/20 07/10/23 History mg/mL(mw 2.4-3.6 million)intra-articular syringe (Euflexxa) allopurinol 100 mg tablet 100 mg PO BID 05/06/21 07/10/23 History trospium 60 mg capsule,extended 60 mg PO QAM 05/06/21 07/10/23 History release 24 hr aspirin 81 mg tablet,delayed 81 mg PO QAM 06/29/22 07/10/23 History release magnesium oxide 400 mg PO BID #14 caps 06/29/22 07/10/23 Rx sacubitril 97 mg-valsartan 103 mg 1 tab PO BID 06/29/22 07/10/23 History tablet (Entresto) colchicine 0.6 mg tablet 0.6 mg PO BID PRN gout attack #30 10/04/22 07/10/23 Rx tabs furosemide 20 mg tablet (Lasix) 20 mg PO DAILY PRN leg swelling or 10/04/22 0 07/10/23 Rx weight gain>2 lbs/24 hrs #14 tabs bacitracin 500 unit/gram eye 1 applic ophthalmic (eye) Q12H 04/23/23 07/10/23 Rx ointment #3.5 grams semaglutide 0.25 mg or 0.5 mg (2 0.25 mg subcut WK 04/09/24 04/09/24 History mg/3 mL) subcutaneous pen injector (Ozempic) Past Med/Surg History Medical History Chronic kidney disease, stage 3a Depression Diabetes mellitus type II, controlled Fatty liver GERD (gastroesophageal reflux disease) Gout History of DVT (deep vein thrombosis) 2014 unknown cause--per pt currently no blood thinners History of right breast cancer sx/radiation Hyperglycemia Hyperlipidemia Hypertension OAB (overactive bladder) Osteoarthritis Pulmonary emboli (05/01/14) had dvt in 2014 unknown cause--per pt no blood thinners currently Renal insufficiency Thyroid nodule Surgical History H/O total mastectomy of right breast History of appendectomy History of bilateral cataract extraction History of bilateral tubal ligation History of cholecystectomy History of colonoscopy History of dilatation and curettage History of lithotripsy using laser History of lumpectomy of right breast History of right breast biopsy malignant History of tooth extraction partial lower S/P IVC filter later removed 05/2014 S/P thyroid biopsy benign Family History Other No family history of adverse response to anesthesia No significant family history Social History Smoking Status: Never smoker Second Hand Exposure: No; Do You Dip or Chew Tobacco: No; Hx Alcohol Use: No Hx Substance Use: No Preferred Language: Turkish Communication Ability: Effective Char Filter Operator Required: No Beliefs That Will Affect Care: None Current Living Situation: Family Current Living Situation Comment: Patient lives with son and daughter in law. Other Information That Helps Us Care for You: No Feels Safe at Home: Yes Safety Concerns: Feels Safe At This Time Assistive Devices: Oxygen - Continuous Review of Systems Review of Systems: See HPI above Physical Exam Physical Exam: General: Moderate physical distress secondary to throat pain; non-toxic appearing; well-nourished; cooperative; SpO2 95% on RA HEENT: normocephalic, atraumatic; no scleral icterus; PERRLA; dry mucus membrane; vision and hearing grossly intact Neck: supple; negative for JVD; no lymphadenopathy; trachea midline; patient is shrug shoulders against resistance without pain Skin: warm, dry without signs of tenting; no cyanosis; no rashes, bruising, lesions, or erythema noted CV: Substernal chest wall TTP; RRR; S1/S2 normal; no murmurs/rubs/gallops; pulses intact and symmetric at radial, DP, and PT Lungs: no acute respiratory distress; symmetrical chest wall expansion; clear breath sounds across all lung garcia w/o adventitious sounds; no wheezing ABD: Soft; RUQ TTP; BS present; no rebound/guarding; moderate distention secondary to body habitus; MSK: no tics or fasciculations; no edema noted in the LEs b/l, but notable erythema on the left lower extremity Neuro: A&Ox3; normal mood and affect; fluent speech; no focal deficits; sensation grossly intact in the LEs b/l Results & Data Results & Data Vital Signs (Past 12 Hours) Vital Signs Temp Pulse Pulse Resp BP BP Pulse Ox 07/10/23 12:40 93 H 22 97 07/10/23 12:31 94 H 22 90 07/10/23 12:31 103/49 L 07/10/23 12:31 103/49 L 07/10/23 12:30 94 H 21 91 07/10/23 12:20 93 H 32 H 93 07/10/23 12:10 95 H 27 H 96 07/10/23 12:05 97 H 17 94 07/10/23 12:05 99/73 L 07/10/23 12:01 99 H 20 94 07/10/23 12:00 95 H 20 99/73 L 98 07/10/23 11:40 93 H 26 H 93 07/10/23 11:30 90 25 H 93 07/10/23 11:30 153/86 H 07/10/23 11:20 95 H 26 H 93 07/10/23 11:10 90 26 H 95 07/10/23 11:00 137/71 07/10/23 11:00 91 H 23 92 07/10/23 10:50 88 25 H 93 07/10/23 10:40 89 14 93 07/10/23 10:34 93 07/10/23 10:34 89 18 131/66 93 07/10/23 10:30 87 23 95 07/10/23 10:30 131/66 07/10/23 10:20 90 20 96 07/10/23 10:10 90 26 H 96 07/10/23 10:01 110/76 07/10/23 10:01 91 H 27 H 07/10/23 10:01 93 H 07/10/23 10:00 94 H 20 07/10/23 09:58 94 H 20 95 07/10/23 09:57 07/10/23 09:57 07/10/23 09:57 36.2 C L 93 H 14 129/65 95 O2 Del Method 07/10/23 12:40 07/10/23 12:31 07/10/23 12:31 07/10/23 12:31 07/10/23 12:30 07/10/23 12:20 07/10/23 12:10 07/10/23 12:05 07/10/23 12:05 07/10/23 12:01 07/10/23 12:00 Room Air 07/10/23 11:40 07/10/23 11:30 07/10/23 11:30 07/10/23 11:20 07/10/23 11:10 07/10/23 11:00 07/10/23 11:00 07/10/23 10:50 07/10/23 10:40 07/10/23 10:34 Room Air 07/10/23 10:34 Room Air 07/10/23 10:30 07/10/23 10:30 07/10/23 10:20 07/10/23 10:10 07/10/23 10:01 07/10/23 10:01 07/10/23 10:01 07/10/23 10:00 07/10/23 09:58 07/10/23 09:57 Room Air 07/10/23 09:57 Room Air 07/10/23 09:57 Room Air Laboratory Results Abnormal lab results 07/10/23 Range/Units 10:06 WBC 11.03 H (4.8-10.8) K/ul RBC 3.97 L (4.20-5.40) M/uL RDW Std Deviation 46.7 H (36.4-46.3) fL Neut # (Auto) 8.82 H (1.40-6.50) K/uL Chloride 111 H (98-107) mmol/L BUN 30 H (6-23) mg/dl Creatinine 1.30 H (0.6-1.2) mg/dl BUN/Creatinine Ratio 23.1 H (10-20) Glucose 139 H (70-99(Fasting)) mg/dl Diagnostic Findings Chest X-Ray 07/10/23 09:58 XR chest 1V portable HISTORY: Chest pain, nonspecific COMPARISON: Chest 09/29/2022. FINDINGS: There are low lung volumes. No pneumothorax. No pleural effusions. The cardiac silhouette remains mildly enlarged. This may be accentuated by the low lung volumes. No focal lung consolidations to suggest a pneumonia. No evidence for pulmonary edema. Prior cholecystectomy. No acute fractures. Degenerative changes again noted within the shoulders. IMPRESSION: No significant change compared to the prior study. No acute process. ACT 112: Negative or not required by law. Electronically signed by: Manav Milan M.D. 07/10/2023 10:48 AM Abdomen/Pelvis CT 07/10/23 11:[address] WITH IV CONTRAST CT DOSE: 1371.48 mGy.cm HISTORY: Generalized abdominal pain TECHNIQUE: Multiaxial CT images of the abdomen and pelvis were performed following the use of intravenous contrast. A dose lowering technique was utilized adhering to the principles of ALARA. COMPARISON STUDY: Abdomen and pelvis CT 09/29/2022. FINDINGS: Small patchy airspace opacity within the left lower lobe consistent with a pneumonia. Scarlike densities within the right middle lobe. No pne umoperitoneum. No pneumatosis. S-shaped scoliosis of the thoracolumbar spine. No suspicious lytic or blastic osseous lesions. Partially visualized right mastectomy changes again noted. Focal subcutaneous edema within the left lateral abdominal wall, unchanged. Prior cholecystectomy. The liver, pancreas, spleen, adrenal glands unremarkable. The main portal vein is patent. Moderate calcified plaque within the normal caliber abdominal aorta. No retroperitoneal lymphadenopathy. Moderate bilateral cortical renal scarring/atrophy. A few punctate calcifications within the renal sinuses appear to be vascular. There are few subcentimeter bilateral renal hypodense lesions which are technically too small to characterize but statistically represent cysts. No ureteral stones. No hydronephrosis. No pelvic lymphadenopathy or pelvic free fluid. The bladder, uterus, bilateral adnexa are unremarkable. No bowel wall thickening or obstruction. The appendix is surgically absent. IMPRESSION: 1. No bowel wall thickening or obstruction. 2. Small patchy airspace opacity within the left lower lobe consistent with a pneumonia. 3. Additional findings as described above. ACT 112: Negative or not required by law. Electronically signed by: Manav Milan M.D. 07/10/2023 12:47 PM ECG Additional Comments: Review of EKG revealed sinus rhythm with fusion complexes at 93 bpm; QTc 566 Prior EKG in September 2022 also revealed QTc 550; will caution use of QT prolonging agents Code Status & VTE Plan Code Status Full code VTE Prophylaxis Plan VTE Prophylaxis will be ordered: Yes Supervising Physician Co-Signing Physician Notes I personally saw and examined the patient. I independently reviewed the labs, EKG, imaging, problem list, medication list, past medical history and family history. I verified all keys points and agree with Manav Blackman PA-C with the following exceptions and/or additions: 83-year-old female presents to the ER with shortness of breath worse on exertion. Significant chest pressure after eating a banana and feeling like it is trapped in her esophagus approximately half way down. She reports 8/10 chest pressure. Prior history of PE. O/E A&Ox3, HS RRR, no murmurs, Chest CTAB, Abdo SNT A/P Esophageal dysphagia - may be somewhat related to constipation but also sounds like a stricture or spasm. I suspect this is causing her chest pain. Agree with constipation treatment as above in absnce of small bowel obstruction. Consult GI to consider EGD Constipation - senna + MiralAX Aspiration pneumonia - noted on CT although this appears relatively minimal. Cover with Unasyn although may just be aspiration pneumonitis. SLT consult. Gastritis/GERD - Pantoprazole, ok to switch to IV, famotidine also given in ER, suspect her pain is more stricture/spasm therefore no need to add famotidine/carafate Hypotension - Hold Entresto and furosemide, monitor for worsening heart failure, ok to continue metoprolol Otherwise as above PG Care Time/CCT Total # of Minutes Spent Total Time Spent with Patient: Total time spent is greater than 50% in coordination of care (as documented) at patient's floor/unit and/or counseling patient: Coding [place] [address] INT INP/OBS CARE 3/75MIN Patient Type Established Medical Decision Making High Complexity Diagnoses Pneumonia J18.9 Hypotension I95.9 Sepsis A41.9 GERD (gastroesophageal reflux disease) K21.9 Dysphagia R13.10 Constipation K59.00 History of pulmonary embolus (PE) Z86.711 Diabetes mellitus type II, controlled E11.9 Chronic kidney disease, stage 3b N18.32 Nausea R11.0 Hypomagnesemia E83.42 Prolonged QT interval R94.31
[2023-07-10] MEDS: cefTRIAXone SODIUM 2,000 MG/50 ML BAG IV STA (13:21)
[2023-07-10] MEDS: AZITHROMYCIN 500 MG in DEXTROSE 5% 250 ML IV STA (13:40)
[2023-07-10] MEDS: PLASMA-LYTE A 500 ML IV ONE (13:46)
[2023-07-10 14:36] LABS: Magnesium 1.6 mg/dl (1.7-2.4)
[2023-07-10] MEDS: PANTOprazole 40 MG in SYRINGE 0 ML IV STA (14:43)
[2023-07-10] MEDS: OPTIRAY 320 125ml IV ONE (15:09)
--- OUTSIDE RECORDS SUMMARY | 2023-07-10 15:26 | External Medical Summary | Continuity of Care Document ---
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 Phone Josephine Turner Primary Care Physician [phone] [id number] Date(s): 04/30/23 - 04/30/23 [facility] [address] [place] [address] [phone] Encounter Diagnosis Irregular heart rhythm(Discharge Diagnosis) - 04/30/23 Diastolic CHF(Discharge Diagnosis) - 04/30/23 HTN (hypertension)(Discharge Diagnosis) - 04/30/23 SAMEERA (obstructive sleep apnea)(Discharge Diagnosis) - 04/30/23 Discharge Disposition: Home or Self Care Attending Physician: AMBROCIO Palomo Sarah A Allergies, Adverse Reactions, Alerts No Known Allergies Assessment and Plan Extracted from: Title:Cardiology Office Visit Note Author:ABMROCIO Rodríguez rd, Sarah A Date:04/30/23 Impression: 1. Dyspnea on exertion 2. Reduced ejection fraction of 50% with mild global hypokinesison echocardiogram10/2021, resolved to normal EF on echo 09/2022 at [facility] 3. Likely nonischemic cardiomyopathy possibly secondary to history of radiation for breast cancer. 4. Mild tricuspidregurgitation,mild aortic stenosis and insufficiency 5Hypertension 6. Dyslipidemia 7. Type 2 diabetes 8.Incomplete RBBB and leftanterior fascicular block on EKG with frequent PACs 9. Stress test without inducible ischemia 12/2021 10. Moderate SAMEERA 11. Frequent PACs Ms. Glover heart rate continues to be irregular. EKG in the office today showed SR with PACs Her blood pressure is a little elevated today. We reviewed following a low sodium diet. She had questions about weight loss supplements. I recommended she talk with her pcp about a GLP-1 like Ozempic as it may help her to lose weight, control her diabetes and protect her heart. She has not yet got her cpap. She was encouraged to call [facility] back to get set up. We discussed the benefits of sleep apnea treatment include better blood pressure control and improvement in heart failure control. She appears euvolemic. Her kidney function in January was at the high end of her range. She was encouraged to drink more water. I recommended she get more cardiovascular exercise. She will return to the clinic in 6 months. Immunizations Given and Recorded Vaccine Date Status Refusal Reason RSV vaccine preF3, recombinant 03/12/23 Recorded pneumococcal 20-valent conjugate vaccine 11/30/22 Given SARS-CoV-2 (COVID-19) mRNA-1273 vaccine 03/21/21 R ecorded SARS-CoV-2 (COVID-19) mRNA-1273 vaccine 1 03/02/21 Recorded SARS-CoV-2 (COVID-19) mRNA-1273 vaccine 2 07/31/20 Recorded SARS-CoV-2 (COVID-19) mRNA-1273 vaccine 3 07/01/20 Recorded influenza virus vaccine, inactivated 01/04/21 Give n influenza virus vaccine, inactivated 12/26/19 Give n influenza virus vaccine, inactivated 01/10/19 Give n influenza virus vaccine, inactivated 03/19/17 Give n influenza virus vaccine, inactivated 12/14/15 Give n influenza virus vaccine, inactivated 03/03/15 Give n pneumococcal 23-valent vaccine 03/07/16 Given pneumococcal 23-valent vaccine 02/06/06 Recorded pneumococcal 13-valent vaccine 03/03/15 Given tetanus/diphtheria/pertuss, acel (Tdap) 10/25/11 R ecorded zoster vaccine live 10/08/09 Recorded 1Result Comment: 2021-11-10: Historical information-source unspecified 2Result Comment: 2021-11-10: Historical information-source unspecified 3Result Comment: 2021-11-10: Historical information-source unspecified Medications allopurinol 100 mg oral tablet Start: 03/01/23 12:42:00 EST, 0.5 tab, PO, Daily, Disp# 45 tab, Refills: 3, Pharmacy: [facility] Start Date: 03/01/23 Stop Date: 02/24/24 Status: Ordered Amaryl 1 mg oral tablet Start: 03/01/23 12:41:00 EST, 2 tab, PO, Daily, Disp# 180 tab, Refills: 3, Pharmacy: [facility] Start Date: 03/01/23 Status: Ordered aspirin 81 mg oral tablet Start: 04/17/14 10:20:00, 1 tab, PO, Daily Start Date: 04/17/14 Status: Ordered atorvastatin 20 mg oral tablet Start: 03/01/23 12:42:00 EST, 1 tab, PO, Daily, Disp# 90 tab, Refills: 3, Pharmacy: [facility] Start Date: 03/01/23 Status: Ordered DULoxetine 30 mg oral delayed release capsule Start: 04/25/23 13:56:00 EST, 1 cap, PO, Daily, Disp# 90 cap, Refills: 3, Pharmacy: [id number] Start Date: 04/25/23 Status: Ordered DULoxetine 60 mg oral delayed release capsule Start: 04/25/23 13:56:00 EST, 1 cap, PO, Daily, Disp# 90 cap, Refills: 3, Pharmacy: [facility] Start Date: 04/25/23 Status: Ordered Entresto 97 mg-103 mg oral tablet Start: 11/10/22 10:16:00 EDT, 1 tab, PO, bid, Disp# 180 tab, Refills: 3, Pharmacy: [facility] Start Date: 11/10/22 Status: Ordered furosemide 20 mg oral tablet Start: 04/24/23 13:31:00 EST, 1 tab, PO, Daily, Disp# 90 tab, Refills: 0, Pharmacy: [facility] Start Date: 04/24/23 Status: Ordered gabapentin 300 mg oral capsule Start: 03/01/23 12:42:00 EST, 1 cap, PO, bid, Disp# 180 cap, Refills: 0, Pharmacy: [facility] Start Date: 03/01/23 Status: Ordered hydrocortisone/neomycin/polymyxin B 1%-0.35%-10,000 units/mL otic solution Start: 07/14/22 15:22:00 EDT, 2 drop, both ears, tid, Disp# 10 mL, Pharmacy: [id number] Start Date: 07/14/22 Stop Date: 07/21/22 Status: Ordered hydrOXYzine hydrochloride 10 mg oral tablet Start: 03/01/23 12:42:00 EST, 1 tab, PO, tid, Disp# 270 tab, Refills: 3, do not take if driving, may take at hs prn insomnia or anxiety, PRN: as needed for anxiety, Pharmacy: [facility] Start Date: 03/01/23 Status: Ordered meclizine 12.5 mg oral tablet Start: 03/01/23 12:42:00 EST, 1 tab, PO, tid, Disp# 100 tab, Refills: 0, PRN: as needed for dizziness, Pharmacy: [facility] Start Date: 03/01/23 Stop Date: 03/31/23 Status: Ordered multivitamin Start: 04/17/14 10:20:00, 1 tab, PO, Daily Start Date: 04/17/14 Status: Ordered naproxen 500 mg oral delayed release tablet Start: 03/01/23 12:42:00 EST, See Instructions, Disp# 60 tab, Refills: 0, TAKE ONE TABLET BY MOUTH WITH FOOD TWICE DAILY FOR 30 DAYS NEEDED FOR ARTHRITIS, Pharmacy: [facility] Start Date: 03/01/23 Status: Ordered omeprazole 20 mg oral delayed release capsule Start: 03/01/23 12:42:00 EST, 1 cap, PO, Daily, Disp# 90 cap, Refills: 3, Pharmacy: [facility] Start Date: 03/01/23 Stop Date: 02/24/24 Status: Ordered One Touch Delica Plus (33G) Lancets Start: 10/13/22 10:40:00 EDT, See Instructions, Disp# 100 each, Refills: 3, for bid testing, Pharmacy: [id number] Start Date: 10/13/22 Status: Ordered One Touch Verio IQ Glucose Monitor Start: 10/13/22 10:39:00 EDT, See Instructions, Disp# 1 each, for bid testing, Pharmacy: [facility] Start Date: 10/13/22 Status: Ordered One Touch Verio Test Strips Start: 10/13/22 10:39:00 EDT, See Instructions, Disp# 100 each, Refills: 3, for bid testing, Pharmacy: [facility] Start Date: 10/13/22 Status: Ordered Toprol-XL 50 mg oral tablet, extended release Start: 11/03/22 16:23:00 EDT, 1 tab, PO, Daily, Disp# 90 tab, Refills: 3, Pharmacy: [facility] Start Date: 11/03/22 Status: Ordered trospium 60 mg oral capsule, extended release Start: 03/01/23 12:42:00 EST, 1 cap, PO, qAM, Disp# 90 cap, Refills: 3, Pharmacy: [facility] Start Date: 03/01/23 Stop Date: 02/24/24 Status: Ordered Vitamin B12 1000 mcg oral tablet Start: 04/17/14 10:21:00, See Instructions, 1500mg PO Daily Start Date: 04/17/14 Status: Ordered Vitamin C 500 mg oral tablet Start: 04/17/14 10:21:00, 1 tab, PO, Daily Start Date: 04/17/14 Status: Ordered Problem List Condition Confirmation Course Effective Dates Status H ealth Status Informant Acute bronchitis Confirmed Active Acute gouty arthritis Confirmed Active Rheumatoid arthritis involving both hands 1 Confirmed 12/13/21 Active OAB (overactive bladder) Confirmed Active Chronic kidney disease (CKD), stage III (moderate) Confirmed Active Diabetes mellitus with chronic kidney disease Confirmed 11/12/20 Active Factor V Leiden Confirmed Active Heart failure, unspecified 2 Confirmed Active Heel pain Confirmed Active High blood pressure Confirmed Active Left knee pain Confirmed Active Morbid obesity Confirmed Active Osteoarthritis of both knees Confirmed Active Otitis externa of both ears Confirmed Active Major depression, recurrent Confirmed Active Sciatica Confirmed Active Thyroid nodule 3 Confirmed Active Trigger finger of right hand Confirmed Active Weight disorder Confirmed Active 109- AMBROCIO Turner, Josephine Lewis [facility] 11/13/2018 [address] thyroid [address], 9mm calcified Diagnosis Diagnosis Type Effective Dates Health Status Cl inical Service Informant Irregular heart rhythm Discharge Diagnosis 04/30/23 Non-Specified Diastolic CHF Discharge Diagnosis 04/30/23 Non-Specified HTN (hypertension) Discharge Diagnosis 04/30/23 Non-Specified SAMEERA (obstructive sleep apnea) Discharge Diagnosis 04/30/23 Non-Specified Procedures Procedure Date Related Diagnosis Body Site Status Chest X-ray 1 02/27/22 Completed Colonoscopy 2 05/13/21 Completed Ultrasound scan of thyroid 3 01/07/20 Completed Ultrasound scan of thyroid 4 12/31/19 Completed Mammogram 5 03/17/19 Completed X-ray of right foot 6 11/12/18 Com pleted Ultrasound 7 08/27/18 Completed Echocardiography 08/13/18 Complete d Colonoscopy 04/26/11 Completed Colonoscopy 8 41 Completed Lithotripsy using laser C ompleted Mastectomy of right breast Completed Retrograde urography with KUB 9 Completed Ultrasound,renal Complete d 1Impression: No significant cange compared to the prior study. No acute process. 2A tattoo was seen at the hepatic flexure. Internal hemorrhoids The examination was otherwise normal on direct and retroflexion views No specimens collected. 3impression: completed fine-needle aspiration of a left lobe throid nodule as above 4impression: 1. heterogeneous thyroid gland 2. bilateral thyriod nodules as above. The dominant nodule in the left lobe appears decreased in size as compared to the 08/27/2018 examination 5IMPRESSION: ACR BI-RADS CATEGORY 1: NEGATIVE There is no mammographic evidence of malignancy. A one year screening is recommended. 61. No fracture or dislocation within the right ankle or right foot. 2. Diffuse soft tissue swelling. 3. Moderate degenerative changes at the tarsometatarsal joint. 4. Small subchondral lucency within the medial talar dome. This favors an osteochondral defect. 7thyroid ultrasound 8A tattoo was seen at the hepatic flexure. Internal hemorrhoids The examination was otherwise normal on direct and retroflexion views. No specimens collected. 9R Vital Signs Most recent to oldest [Reference Range]: 1 Patient Weight 98 kg (04/30/23 1:12 PM) Heart Rate 74 bpm (04/30/23 1:12 PM) Respiratory Rate 18 br/min (04/30/23 1:12 PM) Blood Pressure 138/84mmHg (04/30/23 1:12 PM) BP Location # 1 Right Arm (04/30/23 1:12 PM) Social History Social History Type Response Smoking Status Never smoked cigaret adri Sex Female Cardiology * Contributor_system, [id number]: VERIFY, PERFORM Event Display: EKG Authored Date: Please click on link to see image. Cardiology Outpatient Note * AMBROCIO Palomo Sarah A: PERFORM, MODIFY Event Display: Cardiology Outpt Note Authored Date: Primary Care Provider AMBROCIO Turner Shari A History of Present Illness Ms. Campuzano presents for follow up of non ischemic cardiomyopathy with mild decrease in EF now resolved,hld, htn, and mild aortic stenosis. She denies sob, chest pain, or edema. She is doing home PT exercises for her knees but no consistent cardiovascular exercise. She has not yet got in touch with [facility] to get her cpap. Review of Systems All other systems reviewed and negative except as discussed in the HPI Physical Exam Vitals & Measurements HR:74(Monitored) RR:18 BP:138/84 SpO2:98% WT:98.000kg(Dosing) WT:98kg Physical Examination General: Alert and oriented, No acute distress. Respiratory: Lungs are clear to auscultation, Respirations are non-labored. Cardiovascular:Irregular rhythm, lusb murmur, irregular, No edema, no carotid bruits to asculatation bilaterally. Integumentary: Warm, Dry, [place] Neurologic: Alert, Oriented. Cognition and Speech: Speech clear and coherent. Psychiatric: Cooperative, Appropriate mood & affect. Assessment/Plan Impression: 1. Dyspnea on exertion 2. Reduced ejection fraction of 50% with mild global hypokinesison echocardiogram10/2021, resolved to normal EF on echo 09/2022 at [facility] 3. Likely nonischemic cardiomyopathy possibly secondary to history of radiation for breast cancer. 4. Mild tricuspidregurgitation,mild aortic stenosis and insufficiency 5Hypertension 6. Dyslipidemia 7. Type 2 diabetes 8.Incomplete RBBB and leftanterior fascicular block on EKG with frequent PACs 9. Stress test without inducible ischemia 12/2021 10. Moderate SAMEERA 11. Frequent PACs Ms. Glover heart rate continues to be irregular. EKG in the office today showed SR with PACs Her blood pressure is a little elevated today. We reviewed following a low sodium diet. She had questions about weight loss supplements. I recommended she talk with her pcp about a GLP-1 like Ozempic as it may help her to lose weight, control her diabetes and protect her heart. She has not yet got her cpap. She was encouraged to call [facility] back to get set up. We discussed the benefits of sleep apnea treatment include better blood pressure control and improvement in heart failure control. She appears euvolemic. Her kidney function in January was at the high end of her range. She was encouraged to drink more water. I recommended she get more cardiovascular exercise. She will return to the clinic in 6 months. Problem List/Past Medical History Ongoing Acute bronchitis Acute gouty arthritis Chronic kidney disease (CKD), stage III (moderate) Diabetes mellitus with chronic kidney disease Factor V Leiden Heart failure, unspecified Heel pain High blood pressure Left knee pain Major depression, recurrent Morbid obesity OAB (overactive bladder) Osteoarthritis of both knees Otitis externa of both ears Rheumatoid arthritis involving both hands Sciatica Thyroid nodule Trigger finger of right hand Weight disorder Historical JUAN A (acute kidney injury) Breast cancer Diabetes mellitus type II, controlled DVT of leg (deep venous thrombosis) GERD (gastroesophageal reflux disease) Hyperlipidemia Pancreatitis Pulmonary embolus, right Right knee pain Procedure/Surgical History Chest X-ray (02/27/2022)Colonoscopy (05/13/2021)Ultrasound scan of thyroid (01/07/2020)Ultrasound scan of thyroid (12/31/2019)Mammogram (03/17/2019)X-ray of right foot (11/12/2018)Ultrasound (08/27/2018)Echocardiography (08/13/2018)Colonoscopy (04/26/2011)Colonoscopy (1941)Retrograde urography with KUBLithotripsy using laserMastectomy of right breastUltrasound,renal Medications allopurinol(allopurinol 100 mg oral tablet), 50 mg= 0.5 tab, PO, Daily, 3 refills ascorbic acid(Vitamin C 500 mg oral tablet), 500 mg= 1 tab, PO, Daily aspirin(aspirin 81 mg oral tablet), 81 mg= 1 tab, PO, Daily atorvastatin(atorvastatin 20 mg oral tablet), 20 mg= 1 tab, PO, Daily, 3 refills cyanocobalamin(Vitamin B12 1000 mcg oral tablet), See Instructions diabetes supplies(One Touch Delica Plus (33G) Lancets), See Instructions, 3 refills diabetes supplies(One Touch Verio Test Strips), See Instructions, 3 refills diabetes supplies(One Touch Verio IQ Glucose Monitor), See Instructions DULoxetine(DULoxetine 60 mg oral delayed release capsule), 1 cap, PO, Daily DULoxetine(DULoxetine 30 mg oral delayed release capsule), 1 cap, PO, Daily furosemide(furosemide 20 mg oral tablet), 1 tab, PO, Daily gabapentin(gabapentin 300 mg oral capsule), 1 cap, PO, bid glimepiride(Amaryl 1 mg oral tablet), 2 mg= 2 tab, PO, Daily, 3 refills hydrocortisone/neomycin/polymyxin B otic(hydrocortisone/neomycin/polymyxin B 1%-0.35%-10,000 units/mL otic solution), 2 drop, both ears, tid hydrOXYzine(hydrOXYzine hydrochloride 10 mg oral tablet), 10 mg= 1 tab, PO, tid, PRN, 3 refills meclizine(meclizine 12.5 mg oral tablet), 12.5 mg= 1 tab, PO, tid, PRN metoprolol(Toprol-XL 50 mg oral tablet, extended release), 50 mg= 1 tab, PO, Daily, 3 refills multivitamin, 1 tab, PO, Daily naproxen(naproxen 500 mg oral delayed release tablet), See Instructions omeprazole(omeprazole 20 mg oral delayed release capsule), 20 mg= 1 cap, PO, Daily, 3 refills sacubitril-valsartan(Entresto 97 mg-103 mg oral tablet), 1 tab, PO, bid, 3 refills trospium(trospium 60 mg oral capsule, extended release), 60 mg= 1 cap, PO, qAM, 3 refills Allergies NKA Social History Smoking Status Never smoked cigarettes Alcohol - Denies Alcohol Use Exercise Times per week:3-4 times/week - Comments: floor exercises, 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 Diabetes mellitus: Mother and Father. Heart attack: Father. Hypertension: Mother, Father, Sister and Brother. TIA: Mother. Health Status Family Member(s) Electronic Signature on File CC: AMBROCIO Jose [address] [place] [id number] Electronically Reviewed/Signed by: AMBROCIO [place] Author Signature Dt/Tm:04/30/2023 03:59 PM [facility] Patient Care team information Care Team Personnel Name: AMBROCIO Turner Shari A Position: Nurse Pract - Family Med Member Role: Primary Care Provider Address: Address: [address] [place] [address], [place] [address] [place] Care Team Related Persons Name: ANGELIC CAMPUZANO Address: home [address] [place] [address], [place] [phone]
--- OUTSIDE RECORDS SUMMARY | 2023-07-10 15:26 | External Medical Summary | Continuity of Care Document ---
Author Name Unknown Organization [address] Address [address] [place] [id number] Care Team Providers Care Rn Navigator Name Role Phone Josephine Turner Primary Care Physician [phone] [id number] Date(s): 05/31/23 - 05/31/[address] [place] [address], [address] [address] [phone] Encounter Diagnosis Chronic kidney disease (CKD), stage III (moderate)(Discharge Diagnosis) - 05/30/23 Chronic constipation(Discharge Diagnosis) - 05/31/23 Diabetes mellitus with chronic kidney disease(Discharge Diagnosis) - 05/30/23 Discharge Disposition: Home or Self Care Attending Physician: AMBROCIO Turner Shari A Referring Physician: AMBROCIO Turner Shari A Allergies, Adverse Reactions, Alerts No Known Allergies Assessment and Plan Extracted from: Title:Office Visit Note Author:AMBROCIO Turner Sh ari A Date:05/31/23 1.Diabetes mellitus with c hronic kidney disease Chronic condition, goal A1c less than 7%with stability ofrenal function. A1c prior to 3 mos follow up, ordered. 2.Chronic kidney disease (CKD), stage III (moderate) Chronic condition, goal stability, will monitor. 3.Chronic constipation Chronic condition, goal resolution. Restart Colace. Hold for loose stool. May continue Miralax if needed. Time: 31mins 5- pre-visit chart review 21- visit, inclusive of history, exam, and discussion of assessment/plan 5- post-visit documentation/orders/coordination of care Immunizations Given and Recorded Vaccine Date Status Refusal Reason RSV vaccine preF3, recombinant 03/12/23 Recorded pneumococcal 20-valent conjugate vaccine 8/31/23 Given SARS-CoV-2 (COVID-19) mRNA-1273 vaccine 03/21/21 R [...] Daily, Disp# 45 tab, Refills: 3, Pharmacy: [facility] Start Date: 03/01/23 Stop Date: 02/24/24 Status: Ordered Amaryl 1 mg oral tablet Start: 03/01/23 12:41:00 EST, 2 tab, PO, Daily, Disp# 180 tab, Refills: 3, Pharmacy: [facility] Start Date: 03/01/23 Status: Ordered aspirin 81 mg oral tablet Start: 04/17/14 10:20:00, 1 tab, PO, Daily Start Date: 04/17/14 Status: Ordered atorvastatin 20 mg oral tablet Start: 03/01/23 12:42:00 EST, 1 tab, PO, Daily, Disp# 90 tab, Refills: 3, Pharmacy: [facility] Start Date: 03/01/23 Status: Ordered DULoxetine 30 mg oral delayed release capsule Start: 04/25/23 13:56:00 EST, 1 cap, PO, Daily, Disp# 90 cap, Refills: 3, Pharmacy: [facility] Start Date: 04/25/23 Status: Ordered DULoxetine 60 mg oral delayed release capsule Start: 04/25/23 13:56:00 EST, 1 cap, PO, Daily, Disp# 90 cap, Refills: 3, Pharmacy: [facility] Start Date: 04/25/23 Status: Ordered Entresto 97 mg-103 mg oral tablet Start: 11/10/22 10:16:00 EDT, 1 tab, PO, bid, Disp# 180 tab, Refills: 3, Pharmacy: [facility] Start Date: 11/10/22 Status: Ordered furosemide 20 mg oral tablet Start: 04/24/23 13:31:00 EST, 1 tab, PO, Daily, Disp# 90 tab, Refills: 0, Pharmacy: [facility] Start Date: 04/24/23 Status: Ordered gabapentin 300 mg oral capsule Start: 05/25/23 11:36:00 EST, 1 cap, PO, bid, Disp# 180 cap, Refills: 2, Pharmacy: [facility] Start Date: 05/25/23 Status: Ordered hydrocortisone/neomycin/polymyxin B 1%-0.35%-10,000 units/mL otic solution Start: 07/14/22 15:22:00 EDT, 2 drop, both ears, tid, Disp# 10 mL, Pharmacy: [facility] Start Date: 07/14/22 Stop Date: 07/21/22 Status: Ordered hydrOXYzine hydrochloride 10 mg oral tablet Start: 03/01/23 12:42:00 EST, 1 tab, PO, tid, Disp# 270 tab, Refills: 3, do not take if driving, may take at hs prn insomnia or anxiety, PRN: as needed for anxiety, Pharmacy: [facility] Start Date: 03/01/23 Status: Ordered meclizine 12.5 mg oral tablet Start: 03/01/23 12:42:00 EST, 1 tab, PO, tid, Disp# 100 tab, Refills: 0, PRN: as needed for dizziness, Pharmacy: [facility] Start Date: 03/01/23 Stop Date: 03/31/23 Status: Ordered multivitamin Start: 04/17/14 10:20:00, 1 tab, PO, Daily Start Date: 04/17/14 Status: Ordered naproxen 500 mg oral delayed release tablet Start: 05/31/23 13:01:00 EST, See Instructions, Disp# 60 tab, Refills: 0, TAKE ONE TABLET BY MOUTH WITH FOOD TWICE DAILY FOR 30 DAYS NEEDED FOR ARTHRITIS, Pharmacy: [facility] Start Date: 05/31/23 Status: Ordered omeprazole 20 mg oral delayed release capsule Start: 03/01/23 12:42:00 EST, 1 cap, PO, Daily, Disp# 90 cap, Refills: 3, Pharmacy: [facility] Start Date: 03/01/23 Stop Date: 02/24/24 Status: Ordered One Touch Delica Plus (33G) Lancets Start: 10/13/22 10:40:00 EDT, See Instructions, Disp# 100 each, Refills: 3, for bid testing, Pharmacy: [facility] Start Date: 10/13/22 Status: Ordered One Touch Verio IQ Glucose Monitor Start: 10/13/22 10:39:00 EDT, See Instructions, Disp# 1 each, for bid testing, Pharmacy: [facility] Start Date: 10/13/22 Status: Ordered One Touch Verio Test Strips Start: 10/13/22 10:39:00 EDT, See Instructions, Disp# 100 each, Refills: 3, for bid testing, Pharmacy: [facility] Start Date: 10/13/22 Status: Ordered Ozempic (0.25 mg or 0.5 mg dose) 2 mg/3 mL subQ pen Start: 05/31/23 13:25:00 EST, 0.25 mg, subQ, q7days, Disp# 3 mL, Pharmacy: [facility], Supply Start Date: 05/31/23 Status: Ordered Toprol-XL 50 mg oral tablet, extended release Start: 11/03/22 16:23:00 EDT, 1 tab, PO, Daily, Disp# 90 tab, Refills: 3, Pharmacy: [facility] Start Date: 11/03/22 Status: Ordered trospium 60 mg oral capsule, extended release Start: 03/01/23 12:42:00 EST, 1 cap, PO, qAM, Disp# 90 cap, Refills: 3, Pharmacy: [facility] Start Date: 03/01/23 Stop Date: 02/24/24 Status: Ordered Vitamin B12 1000 mcg oral tablet Start: 04/17/14 10:21:00, See Instructions, 1500mg PO Daily Start Date: 04/17/14 Status: Ordered Vitamin C 500 mg oral tablet Start: 04/17/14 10:21:00, 1 tab, PO, Daily Start Date: 04/17/14 Status: Ordered Mental Status 05/31/23 Barriers to Learning one year None evide nt Mandatory Health Literacy Documentation Yes Health Literacy Communication Barriers N ever Primary Language [place] Citizen Problem List Condition Confirmation Course Effective Dates [...] hand Confirmed Active Weight disorder Confirmed Active - AMBROCIO Turner Shari A [facility] 11/13/[address], 9mm calcified Diagnosis Diagnosis Type Effective Dates Health Status Clinical Service Informant Diabetes mellitus with chronic kidney disease Discharge Diagnosis 05/30/23 Chronic kidney disease (CKD), stage III (moderate) Discharge Diagnosis 05/30/23 Chronic constipation Discharge Diagnosis 05/31/23 Non-Specified Procedures Procedure Date Related Diagnosis Body [...] to oldest [Reference Range]: 1 Patient Weight 99 kg (05/31/23 12:53 PM) Heart Rate 83 bpm (05/31/23 12:53 PM) Respiratory Rate 20 br/min (05/31/23 12:53 PM) Blood Pressure 123/80mmHg (05/31/23 12:53 PM) Social History Social History Type Response Smoking Status Never smoked cigaret adri Sex Female [facility] Outpt Note * AMBROCIO Turner Shari A: PERFORM, MODIFY, MODIFY, MODIFY, MODIFY Event Display: [facility] Outpt Note Authored Date: [id number] Chief Complaint DM check - due for foot exam, reports bilateral knee pain History of Present Illness 83year-old femalehere today for follow-up to diabetes, CKD and gouty arthritis.She has beentrying to follow a diabetic diet.She denies any polyphagia, polydipsia, polyuria. A1c 7.5%.She wear slippersaround the house and checks her feet daily.She is up-to-date on her eye exam was done several weeks ago. Notes dependentpedal edema, will usually wear her compression stockings.She is working with Cardiology who is managing her CHF, Lasix is every other day.Was recommended to get CPAP.[id number]. Gout stable on 1/2 tab allopurinol. No recent flares. Had knee injections 02/02 and 02/14. Had COVID and flu, not yet RSV. Constipation, taking Dulcolax, will take after no BM in 3 days. Has Colace, has not been taking, trying to drink more water. Has been taking Miralax lately. Feels abd is bloated. Review of Systems Constitutional: No fever, No chills, No fatigue._ Respiratory:+shortness of breath with exertion, No cough, No wheezing. _ Cardiovascular: no lightheadedness/presyncope, No chest pain, No palpitations._ Gastrointestinal: No nausea, No vomiting, No diarrhea, No constipation, No heartburn, No abdominal pain._ Musculoskeletal: No back pain, No neck pain,knee joint pain, receives injections,No muscle pain, No decreased range of motion, No trauma._ Skin: No rash, No pruritus, No breakdown._ Neurologic: No abnormal balance, No numbness, No tingling, No headache._ Physical Exam Vitals & Measurements HR:83(Monitored) RR:20 BP:123/80 WT:99.000kg(Dosing) WT:99kg PHQ2 Data(Data Documented on:05/31/2023 12:51) Emotional health assessment NEGATIVE General: _Alert and oriented, No acute distress HEENT: _ Normocephalic, atraumatic, EOMI, PERRLA+2, TM clear, Nl gross hearing, moist oral mucosa _ Neck: _ Supple, no lymphadenopathy or thyromegaly Cardiovascular: _Normal rate, Regular rhythm, No murmur, No gallop. Normal peripheral perfusion,trace edema, Pulses +1 b/l. Respiratory: _Lungs are clear to auscultation, Respirations are non-labored, Breath sounds are equal Gastrointestinal: _Soft, Non-tender, Non-distended, Normal bowel sounds. No hepatosplenomegaly. Musculoskeletal: _Normal range of motion, normal strength. Neurologic: Normal sensory, Normal motor function, CN II-XII grossly intact. Integumentary: _Warm, Dry, [place]. Psych: Mood-affect congruence. Reports no SI/HI. Speech is of normal pace and content Assessment/Plan 1.Diabetes mellitus with chronic kidney disease Chronic condition, goal A1c less than 7%with stability ofrenal function. A1c prior to 3 mos follow up, ordered. 2.Chronic kidney disease (CKD), stage III (moderate) Chronic condition, goal stability, will monitor. 3.Chronic constipation Chronic condition, goal resolution. Restart Colace. Hold for loose stool. May continue Miralax if needed. Time: 31mins 5- pre-visit chart review 21- visit, inclusive of history, exam, and discussion of assessment/plan 5- post-visit documentation/orders/coordination of care Problem List/Past Medical History Ongoing Acute bronchitis [...] 300 mg oral capsule), 1 cap, PO, bid, 2 refills glimepiride(Amaryl 1 mg oral tablet), 2 mg= [...] tablet), 1 tab, PO, bid, 3 refills semaglutide(Ozempic (0.25 mg or 0.5 mg dose) 2 mg/3 mL subQ pen), 0.25 mg, subQ, q7days trospium(trospium 60 mg oral capsule, extended release), [...] Brother. TIA: Mother. Health Status Family Member(s) Immunizations Vaccine Date Status RSV vaccine preF3, recombinant 03/12/2023 Recorded pneumococcal 20-valent conjugate vaccine 11/30/2022 Given SARS-CoV-2 (COVID-19) mRNA-1273 vaccine 03/21/2021 Recorded SARS-CoV-2 (COVID-19) mRNA-1273 vaccine 03/02/2021 Recorded Comments : 2021-11-10: Historical information-source unspecified influenza virus vaccine, inactivated 01/04/2021 Given SARS-CoV-2 (COVID-19) mRNA-1273 vaccine 07/31/2020 Recorded Comments : 2021-11-10: Historical information-source unspecified SARS-CoV-2 (COVID-19) mRNA-1273 vaccine 07/01/2020 Recorded Comments : 2021-11-10: Historical information-source unspecified influenza virus vaccine, inactivated 12/26/2019 Given influenza virus vaccine, inactivated 01/10/2019 Given influenza virus vaccine, inactivated 03/19/2017 Given pneumococcal 23-valent vaccine 03/07/2016 Given influenza virus vaccine, inactivated 12/14/2015 Given influenza virus vaccine, inactivated 03/03/2015 Given pneumococcal 13-valent vaccine 03/03/2015 Given tetanus/diphtheria/pertuss, acel (Tdap) 10/25/2011 Recorded zoster vaccine live 10/08/2009 Recorded pneumococcal 23-valent vaccine 02/06/2006 Recorded Recommendations Health Maintenance Pending(in the next year) OverDue Adult Influenza Vaccine due09/29/22and every 1year Medicare Annual Wellness Visit due11/10/22and every 1year Due Adult Social Determinants of Health Screening due05/31/23Unknown Frequency Adult Tdap/Td Vaccine due05/31/23Unknown Frequency Shingles Vaccine due05/31/23One-time only Due In Future Diabetic Eye Exam not due until02/13/24and every 366day Diabetes Management A1c not due until04/30/24and every 366day Satisfied(in the past 1 year) Satisfied Body Mass Index on03/01/23.Satisfied by BRANT Resendiz Angela Breast Cancer Screening on10/12/22.Satisfied by RAHUL Dave, [place] Diabetes Management A1c on04/30/23.Satisfied by Contributor_system, [email or web address] Diabetes Nephropathy Management on04/30/23.Satisfied by Contributor_system, [email or web address] Lipid Screening on04/30/23.Satisfied by Contributor_system, [email or web address] Electronic Signature on File Electronically Reviewed/Signed by: AMBROCIO Jose Author Signature Dt/Tm:06/02/2023 09:09 AM Department of Family Medicine [facility] Patient Care team information Care Team Personnel Name: AMBROCIO Turner, Josephine Lewis Position: Nurse Pract - Family Med Member Role: Primary Care Provider Address: Address: [address] [place] [address] [place] Care Team Related Persons Name: ANGELIC VALDIVIA Address: home [address] [place] [address], [place] [phone]
--- OUTSIDE RECORDS SUMMARY | 2023-07-10 15:26 | External Medical Summary | Continuity of Care Document ---
Author Name Unknown Organization [facility] [address] Address [address] [facility], [place] [id number] Care Team Providers Care Piano Instructor Name Role Phone Josephine Turner Primary Care Physician [phone] [id number] Date(s): 04/30/23 - 04/30/23 [facility] [address] [facility] [address] [phone] Encounter Diagnosis Type 2 diabetes mellitus without complications(Final) - Discharge Disposition: Home or Self Care Attending Physician: AMBROCIO Turner Shari A Referring Physician: AMBROCIO Turner Shari A Allergies, Adverse Reactions, Alerts No Known Allergies Immunizations Given and Recorded Vaccine Date Status [...] Daily, Disp# 45 tab, Refills: 3, Pharmacy: [facility] Start Date: 03/01/23 Stop Date: 02/24/24 Status: Ordered Amaryl 1 mg oral tablet Start: 03/01/23 12:41:00 EST, 2 tab, PO, Daily, Disp# 180 tab, Refills: 3, Pharmacy: [facility] Start Date: 03/01/23 Status: Ordered aspirin 81 mg oral tablet Start: 04/17/14 10:20:00, 1 tab, PO, Daily Start Date: 04/17/14 Status: Ordered atorvastatin 20 mg oral tablet Start: 03/01/23 12:42:00 EST, 1 tab, PO, Daily, Disp# 90 tab, Refills: 3, Pharmacy: [facility] Start Date: 03/01/23 Status: Ordered DULoxetine 30 mg oral delayed release capsule Start: 04/25/23 13:56:00 EST, 1 cap, PO, Daily, Disp# 90 cap, Refills: 3, Pharmacy: [facility] Start Date: 04/25/23 Status: Ordered DULoxetine 60 mg oral delayed release capsule Start: 04/25/23 13:56:00 EST, 1 cap, PO, Daily, Disp# 90 cap, Refills: 3, Pharmacy: [facility] Start Date: 04/25/23 Status: Ordered Entresto 97 mg-103 mg oral tablet Start: 11/10/22 10:16:00 EDT, 1 tab, PO, bid, Disp# 180 tab, Refills: 3, Pharmacy: [facility] Start Date: 11/10/22 Status: Ordered furosemide 20 mg oral tablet Start: 04/24/23 13:31:00 EST, 1 tab, PO, Daily, Disp# 90 tab, Refills: 0, Pharmacy: [facility] Start Date: 04/24/23 Status: Ordered gabapentin 300 mg oral capsule Start: 03/01/23 12:42:00 EST, 1 cap, PO, bid, Disp# 180 cap, Refills: 0, Pharmacy: [facility] Start Date: 03/01/23 Status: Ordered hydrocortisone/neomycin/polymyxin B 1%-0.35%-10,000 units/mL otic solution Start: 07/14/22 15:22:00 EDT, 2 drop, both ears, tid, Disp# 10 mL, Pharmacy: [facility] Start Date: 07/14/22 Stop Date: 07/21/22 Status: Ordered hydrOXYzine hydrochloride 10 mg oral tablet Start: 03/01/23 12:42:00 EST, 1 tab, PO, tid, Disp# 270 tab, Refills: 3, do not take if driving, may take at hs prn insomnia or anxiety, PRN: as needed for anxiety, Pharmacy: [facility] Start Date: 03/01/23 Status: Ordered meclizine 12.5 mg oral tablet Start: 03/01/23 12:42:00 EST, 1 tab, PO, tid, Disp# 100 tab, Refills: 0, PRN: as needed for dizziness, Pharmacy: [facility] Start Date: 03/01/23 Stop Date: 03/31/23 Status: Ordered multivitamin Start: 04/17/14 10:20:00, 1 tab, PO, Daily Start Date: 04/17/14 Status: Ordered naproxen 500 mg oral delayed release tablet Start: 03/01/23 12:42:00 EST, See Instructions, Disp# 60 tab, Refills: 0, TAKE ONE TABLET BY MOUTH WITH FOOD TWICE DAILY FOR 30 DAYS NEEDED FOR ARTHRITIS, Pharmacy: [facility] Start Date: 03/01/23 Status: Ordered omeprazole 20 mg oral delayed release capsule Start: 03/01/23 12:42:00 EST, 1 cap, PO, Daily, Disp# 90 cap, Refills: 3, Pharmacy: [facility] Start Date: 03/01/23 Stop Date: 02/24/24 Status: Ordered One Touch Delica Plus (33G) Lancets Start: 10/13/22 10:40:00 EDT, See Instructions, Disp# 100 each, Refills: 3, for bid testing, Pharmacy: [facility] Start Date: 10/13/22 Status: Ordered One Touch Verio IQ Glucose Monitor Start: 10/13/22 10:39:00 EDT, See Instructions, Disp# 1 each, for bid testing, Pharmacy: [facility] Start Date: 10/13/22 Status: Ordered One Touch Verio Test Strips Start: 10/13/22 10:39:00 EDT, See Instructions, Disp# 100 each, Refills: 3, for bid testing, Pharmacy: [facility] Start Date: 10/13/22 Status: Ordered Toprol-XL 50 mg oral tablet, extended release Start: 11/03/22 16:23:00 EDT, 1 tab, PO, Daily, Disp# 90 tab, Refills: 3, Pharmacy: [facility] Start Date: 11/03/22 Status: Ordered trospium 60 mg oral capsule, extended release Start: 03/01/23 12:42:00 EST, 1 cap, PO, qAM, Disp# 90 cap, Refills: 3, Pharmacy: [facility] Start Date: 03/01/23 Stop Date: 02/24/24 [...] Active - AMBROCIO Turner Shari A 2[facility] 11/13/2018 [address]right thyroid [address], 9mm calcified Procedures Procedure Date Related Diagnosis Body Site [...] and retroflexion views. No specimens collected. 9R Results Laboratory List Name Date Hemoglobin A1C (HEMOGLOBIN, A1C) 04/30/23 Lipid Profile (LIPOPROTEINS) 04/30/23 Microalbumin, Urine, Random (MICROALBUMI N, RD UR) 04/30/23 Most recent to oldest [Reference Range]: 1 Estimated Average Glucose 169 mg/dL 1 (04/30/23 12:02 PM) Non-HDL 108 mg/dL 2 (04/30/23 12:02 PM) Micro Alb (u) [<2.00 mg/dL] 3.04 mg/dL *HI* (04/30/23 12:02 PM) Chol/HDL 3 (04/30/23 12:02 PM) Chol [125-200 mg/dL] 153 mg/dL (04/30/23 12:02 PM) HbA1c [4.0-6.0 %] 7.5 % *HI* (04/30/23 12:02 PM) HDL [>35 mg/dL] 45 mg/dL (04/30/23 12:02 PM) LDL Chol, Calculated [50-130 mg/dL] 81 m g/dL (04/30/23 12:02 PM) Micro Alb Ratio [<20 ug/mg cret] 25 ug/m g cret *HI* (04/30/23 12:02 PM) TG [<200 mg/dL] 133 mg/dL (04/30/23 12:02 PM) Creat (u) 119.51 mg/dL 3 (04/30/23 12:02 PM) 1Result Comment: Testing Performed By: Dept of Pathology [facility] [address], [address] [place] [address], [place] [address] 2Result Comment: Testing Performed By: Dept of Pathology [facility] [address], [address] [place] [id number] 3Result Comment: Reference Range for Random Urine Not Established. Social History Social History Type Response Smoking Status Never smoked cigaret adri Sex Female Patient Care team information Care Team Personnel Name: AMBROCIO Turner Shari A Position: Nurse Pract - Family Med Member Role: Primary Care Provider Address: Address: [address] [place] [address] [place] Care Team Related Persons Name: ANGELIC VALDIVIA Address: home [address] [place] [address], [place] [id number]
--- NOTE | 2023-07-10 15:35 | CT Scan Report ---
CT angio chest PE protocol CLINICAL HISTORY: PE TECHNIQUE: Multidetector row helical CT of the chest was performed with angiographic protocol. Maguire l and sagittal reformations were obtained. Coronal and sagittal MIPS were obtained from the axial catie a set and were submitted for review. Automated dose lowering techniques and/or adjustment according to patient size were utilized for this exam. CT DOSE: 799.03 mGy.cm Comparison: Comparison is made to CTA chest 06/29/2022 FINDINGS: Lungs and pleura: Left lower lobe consolidation is seen. There is a stable 4 mm nodule in the right m iddle lobe (series 4 image 101) and 2 mm nodule in the right upper lobe (image 118). Heart and pericardium: Heart size is normal. No pericardial effusion. Vessels: No evidence of pulmonary embolism. Mediastinum and merlin: Subcentimeter lymph nodes are seen. Chest wall and lower neck: Small thyroid nodules are noted which do not require follow-up by ACR dalila spears. Status post right mastectomy. Abdomen: For findings below the diaphragm, please refer to CT of the abdomen dated the same. Bones: Degenerative changes in the thoracic spine. IMPRESSION: 1. No pulmonary embolus. 2. Left lower lobe consolidation compatible with pneumonia and/or aspiration. ACT 112: Negative or not required by law. Electronically signed by: Mir Wyatt M.D. 07/10/2023 3:33 PM
[2023-07-10] MEDS: MAGNESIUM SULFATE / D5W 1 GM/100 ML BAG IV SCH (15:42)
[2023-07-10] MEDS ORDERED: GLUCOSE 40% GEL 15 GM TUBE PO PRN (18:47)
[2023-07-10] MEDS ORDERED: ACETAMINOPHEN 325 MG TAB PO PRN (18:47)
[2023-07-10] MEDS ORDERED: DEXTROSE 50% 50 ML SYRINGE IV PRN (18:47)
[2023-07-10] MEDS ORDERED: COLCHICINE 0.6 MG TAB PO PRN (18:47)
[2023-07-10] MEDS ORDERED: ALBUTEROL HFA 8 GM INHALER INH PRN (18:47)
[2023-07-10] MEDS ORDERED: CARBOHYDRATES FOR HYPOGLYCEMIA PO PRN (18:47)
[2023-07-10] MEDS ORDERED: GLUCAGON FOR INJ 1 MG VIAL SQ PRN (18:47)
[2023-07-10] MEDS ORDERED: GLUCOSE 10 TAB/TUBE PO PRN (18:47)
[2023-07-10] MEDS ORDERED: ALUMINUM/MAGNESIUM SUSP 30 ML UDC PO PRN (18:47)
[2023-07-10] MEDS ORDERED: OXYBUTYNIN CHLORIDE XL 5 MG TABCR PO PRN (18:47)
[2023-07-10] MEDS: ASPIRIN 81 MG ECTAB PO SCH (19:42)
[2023-07-10] MEDS: DULoxetine HCL 60 MG CAP PO SCH (19:43)
[2023-07-10] MEDS: DULoxetine HCL 30 MG CAP PO SCH (19:43)
[2023-07-10] MEDS: PLASMA-LYTE A 1,000 ML IV SCH (19:46)
[2023-07-10] MEDS: INSULIN ASPART PER UNIT CHARGE SC SCH (19:52)
[2023-07-10] MEDS: GABAPENTIN 300 MG CAP PO SCH (19:53)
[2023-07-10] MEDS: allopurinoL 100 MG TAB PO SCH (19:53)
[2023-07-10] MEDS: SENNA 8.6 MG TAB PO SCH (19:54)
[2023-07-10] MEDS: MAGNESIUM OXIDE 400 MG TAB PO SCH (19:54)
[2023-07-10] MEDS: LANTUS PER UNIT CHARGE SQ SCH (20:11)
[2023-07-10] MEDS: HEPARIN SOD 5,000 UNIT/0.5 ML VIAL SQ SCH (20:12)
[2023-07-10] MEDS: AMPICILLIN/SULBACTAM SOD 3,000 MG in SODIUM CHLOR 0.9% MINI-B 100 ML IV SCH (20:43)
[2023-07-10] MEDS: METOPROLOL SUCC 25MG EXT REL TAB PO SCH (21:41)
[2023-07-11] MEDS: DOXYCYCLINE HYCLATE 100 MG in DEXTROSE 5% MINI-B 100 ML IV SCH (00:31)
[2023-07-11 06:31] LABS: Basophils # (auto) 0.02 K/uL (0.00-0.20); Basophils % (auto) 0.3 %; Eosinophils # (auto) 0.15 K/uL (0.00-0.50); Eosinophils % (auto) 2.2 %; Hematocrit (blood only) 32.8 % (37.0-47.0); Immature Granulocytes # (auto) 0.02 K/uL (0.01-0.20); Immature Granulocytes % (auto) 0.3 %; Lymphocytes # (auto) 1.74 K/uL (1.20-3.40); Lymphocytes % (auto) 25.7 %; Mean Corpuscular Hemoglobin 31.4 pg (25.0-34.0); Mean Corpuscular Hgb Conc 33.5 g/dL (32.0-36.0); Mean Corpuscular Volume 93.7 fL (80.0-100.0); Mean Platelet Volume 10.1 fL (9.4-12.4); Monocytes # (auto) 0.57 K/uL (0.11-0.59); Monocytes % (auto) 8.4 %; Neutrophils # (auto) 4.28 K/uL (1.40-6.50); Neutrophils % (auto) 63.1 %; Platelet Count 158 K/uL (130-400); RDW Coefficient of Variation 13.5 % (11.5-14.5); RDW Standard Deviation 45.5 fL (36.4-46.3); White Blood Count 6.78 K/ul (4.8-10.8)
[2023-07-11 06:48] LABS: BUN Creatinine Ratio 21.8 (10-20); Calcium 8.4 mg/dl (8.6-10.3); Creatinine Clr Calc Pharmacy 39.7 ml/min; Est GFR (African American) 54.1 ml/min; Est GFR (Non-African American) 46.7 ml/min; Magnesium 2.2 mg/dl (1.7-2.4); Potassium 3.8 mmol/L (3.5-5.1)
--- NOTE | 2023-07-11 07:24 | Hospitalist Progress Note ---
Date of Service July 11, 2023 Assessment & Plan (1) Pneumonia: Plan: Worsening SOB x 1 week Leukocytosis at 11.03 with neutrophil predominance; afebrile; nonhypoxic A/P CT revealed airspace opacities consistent with LLL pneumonia Rocephin and azithromycin started in the ED CURB-65 Score: 4 points (High risk) Azithromycin --> doxycycline 100 mg IV BID given prolonged QTc Given potential aspiration pneumonia, will d/c Rocephin and cover with Unasyn 3 g IV q6h, SLT consult Supplemental oxygen as needed Continuous pulse oximetry A.m. CBC, BMP (2) Hypotension: Plan: Patient became hypotensive at 80/49 in the ED Hold Entresto, metoprolol, hydroxyzine, Lasix for now Plasma-Lyte 100mL/hr x 1 overnight (3) Sepsis: Plan: Tachycardia/tachypnea with a pulmonary source; hypotensive Blood cultures negative to date. Lactate WNL PCT WNL Plasma-Lyte 500 mL IV bolus x 1 (4) GERD (gastroesophageal reflux disease): Plan: Worsening heartburn x 2 weeks Protonix 40 mg IV QAM Maalox 15 mL p.o. q4h PRN Acetaminophen as needed for throat pain (5) Dysphagia: Plan: Aspiration precautions Consult gastroenterology Plans to do outpatient EGD after resolution of pneumonia per GI consultation. Plan for morning barium swallow study. N.p.o. at midnight. (6) Constipation: Plan: Patient reports that her last bowel movement was 2 weeks ago May be related to Ozempic. Consider changing medications. 85 mg of MiraLAX added in the evening. Senna HS (7) History of pulmonary embolus (PE): Plan: Several years ago; patient is unsure if this was provoked or unprovoked Not currently on blood thinners; discontinued after 6 months Chest CTA revealed no evidence of pulmonary embolism, but reconfirmed potential PNA or aspiration (8) Diabetes mellitus type II, controlled: Plan: Last A1c at 7.1% on 10/01/2022 Glucose 139 on admission Hold Ozempic, glimepiride Lantus 5 u BID while inpatient SSI; with target BSG range 110-140mg/dL, CF 40, carb ratio 14 Advance to T2DM diet BSG q6h while NPO, then ACHS Adjust regimen as needed A1c of 5.9. (9) Chronic kidney disease, stage 3b: Plan: BUN 30, creatinine 1.30 (around baseline), EGFR 38.2 on arrival Avoid nephrotoxic agents when possible (10) Nausea: Plan: Avoid Zofran given prolonged QT; QTc 566, and prolonged on prior EKGs (11) Hypomagnesemia: Plan: Mild; hypomagnesemia at 1.6 Magnesium sulfate 1 g x 2 Recheck a.m. mag (12) Prolonged QT interval: Plan Disposition: Admit to PCU telemetry Full code N.p.o. after midnight for barium swallow study in the a.m. VTE PPx: Heparin 7500u SQ q12h Admission and Anticipated Discharge Date Admission Date: July 10, 2023 Supervising Physician Co-Signing Physician Notes I personally examined the patient and verified all keys points of history and exam, discussed case, and agree with decision making with Dr Werner Breathing feeling a bit better. Belly feeling bloated. Food sticks on the way down. Indigestion and reflux. Vitals noted, in general she is awake and alert pleasant no distress. HEENT normocephalic atraumatic mucous membranes moist. Breathing unlabored no accessory muscle use good effort. Skin shows no rashes no pallor or icterus. Neuro without focal deficits. Esophageal dysphagia -GI for EGDquite reasonable to wait until she is recovered from her pneumonia. Barium swallow to ensure no tight stricture. Constipation -escalate MiraLAX, will need chronic bowel regimen as well. Pneumoniaimproving, continue current antibiotics Gastritis/GERD -continue current meds Hypotension - Hold Entresto and furosemide, monitor for worsening heart failure, ok to continue metoprolol Morbid obesity with BMI of 45.2 noted Otherwise as above Subjective Patient seen bedside this morning. States that she is feeling a little bit better but still having shortness of breath at rest and with exertion. Otherwise no other concerns or issues. Review of Systems Review of Systems: All systems reviewed & are unremarkable except as noted in Subjective Physical Exam Physical Exam: Constitutional: well-appearing, no acute distress HEENT: NCAT, no conjunctival injection CV: regular rhythm, no murmur appreciated, extremities well-perfused, no LE edema Resp: CTABL, no wheezes/rales/rhonchi appreciated, no increased work of breathing GI: soft, nondistended, nontender, BS normoactive MSK: no gross deformities appreciated Skin: warm, dry, no rash appreciated Neuro: alert, oriented, no focal neurologic deficit appreciated Results & Data Results & Data Vital Signs (Past 12 Hours) Vital Signs Temp Pulse Resp BP Pulse Ox O2 Del Method 07/11/23 03:03 36.6 C 89 20 111/58 L 93 Room Air 07/10/23 23:38 36.6 C 82 20 126/53 L 96 Room Air 07/10/23 19:36 Room Air
[2023-07-11 07:46] LABS: Estimated Average Glucose 123 mg/dl; Hemoglobin A1C 5.9 % (4.5-5.6)
[2023-07-11] MEDS ORDERED: PANTOprazole 40 MG TAB PO SCH (09:00)
[2023-07-11] MEDS: OXYBUTYNIN CHLORIDE XL 5 MG TABCR PO SCH (09:31)
[2023-07-11] MEDS: POLYETHYLENE (MIRALAX) 17 GM PACK PO SCH (09:32)
[2023-07-11] MEDS: PANTOprazole 40 MG in SYRINGE 0 ML IV SCH (12:17)
--- NOTE | 2023-07-11 16:32 | Gastrointestinal Consultation ---
Date of Consultation July 11, 2023 Assessment & Plan (1) Dysphagia: She has dysphagia and does need an EGD and dilatation. With her diagnosis of pneumonia I would rather her recover from that before doing sedation for EGD. I talked with her about this and we will plan this as an outpatient. History of Present Illness Reason for Consultation: dysphagia Attending Physician: Brody Wong, DO History of Present Illness 83 year old female admitted with pneumonia who has been having dysphagia for the last two to three months. She says she feels like food gets caught "assisted down". She never has to throw it up to get it out. She has not had to go to the ER for this. It has been occurring for a while but she has not talked with her primary care physician about this. She denies heartburn. She has never had an EGD Allergies Allergy/AdvReac Type Severity Reaction Status Date / Time No Known Allergies Allergy Unknown Verified 09/29/22 17:50 Home Medications Medication Instructions Recorded Confirmed Type ascorbic acid (vitamin C) 500 mg 500 mg PO QAM 08/12/18 07/10/23 History tablet (Vitamin C) atorvastatin 20 mg tablet 20 mg PO QAM 08/12/18 07/10/23 History hydroxyzine HCl 10 mg tablet 10 mg PO TID PRN ANXIETY/INSOMNIA 08/12/18 07/10/23 History metoprolol succinate 25 mg 25 mg PO QPM 08/12/18 07/10/23 History tablet,extended release 24 hr (Toprol XL) multivitamin 1 tab PO QAM 08/12/18 07/10/23 History oxybutynin chloride 15 mg 15 mg PO DAILY PRN URINARY 08/12/18 07/10/23 History tablet,extended release 24 hr DISCOMFORT acetaminophen 500 mg tablet 1,000 mg PO TID PRN Pain 11/12/18 07/10/23 History (Tylenol Extra Strength) albuterol sulfate 90 mcg/actuation 2 puffs inhalation Q6H PRN 11/18/18 07/10/23 Rx aerosol inhaler shortness of breath or wheezing #18 grams cyanocobalamin (vitamin B-12) 1,000 mcg PO QAM 11/15/20 07/10/23 History 1,000 mcg tablet (Vitamin B-12) duloxetine 30 mg capsule,delayed 30 mg PO QAM 11/15/20 07/10/23 History release (Cymbalta) duloxetine 60 mg capsule,delayed 60 mg PO QAM 11/15/20 07/10/23 History release (Cymbalta) gabapentin 300 mg capsule 300 mg PO BID 11/15/20 07/10/23 History glimepiride 1 mg tablet (Amaryl) 2 mg PO QAM 11/15/20 07/10/23 History omeprazole 40 mg capsule,delayed 40 mg PO QAM 11/15/20 07/10/23 History release sodium hyaluronate (viscosup) 10 20 mg intra-articular DIRECTED 11/15/20 07/10/23 History mg/mL(mw 2.4-3.6 million)intra-articular syringe (Euflexxa) allopurinol 100 mg tablet 100 mg PO BID 05/06/21 07/10/23 History trospium 60 mg capsule,extended 60 mg PO QAM 05/06/21 07/10/23 History release 24 hr aspirin 81 mg tablet,delayed 81 mg PO QAM 06/29/22 07/10/23 History release magnesium oxide 400 mg PO BID #14 caps 06/29/22 07/10/23 Rx sacubitril 97 mg-valsartan 103 mg 1 tab PO BID 06/29/22 07/10/23 History tablet (Entresto) colchicine 0.6 mg tablet 0.6 mg PO BID PRN gout attack #30 10/04/22 07/10/23 Rx tabs furosemide 20 mg tablet (Lasix) 20 mg PO DAILY PRN leg swelling or 10/04/22 07/10/23 Rx weight gain>2 lbs/24 hrs #14 tabs bacitracin 500 unit/gram eye 1 applic ophthalmic (eye) Q12H 04/23/23 07/10/23 Rx ointment #3.5 grams semaglutide 0.25 mg or 0.5 mg (2 0.25 mg subcut WK 07/10/23 07/10/23 History mg/3 mL) subcutaneous pen injector (Ozempic) Patient History Medical History Non-ST elevation NM (NSTEMI) Osteoarthritis Fatty liver History of right breast cancer sx/radiation OAB (overactive bladder) Diabetes mellitus type II, controlled Chronic kidney disease, stage 3a Thyroid nodule History of DVT (deep vein thrombosis) 2014 unknown cause--per pt currently no blood thinners Hyperlipidemia Gout Hypertension GERD (gastroesophageal reflux disease) Depression Renal insufficiency Pulmonary emboli (05/01/14) had dvt in 2014 unknown cause--per pt no blood thinners currently Hyperglycemia Surgical History History of dilatation and curettage History of bilateral tubal ligation History of colonoscopy History of cholecystectomy History of appendectomy S/P IVC filter later removed 05/2014 History of lumpectomy of right breast History of right breast biopsy malignant History of tooth extraction partial lower S/P thyroid biopsy benign History of bilateral cataract extraction H/O total mastectomy of right breast History of lithotripsy using laser Family History Other No family history of adverse response to anesthesia No significant family history Social History Smoking Status: Never smoker Second Hand Exposure: No; Do You Dip or Chew Tobacco: No; Hx Alcohol Use: No Hx Substance Use: No Preferred Language: Welsh Communication Ability: Effective Needleworker Required: No Beliefs That Will Affect Care: None Current Living Situation: Family Current Living Situation Comment: Patient lives with son and daughter in law. Other Information That Helps Us Care for You: No Feels Safe at Home: Yes Safety Concerns: Feels Safe At This Time Assistive Devices: Cane and Walker Review of Systems Review of Systems: All systems reviewed & are unremarkable except as noted in HPI & below Physical Exam Physical Exam: Pleasant female in no distress Constitutional: WD/WN, vitals as above Neck: trachea midline, no thyromegaly Respiratory: normal respiratory effort, lungs clear to auscultation Cardiovascular: RRR, no murmur, no edema Gastrointestinal (Abdomen): normal bowel sounds, soft, nontender, no hepatosplenomegaly Results & Data Vital Signs (Past 12 Hours) Vital Signs Temp Pulse Pulse Resp BP Pulse Ox O2 Del Method 07/11/23 15:44 36.6 C 95 H 120/63 92 Room Air 07/11/23 15:11 66 07/11/23 11:30 36.9 C 60 18 103/61 95 Room Air 07/11/23 07:56 94 H 07/11/23 07:44 Room Air 07/11/23 07:39 36.9 C 63 17 95/46 L 93 Room Air Laboratory Results 07/11/23 07/11/23 07/11/23 Range/Units 16:12 11:32 06:25 WBC (4.8-10.8) K/ul RBC (4.20-5.40) M/uL Hgb (12.0-16.0) g/dl Hct (37.0-47.0) % MCV (80.0-100.0) fL MCH (25.0-34.0) pg MCHC (32.0-36.0) g/dL RDW Std Deviation (36.4-46.3) fL RDW Coeff of Heidi (11.5-14.5) % Plt Count (130-400) K/uL MPV (9.4-12.4) fL Immature Gran % (Auto) % Neut % (Auto) % Lymph % (Auto) % [place] % (Auto) % Eos % (Auto) % Baso % (Auto) % Neut # (Auto) (1.40-6.50) K/uL Lymph # (Auto) (1.20-3.40) K/uL [place] # (Auto) (0.11-0.59) K/uL Eos # (Auto) (0.00-0.50) K/uL Baso # (Auto) (0.00-0.20) K/uL Immature Gran # (Auto) (0.01-0.20) K/uL Sodium (136-145) mmol/L Potassium (3.5-5.1) mmol/L Chloride (98-107) mmol/L Carbon Dioxide (21-32) mmol/L Anion Gap (3-11) BUN (6-23) mg/dl Creatinine (0.6-1.2) mg/dl Est Cr Clr Drug Dosing ml/min Est GFR ( Amer) ml/min Est GFR (Non-Af Amer) ml/min BUN/Creatinine Ratio (10-20) Glucose (70-99(Fasting)) mg/dl POC Glucose 75 136 H 75 (70-99) mg/dl Estimat Average Glucose mg/dl Hemoglobin A1c (4.5-5.6) % Calcium (8.6-10.3) mg/dl Magnesium (1.7-2.4) mg/dl Nasal Screen MRSA (PCR) (Negative) 07/11/23 07/10/23 07/10/23 Range/Units 06:10 Unknown 19:51 WBC 6.78 (4.8-10.8) K/ul RBC 3.50 L (4.20-5.40) M/uL Hgb 11.0 L (12.0-16.0) g/dl Hct 32.8 L (37.0-47.0) % MCV 93.7 (80.0-100.0) fL MCH 31.4 (25.0-34.0) pg MCHC 33.5 (32.0-36.0) g/dL RDW Std Deviation 45.5 (36.4-46.3) fL RDW Coeff of Heidi 13.5 (11.5-14.5) % Plt Count 158 (130-400) K/uL MPV 10.1 (9.4-12.4) fL Immature Gran % (Auto) 0.3 % Neut % (Auto) 63.1 % Lymph % (Auto) 25.7 % [place] % (Auto) 8.4 % Eos % (Auto) 2.2 % Baso % (Auto) 0.3 % Neut # (Auto) 4.28 (1.40-6.50) K/uL Lymph # (Auto) 1.74 (1.20-3.40) K/uL [place] # (Auto) 0.57 (0.11-0.59) K/uL Eos # (Auto) 0.15 (0.00-0.50) K/uL Baso # (Auto) 0.02 (0.00-0.20) K/uL Immature Gran # (Auto) 0.02 (0.01-0.20) K/uL Sodium 142 (136-145) mmol/L Potassium 3.8 (3.5-5.1) mmol/L Chloride 109 H (98-107) mmol/L Carbon Dioxide 26 (21-32) mmol/L Anion Gap 7 (3-11) BUN 24 H (6-23) mg/dl Creatinine 1.10 (0.6-1.2) mg/dl Est Cr Clr Drug Dosing 39.7 ml/min Est GFR ( Amer) 54.1 ml/min Est GFR (Non-Af Amer) 46.7 ml/min BUN/Creatinine Ratio 21.8 H (10-20) Glucose 61 L (70-99(Fasting)) mg/dl POC Glucose 102 H (70-99) mg/dl Estimat Average Glucose 123 mg/dl Hemoglobin A1c 5.9 H (4.5-5.6) % Calcium 8.4 L (8.6-10.3) mg/dl Magnesium 2.2 (1.7-2.4) mg/dl Nasal Screen MRSA (PCR) Negative (Negative) Diagnostic Findings 07/11/23 07/11/23 07/11/23 Range/Units 16:12 11:32 06:25 WBC (4.8-10.8) K/ul RBC (4.20-5.40) M/uL Hgb (12.0-16.0) g/dl Hct (37.0-47.0) % MCV (80.0-100.0) fL MCH (25.0-34.0) pg MCHC (32.0-36.0) g/dL RDW Std Deviation (36.4-46.3) fL RDW Coeff of Heidi (11.5-14.5) % Plt Count (130-400) K/uL MPV (9.4-12.4) fL Immature Gran % (Auto) % Neut % (Auto) % Lymph % (Auto) % [place] % (Auto) % Eos % (Auto) % Baso % (Auto) % Neut # (Auto) (1.40-6.50) K/uL Lymph # (Auto) (1.20-3.40) K/uL [place] # (Auto) (0.11-0.59) K/uL Eos # (Auto) (0.00-0.50) K/uL Baso # (Auto) (0.00-0.20) K/uL Immature Gran # (Auto) (0.01-0.20) K/uL Sodium (136-145) mmol/L Potassium (3.5-5.1) mmol/L Chloride (98-107) mmol/L Carbon Dioxide (21-32) mmol/L Anion Gap (3-11) BUN (6-23) mg/dl Creatinine (0.6-1.2) mg/dl Est Cr Clr Drug Dosing ml/min Est GFR ( Amer) ml/min Est GFR (Non-Af Amer) ml/min BUN/Creatinine Ratio (10-20) Glucose (70-99(Fasting)) mg/dl POC Glucose 75 136 H 75 (70-99) mg/dl Estimat Average Glucose mg/dl Hemoglobin A1c (4.5-5.6) % Calcium (8.6-10.3) mg/dl Magnesium (1.7-2.4) mg/dl Nasal Screen MRSA (PCR) (Negative) 07/11/23 07/10/23 07/10/23 Range/Units 06:10 Unknown 19:51 WBC 6.78 (4.8-10.8) K/ul RBC 3.50 L (4.20-5.40) M/uL Hgb 11.0 L (12.0-16.0) g/dl Hct 32.8 L (37.0-47.0) % MCV 93.7 (80.0-100.0) fL MCH 31.4 (25.0-34.0) pg MCHC 33.5 (32.0-36.0) g/dL RDW Std Deviation 45.5 (36.4-46.3) fL RDW Coeff of Heidi 13.5 (11.5-14.5) % Plt Count 158 (130-400) K/uL MPV 10.1 (9.4-12.4) fL Immature Gran % (Auto) 0.3 % Neut % (Auto) 63.1 % Lymph % (Auto) 25.7 % [place] % (Auto) 8.4 % Eos % (Auto) 2.2 % Baso % (Auto) 0.3 % Neut # (Auto) 4.28 (1.40-6.50) K/uL Lymph # (Auto) 1.74 (1.20-3.40) K/uL [place] # (Auto) 0.57 (0.11-0.59) K/uL Eos # (Auto) 0.15 (0.00-0.50) K/uL Baso # (Auto) 0.02 (0.00-0.20) K/uL Immature Gran # (Auto) 0.02 (0.01-0.20) K/uL Sodium 142 (136-145) mmol/L Potassium 3.8 (3.5-5.1) mmol/L Chloride 109 H (98-107) mmol/L Carbon Dioxide 26 (21-32) mmol/L Anion Gap 7 (3-11) BUN 24 H (6-23) mg/dl Creatinine 1.10 (0.6-1.2) mg/dl Est Cr Clr Drug Dosing 39.7 ml/min Est GFR ( Amer) 54.1 ml/min Est GFR (Non-Af Amer) 46.7 ml/min BUN/Creatinine Ratio 21.8 H (10-20) Glucose 61 L (70-99(Fasting)) mg/dl POC Glucose 102 H (70-99) mg/dl Estimat Average Glucose 123 mg/dl Hemoglobin A1c 5.9 H (4.5-5.6) % Calcium 8.4 L (8.6-10.3) mg/dl Magnesium 2.2 (1.7-2.4) mg/dl Nasal Screen MRSA (PCR) Negative (Negative)
--- NOTE | 2023-07-11 18:53 | Billing Data ---
Date of Service July 11, 2023 Coding Level of Care Code 09284 SUB INP/OBS CARE MIN
[2023-07-11] MEDS: POLYETHYLENE (MIRALAX) 17 GM PACK PO ONE (19:16)
[2023-07-12 06:24] LABS: Basophils # (auto) 0.03 K/uL (0.00-0.20); Basophils % (auto) 0.5 %; Eosinophils % (auto) 4.8 %; Hemoglobin 11.2 g/dl (12.0-16.0); Immature Granulocytes # (auto) 0.01 K/uL (0.01-0.20); Immature Granulocytes % (auto) 0.2 %; Lymphocytes # (auto) 1.34 K/uL (1.20-3.40); Lymphocytes % (auto) 21.2 %; Mean Corpuscular Hemoglobin 31.1 pg (25.0-34.0); Mean Corpuscular Hgb Conc 32.9 g/dL (32.0-36.0); Mean Corpuscular Volume 94.4 fL (80.0-100.0); Mean Platelet Volume 10.2 fL (9.4-12.4); Monocytes # (auto) 0.57 K/uL (0.11-0.59); Neutrophils # (auto) 4.06 K/uL (1.40-6.50); Neutrophils % (auto) 64.3 %; Platelet Count 155 K/uL (130-400); RDW Coefficient of Variation 13.6 % (11.5-14.5); RDW Standard Deviation 46.6 fL (36.4-46.3); White Blood Count 6.31 K/ul (4.8-10.8)
[2023-07-12 06:44] LABS: BUN Creatinine Ratio 13.5 (10-20); Calcium 8.8 mg/dl (8.6-10.3); Creatinine Clr Calc Pharmacy 35.2 ml/min; Est GFR (African American) 45.9 ml/min; Est GFR (Non-African American) 39.6 ml/min; Potassium 3.9 mmol/L (3.5-5.1)
--- NOTE | 2023-07-12 08:08 | Hospitalist Progress Note ---
Date of Service July 12, 2023 Assessment & Plan (1) Pneumonia: Plan: Worsening SOB x 1 week Leukocytosis at 11.03 with neutrophil predominance; afebrile; nonhypoxic A/P CT revealed airspace opacities consistent with LLL pneumonia Rocephin and azithromycin started in the ED CURB-65 Score: 4 points (High risk) Was on Unasyn and doxycycline, switched to Augmentin p.o. twice daily. Supplemental oxygen as needed (2) Hypotension: Plan: Patient became hypotensive at 80/49 in the ED Hold Entresto, metoprolol, hydroxyzine, Lasix for now Plasma-Lyte 100mL/hr x 1 overnight Stable at this time. (3) Sepsis: Plan: Tachycardia/tachypnea with a pulmonary source; hypotensive Blood cultures negative to date. Lactate WNL PCT WNL Resolved. (4) GERD (gastroesophageal reflux disease): Plan: Worsening heartburn x 2 weeks Protonix 40 mg IV QAM Maalox 15 mL p.o. q4h PRN Acetaminophen as needed for throat pain (5) Dysphagia: Plan: Aspiration precautions Consult gastroenterology Plans to do outpatient EGD after resolution of pneumonia per GI consultation. Barium swallow showed mild to moderate esophageal dysmotility. Recommend eating EGD to evaluate further. Start regular diet at this time. (6) Constipation: Plan: Patient reports that her last bowel movement was 2 weeks ago May be related to Ozempic. Consider changing medications. 85 mg of MiraLAX added in the evening. Senna HS (7) History of pulmonary embolus (PE): Plan: Several years ago; patient is unsure if this was provoked or unprovoked Not currently on blood thinners; discontinued after 6 months Chest CTA revealed no evidence of pulmonary embolism, but reconfirmed potential PNA or aspiration (8) Diabetes mellitus type II, controlled: Plan: Last A1c at 7.1% on 10/01/2022 Glucose 139 on admission Hold Ozempic, glimepiride Lantus 5 u BID while inpatient SSI; with target BSG range 110-140mg/dL, CF 40, carb ratio 14 Advance to T2DM diet BSG q6h while NPO, then ACHS Adjust regimen as needed A1c of 5.9. (9) Chronic kidney disease, stage 3b: Plan: BUN 30, creatinine 1.30 (around baseline), EGFR 38.2 on arrival Avoid nephrotoxic agents when possible (10) Nausea: Plan: Avoid Zofran given prolonged QT; QTc 566, and prolonged on prior EKGs (11) Hypomagnesemia: Plan: Mild; hypomagnesemia at 1.6 Magnesium sulfate 1 g x 2 Recheck a.m. mag (12) Prolonged QT interval: Plan Disposition: Admit to PCU telemetry, if able to tolerate p.o. medication and regular diet may be ready for discharge in the a.m. Full code Regular diet VTE PPx: Heparin 7500u SQ q12h Admission and Anticipated Discharge Date Admission Date: July 10, 2023 Supervising Physician Co-Signing Physician Notes I personally examined the patient and verified all keys points of history and exam, discussed case, and agree with decision making with Dr Werner some pain in neck/throat. ate ~2hrs prior. some burning too. burping/belching for quite a while. 2 medium BMs. ongoing GANDHI but breathing overall ok at rest. Vitals noted, in general she is awake and alert pleasant no distress. HEENT normocephalic atraumatic mucous membranes moist. Breathing unlabored no accessory muscle use good effort. Skin shows no rashes no pallor or icterus. Neuro without focal deficits. Esophageal dysphagia -GI for EGD after recovers. barium swallow noted, should be able to do well enough to eat prior to procedure - but will want to ensure this/follow how she does eating prior to d/c to ensure we don't have to move procedure up Constipation -ongoing larger dosing miralax for now to get bowels moving; will need chronic bowel regimen as well. Pneumoniaimproving, finish course of abx Gastritis/GERD -continue current meds Hypotension - Hold Entresto and furosemide, monitor for worsening heart failure, ok to continue metoprolol Morbid obesity with BMI of 45.2 noted Otherwise as above Physical Exam Physical Exam: Constitutional: well-appearing, no acute distress HEENT: NCAT, no conjunctival injection CV: regular rhythm, no murmur appreciated, extremities well-perfused, no LE edema Resp: CTABL, no wheezes/rales/rhonchi appreciated, no increased work of breathing GI: soft, nondistended, nontender, BS normoactive MSK: no gross deformities appreciated Skin: warm, dry, no rash appreciated Neuro: alert, oriented, no focal neurologic deficit appreciated Results & Data Results & Data Vital Signs (Past 12 Hours) Vital Signs Temp Pulse Pulse Resp BP Pulse Ox O2 Del Method 07/12/23 03:00 36.5 C 80 21 104/49 L 95 Room Air 07/11/23 23:00 36.7 C 95 H 19 104/62 96 Room Air 07/11/23 21:55 92 H
[2023-07-12] MEDS: POLYETHYLENE (MIRALAX) 17 GM PACK PO ONE ×2 (08:25→18:50)
[2023-07-12] MEDS: POLYETHYLENE (MIRALAX) 17 GM PACK PO SCH (08:25)
--- NOTE | 2023-07-12 10:53 | Fluoroscopy Report ---
FL barium swallow CLINICAL HISTORY: trouble with swallowing COMPARISON STUDY: Chest CTA 07/10/2023. FLUOROSCOPY TIME: 1 minute. FLUOROSCOPY IMAGES: 40 Ka,r: 54.3 mGy FINDINGS: The patient swallowed barium without difficulty. The contours of the hypopharynx are within normal limits. The esophagus is normal in course and caliber. There is mild to moderate esophageal d ysmotility. No hiatus hernia. No gastroesophageal reflux demonstrated during the examination. The bar ium tablet passed without difficulty IMPRESSION: 1. Mild to moderate esophageal dysmotility. 2. No gastroesophageal reflux demonstrated during the examination. ACT 112: Negative or not required by law. Electronically signed by: Manav Milan M.D. 07/12/2023 10:52 AM
--- NOTE | 2023-07-12 13:14 | Gastroenterology Progress Note ---
Date of Service July 12, 2023 Assessment & Plan (1) Dysphagia: Plan: I see she is having a barium swallow tomorrow. I discussed getting together as an outpatient for procedure after she recovers. Admission and Anticipated Discharge Date Admission Date: July 10, 2023 Subjective Looks and feels well. I spoke to a SCREEN DOOR MAKER who told me that it is not safe to sedate someone with acute pneumonia and need to wait until recovered from pneumonia Physical Exam Physical Exam: She looks well Constitutional: WD/WN, vitals as above Results & Data Vital Signs (Past 12 Hours) Vital Signs Temp Pulse Pulse Resp BP Pulse Ox O2 Del Method 07/12/23 11:51 36.5 C 77 18 110/71 93 Room Air 07/12/23 09:25 Room Air 07/12/23 08:17 36.8 C 91 H 17 99/56 L 95 Room Air 07/12/23 08:00 98 H 07/12/23 03:00 36.5 C 80 21 104/49 L 95 Room Air
--- NOTE | 2023-07-12 16:10 | Billing Data ---
Date of Service July 12, 2023 Coding Level of Care Code 95241 SUB INP/OBS CARE MIN
[2023-07-12] MEDS: AMOXICILLIN/CLAVULANATE 875 MG TAB PO SCH (18:30)
--- NOTE | 2023-07-13 05:26 | Electrocardiogram Report ---
Test Reason : Blood Pressure : / mmHG Vent. Rate : 093 BPM Atrial Rate : 093 BPM P-R Int : 144 ms QRS Dur : 136 ms QT Int : 456 ms P-R-T Axes : 048 -46 040 degrees QTc Int : 566 ms Poor data quality, interpretation may be adversely affected Sinus rhythm Right bundle branch block Left anterior fascicular block Bifascicular block Minimal voltage criteria for LVH, may be normal variant Abnormal ECG When compared with ECG of 30-SEP-2022 19:56, Premature ventricular complexes are no longer Present Premature atrial complexes are no longer Present Confirmed by Chris Ennis ([id number]) on 07/13/2023 5:26:02 AM Referred By: REFERRED SELF Confirmed By:Chris Ennis
[2023-07-13 06:28] LABS: Basophils # (auto) 0.03 K/uL (0.00-0.20); Basophils % (auto) 0.4 %; Eosinophils # (auto) 0.34 K/uL (0.00-0.50); Eosinophils % (auto) 5.1 %; Hematocrit (blood only) 33.5 % (37.0-47.0); Hemoglobin 11.1 g/dl (12.0-16.0); Immature Granulocytes # (auto) 0.02 K/uL (0.01-0.20); Immature Granulocytes % (auto) 0.3 %; Lymphocytes # (auto) 1.51 K/uL (1.20-3.40); Lymphocytes % (auto) 22.6 %; Mean Corpuscular Hemoglobin 31.5 pg (25.0-34.0); Mean Corpuscular Hgb Conc 33.1 g/dL (32.0-36.0); Mean Corpuscular Volume 95.2 fL (80.0-100.0); Mean Platelet Volume 10.3 fL (9.4-12.4); Monocytes # (auto) 0.61 K/uL (0.11-0.59); Monocytes % (auto) 9.1 %; Neutrophils # (auto) 4.16 K/uL (1.40-6.50); Neutrophils % (auto) 62.5 %; Platelet Count 150 K/uL (130-400); RDW Coefficient of Variation 13.6 % (11.5-14.5); RDW Standard Deviation 47.2 fL (36.4-46.3); Red Blood Count 3.52 M/uL (4.20-5.40); White Blood Count 6.67 K/ul (4.8-10.8)
[2023-07-13 06:41] LABS: BUN Creatinine Ratio 13.2 (10-20); Calcium 9.2 mg/dl (8.6-10.3); Creatinine Clr Calc Pharmacy 27.8 ml/min; Est GFR (African American) 34.7 ml/min; Est GFR (Non-African American) 29.9 ml/min; Potassium 4.5 mmol/L (3.5-5.1)
--- NOTE | 2023-07-13 07:19 | Discharge Summary ---
Date of Service July 13, 2023 Admission HPI Per Admitting Provider Mikaela is an 83-year-old female with PMH of T2DM, DVT, PE, GERD, HTN, HLD, depression, septic shock, and gouty arthritis. She presented for worsening heartburn/reflux x 2 weeks, as well as SOB both at rest and with exertion over the last week. Patient describes her heartburn as constant, burning pain from her throat to stomach. She has been having difficulty with swallowing, and reports that she ate a banana last night, and it felt like it was lodged in her throat. She rates the throat pain 10/10 at its worst. 5/10 at present; substernal. No radiation down the left arm, or into the left shoulder or jaw. She also endorses SOB both at rest and with exertion, which is new. Not worse when she is lying flat on her back. Denies pleuritic CP, hemoptysis, or chest pain rating to the back. She has not been around anybody sick recently. She does not use supplemental oxygen at home. No recent changes in diet; she has not normally eat salty foods. She denies any recent falls, injuries, or trauma to the chest wall, head, or neck. Patient did not take her regular morning medications today. The only recent change in medication was that she was placed on Ozempic 1 month ago; she is unsure if there have been any side effects such as increased heartburn. She reports that she has been taking her medications as prescribed. She has been taking Tums for her heartburn (at around 6 tablets daily), which seems to help. She has a cane and walker at home, but does not use them for ambulation. Patient lives with her son. She denies smoking, tobacco use, and alcohol use. Patient has a known history of DVT/PE around 3 years ago; she is unsure if this was provoked or unprovoked; she is not currently on blood thinners, she was taken off of these for 6 months after the event. Patient also denies constipation; she reports that her last BM was around 2 weeks ago, and that she been having significant distention in her stomach. Requesting a prescription for was given for bowel prep. Patient is hypotensive at 89/40 at time of admission; SpO2 95% on RA. ED course: Rocephin 2000 mg IV Azithromycin 500 mg IV Pepcid 20 mg IV Maalox 30 mL p.o. ROS: Patient endorses intermittent fevers (not taking temp at home), chills, nightsweats, body aches, heart burn, difficulty swallowing, dizziness with walking (like room is spinning), DAVE, dry cough, constipation, abdominal pain, and some leg swelling. Patient denies left shoulder/jaw pain, pleuritic CP, hemoptysis, vomiting, diarrhea, changes in bowel/urinary habits, or numbness/tingling/pain in legs. Admission Exam Per Admitting Provider General: Moderate physical distress secondary to throat pain; non-toxic appearing; well-nourished; cooperative; SpO2 95% on RA HEENT: normocephalic, atraumatic; no scleral icterus; PERRLA; dry mucus membrane; vision and hearing grossly intact Neck: supple; negative for JVD; no lymphadenopathy; trachea midline; patient is shrug shoulders against resistance without pain Skin: warm, dry without signs of tenting; no cyanosis; no rashes, bruising, lesions, or erythema noted CV: Substernal chest wall TTP; RRR; S1/S2 normal; no murmurs/rubs/gallops; pulses intact and symmetric at radial, DP, and PT Lungs: no acute respiratory distress; symmetrical chest wall expansion; clear breath sounds across all lung garcia w/o adventitious sounds; no wheezing ABD: Soft; RUQ TTP; BS present; no rebound/guarding; moderate distention secondary to body habitus; MSK: no tics or fasciculations; no edema noted in the LEs b/l, but notable eryt viet on the left lower extremity Neuro: A&Ox3; normal mood and affect; fluent speech; no focal deficits; sensation grossly intact in the LEs b/l Principal Diagnosis Pneumonia, Esophageal Dysfunction Discharge Exam Constitutional WD/WN, vitals as above Eyes PERRL, conjunctivae normal, anicteric sclerae ENMT external ear and nose normal, oropharynx normal Neck trachea midline, no thyromegaly Respiratory normal respiratory effort, lungs clear to auscultation Cardiovascular RRR, no murmur, no edema Gastrointestinal (Abdomen) Inspection/Auscultation: abdomen normal to inspection Percussion/Palpation: + abdomen tender (mild, RLQ) and abdomen soft Skin no rashes, warm and dry Discharge Data Allergies Allergy/AdvReac Type Severity Reaction Status Date / Time No Known Allergies Allergy Unknown Verified 09/29/22 17:50 Consultations 07/10/23 14:32 ED Decision to Admit Stat 07/11/23 03:06 Consult Gastroenterology Routine Ordered Studies 07/10/23 11:32 CT abd pelvis IV con only Stat 07/10/23 13:48 CT for pulmonary embolism PE [CT angio chest PE protocol] Stat 07/12/23 10:30 FL barium swallow Urgent Hospital Course (1) Pneumonia: Worsening SOB x 1 week Leukocytosis at 11.03 with neutrophil predominance; afebrile; nonhypoxic A/P CT revealed airspace opacities consistent with LLL pneumonia CURB-65 Score: 4 points (High risk) Rocephin and azithromycin started in the ED, switched to Unasyn and doxycycline in hospital, switched to Augmentin 500mg p.o. twice daily 4 days in outpatient (renal dosing) (2) Hypotension: Patient became hypotensive at 80/49 in the ED Hold Entresto, metoprolol, hydroxyzine, Lasix for now Stable at this time, may resume medications in outpatient setting (3) Sepsis: Tachycardia/tachypnea with a pulmonary source; hypotensive Blood cultures negative to date. Lactate WNL PCT WNL Resolved. (4) GERD (gastroesophageal reflux disease): Worsening heartburn x 2 weeks Protonix 40 mg IV QAM, Maalox 15 mL p.o. q4h PRN while in hospital Acetaminophen as needed for throat pain Patient may resume omeprazole in outpatient setting Small concern her new Ozempic may be worsening symptoms, recommend against increasing dose at this time. (5) Dysphagia: Aspiration precautions Consult gastroenterology Plans to do outpatient EGD after resolution of pneumonia per GI consultation. Barium swallow showed mild to moderate esophageal dysmotility. Recommend eating EGD to evaluate further. Start regular diet at this time, tolerating well (6) Constipation: Patient reports that her last bowel movement was 2 weeks ago May be related to Ozempic. Consider changing medications. 85 mg of MiraLAX added in the evening., patient to continue miralax 34mg for next few days, then continue miralax 1 capful daily to prevent further constipation. Carlos HS (7) History of pulmonary embolus (PE): Several years ago; patient is unsure if this was provoked or unprovoked Not currently on blood thinners; discontinued after 6 months Chest CTA revealed no evidence of pulmonary embolism, but reconfirmed potential PNA or aspiration (8) Diabetes mellitus type II, controlled: Last A1c at 7.1% on 10/01/2022 home medications held in hospital, placed on SSI may resume home meds in outpatient (9) Chronic kidney disease, stage 3b: BUN 30, creatinine 1.30 (around baseline), EGFR 38.2 on arrival Avoid nephrotoxic agents when possible (10) Nausea: Avoid Zofran given prolonged QT; QTc 566, and prolonged on prior EKGs (11) Prolonged QT interval: Total Time Total Time Spent Total Time Spent (In Minutes): <30 Discharge Plan Discharge Items Patient Disposition: Home - Self-Care Reason For Visit: SOB, HEARTBURN Discharge Diagnosis: Esophageal dysmotility, Pneumonia Activity: Resume your previous activity Non-emergency contact: Primary Care Provider Call non-emergency contact if: you have any medication questions and your symptoms worsen Follow-up/Referrals: Josephine Turner CRNP [Primary Care Provider] - 07/18/23 12:45 pm (Appointment schedued for July 17 at 12:45 with AMBROCIO Haque.) Te Garcia Jr, MD [Physician] - (needs EGD) Diet: Regular Addtl Attending Provider Instructions: You were admitted to the hospital for pneumonia and difficulty swallowing. You were treated with antibiotics for the pneumonia, and your symptoms improved. You had a swallow study done and were seen by gastroenterology for your difficulty swallowing, and were found to have some esophageal dysfunction. Please follow up with gastroenterology upon discharge to have your EGD done. You were constipated on admission. Please continue taking Miralax 2 capfuls for the next 3-4 days, then decrease to 1 capful daily to prevent chronic constipation. Given your reflux symptoms, would recommend not increasing your ozempic dose prior to evaluation with EGD. A discharge summary will be sent to your primary care physician to ensure continuity of care. Please bring this discharge summary with you to your next office appointment so that your provider can review it at that time. Follow-up appointments: Make a follow-up appointment with your PCP within the next week. It is very important that you follow up with them shortly after discharge from the hospital. We have requested a follow-up appointment with gastroenterology. Please call their office if you do not hear from them. Keep all your follow-up appointments as already scheduled. If you cannot make an appointment, notify your provider. Medications: Your medication list has been reviewed and reconciled upon discharge to ensure accuracy and continuity of care. An updated list of all your medications is included with your hospital discharge paperwork. Please review this list closely, and make note of any changes. * We sent a new medication called Augmentin to your pharmacy. Take Augmentin 875mg one tablet twice a day for 3 days Take your medications as instructed; do not skip a dose of your medicines. Make sure all of your doctors know every medicine you are taking (including bgyw-kle-jabisod medicines, vitamins, and supplements). Call your primary care provider before taking any new medicines (including [id number] medicines, vitamins, and supplements), because some of these may interact with your current medications, or may make your symptoms worse. Tell your primary care provider if you cannot afford your medications. CONTACT YOUR PRIMARY CARE PROVIDER if you experience any of the following: Increased heart burn, difficulty swallowing Fever, chills Difficulty following your treatment plan, or difficulty taking medications CALL 911 OR GO TO THE EMERGENCY DEPARTMENT if you experience any of the following: Sudden, severe abdominal pain or nausea/vomiting Severe chest pain, or chest pain that radiates (moves) to your jaw or arm Sudden, severe shortness of breath or difficulty breathing Thank you for allowing us to participate in your care. Pending Studies at Discharge: No Stand-Alone Forms: My [facility], Smoking Cessation Medications and DC Order Prescriptions: New amoxicillin-pot clavulanate [Augmentin] 500-125 mg tablet 1 tab PO BID 3 Days Qty: 6 0RF Continued omeprazole 40 mg capsule,delayed release(DR/EC) 40 mg PO QAM gabapentin 300 mg capsule 300 mg PO BID Euflexxa 10 mg/mL(mw 2.4 -3.6 million) syringe 20 mg intra-articular DIRECTED Rx Instructions: EVERY 3 MONTHS INJECTED INTO KNEE duloxetine [Cymbalta] 60 mg capsule,delayed release(DR/EC) 60 mg PO QAM Rx Instructions: TOTAL DOSE 90 MG--TAKES WITH 30 MG CAP. duloxetine [Cymbalta] 30 mg capsule,delayed release(DR/EC) 30 mg PO QAM Rx Instructions: TOTAL DOSE 90 MG--TAKES WITH 60 MG CAP. glimepiride [Amaryl] 1 mg tablet 2 mg PO QAM bacitracin 500 unit/gram ointment 1 applic ophthalmic (eye) Q12H Qty: 3.5 0RF Rx Instructions: apply to right upper eyelid multivitamin Tablet 1 tab PO QAM oxybutynin chloride 15 mg Tablet Extended Release 24hr 15 mg PO DAILY PRN (Reason: URINARY DISCOMFORT) Rx Instructions: MED NOT LISTED ON EXT MED HX. NOT SURE STILL TAKING. atorvastatin 20 mg Tablet 20 mg PO QAM ascorbic acid (vitamin C) [Vitamin C] 500 mg Tablet 500 mg PO QAM metoprolol succinate [Toprol XL] 25 mg Tablet Extended Release 24 Hr 25 mg PO QPM hydroxyzine HCl 10 mg Tablet 10 mg PO TID PRN (Reason: ANXIETY/INSOMNIA) cyanocobalamin (vitamin B-12) [Vitamin B-12] 1,000 mcg tablet 1,000 mcg PO QAM acetaminophen [Tylenol Extra Strength] 500 mg Tablet 1,000 mg PO TID PRN (Reason: Pain) albuterol sulfate 90 mcg/actuation HFA aerosol inhaler 2 puffs INH Q6H PRN (Reason: shortness of breath or wheezing) Qty: 18 0RF aspirin 81 mg Tablet,Delayed Release (Dr/Ec) 81 mg PO QAM Entresto 97-103 mg tablet 1 tab PO BID Hold Instructions: Resume on 10/18/22. Please discuss with your Library Science Professor about when to restart your Entresto. magnesium oxide 400 mg magnesium capsule 400 mg PO BID Qty: 14 0RF allopurinol 100 mg Tablet 100 mg PO BID trospium 60 mg Capsule,Extended Release 24hr 60 mg PO QAM furosemide [Lasix] 20 mg tablet 20 mg PO DAILY PRN (Reason: leg swelling or weight gain>2 lbs/24 hrs) Qty: 14 0RF colchicine 0.6 mg tablet 0.6 mg PO BID PRN (Reason: gout attack) Qty: 30 0RF Ozempic 0.25 mg or 0.5 mg (2 mg/3 mL) pen injector 0.25 mg SUBCUT WK Discharge Orders: Discharge Order (Routine); Ordered 07/13/23 Ordered By: Cesilia Stuart/Other Patient Handouts: Hypoglycemia (Low Blood Sugar), Managing Type 2 Diabetes Admission Data Admit Date/Time: 07/10/23 13:52 Attending Provider: Brody Wong Admit Provider: Maged Hilario Primary Care Provider: Josephine uTrner Other Providers: Maged Hilario; Te Garcia Jr Other Interventions: Discharge Summary Assessment (RN) Last Done: 07/13/23 12:10 Supervising Physician Co-Signing Physician Notes I personally examined the patient and verified all keys points of history and exam, discussed case, and agree with decision making with Dr Bang Feeling up to going home. Still has some dyspnea on exertion and discomfort in throat after eatingbut is tolerable, feels like she will be able to be okay at home. Discussed plan. Vitals noted, in general she is awake and alert pleasant no distress. HEENT normocephalic atraumatic mucous membranes moist. Breathing unlabored no accessory muscle use good effort. Skin shows no rashes no pallor or icterus. Neuro without focal deficits. Esophageal dysphagia -GI for EGD after recovers. barium swallow noted, should be able to do well enough to eat prior to procedure -especially given that she has been eating and drinking okay here Constipation -ongoing larger dosing miralax for now to get bowels moving; will need chronic bowel regimen as well. Pneumoniaimproving, finish course of abx p.o. Gastritis/GERD -continue current meds Hypotension -resolved Morbid obesity with BMI of 45.2 noted Otherwise as above Resident Activity Tracking Resident Involvement: Resident Care Provided Care Provided: Adult Hospital Medicine
--- NOTE | 2023-07-13 16:27 | Billing Data ---
Date of Service July 13, 2023 Coding Level of Care Code 12782 IN/OBS DISCH 30 MIN/LESS
--- NOTE | 2023-07-13 16:28 | Billing Data ---
Date of Service July 13, 2023 Coding Level of Care Code 84849 IN/OBS DISCH 30 MIN/LESS
[2023-07-13] MEDS: AMOXICILLIN/CLAVULANATE 500 MG TAB PO SCH (16:49)
== END 2023-07-13 17:50 | disposition home or self-care (01) | DRG 871 ==
LOC: ED 09:49 → SUATTDRO 13:52 → 2E 13:52